=== PATIENT | male | born 1950 | race Caucasian/White ===

== ENCOUNTER 2016-05-14 20:15 | Inpatient (IN) | payer OTHER ==
[~2016-05-14] VITALS: Ht 177.8 cm; Wt 75.0 kg
[~2016-05-14 20:15] MED LIST: ACID1TAB14 GTB; AMIO200T46 PO; BISA10SU58 PR; CAPT12.52 GTB; DIGO125T GTB; FURO40TA4 GTB; LEVE500S9 PO; LORA1TAB GTB; MAGN400O4 PO; MULT9LIQ4 G-TUBE; OMEP40CA6 GTB; UDCOL GTB; ZINC220C5 GTB
[2016-05-14] MEDS ORDERED: CEFEPIME 2GM/50 ML (PMX) 50 ML IVPB STA (20:45)
[2016-05-14] MEDS ORDERED: LEVOFLOXACIN 750MG/D5W (PMX) 150 ML IVPB STA (20:45)
[2016-05-14] MEDS ORDERED: VANCOMYCIN 1 GM (PMX) 250 ML IVPB STA (20:45)
[2016-05-14] MEDS ORDERED: SODIUM CHLORIDE 0.9% 1L BAG IV* STA (20:45)
--- NOTE | 2016-05-14 20:57 | ERA ---
ER Documentation Chief Complaint Date/Time DATE: 05/14/16 TIME: 20:53 Chief Complaint HPI History is obtained entirely from transferring paramedics and review of previous medical records as well as skilled nurse facility records. 66-year-old female with anoxic brain injury, quadriplegia, seizure disorder, persistent vegetative state, vent dependent respiratory failure, hypertension, hyperlipidemia, atrial fibrillation, anemia, history of sepsis, congestive heart failure with ejection fraction 20% diagnosed with with right lower lobe pneumonia 05/06/16 has been on imipenem sent to the ED from [facility] for evaluation of fever of 101. Patient treated with Tylenol referred to the ED for further evaluation. No other history is available. ROS All systems reviewed and are negative except as per history of present illness. Medications Home Meds Reported Medications Amino Acids/Protein Hydrolys (PRO-STAT LIQUID) 30 Ml Liquid.pkt, 30 ML GTB BID 05/14/16 Multivit &Minerals/Ferrous Fum (MULTIVITAMIN LIQUID) 9 Mg/15 Ml Liquid, 9 MG GTB DAILY 05/14/16 Amiodarone Hcl* (Amiodarone Hcl*) 200 Mg Tablet, 200 MG GTB BID, #60 TAB HOLD IF HR<60 05/14/16 Lorazepam* (Ativan*) 0.5 Mg Tablet, 0.5 MG GTB Q4 Y for PRN, #60 TAB 05/14/16 Acetaminophen* (Acetaminophen* Susp) 325 Mg/10.15 Ml Solution, 325 MG GTB Q4H Y for PAIN OR TEMP ABOVE 38C, ML 05/14/16 Tramadol HCl (Tramadol HCl) 50 Mg Tablet, 50 MG GTB Q12, #60 TAB 05/14/16 Zinc Sulfate* (Zinc Sulfate*) 220 Mg Tablet, 220 MG GTB DAILY, TAB 05/14/16 Rivaroxaban* (Xarelto*) 20 Mg Tablet, 20 MG GTB WITH DINNER, TAB 05/14/16 Vit C-Ascorbate Ca-Ascorb Sod (Vitamin C) 500 Mg/15 Ml Liquid, 500 MG GTB DAILY , ML 05/14/16 Omeprazole* (Omeprazole*) 20 Mg Capsule.dr, 40 MG GTB BID, #30 CAP 05/14/16 Potassium Chloride* (Potassium Chloride*) 20 Meq/15 Ml Liquid, 20 MEQ GTB BID, ML 05/14/16 Atorvastatin* (Atorvastatin*) 40 Mg Tablet, 40 MG GTB QHS, #30 TAB 05/14/16 Digoxin* (Digitek*) 125 Mcg Tablet, 0.125 MG GTB DAILY, TAB HOLD IF HR<60 05/14/16 Levetiracetam* (Keppra*) 500 Mg/5 Ml Solution, 1500 MG GTB Q12, BOTTLE 05/14/16 Aspirin* (Aspirin* Chew) 81 Mg Tab.chew, 81 MG GTB DAILY, TAB.CHEW 05/14/16 Lacosamide (Vimpat) 200 Mg Tablet, 200 MG GTB Q12H, TAB 05/14/16 Clonazepam* (Klonopin*) 1 Mg Tablet, 1 MG GTB Q8H Y for ANXIETY, TAB 05/14/16 Discontinued Reported Medications Acetaminophen* (Acetaminophen* Susp) 325 Mg/10.15 Ml Solution, 650 MG PO Q4H Y for MILD, ML 05/14/16 Omeprazole* (Omeprazole*) 40 Mg Capsule.dr, 40 MG GTB DAILY, #30 CAP 11/08/15 Furosemide* (Furosemide*) 40 Mg Tablet, 40 MG GTB DAILY, TAB HOLD SBP<110 11/08/15 Zinc Sulfate* (Zinc Sulfate*) 220 Mg Cap, 220 MG GTB BID, CAP 11/08/15 Acidophilus-Bulgaricus* (Floranex*) 1 Tab.chew Tab.chew, 1 TAB GTB DAILY, TAB.CHEW 11/08/15 Levetiracetam* (Keppra*) 500 Mg/5 Ml Solution, 1000 MG PO BID, BOTTLE 11/08/15 Magnesium Hydroxide* (Milk Of Magnesia*) 400 Mg/5 Ml Oral.susp, 30 ML PO Q24H Y for CONSTIPATION, ML 11/08/15 Amiodarone Hcl* (Cordarone*) 200 Mg Tab, 200 MG PO DAILY, #30 TAB HOLD AP <60 11/08/15 Captopril* (Captopril*) 12.5 Mg Tablet, 6.25 MG GTB BID, #90 TAB 11/08/15 Lorazepam* (Lorazepam*) 1 Mg Tablet, 1 MG GTB Q6 Y for ANXIETY, #60 TAB 09/30/15 Digoxin* (Digoxin*) 0.125 Mg Tab, 0.125 MG GTB DAILY, #30 TAB HOLD AP<60 09/30/15 Multivit &Minerals/Ferrous Fum (MULTIVITAMIN LIQUID) 9 Mg/15 Ml Liquid, 5 ML G- TUBE DAILY 07/07/15 Bisacodyl* (Dulcolax*) 10 Mg/Supp.rect Supp.rect, 10 MG OH Q72 HOURS Y for CONSTIPATION, SUPP.RECT 07/07/15 Docusate Sodium* (Colace* Liq) 50 Mg/5 Ml Liquid, 100 MG GTB QHS, EA 07/07/15 Allergies Allergies: Coded Allergies: No Known Allergy (Unverified , 05/14/16) PMhx/Soc Reviewed in chart. As per HPI. History of Surgery: Yes (Gtube; tracheostomy) Hx Neurological Disorder: Yes (anoxic encephalopathy) Hx Respiratory Disorders: Yes (Ventilator dependent; chronic respiratory failure) Hx Cardiac Disorders: Yes (atrial fib with RVR; s/p cardiac arrest; CHF) Hx Psychiatric Problems: No Hx Miscellaneous Medical Probl: Yes (seizure disorder, anemia) Hx Alcohol Use: No Hx Substance Use: No Hx Tobacco Use: No FmHx Unknown. Not relevant to presenting complaint. Physical Exam Vitals Vital Signs Date Time Temp Pulse Resp B/P Pulse Ox O2 Delivery O2 Flow Rate FiO2 05/14/16 22:11 97.7 81 18 109/75 100 Mechanical Ventilator 05/14/16 20:35 79 18 100 40 05/14/16 20:15 98.5 80 20 116/71 100 Physical Exam Const: Chronically ill-appearing in no acute distress. Head: Atraumatic Eyes: Normal Conjunctiva ENT: Normal External Ears, Nose and Mouth. Neck: Mucous membranes dry. Tracheostomy site without erythema, induration or drainage. Resp: Decreased breath sounds bilaterally especially at the bases with scattered crackles but no wheezes. Cardio: Regular rate and rhythm, no murmurs Abd: Soft, non tender, non distended. Normal bowel sounds. PEG site without erythema, induration or drainage. Skin: No petechiae or rashes Back: No midline or flank tenderness Ext: No cyanosis, or edema. Contracted Neur: Awake, eyes open but nonverbal and unresponsive. Physical examination is truncated due to the constraints imposed by the patient' s clinical condition and cognitive impairment Result Diagram: 05/15/16 0550 05/15/16 0550 Results 24 hrs Laboratory Tests Test 05/14/16 21:00 05/14/16 21:48 Activated Partial Thromboplast Time 38.4Sec Alanine Aminotransferase (ALT/SGPT) 28IU/L Albumin 3.6g/dl Albumin/Globulin Ratio 0.78 Alkaline Phosphatase 156IU/L Anion Gap 18 Aspartate Amino Transf (AST/SGOT) 28IU/L Basophils # 0.010^3/ul Basophils % 0.3% Blood Morphology Comment Blood Urea Nitrogen 22mg/dl Calcium Level 8.9mg/dl Carbon Dioxide Level 27mmol/L Chloride Level 102mmol/L Creatinine 0.31mg/dl Digoxin Level 1.0ng/ml Direct Bilirubin 0.00mg/dl Eosinophils # 0.110^3/ul Eosinophils % 1.0% Globulin 4.60g/dl Glucose Level 113mg/dl Hematocrit 34.1% Hemoglobin 11.0g/dl INR International Normalized Ratio 1.83 Indirect Bilirubin 1.0mg/dl Lactic Acid Level 1.6mmol/L Lymphocytes # 0.810^3/ul Lymphocytes % 9.2% Mean Corpuscular Hemoglobin 26.8pg Mean Corpuscular Hemoglobin Concent 32.1g/dl Mean Corpuscular Volume 83.3fl Mean Platelet Volume 7.5fl Monocytes # 0.610^3/ul Monocytes % 6.5% Neutrophils # 7.310^3/ul Neutrophils % 83.0% Nucleated Red Blood Cells # 0.010^3/ul Nucleated Red Blood Cells % 0.0/100WBC Platelet Count 81387^3/UL Potassium Level 3.9mmol/L Prothrombin Time 21.3Sec Prothrombin Time Ratio 1.7 Red Blood Count 4.1010^6/ul Red Cell Distribution Width 20.2% Sodium Level 143mmol/L Total Bilirubin 1.0mg/dl Total Protein 8.2g/dl Troponin I 0.110ng/ml White Blood Count 8.910^3/ul Arterial Blood HCO3 27.5mmol/L Arterial Blood Base Excess 4.2mmol/L Arterial Blood Oxygen Saturation 99.1mmHG Shiva Test ACCEPTAB Arterial Blood Gas Puncture Site Right Radial Arterial Blood Carboxyhemoglobin 0.2% Arterial Blood Date Drawn 05/14/2016 10:45:44 PM Arterial Blood Methemoglobin 0.3% Arterial Blood pCO2 (Temp correct) 36.2mmhg Arterial Blood pH (Temp corrected) 7.498 Arterial Blood pO2 (Temp corrected) 166.3mmHG Blood Gas A-a O2 Differential 77.3mmHg Blood Gas Actual Respiration Rate 19 Blood Gas Inspiratory Pressure 22.0 Blood Gas Low PEEP Setting 5.0cmH2O Blood Gas Modality VENT - AC Blood Gas Notified Time 05/14/2016 10:57:20 PM Blood Gas Notified Whom AA Blood Gas Respiration Rate 18.0 Blood Gas Specimen Source Blood arterial Blood Gas Temperature 37.0C Blood Gas Tidal Volume 550.0mL FiO2 40.0% Oxyhemoglobin Percent 98.6% Total Hemoglobin 11.4g/dl Urine Bacteria FEW Urine Bilirubin NEGATIVE Urine Clarity CLEAR Urine Color DK. YELLOW Urine Glucose NEGATIVE% Urine Hemoglobin TRACE Urine Ketones NEGATIVE Urine Leukocyte Esterase TRACE Urine Microscopic RBC 0-2/HPF Urine Microscopic WBC 5-10/HPF Urine Nitrite NEGATIVE Urine Specific [place] 1.015 Urine Squamous Epithelial Cells RARE Urine Total Protein 2+ Urine Urobilinogen 4.0 E.U./dL Urine Yeast FEW Urine pH 8.5 Current Medications Medications (Trade) Dose Ordered Sig/Alvarado Route PRN Reason Start Time Stop Time Status Last Admin Dose Admin Sodium Chloride 2170 ml 2,170 ml BOLUS OVER 2 HOURS STAT IV* 05/14/16 20:45 05/14/16 20:50 DC Vancomycin HCl 250 ml @ 125 mls/hr ONCE STAT IVPB 05/14/16 20:45 05/14/16 22:44 DC 05/14/16 23:15 Cefepime HCl 50 ml @ 100 mls/hr ONCE STAT IVPB 05/14/16 20:45 05/14/16 21:14 DC 05/14/16 21:11 Levofloxacin/ Dextrose (Levaquin 750 Mg/ D5W 150 ml (Pmx)) 150 ml @ 100 mls/hr ONCE STAT IVPB 05/14/16 20:45 05/14/16 22:14 DC 05/14/16 21:39 RHYTHM STRIP INTERPRETATION: Time: 20: 50. Sinus rhythm. Ventricular rate 80 , no ectopy. Indication: Sepsis. EKG: TIME: 20: 36. Sinus rhythm. Ventricular rate 79. OH interval 214 ms, first-degree AV block. Left Cecil deviation and left bundle branch block. No acute ST-T wave changes. No ectopy. EP Interpretation: Abnormal EKG. IMAGING: PROCEDURE: XR Chest. CLINICAL INDICATION: Possible sepsis. TECHNIQUE: Single frontal view of the chest was obtained COMPARISON: 11/13/2015. FINDINGS: Cardiomegaly again seen. Tracheostomy tube at mid lung again seen. Improved aeration in bilateral lung bases, with mild patchy right lung base air space disease. There is likely a degree of pulmonary vascular congestion para Nevertheless there is persistent left pleural fluid with left retrocardiac atelectasis versus airspace disease. In setting of sepsis findings may represent left lower lobe pneumonia. There is no pleural effusion or pneumothorax. IMPRESSION: 1. Degree of pulmonary vascular ingestion and otherwise improved aeration bilateral lungs. 2. Persistent left pleural effusion, although decreased; and left retrocardiac airspace disease. 3. In setting of possible sepsis findings may represent left lower lobe pneumonia. 4. CT examination of the chest may be of further use. RPTAT: UU Physician Stephanie Date Time Electronically viewed and signed by Physician Stephanie on 05/14/2016 21:48 RS/ Procedures/MDM DOCUMENTS REVIEWED: ED nurse, prior ED, prior records, [facility]pc facility records MEDICAL DECISION MAKIN-year-old female with anoxic brain injury, quadriplegia, seizure disorder, persistent vegetative state, vent dependent respiratory failure, hypertension, hyperlipidemia, atrial fibrillation, anemia, history of sepsis, congestive heart failure with ejection fraction 20% diagnosed with with right lower lobe pneumonia 05/06/16 has been on imipenem sent to the ED from [facility] for evaluation of fever of 101. No criteria for systemic inflammatory response syndrome or sepsis. Chest x-ray reveals left pleural effusion and possible left lower lobe pneumonia. Antibiotics were healthcare acquired pneumonia double cover Pseudomonas given. Patient be admitted to telemetry for further evaluation and management. CALLS/CONSULTS: Time 22:30, Dr. Napier, Recommends admission to telemetry. PATIENT CARE TRANSITIONED: Time: 22:35, Dr. Napier. Departure Diagnosis: Primary Impression: Fever Qualified Code: R50.9 - Fever, unspecified fever cause Additional Impressions: Pneumonia Qualified Code: J18.9 - Pneumonia of left lower lobe due to infectious organism Chronic respiratory failure Qualified Code: J96.10 - Chronic respiratory failure, unspecified whether with hypoxia or hypercapnia Persist vegetative state Functional quadriplegia Seizure disorder Condition: Serious EDMAR KIMBLE MD May 14, 2016 20:57
[2016-05-14] MEDS ORDERED: CLON-412 GTB (21:10)
[2016-05-14] MEDS ORDERED: LACO200T2 GTB (21:11)
[2016-05-14] MEDS ORDERED: ASPI81TA3 GTB (21:12)
[2016-05-14] MEDS ORDERED: LEVE500S9 GTB (21:15)
[2016-05-14] MEDS ORDERED: DIGO125T GTB (21:16)
[2016-05-14] MEDS ORDERED: ATOR40TA68 GTB (21:17)
[2016-05-14] MEDS ORDERED: POTA20LI5 GTB (21:19)
[2016-05-14] MEDS ORDERED: OMEP20CA16 GTB (21:20)
[2016-05-14] MEDS ORDERED: RIVA20TA GTB (21:24)
[2016-05-14] MEDS ORDERED: VIT500LI GTB (21:24)
[2016-05-14] MEDS ORDERED: ZINC220T GTB (21:25)
[2016-05-14 21:26] LABS: BASOPHILS % 0.3 % (0.0-2.0); EOSINOPHILS # 0.1 10^3/ul (0.0-0.5); HEMATOCRIT 34.1 % (42.0-52.0); LYMPHOCYTES # 0.8 10^3/ul (0.8-2.9); LYMPHOCYTES % 9.2 % (15.0-51.0); MEAN CORPUSCULAR HEMOGLOBIN 26.8 pg (29.0-33.0); MEAN CORPUSCULAR HGB CONC 32.1 g/dl (32.0-37.0); MEAN CORPUSCULAR VOLUME 83.3 fl (82.0-101.0); MEAN PLATELET VOLUME 7.5 fl (7.4-10.4); MONOCYTE # 0.6 10^3/ul (0.3-0.9); MONOCYTES % 6.5 % (0.0-11.0); NEUTROPHIL # 7.3 10^3/ul (1.6-7.5); PLATELET COUNT 388 10^3/UL (140-440); RED CELL DISTRIBUTION WIDTH 20.2 % (11.5-14.5); UNCORRECTED WBC 8.9 10^3/ul (4.8-10.8); WHITE BLOOD COUNT 8.9 10^3/ul (4.8-10.8)
[2016-05-14] MEDS ORDERED: TRAM50TA2 GTB (21:26)
[2016-05-14 21:28] LABS: CONDITION 1; LH ANALYZER COMMENTS 1
[2016-05-14 21:31] LABS: ALBUMIN 3.6 g/dl (3.3-4.9)
[2016-05-14 21:32] LABS: POTASSIUM 3.9 mmol/L (3.5-5.1)
[2016-05-14] MEDS ORDERED: ACET325S PO (21:32)
[2016-05-14] MEDS ORDERED: ACET325S GTB (21:32)
[2016-05-14 21:33] LABS: INR 1.83; PARTIAL THROMBOPLASTIN TIME 38.4 Sec (25.0-35.0); PROTIME 21.3 Sec (12.2-14.2); PT RATIO 1.7
[2016-05-14 21:34] LABS: ALBUMIN/GLOBULIN RATIO 0.78; CREATININE 0.31 mg/dl (0.61-1.24); TOTAL PROTEIN 8.2 g/dl (6.1-8.1)
[2016-05-14] MEDS ORDERED: LORA-441 GTB (21:34)
[2016-05-14 21:35] LABS: CALCIUM 8.9 mg/dl (8.4-10.2)
[2016-05-14 21:46] LABS: TROPONIN-I 0.11 ng/ml (0.00-0.12)
[2016-05-14] MEDS ORDERED: AMIO200T2 GTB (21:47)
[2016-05-14] MEDS ORDERED: MULT9LIQ4 GTB (21:48)
--- NOTE | 2016-05-14 21:48 | RADRPT ---
PROCEDURE: XR Chest. CLINICAL INDICATION: Possible sepsis. TECHNIQUE: Single frontal view of the chest was obtained COMPARISON: 11/13/2015. FINDINGS: Cardiomegaly again seen. Tracheostomy tube at mid lung again seen. Improved aeration in bilateral lung bases, with mild patchy right lung base air space disease. Ther e is likely a degree of pulmonary vascular congestion para Nevertheless there is persistent left pl eural fluid with left retrocardiac atelectasis versus airspace disease. In setting of sepsis findin gs may represent left lower lobe pneumonia. There is no pleural effusion or pneumothorax. IMPRESSION: 1. Degree of pulmonary vascular ingestion and otherwise improved aeration bilateral lungs. 2. Persistent left pleural effusion, although decreased; and left retrocardiac airspace disease. 3. In setting of possible sepsis findings may represent left lower lobe pneumonia. 4. CT examination of the chest may be of further use. RPTAT: UU Physician Stephanie Date Time Electronically viewed and signed by Physician Stephanie on 05/14/2016 21:48 RS/
[2016-05-14] MEDS ORDERED: AMIN30LI GTB (21:49)
[2016-05-14 21:55] LABS: ADD UMIC YES; URINE BILIRUBIN (Dip) NEGATIVE (NEGATIVE); URINE BLOOD (Dip) TRACE (NEGATIVE); URINE COLOR DK. YELLOW (YELLOW); URINE GLUCOSE (Dip) NEGATIVE (NEGATIVE); URINE KETONES (Dip) NEGATIVE (NEGATIVE); URINE LEUKOCYTE ESTERASE (Dip) TRACE (NEGATIVE); URINE NITRITE (Dip) NEGATIVE (NEGATIVE); URINE TOTAL PROTEIN (Dip) 2+ (NEGATIVE); URINE UROBILINOGEN (Dip) 4.0 E.U./dL (0.1-1.0)
[2016-05-14 22:07] LABS: BACTERIA,URINE FEW; SQUAMOUS EPITHELIAL CELL,UR RARE; URINE RBCS 0-2 /HPF (0)
[2016-05-14 22:57] LABS: AADO2 Arterial 77.3 mmHg (7.0-24.0); Allen Test ACCEPTAB; Arterial Base Excess 4.2 mmol/L (-3.0-3); Arterial COHb 0.2 % (0.0-3.0); Arterial Fraction of Oxyhgb 98.6 % (93.0-99.0); Arterial HCO3 27.5 mmol/L (22.0-26.0); Arterial MetHb 0.3 % (0.0-1.5); Arterial Total Hemglobin 11.4 g/dl (12.0-18.0); MODE VENT - AC
[2016-05-14] MEDS ORDERED: ONDANSETRON 4 MG INJ IV PRN (23:00)
[2016-05-14] MEDS ORDERED: ACETAMINOPHEN 325 MG TAB PO PRN (23:00)
[2016-05-15] VITALS (24 sets, daily range): BP systolic 116–129; BP diastolic 76–90; PULSE 73–94; RESP 20–32; TEMP 97.3; Ht 177.8 cm; Wt 75.0 kg
[2016-05-15] MEDS ORDERED: SOD CHLORIDE 0.9% 1,000 ML IV SCH (02:26)
[2016-05-15] MEDS ORDERED: DOCUSATE SODIUM 100 MG CAP PO PRN (02:30)
[2016-05-15] MEDS ORDERED: VANCOMYCIN IV PER PHARMACY XX SCH (02:30)
[2016-05-15] MEDS ORDERED: LORAZEPAM 0.5 MG TAB GTB PRN (02:30)
[2016-05-15] MEDS ORDERED: BISACODYL 10 MG SUPP PR PRN (02:30)
[2016-05-15] MEDS ORDERED: NACL 0.9% 3 ML SYG IV SCH (02:30)
[2016-05-15] MEDS ORDERED: ONDANSETRON 4 MG INJ IV PRN (02:30)
[2016-05-15] MEDS ORDERED: MAGNESIUM HYDROXIDE 30ML CUP PO PRN (02:30)
[2016-05-15] MEDS ORDERED: DOCUSATE SODIUM 10 MG/ML (10ML CUP) GTB PRN (02:41)
[2016-05-15] MEDS ORDERED: LACOSAMIDE (100 MG/10 ML PO SYR) GTB SCH (02:45)
[2016-05-15] MEDS: LANSOPRAZOLE 30 MG CAP GTB SCH ×2 (06:01→18:34)
[2016-05-15 06:46] LABS: BASOPHILS % 0.7 % (0.0-2.0); EOSINOPHILS # 0.2 10^3/ul (0.0-0.5); EOSINOPHILS % 2.7 % (0.0-7.0); HEMATOCRIT 31.6 % (42.0-52.0); HEMOGLOBIN 10.3 g/dl (14.0-18.0); LYMPHOCYTES # 0.5 10^3/ul (0.8-2.9); LYMPHOCYTES % 7.7 % (15.0-51.0); MEAN CORPUSCULAR HEMOGLOBIN 27.1 pg (29.0-33.0); MEAN CORPUSCULAR HGB CONC 32.4 g/dl (32.0-37.0); MEAN CORPUSCULAR VOLUME 83.4 fl (82.0-101.0); MEAN PLATELET VOLUME 7.7 fl (7.4-10.4); MONOCYTE # 0.5 10^3/ul (0.3-0.9); MONOCYTES % 7.3 % (0.0-11.0); NEUTROPHIL # 5.6 10^3/ul (1.6-7.5); NEUTROPHILS % 81.6 % (39.0-77.0); PLATELET COUNT 359 10^3/UL (140-440); RED BLOOD COUNT 3.79 10^6/ul (4.70-6.10); RED CELL DISTRIBUTION WIDTH 20.8 % (11.5-14.5); UNCORRECTED WBC 6.9 10^3/ul (4.8-10.8); WHITE BLOOD COUNT 6.9 10^3/ul (4.8-10.8)
[2016-05-15 06:52] LABS: CONDITION 1; LH ANALYZER COMMENTS 1
[2016-05-15 06:55] LABS: INR 1.67; PARTIAL THROMBOPLASTIN TIME 37.7 Sec (25.0-35.0); PROTIME 19.8 Sec (12.2-14.2); PT RATIO 1.5
[2016-05-15 06:57] LABS: POTASSIUM 3.7 mmol/L (3.5-5.1)
[2016-05-15 07:00] LABS: CREATININE 0.34 mg/dl (0.61-1.24); PHOSPHORUS 4.4 mg/dl (2.5-4.9)
[2016-05-15 07:01] LABS: CALCIUM 8.8 mg/dl (8.4-10.2); MAGNESIUM 1.8 mg/dl (1.7-2.5)
[2016-05-15] MEDS: LACOSAMIDE (100 MG/10 ML PO SYR) GTB SCH ×2 (08:40→21:25)
[2016-05-15] MEDS: MULTIVITAMINS 5 ML CUP GTB SCH (08:41)
[2016-05-15] MEDS: CEFEPIME 2GM/50 ML (PMX) 50 ML IVPB SCH ×2 (08:41→21:26)
[2016-05-15] MEDS: ASPIRIN 81 MG TAB GTB SCH (08:42)
[2016-05-15] MEDS: ARTIFICIAL TEARS 15 ML OPH BOTH EYES SCH ×3 (08:42→21:22)
[2016-05-15] MEDS: LEVETIRACETAM (100 MG/ML) 5ML CUP GTB SCH ×2 (08:42→21:24)
[2016-05-15] MEDS: ASCORBIC ACID 500 MG TAB GTB SCH (08:43)
[2016-05-15] MEDS: AMIODARONE 200 MG TAB GTB SCH ×2 (08:43→21:23)
[2016-05-15] MEDS: ZINC SULFATE 220 MG CAP GTB SCH (08:43)
[2016-05-15] MEDS: traMADol 50 MG TAB GTB SCH ×2 (08:43→09:28)
[2016-05-15] MEDS ORDERED: NON-FORMULARY/PATIENT OWN MED (Amino Acids/Protein Hydrolys (Pro-Stat Liquid) 30 ML) GTB SCH (09:00)
[2016-05-15] MEDS: VANCOMYCIN 1 GM in NS 250 ML IVPB SCH ×2 (10:31→21:26)
--- NOTE | 2016-05-15 12:12 | RADRPT ---
PROCEDURE: CT Chest without contrast. CLINICAL INDICATION: Shortness of breath. Left lung consolidation. TECHNIQUE: Helical axial sections were obtained through the chest without intravenous contrast enh ancement. Coronal and sagittal reformatted images were obtained from the axial source images. Total exam DLP is 622.33 mGy-cm. CTDIvol is 14.48 mGy. One or more of the following dose reduction mitchell hniques were used: Automated exposure control, adjustment of the mA and/or kV according to patient s ize, use of iterative reconstruction technique. COMPARISON: Chest radiograph dated 05/14/2016. FINDINGS: The tracheostomy tube is in satisfactory position. There is mild pulmonary edema. There is atelect asis at both lung bases posteriorly. Superimposed pneumonia cannot be excluded. The lungs are othe rwise clear. There is no pulmonary nodule or mass lesion. There are multiple lymph nodes in the middle mediastinum and superior mediastinum measuring between 0.3 cm 0.9 cm. Multiple bilateral supraclavicular lymph nodes are present measuring between 0.3 cm a nd 0.7 cm. There is no axillary or internal mammary lymphadenopathy on either side. The thoracic aorta is not dilated. There is calcification in the aorta consistent with atherosclero sis. The heart is enlarged. There is coronary artery calcification. There is no pericardial effusion. There are moderate bilateral pleural effusions with left larger than right. Images through the upper abdomen demonstrate a gastrojejunostomy to in satisfactory position. Galls tones are present in the gallbladder. There is no evidence of cholecystitis. There is ascites with fluid around the liver and spleen. There are degenerative changes of the spine. There is no fracture or lytic lesion. IMPRESSION: 1. Tracheostomy tube in satisfactory position. 2. Mild pulmonary edema. 3. Atelectasis at the lung bases posteriorly. 4. Multiple lymph nodes in the middle mediastinum and superior mediastinum, nonspecific. 5. Bilateral supraclavicular lymph nodes, also nonspecific. 6. Atherosclerosis. 7. Cardiomegaly and coronary artery calcification. 8. Moderate bilateral pleural effusions with left larger than right. 9. Gastrojejunostomy in satisfactory position. 10. Gallstones in the gallbladder. No evidence of cholecystitis. 11. Ascites. 12. Degenerative changes of the spine. RPTAT: QQ .Brian Merchant MD, MD Date Time Electronically viewed and signed by .Brian Merchant MD, MD on 05/15/2016 12:11 .R/
[2016-05-15] MEDS ORDERED: GLUCOSE GEL 15 GRAM TUBE PO PRN ×2 (13:30)
[2016-05-15] MEDS ORDERED: DEXTROSE 50% 50 ML SYRINGE IV PRN ×2 (13:30)
[2016-05-15] MEDS ORDERED: GLUCAGON 1 MG INJ IM PRN (13:30)
[2016-05-15] MEDS ORDERED: GLUCOSE GEL 15 GRAM TUBE BUCCAL PRN (13:30)
[2016-05-15] MEDS ORDERED: MAGNESIUM SULFATE 2 GM/50 ML 50 ML IVPB ONE (14:00)
[2016-05-15] MEDS: POTASSIUM CHLORIDE 20 MEQ POWDER FOR ORAL SOLN GTB SCH ×2 (14:11→21:24)
[2016-05-15] MEDS: DIGOXIN 0.125 MG TAB GTB SCH (14:12)
[2016-05-15] MEDS: INSULIN ASPART [NOVOLOG] 3 ML PEN SC SCH ×2 (14:30→18:43)
[2016-05-15] MEDS ORDERED: LEVALBUTEROL (HFA) 15 GM INHALER INH PRN (15:00)
--- NOTE | 2016-05-15 15:39 | HP ---
DATE OF ADMISSION: 05/14/2016 PRIMARY CARE PHYSICIAN: [facility], Dr. Crump. ADMITTING PHYSICIAN: Dr. Napier. CHIEF COMPLAINT ON ADMISSION: Fever. HISTORY OF PRESENT ILLNESS: This is an unfortunate 66-year-old male with a known persistent vegetat rafi state, quadriplegia, status post PEG and trach, ventilator dependent, paroxysmal atrial fibrilla tion, recent episode of pneumonia and sepsis. He was actually admitted at [facility] and apparently discharged approximately 2 weeks ago back to his [facility] facility at [facility] post-acute and was sent here to [facility] overnight with reported fever up to 1 01. Patient, according to the records has been on vancomycin and imipenem lately. He was sent over to the emergency department again after noting to be febrile up to 101 [facility]. Also, there is reported possible right lobar infiltrate according to [facility]. In the emergency department here, the patient was found to have a possible left lower lobe consoli dation; however, with a pleural effusion. White count is within normal. He has been afebrile here and vital signs have been stable. Blood cultures have been taken and pending. A CAT scan of the est was done this morning as recommended by radiology yesterday and there is reported lymphadenopath y but not specific infiltrate. The patient is also noted to have some effusions. He is currently s table again and afebrile on telemetry being monitored. Hopefully, discharge plan back to his [facility] on IV antibiotics, if he remains stable for the next 48 hours. All his medicatio ns have been resumed. He remained in sinus rhythm. His tube feeding also has been resumed. ALLERGIES: NO KNOWN ALLERGY. PAST MEDICAL HISTORY: Significant for: 1. Chronic respiratory failure, status post PEG and trach. 2. Recent episode of sepsis with pneumonia. Patient was at [facility]. 3. Seizure disorder. 4. Paroxysmal atrial fibrillation. 5. Status post cardiac arrest with cardiomyopathy, ejection fraction of 20%. 6. Congestive heart failure, systolic dysfunction. 7. Sacral decubitus ulcers. 8. Anoxic encephalopathy with quadriplegia and severe cognitive deficits. The patient sometimes op ens his eyes. 9. Neurogenic bladder with chronic indwelling Mc catheter. PAST SURGICAL HISTORY: 1. Status post tracheostomy tube placement. 2. Status post gastrostomy tube placement and removal and replacement. SOCIAL HISTORY: No history of smoking or alcohol use recently. The patient is residing at a [facility] in more or less a persistent vegetative state. REVIEW OF SYSTEMS: Unable to obtain. OUTPATIENT MEDICATIONS: 1. Xarelto 20 mg p.o. daily. 2. Amiodarone 200 mg b.i.d. per G-tube. 3. Atorvastatin 40 mg per G-tube daily. 4. Digoxin 0.125 mg per G-tube daily. 5. Tylenol liquid 325 mg per G-tube every 4 hours as needed. 6. Aspirin 81 mg per G-tube daily. 7. Klonopin 1 mg per G-tube every 8 hours as needed for anxiety. 8. Vimpat 200 mg per G-tube q.12h. 9. Keppra 1500 mg per G-tube q.12h. 10. Ativan 0.5 mg per G-tube q. p.r.n. anxiety or seizures. 11. Tramadol 50 mg per G-tube q.12h. 12. Potassium chloride supplements 20 mg per G-tube twice daily. 13. Zinc sulfate 220 mg per G-tube daily. 14. Omeprazole 40 mg per G-tube b.i.d. 15. Multivitamin liquid per G-tube daily. 16. Vitamin C 500 mg per G-tube daily. 17. Pro-Stat liquid 30 mL per G-tube b.i.d. 18. Patient also wants tube feeding with Glucerna 95 mL an hour for 20 hours, along with 300 mL of free water q shit and 50 mL free water pre and post-medication administration. PHYSICAL EXAMINATION: VITAL SIGNS: Temperature is 98.9, heart rate of 88, sinus rhythm, respiratory rate 20. Patient is saturating 100% on 35% FIO2 on vent. Blood pressure 124/88. GENERAL: He is awake. He is opening his eyes and seems to be attempting to track to voice but he i s quadriplegic and no further response on that. HEENT: Pupils are equally round and reactive to light. Extraocular muscles are intact. Anicteric sclerae. NECK: No JVD, no thyromegaly. HEART: Tracheostomy in place. LUNGS: Decreased breath sounds at the bases, but good air movement on the upper lobes. ABDOMEN: Soft, nontender, nondistended. He does have a gastrostomy tube in place with a jejunostom y outlet for feeding and a gastrostomy outlet to suction. Neurologically again quadriplegic, vent d ependent. EXTREMITIES: No edema, clubbing or cyanosis. Mc catheter in place. LABORATORY DATA: White blood cell count 6.9, hemoglobin 10.3, hematocrit 31.6, platelet count of 35 9. Chemistry with a sodium of 144, potassium 3.7, chloride 104, bicarbonate 27, BUN 21, creatinine 0.34, glucose of 92. Lactic acid within normal. Calcium 8.8, phosphorus 4.4, magnesium of 1.8. MICROBIOLOGY: Urine culture is no growth to date. Blood cultures are pending. EKG shows sinus rhy thm with first degree AV block on admission. No acute ST or T-wave abnormalities. RADIOLOGICAL DATA: Chest x-ray on admission yesterday did show degree of pulmonary vascular congest ion, persistent left pleural effusion although decreased and left retrocardiac airspace disease. Th ere was a suggestion to have a CAT scan of chest. A CT of the chest shows tracheostomy tube in plac e, mild pulmonary edema, atelectasis at the lung base posteriorly, multiple lymph nodes in middle me diastinum, superior mediastinum and nonspecific bilateral supraclavicular lymph nodes nonspecific, a rteriosclerosis, cardiomegaly and coronary artery disease, moderate bilateral pleural effusion, left greater than right. Gastrojejunostomy tube in satisfactory position, gallstone in the gallbladder, no signs of acute infection, ascites and degenerative changes of the spine. ASSESSMENT AND PLAN: This is a 66-year-old male with: 1. Febrile episode with a temperature up to 101. Blood cultures are pending. Urine culture is neg ative. CAT scan actually of the chest actually mostly showed mild volume overload and no signs of d iscrete infiltrates. The patient may have a tracheobronchitis. Therefore, he will be maintained on vancomycin and cefepime that he is on currently. We will observe another 24 to 48 hours. If he re elena afebrile and blood cultures are negative, he will be discharged back to his facility on IV ant ibiotics for a total treatment of 10 to 14 days. Respiratory status remained stable. Urine culture no growth to date. 2. Chronic respiratory failure, status post tracheostomy and PEG tube placement. Continue ventilat or support. Patient seems to be comfortable. Will diurese if needed and resume tube feeding today. 3. Paroxysmal atrial fibrillation. Continue outpatient regimen. He is also on Xarelto 20 mg daily for anticoagulation. 4. Coronary artery disease, ischemic cardiomyopathy, systolic dysfunction, congestive heart failure , ejection fraction of 20%. Monitor volume status closely. We will discontinue his IV fluids since there are no signs of sepsis currently. Continue free water with tube feedings. 5. Severe chronic encephalopathy mostly in the persistent vegetative state. The patient is opening his eyes and seems to be attempting to track to voice but he is quadriplegic and this is unchanged. 6. Diabetes mellitus. Continue diabetic tube feeding and sliding scale insulin. 7. Seizure disorder. Continue Keppra and Vimpat. 8. Neurogenic bladder. Mc dependent. Renal function stable. 9. Sacral decubitus ulcers. Continue wound care. 10. Chronic anemia, stable hemoglobin. Patient is on proton pump inhibitors for GI prophylaxis. 11. Prophylaxis: Prevacid for GI prophylaxis and is already on anticoagulation with Xarelto in se tting of atrial fibrillation. DISPOSITION: Follow up culture results. Monitor vitals and continue current antibiotics. Again, h opefully we can discharge the patient back to his [facility] facility in the next 24 to 48 hour s if he remains stable. Dictated By: SHELDON MART/AC Conf#: [id number] DID#: [id number]
[2016-05-15] MEDS: LEVALBUTEROL (HFA) 15 GM INHALER INH SCH ×2 (16:41→23:39)
[2016-05-15] MEDS ORDERED: RIVAROXABAN 20 MG TABLET GTB SCH (17:55)
[2016-05-15] MEDS: ATORVASTATIN 40 MG TAB GTB SCH (21:24)
[2016-05-16] VITALS (25 sets, daily range): BP systolic 115–142; BP diastolic 65–91; PULSE 65–116; RESP 20–48
[2016-05-16] MEDS: INSULIN ASPART [NOVOLOG] 3 ML PEN SC SCH ×4 (05:26→18:24)
[2016-05-16] MEDS: LANSOPRAZOLE 30 MG CAP GTB SCH ×2 (05:26→18:16)
[2016-05-16 07:19] LABS: INR 2.1; PROTIME 23.8 Sec (12.2-14.2); PT RATIO 1.9
[2016-05-16 07:20] LABS: PARTIAL THROMBOPLASTIN TIME 36.4 Sec (25.0-35.0)
[2016-05-16 07:28] LABS: BASOPHILS % 0.4 % (0.0-2.0); EOSINOPHILS # 0.1 10^3/ul (0.0-0.5); EOSINOPHILS % 0.6 % (0.0-7.0); HEMATOCRIT 36.5 % (42.0-52.0); HEMOGLOBIN 11.8 g/dl (14.0-18.0); LYMPHOCYTES # 0.9 10^3/ul (0.8-2.9); LYMPHOCYTES % 8.6 % (15.0-51.0); MEAN CORPUSCULAR HEMOGLOBIN 27.3 pg (29.0-33.0); MEAN CORPUSCULAR HGB CONC 32.3 g/dl (32.0-37.0); MEAN CORPUSCULAR VOLUME 84.6 fl (82.0-101.0); MEAN PLATELET VOLUME 7.9 fl (7.4-10.4); MONOCYTE # 0.8 10^3/ul (0.3-0.9); MONOCYTES % 7.7 % (0.0-11.0); NEUTROPHIL # 8.3 10^3/ul (1.6-7.5); NEUTROPHILS % 82.7 % (39.0-77.0); PLATELET COUNT 516 10^3/UL (140-440); RED BLOOD COUNT 4.32 10^6/ul (4.70-6.10); RED CELL DISTRIBUTION WIDTH 20.5 % (11.5-14.5); UNCORRECTED WBC 10.1 10^3/ul (4.8-10.8); WHITE BLOOD COUNT 10.1 10^3/ul (4.8-10.8)
[2016-05-16 07:38] LABS: CONDITION 1; LH ANALYZER COMMENTS 1; SUSPECT 1
[2016-05-16 07:57] LABS: POTASSIUM 4.4 mmol/L (3.5-5.1)
[2016-05-16 07:59] LABS: CREATININE 0.36 mg/dl (0.61-1.24)
[2016-05-16 08:01] LABS: CALCIUM 8.9 mg/dl (8.4-10.2); MAGNESIUM 2.1 mg/dl (1.7-2.5)
[2016-05-16] MEDS: LEVETIRACETAM (100 MG/ML) 5ML CUP GTB SCH (08:41)
[2016-05-16] MEDS: ASPIRIN 81 MG TAB GTB SCH (08:41)
[2016-05-16] MEDS: traMADol 50 MG TAB GTB SCH ×2 (08:41→20:57)
[2016-05-16] MEDS: POTASSIUM CHLORIDE 20 MEQ POWDER FOR ORAL SOLN GTB SCH ×2 (08:41→20:55)
[2016-05-16] MEDS: MULTIVITAMINS 5 ML CUP GTB SCH (08:41)
[2016-05-16] MEDS: ASCORBIC ACID 500 MG TAB GTB SCH (08:41)
[2016-05-16] MEDS: ZINC SULFATE 220 MG CAP GTB SCH (08:41)
[2016-05-16] MEDS: AMIODARONE 200 MG TAB GTB SCH ×2 (08:42→20:54)
[2016-05-16] MEDS: ARTIFICIAL TEARS 15 ML OPH BOTH EYES SCH ×3 (08:42→20:54)
[2016-05-16] MEDS: CEFEPIME 2GM/50 ML (PMX) 50 ML IVPB SCH ×2 (08:42→21:18)
[2016-05-16] MEDS: LEVALBUTEROL (HFA) 15 GM INHALER INH SCH ×2 (08:58→15:33)
[2016-05-16] MEDS: LACOSAMIDE (100 MG/10 ML PO SYR) GTB SCH ×2 (10:11→21:31)
[2016-05-16] MEDS: VANCOMYCIN 1 GM in NS 250 ML IVPB SCH ×2 (10:52→22:08)
[2016-05-16] MEDS: ACETAMINOPHEN 650MG/20.3ML CUP GTB PRN ×3 (12:25→21:18)
[2016-05-16] MEDS: DIGOXIN 0.125 MG TAB GTB SCH (12:26)
--- NOTE | 2016-05-16 12:27 | PN ---
Date/Time of Note Date/Time of Note DATE: 05/16/16 TIME: 11:25 Assessment/Plan VTE Prophylaxis VTE Prophylaxis Intervention: other (on Xarelto ) Lines/Catheters IV Catheter Type (from [facility]): Peripheral IV Urinary Cath still in place: Yes Reason Cath still needed: urinary retention (neurogenic bladder) Assessment/Plan Assessment/Plan 66-year-old male with: 1. Febrile episode with a temperature up to 101. Low grade temp today, ? Tracheobronchitis. Sputum cx ordered Blood cultures and Urine cx NGTD CAT scan actually of the chest actually mostly showed mild volume overload and no signs of discrete infiltrates. Continue Vancomycin and Cefepime for now as WBC wnl 2. Chronic respiratory failure, status post tracheostomy and PEG tube placement. Continue ventilator support. Patient seems to be comfortable. D/c IVF 3. Paroxysmal atrial fibrillation. Continue current regimen. INR up to 2.1, on Xarelto will decrease to 10 mg daily for anticoagulation. Check LFTs 4. Coronary artery disease, ischemic cardiomyopathy, systolic dysfunction, congestive heart failure, ejection fraction of 20%. Monitor volume status closely. Continue free water with tube feedings. 5. Severe chronic encephalopathy mostly in the persistent vegetative state. The patient is opening his eyes and seems to be attempting to track, and talk but he is quadriplegic and this is unchanged. 6. Diabetes mellitus. Continue diabetic tube feeding and sliding scale insulin. 7. Seizure disorder. Continue Keppra and Vimpat. 8. Neurogenic bladder. Mc dependent. Renal function stable. Urine cx NGTD 9. Sacral decubitus ulcers, Stage 2. Continue wound care. 10. Chronic anemia, stable hemoglobin. Continue PPI for GI prophylaxis. Prophylaxis: Prevacid for GI prophylaxis and is already on anticoagulation with Xarelto in setting of atrial fibrillation. DISPOSITION: Follow up sputum culture results. Monitor vitals and continue current antibiotics. Hopefully, will be able to discharge the patient back to his long-term facility in the next 24 hrs if he remains stable and becomes afebrile. Subjective 24 Hr Interval Summary Free Text/Dictation Low grade temp 100.5 now All cx NGTD , will add sputum cx today Remains hemodynamically stable Exam/Review of Systems Vital Signs Vitals Vital Signs Date Time Temp Pulse Resp B/P Pulse Ox O2 Delivery O2 Flow Rate FiO2 05/16/16 11:17 92 33 97 35 05/16/16 09:23 Venti Mask 05/16/16 08:10 99.6 128/90 Intake and Output 05/15/16 05/15/16 05/16/16 15:00 23:00 07:00 Intake Total 300 ml 500 ml Output Total 700 ml 550 ml Balance -400 ml -50 ml Exam Constitutional: non-verbal, other (encephalopathic and unchanged ) Respiratory: clear to auscultation, normal air movement Gastrointestinal: non-tender, soft Musculoskeletal: nl extremities to inspection Extremities: normal pulses, other (no edema, clubbing or cyanosis ) Results Result Diagram: 05/16/16 0530 05/16/16 0530 Results 24 hrs Laboratory Tests Test 05/15/16 15:13 05/15/16 18:43 05/15/16 23:49 05/16/16 05:00 Bedside Glucose 107 108 121 Digoxin Level 1.0 Test 05/16/16 05:24 05/16/16 05:30 05/16/16 09:25 Bedside Glucose 127 Activated Partial Thromboplast Time 36.4 H Anion Gap 21 H Basophils # 0.0 Basophils % 0.4 Blood Morphology Comment Blood Urea Nitrogen 22 H Calcium Level 8.9 Carbon Dioxide Level 23 Chloride Level 107 Creatinine 0.36 L Eosinophils # 0.1 Eosinophils % 0.6 Glucose Level 123 Hematocrit 36.5 L Hemoglobin 11.8 L INR International Normalized Ratio 2.10 Lymphocytes # 0.9 Lymphocytes % 8.6 L Magnesium Level 2.1 Mean Corpuscular Hemoglobin 27.3 L Mean Corpuscular Hemoglobin Concent 32.3 Mean Corpuscular Volume 84.6 Mean Platelet Volume 7.9 Monocytes # 0.8 Monocytes % 7.7 Neutrophils # 8.3 H Neutrophils % 82.7 H Nucleated Red Blood Cells # 0.0 Nucleated Red Blood Cells % 0.0 Platelet Count 516 #H Potassium Level 4.4 Prothrombin Time 23.8 #H Prothrombin Time Ratio 1.9 Red Blood Count 4.32 L Red Cell Distribution Width 20.5 H Sodium Level 147 H White Blood Count 10.1 # Vancomycin Level Trough 14.4 Medications Medications Current Medications Amiodarone HCl (Cordarone) 200 mg BID GTB Last administered on 05/16/16t 08:42 ; Admin Dose 200 MG; Start 05/15/16 at 09:00 Aspirin (Aspirin) 81 mg DAILY GTB Last administered on 05/16/16 08:41; Admin Dose 81 MG; Start 05/15/16 at 09:00 Atorvastatin Calcium (Lipitor) 40 mg QHS GTB Last administered on 05/15/16 21: 24; Admin Dose 40 MG; Start 05/15/16 at 21:00 Clonazepam (Klonopin) 1 mg Q8H PRN GTB ANXIETY; Start 05/15/16 at 02:30 Digoxin (Digoxin) 0.125 mg DAILY@13 GTB Last administered on 05/15/16 14:12; Admin Dose 0.125 MG; Start 05/15/16 at 13:00 Levetiracetam (Keppra Liquid) 1,500 mg Q12 GTB Last administered on 05/16/16 08:41; Admin Dose 1,500 MG; Start 05/15/16 at 09:00 Lorazepam (Ativan) 0.5 mg Q4 PRN GTB PRN; Start 05/15/16 at 02:30 Tramadol HCl (Ultram) 50 mg Q12 GTB Last administered on 05/16/16 08:41; Admin Dose 50 MG; Start 05/15/16 at 09:00 Zinc Sulfate (Zinc Sulfate) 220 mg DAILY GTB Last administered on 05/16/16 08: 41; Admin Dose 220 MG; Start 05/15/16 at 09:00 Multivitamins (Thera-Plus) 5 ml DAILY GTB Last administered on 05/16/16 08:41 ; Admin Dose 5 ML; Start 05/15/16 at 09:00 Ascorbic Acid 500 mg 500 mg DAILY GTB Last administered on 05/16/16 08:41; Admin Dose 500 MG; Start 05/15/16 at 09:00 Cefepime HCl (Maxipime 2gm/50 ml (Pmx)) 50 ml @ 100 mls/hr Q12 IVPB Last administered on 05/16/16 08:42; Admin Dose 100 MLS/HR; Start 05/15/16 at 09:00 Lansoprazole (Prevacid) 30 mg BID@06,18 GTB Last administered on 05/16/16 05: 26; Admin Dose 30 MG; Start 05/15/16 at 06:00 Ondansetron HCl (Zofran Inj) 4 mg Q6H PRN IV NAUSEA AND/OR VOMITING; Start at 02:30 Bisacodyl (Dulcolax Supp) 10 mg DAILY PRN [place] CONSTIPATION; Start 05/15/16 at 02 :30 Eye Lubricant (Artificial Tears Oph) 1 drop TID BOTH EYES Last administered on 05/16/16 08:42; Admin Dose 1 DROP; Start 05/15/16 at 09:00 Acetaminophen 650 mg 650 mg Q4H PRN GTB PAIN AND OR ELEVATED TEMP; Start at 02:30 Vancomycin HCl (Vancocin) 250 ml @ 125 mls/hr Q12H IVPB Last administered on 10:52; Admin Dose 125 MLS/HR; Start 05/15/16 at 10:00 Docusate Sodium (Colace Liquid Cup) 100 mg Q12H PRN GTB CONSTIPATION; Start at 02:41 Magnesium Hydroxide (Milk Of Mag) 30 ml DAILY PRN GTB CONSTIPATION; Start 05/15 at 02:41 Lacosamide (Vimpat Liq) 200 mg Q12 GTB Last administered on 05/16/16 10:11; Admin Dose 200 MG; Start 05/15/16 at 02:59 Insulin Aspart (Novolog Insulin Pen) NOVOLOG *MILD* ALGORITHM Q6 SC ; Start at 14:30 Miscellaneous Information 1 ea NOTE XX ; Start 05/15/16 at 13:30 Glucose (Glutose) 15 gm Q15M PRN PO DECREASED GLUCOSE; Start 05/15/16 at 13:30 Glucose (Glutose) 22.5 gm Q15M PRN PO DECREASED GLUCOSE; Start 05/15/16 at 13: 30 Dextrose (D50w Syringe) 25 ml Q15M PRN IV DECREASED GLUCOSE; Start 05/15/16 at 13:30 Dextrose (D50w Syringe) 50 ml Q15M PRN IV DECREASED GLUCOSE; Start 05/15/16 at 13:30 Glucagon (Glucagen) 1 mg Q15M PRN IM DECREASED GLUCOSE; Start 05/15/16 at 13:30 Glucose (Glutose) 15 gm Q15M PRN BUCCAL DECREASED GLUCOSE; Start 05/15/16 at 13 :30 Potassium Chloride (Potassium Chloride Pwd/Soln) 20 meq BID GTB Last administered on 05/16/16 08:41; Admin Dose 20 MEQ; Start 05/15/16 at 14:30 SHELDON VAZQUEZ May 16, 2016 11:35
[2016-05-16 13:21] LABS: ALBUMIN 3.6 g/dl (3.3-4.9)
[2016-05-16 13:24] LABS: BILIRUBIN,INDIRECT 0.9 mg/dl (0-1.1); BILIRUBIN,TOTAL 0.9 mg/dl (0.2-1.3); TOTAL PROTEIN 8.3 g/dl (6.1-8.1)
[2016-05-16] MEDS ORDERED: FUROSEMIDE 40 MG INJ IV ONE (13:30)
[2016-05-16] MEDS ORDERED: LORAZEPAM 2 MG INJ IV ONE (13:30)
--- NOTE | 2016-05-16 13:50 | RADRPT ---
PROCEDURE: Chest Radiograph. CLINICAL INDICATION: Respiratory distress. TECHNIQUE: Single frontal chest radiograph. COMPARISON: Chest radiograph 05/14/2016. CT chest 05/15/2016 FINDINGS: A tracheostomy tube remains in place. Heart size remain enlarged. Bilateral pleural effusions with adjacent atelectasis are less well appreciated on plain film than on recent CT. No confluent or lob ar infiltrate is identified. The bones are intact. IMPRESSION: 1. Bilateral pleural effusions with adjacent atelectasis are less well seen on current study on rec ent CT. Recommend correlation with CT chest 05/15/2016. 2. Cardiomegaly. RPTAT: KK .Darvin Reid MD, Date Time Electronically viewed and signed by .Darvin Reid MD, MD on 05/16/2016 13:50 .B/
--- NOTE | 2016-05-16 14:16 | QN ---
Documentation Comment Patient with episode or distress this afternoon and Rapid response was called @ 1 20 pm Patient was diaphoretic and Hypertensive with possible seizures, BG 170 On exam, his eyes lateralizing to the right, lung exam with progressively some crackles/wheezing Given Xopenex x1 and also Lasix 40 mg IV x1 and also Ativan 1 mg IV x 1 as patient seems to be seizing Changed Keppra to IV and giving an additional 1 gram IV stat EKG with patient back in A fib with LBBB and wide QRS transiently and back to SR with LBBB CXR with pulmonary congestion Cardiac enzyme, BMP, Mag and Digoxin level pending I will also have patient seen by cardiology, Dr Baker if needed For now will monitor on Tele ans transfer to ICU in further Seizure precautions and adding IV Ativan 1 mg IV q2hrs prn seizures SHELDON VAZQUEZ May 16, 2016 14:16
[2016-05-16] MEDS ORDERED: LEVETIRACETAM IV 1,000 MG in SOD CHLORIDE 0.9% 100 ML IVPB ONE (14:30)
[2016-05-16 15:25] LABS: POTASSIUM 4.7 mmol/L (3.5-5.1)
[2016-05-16 15:27] LABS: CREATININE 0.49 mg/dl (0.61-1.24)
[2016-05-16 15:28] LABS: CALCIUM 8.5 mg/dl (8.4-10.2); MAGNESIUM 2.2 mg/dl (1.7-2.5)
[2016-05-16 17:49] LABS: CK-MB 0.85 ng/ml (0.0-2.4)
[2016-05-16 17:52] LABS: TROPONIN-I 0.131 ng/ml (0.00-0.12)
[2016-05-16] MEDS ORDERED: RIVAROXABAN 10 MG TABLET PO SCH (17:55)
[2016-05-16] MEDS: ATORVASTATIN 40 MG TAB GTB SCH (20:54)
[2016-05-16] MEDS: LEVETIRACETAM IV 1,500 MG in SOD CHLORIDE 0.9% 100 ML IVPB SCH (20:59)
[2016-05-16] MEDS ORDERED: metroNIDAZOLE 500 MG/NS (PMX) 100 ML IVPB SCH (22:00)
[2016-05-17] VITALS (23 sets, daily range): BP systolic 110–144; BP diastolic 59–89; PULSE 82–109; RESP 18–34
[2016-05-17] MEDS: LORAZEPAM 2 MG INJ IV PRN (01:00)
[2016-05-17] MEDS: ACETAMINOPHEN 650MG/20.3ML CUP GTB PRN (01:06)
[2016-05-17] MEDS: metroNIDAZOLE 500 MG/NS (PMX) 100 ML IVPB SCH ×2 (01:07→09:37)
[2016-05-17] MEDS: INSULIN ASPART [NOVOLOG] 3 ML PEN SC SCH ×4 (06:00→18:14)
[2016-05-17] MEDS: LANSOPRAZOLE 30 MG CAP GTB SCH ×2 (06:01→18:06)
--- NOTE | 2016-05-17 06:21 | RADRPT ---
PROCEDURE: CT BRAIN WITHOUT CONTRAST CLINICAL INDICATION: 66-year-old male with change in mental status. TECHNIQUE: The study was performed utilizing [employer] BI VCT 64-slice CT scanner. Direct axial sections were obtained from the foramen magnum to the vertex without the use of intravenous contrast material. Sagittal and coronal reformations were obtained. Automated exposure control and iterativ e reconstruction techniques were utilized for this examination. The study was repeated multiple time s secondary to marked motion artifact. The images were viewed on a PACS workstation. CTD/vol = 178.5 mGy; Total Exam DLP = 2430.8 mGy-cm. COMPARISON: CT brain November 09, 2015. FINDINGS: There is motion artifact limiting the evaluation despite repeating the scan several times. There is moderate degree of diffuse cortical and central atrophy with compensatory ventricular enlargement. There is no evidence for mass effect or midline shift. There are confluent periventricular and shilpa p white matter areas of decreased density consistent with microangiopathic ischemic changes. There is no evidence for acute intra or extra-axial blood. Calcifications are seen within the intracranial carotid arteries bilaterally. The bony calvarium is intact. The paranasal sinuses and right mastoid air cells are without significant soft tissue. There is opacification of the left mastoid air cell s. IMPRESSION: 1. Considerable motion artifact limiting the evaluation despite repeating the scan several times. 2. Moderate diffuse atrophy. 3. Extensive microangiopathic ischemic changes. 4. Vascular calcifications. 5. Left mastoid disease. .Vahe Agrawal MD, Date Time Electronically viewed and signed by .Vahe Agrawal MD, MD on 05/17/2016 06:21 .Lesly/
[2016-05-17 06:56] LABS: BASOPHILS % 0.3 % (0.0-2.0); EOSINOPHILS % 0.1 % (0.0-7.0); HEMATOCRIT 32.3 % (42.0-52.0); HEMOGLOBIN 10.6 g/dl (14.0-18.0); LYMPHOCYTES # 0.8 10^3/ul (0.8-2.9); LYMPHOCYTES % 6.7 % (15.0-51.0); MEAN CORPUSCULAR HEMOGLOBIN 27.5 pg (29.0-33.0); MEAN CORPUSCULAR HGB CONC 32.8 g/dl (32.0-37.0); MEAN CORPUSCULAR VOLUME 83.9 fl (82.0-101.0); MEAN PLATELET VOLUME 7.9 fl (7.4-10.4); MONOCYTE # 1.1 10^3/ul (0.3-0.9); NEUTROPHIL # 10.1 10^3/ul (1.6-7.5); NEUTROPHILS % 83.9 % (39.0-77.0); PLATELET COUNT 326 10^3/UL (140-440); RED BLOOD COUNT 3.85 10^6/ul (4.70-6.10); RED CELL DISTRIBUTION WIDTH 20.8 % (11.5-14.5)
[2016-05-17 07:10] LABS: POTASSIUM 3.2 mmol/L (3.5-5.1)
[2016-05-17 07:13] LABS: CALCIUM 8.1 mg/dl (8.4-10.2); CREATININE 0.46 mg/dl (0.61-1.24)
[2016-05-17 07:16] LABS: CONDITION 1; LH ANALYZER COMMENTS 1
[2016-05-17 07:21] LABS: MAGNESIUM 2.1 mg/dl (1.7-2.5); PHOSPHORUS 3.1 mg/dl (2.5-4.9)
[2016-05-17] MEDS: LEVALBUTEROL (HFA) 15 GM INHALER INH SCH ×3 (08:50→15:40)
[2016-05-17] MEDS: AMIODARONE 200 MG TAB GTB SCH ×2 (09:04→21:44)
[2016-05-17] MEDS: MULTIVITAMINS 5 ML CUP GTB SCH (09:04)
[2016-05-17] MEDS: ASPIRIN 81 MG TAB GTB SCH (09:04)
[2016-05-17] MEDS: LEVETIRACETAM IV 1,500 MG in SOD CHLORIDE 0.9% 100 ML IVPB SCH ×2 (09:04→21:38)
[2016-05-17] MEDS: POTASSIUM CHLORIDE 20 MEQ POWDER FOR ORAL SOLN GTB SCH ×2 (09:05→21:44)
[2016-05-17] MEDS: CEFEPIME 2GM/50 ML (PMX) 50 ML IVPB SCH ×2 (09:05→22:16)
[2016-05-17] MEDS: ZINC SULFATE 220 MG CAP GTB SCH (09:05)
[2016-05-17] MEDS: ASCORBIC ACID 500 MG TAB GTB SCH (09:05)
[2016-05-17] MEDS: ARTIFICIAL TEARS 15 ML OPH BOTH EYES SCH ×3 (09:05→21:42)
[2016-05-17] MEDS: traMADol 50 MG TAB GTB SCH ×2 (09:38→21:52)
[2016-05-17] MEDS: LACOSAMIDE (100 MG/10 ML PO SYR) GTB SCH ×2 (09:39→21:44)
[2016-05-17] MEDS: COLLAGENASE 30 GM TUBE TOP SCH (10:24)
[2016-05-17] MEDS: VANCOMYCIN 1 GM in NS 250 ML IVPB SCH ×2 (11:34→22:58)
[2016-05-17] MEDS ORDERED: FLUCONAZOLE 200 MG/NS (PMX) 100 ML IVPB ONE (12:00)
[2016-05-17] MEDS ORDERED: VORICONAZOLE 200 MG/NS 100 ML IVPB SCH (12:30)
[2016-05-17 12:43] LABS: CK-MB 1.05 ng/ml (0.0-2.4); TROPONIN-I 0.254 ng/ml (0.00-0.12)
[2016-05-17] MEDS: DIGOXIN 0.125 MG TAB GTB SCH (13:15)
[2016-05-17] MEDS: MUPIROCIN 2% 22 GM OINT TOP SCH ×2 (13:15→21:44)
--- NOTE | 2016-05-17 13:31 | PN ---
Date/Time of Note Date/Time of Note DATE: 05/17/16 TIME: 13:12 Assessment/Plan VTE Prophylaxis VTE Prophylaxis Intervention: SCD's, other (on Xarelto ) Lines/Catheters IV Catheter Type (from [facility]rs[facility]): Peripheral IV (x 2) Urinary Cath still in place: Yes Reason Cath still needed: urinary retention (neurogenic bladder ) Assessment/Plan Assessment/Plan 66-year-old male with: 1. Febrile episode with a temperature up to 101, recurrent yesterday after episode of distress, seemingly seizure actually. ? Tracheobronchitis on admit. Sputum cx done, results pending Repat blood cx ordered Admission Blood cultures NGTD. Urine cx with yeast non kendra albicans CAT scan actually of the chest actually mostly showed mild volume overload and no signs of discrete infiltrates. CT head with no acute findings Continue Vancomycin and Cefepime for now, adding Voriconazole based on Urine cx as WBC wnl 2. Chronic respiratory failure, status post tracheostomy and PEG tube placement. Continue ventilator support. Patient seems to be comfortable back on his maintenance settings today. D/c IVF 3. Paroxysmal atrial fibrillation. Continue current regimen. INR up to 2.1, on Xarelto will decrease to 10 mg daily for anticoagulation. Monitor LFTs ok 4. Coronary artery disease, ischemic cardiomyopathy, systolic dysfunction, congestive heart failure, ejection fraction of 20%. Given episode of distress yesterday with diaphoresis and run of wide complex tachy vx Afib with LBBB, CE checked and slightly elevated likely due to demand ischemia, will consult Dr Baker, continue medical management Monitor volume status closely. Continue free water with tube feedings. 5. Severe chronic encephalopathy mostly in the persistent vegetative state. The patient is opening his eyes and seems to be attempting to track, and talk but he is quadriplegic and this is unchanged. 6. Diabetes mellitus. Continue diabetic tube feeding and sliding scale insulin. 7. Seizure disorder, with episode of seizure yesterday, continue Vimpat per Wilfredo and Magdiel changed to IV for now. 8. Neurogenic bladder. Mc dependent. Renal function stable. Urine cx with yeast non kendra albicans 9. Sacral decubitus ulcers, Stage 3. Healing well per wound care RNs Continue wound care. 10. Chronic anemia, stable hemoglobin. Continue PPI for GI prophylaxis. 11. Hypernatremia and hypokalemia: continue Free H2O and will resume IVF with 1/ 2 NS with K @ 60 cc/hr Monitor volume status closely, patient with CHF and getting IV abx and IV Keppra too. Prophylaxis: Prevacid for GI prophylaxis and is already on anticoagulation with Xarelto in setting of atrial fibrillation. DISPOSITION: Follow up sputum culture results. Monitor vitals and continue current antibiotics. Full Code Subjective 24 Hr Interval Summary Free Text/Dictation Patient more comfortable today, afebrile today, WBC slightly up and no seizure witnessed. MS seems to be back to baseline minimally responsive No diaphoresis and FiO2 back to 35% Exam/Review of Systems Vital Signs Vitals Vital Signs Date Time Temp Pulse Resp B/P Pulse Ox O2 Delivery O2 Flow Rate FiO2 05/17/16 12:44 109 05/17/16 11:20 18 100 35 05/17/16 11:08 98.5 126/89 05/16/16 23:26 Mechanical Ventilator Intake and Output 05/16/16 05/16/16 05/17/16 15:00 23:00 07:00 Intake Total 1175 ml 1362 ml Output Total 1500 ml 650 ml Balance -325 ml 712 ml Exam Constitutional: non-verbal, other (minimally responsive ) Respiratory: diminished breath sounds (bases bilaterally ), other (vent dependent ) Cardiovascular: nl pulses, regular rate and rhythm Gastrointestinal: non-tender, other (tube feeding ), soft Musculoskeletal: other (quadriplegic ) Extremities: normal pulses, other (mild dependent edema UE mainly ) Neurological: lethargic, other (mostly unresponsive ) Results Result Diagram: 05/17/16 0510 05/17/16 0510 Results 24 hrs Laboratory Tests Test 05/16/16 13:18 05/16/16 14:07 05/16/16 18:07 05/16/16 21:07 Bedside Glucose 177 154 143 Anion Gap 23 H Blood Urea Nitrogen 28 H Calcium Level 8.5 Carbon Dioxide Level 21 Chloride Level 110 Creatine Kinase 32 Creatine Kinase Index 2.7 Creatinine 0.49 L Creatinine Kinase MB (Mass) 0.85 Digoxin Level 1.4 Glucose Level 160 Magnesium Level 2.2 Potassium Level 4.7 Sodium Level 149 H Troponin I 0.131 *H Test 05/17/16 00:08 05/17/16 05:10 05/17/16 05:51 05/17/16 11:10 Bedside Glucose 149 154 Anion Gap 18 H Basophils # 0.0 Basophils % 0.3 Blood Morphology Comment Blood Urea Nitrogen 31 H Calcium Level 8.1 L Carbon Dioxide Level 25 Chloride Level 111 H Creatinine 0.46 L Eosinophils # 0.0 Eosinophils % 0.1 Glucose Level 150 Hematocrit 32.3 L Hemoglobin 10.6 L Lymphocytes # 0.8 Lymphocytes % 6.7 L Magnesium Level 2.1 Mean Corpuscular Hemoglobin 27.5 L Mean Corpuscular Hemoglobin Concent 32.8 Mean Corpuscular Volume 83.9 Mean Platelet Volume 7.9 Monocytes # 1.1 H Monocytes % 9.0 Neutrophils # 10.1 H Neutrophils % 83.9 H Nucleated Red Blood Cells # 0.0 Nucleated Red Blood Cells % 0.0 Phosphorus Level 3.1 Platelet Count 326 # Potassium Level 3.2 L Red Blood Count 3.85 L Red Cell Distribution Width 20.8 H Sodium Level 151 H White Blood Count 12.0 H Creatine Kinase 39 Creatine Kinase Index 2.7 Creatinine Kinase MB (Mass) 1.05 Troponin I 0.254 *H Test 05/17/16 11:47 Bedside Glucose 153 Medications Medications Current Medications Amiodarone HCl (Cordarone) 200 mg BID GTB Last administered on 05/17/16 09:04 ; Admin Dose 200 MG; Start 05/15/16 at 09:00 Aspirin (Aspirin) 81 mg DAILY GTB Last administered on 05/17/16 09:04; Admin Dose 81 MG; Start 05/15/16 at 09:00 Atorvastatin Calcium (Lipitor) 40 mg QHS GTB Last administered on 05/16/16 20: 54; Admin Dose 40 MG; Start 05/15/16 at 21:00 Clonazepam (Klonopin) 1 mg Q8H PRN GTB ANXIETY; Start 05/15/16 at 02:30 Digoxin (Digoxin) 0.125 mg DAILY@13 GTB Last administered on 05/16/16 12:26; Admin Dose 0.125 MG; Start 05/15/16 at 13:00 Tramadol HCl (Ultram) 50 mg Q12 GTB Last administered on 05/17/16 09:38; Admin Dose 50 MG; Start 05/15/16 at 09:00 Zinc Sulfate (Zinc Sulfate) 220 mg DAILY GTB Last administered on 05/17/16 09: 05; Admin Dose 220 MG; Start 05/15/16 at 09:00 Multivitamins (Thera-Plus) 5 ml DAILY GTB Last administered on 05/17/16 09:04 ; Admin Dose 5 ML; Start 05/15/16 at 09:00 Ascorbic Acid 500 mg 500 mg DAILY GTB Last administered on 05/17/16 09:05; Admin Dose 500 MG; Start 05/15/16 at 09:00 Cefepime HCl (Maxipime 2gm/50 ml (Pmx)) 50 ml @ 100 mls/hr Q12 IVPB Last administered on 05/17/16 09:05; Admin Dose 100 MLS/HR; Start 05/15/16 at 09:00 Lansoprazole (Prevacid) 30 mg BID@06,18 GTB Last administered on 05/17/16 06: 01; Admin Dose 30 MG; Start 05/15/16 at 06:00 Ondansetron HCl (Zofran Inj) 4 mg Q6H PRN IV NAUSEA AND/OR VOMITING; Start at 02:30 Bisacodyl (Dulcolax Supp) 10 mg DAILY PRN [place] CONSTIPATION; Start 05/15/16 at 02 :30 Eye Lubricant (Artificial Tears Oph) 1 drop TID BOTH EYES Last administered on 05/17/16 09:05; Admin Dose 1 DROP; Start 05/15/16 at 09:00 Acetaminophen 650 mg 650 mg Q4H PRN GTB PAIN AND OR ELEVATED TEMP Last administered on 05/17/16 01:06; Admin Dose 650 MG; Start 05/15/16 at 02:30 Vancomycin HCl (Vancocin) 250 ml @ 125 mls/hr Q12H IVPB Last administered on 11:34; Admin Dose 125 MLS/HR; Start 05/15/16 at 10:00 Docusate Sodium (Colace Liquid Cup) 100 mg Q12H PRN GTB CONSTIPATION; Start at 02:41 Magnesium Hydroxide (Milk Of Mag) 30 ml DAILY PRN GTB CONSTIPATION; Start 05/15 at 02:41 Lacosamide (Vimpat Liq) 200 mg Q12 GTB Last administered on 05/17/16 09:39; Admin Dose 200 MG; Start 05/15/16 at 02:59 Insulin Aspart (Novolog Insulin Pen) NOVOLOG *MILD* ALGORITHM Q6 SC Last administered on 05/16/16 18:24; Admin Dose 1 UNIT; Start 05/15/16 at 14:30 Miscellaneous Information 1 ea NOTE XX ; Start 05/15/16 at 13:30 Glucose (Glutose) 15 gm Q15M PRN PO DECREASED GLUCOSE; Start 05/15/16 at 13:30 Glucose (Glutose) 22.5 gm Q15M PRN PO DECREASED GLUCOSE; Start 05/15/16 at 13: 30 Dextrose (D50w Syringe) 25 ml Q15M PRN IV DECREASED GLUCOSE; Start 05/15/16 at 13:30 Dextrose (D50w Syringe) 50 ml Q15M PRN IV DECREASED GLUCOSE; Start 05/15/16 at 13:30 Glucagon (Glucagen) 1 mg Q15M PRN IM DECREASED GLUCOSE; Start 05/15/16 at 13:30 Glucose (Glutose) 15 gm Q15M PRN BUCCAL DECREASED GLUCOSE; Start 05/15/16 at 13 :30 Potassium Chloride (Potassium Chloride Pwd/Soln) 20 meq BID GTB Last administered on 05/17/16 09:05; Admin Dose 20 MEQ; Start 05/15/16 at 14:30 Lorazepam 1 mg 1 mg Q4H PRN IV SEIZURES Last administered on 05/17/16 01:00; Admin Dose 1 MG; Start 05/16/16 at 14:00 Levetiracetam/ Sodium Chloride (Keppra Iv/NS) 115 ml @ 460 mls/hr Q12 IVPB Last administered on 05/17/16 09:04; Admin Dose 460 MLS/HR; Start 05/16/16 at 21:00 Collagenase (Santyl) 1 applic DAILY TOP Last administered on 05/17/16 10:24; Admin Dose 1 APPLIC; Start 05/17/16 at 09:00 Mupirocin 1 applic 1 applic BID TOP ; Start 05/17/16 at 12:30; Stop 05/30/16 at 21:01 Voriconazole (Vfend 200mg/NS) 100 ml @ 50 mls/hr Q12 IVPB ; Start 05/17/16 at 12:30 SHELDON VAZQUEZ May 17, 2016 13:22
[2016-05-17] MEDS ORDERED: ASPIRIN (EC) 81 MG TAB PO SCH (14:00)
[2016-05-17] MEDS: VORICONAZOLE 200 MG TAB GTB SCH ×2 (14:22→22:58)
[2016-05-17] MEDS: POTASSIUM CHLORIDE 40 MEQ in SOD CHLORIDE 0.45% 1,000 ML IV SCH (15:32)
--- NOTE | 2016-05-17 15:57 | CONS ---
DATE OF ADMISSION: 05/14/2016 DATE OF CONSULTATION: 05/17/2016 TYPE OF CONSULTATION: Cardiology. REASON FOR CONSULTATION: Abnormal troponin, atrial fibrillation. CHIEF COMPLAINT: Respiratory failure, fever. HISTORY OF PRESENT ILLNESS: Thank you for this referral. History obtained from extensive review of the old chart, discussion with Dr. Napier, review of the chart, discussion with the staff. The patie cullen himself is not able to provide any history to me. This is an unfortunate 66-year-old ge ntleman with multiple complicated medical history, severe ischemic cardiomyopathy, ejection fraction of 20%, left bundle branch. He has chronic respiratory failure, status post tracheostomy, on the v ent and the patient did state he has been in and out of multiple hospitals. The patient was admitte d to our facility at this time because of a fever of 101. Patient has an unremarkable history to me . His troponin was checked which was mildly elevated for which I was kindly asked to evaluate. He also had episodes of atrial fibrillation with rapid ventricular response. Since then, he has conver jania back to sinus rhythm, sinus tachycardia. The patient is not able to provide any history to me. No reported chest pain or pressure. However, the patient again has been nonverbal. PAST MEDICAL HISTORY: 1. History of severe ischemic cardiomyopathy, ejection fraction of 20% as of echo about 6 months ag o, history of abnormal EKG with left bundle branch block. 2. Paroxysmal atrial fibrillation. 3. History of multiple infections and pneumonia. 4. History of cardiopulmonary arrest. 5. Congestive heart failure. 6. Multiple decubitus ulcers, history of anoxic brain injury with quadriplegia with significant cog nitive deficit. The patient has neurogenic bladder. SURGICAL HISTORY: Tracheostomy and PEG placement, history of PCI in the past. SOCIAL HISTORY: The patient with no active tobacco or drug use in [facility] when he is not in [facility]. MEDICATIONS: As per medical reconciliation sheet, was personally reviewed. REVIEW OF SYSTEMS: Unable to obtain except for above-mentioned. PHYSICAL EXAMINATION: VITAL SIGNS: Temperature 98.4, heart rate of 103. T-max has been 103, respiratory rate of 30, satu rating 100% on the vent. Blood pressure 119/77. HEENT: Normocephalic, atraumatic. Status post tracheostomy on the vent. Eyes are closed. NECK: Trached. CARDIOVASCULAR: Regular rate and rhythm, systolic murmur. PULMONARY: With mild rhonchi, diffuse bilaterally. GASTROINTESTINAL: Soft, nontender. EXTREMITIES: Positive for lower extremity edema. NEUROLOGIC: Close his eyes, does not answer or follow any commands. LABORATORY: WBC of 12, hemoglobin 10.6, platelets 326. Sodium 151, potassium 3.2, BUN of 31, creat inine 0.846, glucose 150. Troponin has been 0.11, 0.13 0.254. CK has been 32 and 39 only. MB frac tion of 0.85 and 1. EKG showed atrial fibrillation with left bundle branch block. Another EKG show s normal sinus rhythm, sinus tachycardia with left bundle branch block. Blood cultures negative x2. ASSESSMENT AND PLAN: 1. Mildly abnormal troponin consistent with false positive troponin given the fact no intervention is CK noted, probably related to sepsis. 2. Paroxysmal atrial fibrillation with rapid ventricular response. 3. History of coronary artery disease. 4. History of myocardial infarction. 5. History of percutaneous coronary intervention. 6. History of severe ischemic cardiomyopathy. 7. History of congestive heart failure and hypoxemic respiratory failure chronic, status post trach eostomy on the vent, vent dependent. 8. Anoxic brain injury. 9. Electrolyte abnormalities, hypokalemia. 10. Anemia. 11. Sepsis and pneumonia. RECOMMENDATIONS: I will increase the Xarelto dose to therapeutic dose of 15 as long as okay with Dr Jewels Napier. I will continue with conservative medical therapy only at this point. Amiodarone will be c ontinued to keep the patient in sinus rhythm as much as possible. I will add the low dose of PRAKASH in hibitor to his regimen as long as he can tolerate it as well. Electrolytes: Potassium to be replac ed as well as needed. Conservative medical therapy will be continued as well. Dictated By: ABRAHAM WINKLER/AC Conf#: [id number] DID#: [id number]
[2016-05-17 17:42] LABS: CK-MB 0.79 ng/ml (0.0-2.4)
[2016-05-17 17:45] LABS: TROPONIN-I 0.279 ng/ml (0.00-0.12)
[2016-05-17] MEDS: RIVAROXABAN 15 MG TABLET PO SCH (18:06)
[2016-05-17] MEDS: ATORVASTATIN 40 MG TAB GTB SCH (21:44)
[2016-05-18] VITALS (26 sets, daily range): BP systolic 101–130; BP diastolic 70–89; PULSE 56–110; RESP 19–33
[2016-05-18] MEDS: LEVALBUTEROL (HFA) 15 GM INHALER INH SCH ×3 (00:33→17:14)
[2016-05-18] MEDS: LANSOPRAZOLE 30 MG CAP GTB SCH ×2 (05:18→18:37)
[2016-05-18] MEDS: INSULIN ASPART [NOVOLOG] 3 ML PEN SC SCH ×4 (05:19→18:38)
[2016-05-18] MEDS: POTASSIUM CHLORIDE 40 MEQ in SOD CHLORIDE 0.45% 1,000 ML IV SCH ×2 (06:30→10:20)
[2016-05-18 07:10] LABS: POTASSIUM 4.1 mmol/L (3.5-5.1)
[2016-05-18 07:13] LABS: CREATININE 0.49 mg/dl (0.61-1.24)
[2016-05-18 07:17] LABS: MAGNESIUM 2.3 mg/dl (1.7-2.5); PHOSPHORUS 2.4 mg/dl (2.5-4.9)
[2016-05-18 07:22] LABS: BASOPHILS % 0.2 % (0.0-2.0); HEMATOCRIT 35.2 % (42.0-52.0); HEMOGLOBIN 11.6 g/dl (14.0-18.0); LYMPHOCYTES # 0.9 10^3/ul (0.8-2.9); LYMPHOCYTES % 4.6 % (15.0-51.0); MEAN CORPUSCULAR HEMOGLOBIN 27.4 pg (29.0-33.0); MEAN CORPUSCULAR HGB CONC 32.9 g/dl (32.0-37.0); MEAN CORPUSCULAR VOLUME 83.3 fl (82.0-101.0); MEAN PLATELET VOLUME 8.4 fl (7.4-10.4); MONOCYTE # 1.4 10^3/ul (0.3-0.9); MONOCYTES % 7.4 % (0.0-11.0); NEUTROPHIL # 16.3 10^3/ul (1.6-7.5); NEUTROPHILS % 87.8 % (39.0-77.0); PLATELET COUNT 362 10^3/UL (140-440); RED BLOOD COUNT 4.23 10^6/ul (4.70-6.10); RED CELL DISTRIBUTION WIDTH 21.5 % (11.5-14.5); UNCORRECTED WBC 18.6 10^3/ul (4.8-10.8); WHITE BLOOD COUNT 18.6 10^3/ul (4.8-10.8)
[2016-05-18 07:24] LABS: CONDITION 1; LH ANALYZER COMMENTS 1
[2016-05-18] MEDS ORDERED: FLUCONAZOLE 100 MG TAB GTB SCH (09:00)
[2016-05-18] MEDS: CEFEPIME 2GM/50 ML (PMX) 50 ML IVPB SCH ×2 (10:06→21:34)
[2016-05-18] MEDS: LISINOPRIL 5 MG TAB GTB SCH (10:09)
[2016-05-18] MEDS: POTASSIUM CHLORIDE 20 MEQ POWDER FOR ORAL SOLN GTB SCH ×2 (10:09→21:31)
[2016-05-18] MEDS: ASCORBIC ACID 500 MG TAB GTB SCH (10:10)
[2016-05-18] MEDS: VORICONAZOLE 200 MG TAB GTB SCH ×2 (10:10→21:31)
[2016-05-18] MEDS: ZINC SULFATE 220 MG CAP GTB SCH (10:10)
[2016-05-18] MEDS: traMADol 50 MG TAB GTB SCH ×2 (10:10→21:32)
[2016-05-18] MEDS: AMIODARONE 200 MG TAB GTB SCH ×2 (10:11→21:32)
[2016-05-18] MEDS: ASPIRIN 81 MG TAB GTB SCH (10:11)
[2016-05-18] MEDS: ARTIFICIAL TEARS 15 ML OPH BOTH EYES SCH ×3 (10:11→21:33)
[2016-05-18] MEDS: MUPIROCIN 2% 22 GM OINT TOP SCH ×2 (10:12→21:33)
[2016-05-18] MEDS: COLLAGENASE 30 GM TUBE TOP SCH (10:12)
[2016-05-18] MEDS: MULTIVITAMINS 5 ML CUP GTB SCH (10:13)
[2016-05-18] MEDS: LEVETIRACETAM IV 1,500 MG in SOD CHLORIDE 0.9% 100 ML IVPB SCH ×2 (10:43→21:34)
[2016-05-18] MEDS: VANCOMYCIN 1 GM in NS 250 ML IVPB SCH (11:14)
[2016-05-18] MEDS: LACOSAMIDE (100 MG/10 ML PO SYR) GTB SCH ×2 (11:14→22:54)
--- NOTE | 2016-05-18 12:01 | PN ---
Date/Time of Note Date/Time of Note DATE: 05/18/16 TIME: 11:55 Assessment/Plan VTE Prophylaxis VTE Prophylaxis Intervention: other Lines/Catheters IV Catheter Type (from Nrsg): Saline Lock Central line still needed: Yes Urinary Cath still in place: Yes Reason Cath still needed: other (indicate) (bed bound/ALOC) Assessment/Plan Assessment/Plan 66-year-old male with: 1. Febrile episode with a temperature up to 101 on 05/16/2016. Afebrile overnight. Tracheobronchitis on admit. Sputum cx done, results pending Repeat blood cx ordered Admission Blood cultures NGTD. Urine cx with yeast/kendra albicans CAT scan actually of the chest actually mostly showed mild volume overload and no signs of discrete infiltrates. CT head with no acute findings Continue Vancomycin and Cefepime for now, adding Voriconazole based on Urine cx as WBC wnl 2. Chronic respiratory failure, status post tracheostomy and PEG tube placement. Continue ventilator support. Patient seems to be comfortable back on his maintenance settings today. D/c IVF 3. Paroxysmal atrial fibrillation. Continue current regimen. INR up to 2.1, on Xarelto will decrease to 10 mg daily for anticoagulation. Monitor LFTs ok 4. Coronary artery disease, ischemic cardiomyopathy, systolic dysfunction, congestive heart failure, ejection fraction of 20%. Given episode of distress yesterday with diaphoresis and run of wide complex tachy vx Afib with LBBB, CE checked and slightly elevated likely due to demand ischemia, will consult Dr Baker, continue medical management Monitor volume status closely. Continue free water with tube feedings. 5. Severe chronic encephalopathy mostly in the persistent vegetative state. The patient is opening his eyes and seems to be attempting to track, and talk but he is quadriplegic and this is unchanged. 6. Diabetes mellitus. Continue diabetic tube feeding and sliding scale insulin. 7. Seizure disorder, with episode of seizure yesterday, continue Vimpat per Wilfredo and Magdiel changed to IV for now. 8. Neurogenic bladder. Mc dependent. Renal function stable. Urine cx with yeast non kendra albicans 9. Sacral decubitus ulcers, Stage 3. Healing well per wound care RNs Continue wound care. 10. Chronic anemia, stable hemoglobin. Continue PPI for GI prophylaxis. 11. Hypernatremia and hypokalemia:increase Free H2O and monitor volume status closely, patient with CHF and getting IV abx and IV Keppra too. Prophylaxis: Prevacid for GI prophylaxis and is already on anticoagulation with Xarelto in setting of atrial fibrillation. DISPOSITION: Follow up sputum culture results. Monitor vitals and continue current antibiotics. Full Code Subjective 24 Hr Interval Summary Free Text/Dictation No events overnight. No fevers. Does not appear to be in distress. Subjective hx not possible: pt non-verbal Constitutional: no complaints Exam/Review of Systems Vital Signs Vitals Vital Signs Date Time Temp Pulse Resp B/P Pulse Ox O2 Delivery O2 Flow Rate FiO2 05/18/16 11:05 98 33 98 35 05/18/16 08:01 98.9 130/70 05/16/16 23:26 Mechanical Ventilator Intake and Output 05/17/16 05/17/16 05/18/16 15:00 23:00 07:00 Intake Total 2035 ml 2140 ml Output Total 600 ml 700 ml Balance 1435 ml 1440 ml Exam Constitutional: non-verbal Head: atraumatic, normocephalic Eyes: nl conjunctiva ENMT: other (oropharynx is dry.) Neck: supple Respiratory: clear to auscultation Cardiovascular: regular rate and rhythm Gastrointestinal: soft Results Result Diagram: 05/18/16 0600 05/18/16 0600 Results 24 hrs Laboratory Tests Test 05/17/16 17:10 05/17/16 18:04 05/17/16 23:22 05/18/16 05:15 Creatine Kinase 39 Creatine Kinase Index 2.0 Creatinine Kinase MB (Mass) 0.79 Troponin I 0.279 *H Bedside Glucose 173 166 143 Test 05/18/16 06:00 Anion Gap 18 H Basophils # 0.0 Basophils % 0.2 Blood Morphology Comment Blood Urea Nitrogen 35 H Calcium Level 8.0 L Carbon Dioxide Level 26 Chloride Level 114 H Creatinine 0.49 L Eosinophils # 0.0 Eosinophils % 0.0 Glucose Level 148 Hematocrit 35.2 L Hemoglobin 11.6 L Lymphocytes # 0.9 Lymphocytes % 4.6 L Magnesium Level 2.3 Mean Corpuscular Hemoglobin 27.4 L Mean Corpuscular Hemoglobin Concent 32.9 Mean Corpuscular Volume 83.3 Mean Platelet Volume 8.4 Monocytes # 1.4 H Monocytes % 7.4 Neutrophils # 16.3 H Neutrophils % 87.8 H Nucleated Red Blood Cells # 0.0 Nucleated Red Blood Cells % 0.0 Phosphorus Level 2.4 L Platelet Count 362 Potassium Level 4.1 Red Blood Count 4.23 L Red Cell Distribution Width 21.5 H Sodium Level 154 H White Blood Count 18.6 #H Medications Medications Current Medications Amiodarone HCl (Cordarone) 200 mg BID GTB Last administered on 05/18/16 10:11 ; Admin Dose 200 MG; Start 05/15/16 at 09:00 Aspirin (Aspirin) 81 mg DAILY GTB Last administered on 05/18/16 10:11; Admin Dose 81 MG; Start 05/15/16 at 09:00 Atorvastatin Calcium (Lipitor) 40 mg QHS GTB Last administered on 05/17/16 21: 44; Admin Dose 40 MG; Start 05/15/16 at 21:00 Clonazepam (Klonopin) 1 mg Q8H PRN GTB ANXIETY; Start 05/15/16 at 02:30 Digoxin (Digoxin) 0.125 mg DAILY@13 GTB Last administered on 05/17/16 13:15; Admin Dose 0.125 MG; Start 05/15/16 at 13:00 Tramadol HCl (Ultram) 50 mg Q12 GTB Last administered on 05/18/16 10:10; Admin Dose 50 MG; Start 05/15/16 at 09:00 Zinc Sulfate (Zinc Sulfate) 220 mg DAILY GTB Last administered on 05/18/16 10: 10; Admin Dose 220 MG; Start 05/15/16 at 09:00 Multivitamins (Thera-Plus) 5 ml DAILY GTB Last administered on 05/18/16 10:13 ; Admin Dose 5 ML; Start 05/15/16 at 09:00 Ascorbic Acid 500 mg 500 mg DAILY GTB Last administered on 05/18/16 10:10; Admin Dose 500 MG; Start 05/15/16 at 09:00 Cefepime HCl (Maxipime 2gm/50 ml (Pmx)) 50 ml @ 100 mls/hr Q12 IVPB Last administered on 05/18/16 10:06; Admin Dose 100 MLS/HR; Start 05/15/16 at 09:00 Lansoprazole (Prevacid) 30 mg BID@,18 GTB Last administered on 05/18/16 05: 18; Admin Dose 30 MG; Start 05/15/16 at 06:00 Ondansetron HCl (Zofran Inj) 4 mg Q6H PRN IV NAUSEA AND/OR VOMITING; Start at 02:30 Bisacodyl (Dulcolax Supp) 10 mg DAILY PRN [place] CONSTIPATION; Start 05/15/16 at 02 :30 Eye Lubricant (Artificial Tears Oph) 1 drop TID BOTH EYES Last administered on 05/18/16 10:11; Admin Dose 1 DROP; Start 05/15/16 at 09:00 Acetaminophen 650 mg 650 mg Q4H PRN GTB PAIN AND OR ELEVATED TEMP Last administered on 05/17/16 01:06; Admin Dose 650 MG; Start 05/15/16 at 02:30 Vancomycin HCl (Vancocin) 250 ml @ 125 mls/hr Q12H IVPB Last administered on 11:14; Admin Dose 125 MLS/HR; Start 05/15/16 at 10:00 Docusate Sodium (Colace Liquid Cup) 100 mg Q12H PRN GTB CONSTIPATION; Start at 02:41 Magnesium Hydroxide (Milk Of Mag) 30 ml DAILY PRN GTB CONSTIPATION; Start 05/15 at 02:41 Lacosamide (Vimpat Liq) 200 mg Q12 GTB Last administered on 05/18/16 11:14; Admin Dose 200 MG; Start 05/15/16 at 02:59 Insulin Aspart (Novolog Insulin Pen) NOVOLOG *MILD* ALGORITHM Q6 SC Last administered on 05/17/16 18:14; Admin Dose 1 UNIT; Start 05/15/16 at 14:30 Miscellaneous Information 1 ea NOTE XX ; Start 05/15/16 at 13:30 Glucose (Glutose) 15 gm Q15M PRN PO DECREASED GLUCOSE; Start 05/15/16 at 13:30 Glucose (Glutose) 22.5 gm Q15M PRN PO DECREASED GLUCOSE; Start 05/15/16 at 13: 30 Dextrose (D50w Syringe) 25 ml Q15M PRN IV DECREASED GLUCOSE; Start 05/15/16 at 13:30 Dextrose (D50w Syringe) 50 ml Q15M PRN IV DECREASED GLUCOSE; Start 05/15/16 at 13:30 Glucagon (Glucagen) 1 mg Q15M PRN IM DECREASED GLUCOSE; Start 05/15/16 at 13:30 Glucose (Glutose) 15 gm Q15M PRN BUCCAL DECREASED GLUCOSE; Start 05/15/16 at 13 :30 Potassium Chloride (Potassium Chloride Pwd/Soln) 20 meq BID GTB Last administered on 05/18/16 10:09; Admin Dose 20 MEQ; Start 05/15/16 at 14:30 Lorazepam 1 mg 1 mg Q4H PRN IV SEIZURES Last administered on 05/17/16 01:00; Admin Dose 1 MG; Start 05/16/16 at 14:00 Levetiracetam/ Sodium Chloride (Keppra Iv/NS) 115 ml @ 460 mls/hr Q12 IVPB Last administered on 05/18/16 10:43; Admin Dose 460 MLS/HR; Start 05/16/16 at 21:00 Collagenase (Santyl) 1 applic DAILY TOP Last administered on 05/18/16 10:12; Admin Dose 1 APPLIC; Start 05/17/16 at 09:00 Mupirocin 1 applic 1 applic BID TOP Last administered on 05/18/16 10:12; Admin Dose 1 APPLIC; Start 05/17/16 at 12:30; Stop 05/30/16 at 21:01 Potassium Chloride/Sodium Chloride (KCl/1/2 NS) 1,020 ml @ 60 mls/hr Q17H IV Last administered on 05/18/16 10:20; Admin Dose 60 MLS/HR; Start 05/17/16 at 13 :30 Voriconazole (Vfend) 200 mg BID GTB Last administered on 05/18/16 10:10; Admin Dose 200 MG; Start 05/17/16 at 13:30 Lisinopril (Zestril) 5 mg DAILY GTB Last administered on 05/18/16 10:09; Admin Dose 5 MG; Start 05/18/16 at 09:00 MAGGIE VICENTE MD May 18, 2016 12:01
[2016-05-18] MEDS: DIGOXIN 0.125 MG TAB GTB SCH (13:27)
[2016-05-18] MEDS: POTASSIUM CHLORIDE 40 MEQ in SOD CHLORIDE 0.9% 1,000 ML IV SCH (17:30)
[2016-05-18] MEDS: RIVAROXABAN 15 MG TABLET PO SCH (18:37)
[2016-05-18] MEDS: ATORVASTATIN 40 MG TAB GTB SCH (21:31)
[2016-05-18] MEDS ORDERED: VANCOMYCIN 1 GM in NS 250 ML IVPB SCH (23:00)
[2016-05-19] VITALS (24 sets, daily range): BP systolic 106–131; BP diastolic 59–72; PULSE 89–100; RESP 18–35
[2016-05-19] MEDS: LEVALBUTEROL (HFA) 15 GM INHALER INH SCH ×3 (00:30→17:05)
[2016-05-19] MEDS: ACETAMINOPHEN 650MG/20.3ML CUP GTB PRN ×3 (05:50→22:34)
[2016-05-19] MEDS: LANSOPRAZOLE 30 MG CAP GTB SCH ×2 (05:50→17:25)
[2016-05-19] MEDS: INSULIN ASPART [NOVOLOG] 3 ML PEN SC SCH ×5 (06:00→23:58)
[2016-05-19 07:58] LABS: POTASSIUM 4.3 mmol/L (3.5-5.1)
[2016-05-19 08:00] LABS: CREATININE 0.51 mg/dl (0.61-1.24)
[2016-05-19] MEDS ORDERED: VANCOMYCIN 750 MG in SOD CHLORIDE 0.9% 150 ML IVPB SCH (08:00)
[2016-05-19 08:01] LABS: CALCIUM 7.6 mg/dl (8.4-10.2)
[2016-05-19] MEDS: POTASSIUM CHLORIDE 40 MEQ in SOD CHLORIDE 0.9% 1,000 ML IV SCH (08:12)
[2016-05-19 08:27] LABS: BASOPHILS % 0.2 % (0.0-2.0); EOSINOPHILS % 0.1 % (0.0-7.0); HEMATOCRIT 33.4 % (42.0-52.0); LYMPHOCYTES % 6.4 % (15.0-51.0); MEAN CORPUSCULAR HEMOGLOBIN 27.5 pg (29.0-33.0); MEAN CORPUSCULAR VOLUME 83.4 fl (82.0-101.0); MEAN PLATELET VOLUME 9.3 fl (7.4-10.4); MONOCYTES % 6.5 % (0.0-11.0); NEUTROPHIL # 14.1 10^3/ul (1.6-7.5); NEUTROPHILS % 86.8 % (39.0-77.0); PLATELET COUNT 308 10^3/UL (140-440); RED CELL DISTRIBUTION WIDTH 21.5 % (11.5-14.5); UNCORRECTED WBC 16.2 10^3/ul (4.8-10.8); WHITE BLOOD COUNT 16.2 10^3/ul (4.8-10.8)
[2016-05-19 08:28] LABS: CONDITION 1; LH ANALYZER COMMENTS 1
[2016-05-19] MEDS: ASCORBIC ACID 500 MG TAB GTB SCH (09:34)
[2016-05-19] MEDS: ASPIRIN 81 MG TAB GTB SCH (09:35)
[2016-05-19] MEDS: ZINC SULFATE 220 MG CAP GTB SCH (09:35)
[2016-05-19] MEDS: MULTIVITAMINS 5 ML CUP GTB SCH (09:36)
[2016-05-19] MEDS: VORICONAZOLE 200 MG TAB GTB SCH ×2 (09:36→21:09)
[2016-05-19] MEDS: LISINOPRIL 5 MG TAB GTB SCH (09:37)
[2016-05-19] MEDS: AMIODARONE 200 MG TAB GTB SCH ×2 (09:37→21:10)
[2016-05-19] MEDS: POTASSIUM CHLORIDE 20 MEQ POWDER FOR ORAL SOLN GTB SCH ×2 (09:38→21:09)
[2016-05-19] MEDS: LACOSAMIDE (100 MG/10 ML PO SYR) GTB SCH ×2 (09:38→21:11)
[2016-05-19] MEDS: MUPIROCIN 2% 22 GM OINT TOP SCH ×2 (09:38→21:11)
[2016-05-19] MEDS: COLLAGENASE 30 GM TUBE TOP SCH (09:39)
[2016-05-19] MEDS: LEVETIRACETAM IV 1,500 MG in SOD CHLORIDE 0.9% 100 ML IVPB SCH ×2 (09:39→21:10)
[2016-05-19] MEDS: ARTIFICIAL TEARS 15 ML OPH BOTH EYES SCH ×3 (09:39→21:10)
[2016-05-19] MEDS: traMADol 50 MG TAB GTB SCH ×2 (09:40→21:10)
[2016-05-19] MEDS: CEFEPIME 2GM/50 ML (PMX) 50 ML IVPB SCH (09:40)
[2016-05-19] MEDS ORDERED: FUROSEMIDE 40 MG INJ IV ONE (12:00)
--- NOTE | 2016-05-19 12:05 | PN ---
Date/Time of Note Date/Time of Note DATE: 05/19/16 TIME: 11:54 Assessment/Plan VTE Prophylaxis VTE Prophylaxis Intervention: SCD's, other Lines/Catheters IV Catheter Type (from Nrsg): Saline Lock Central line still needed: No Urinary Cath still in place: Yes Reason Cath still needed: terminal illness/intractable pain, other (indicate) ( persistent vegetative state; bedbound) Assessment/Plan Assessment/Plan 66-year-old male with: 1. Ongoing febrile episodes this AM, likely related to tracheobronchitis; had a temperature today to up to 103; WBC is improving Sputum cx done, results pending Repeat blood cx ordered and NGTD Admission Blood cultures 1/2 ahd gram positive cocci, possible coagulase sensitive staph aureas; awaiting identification and sensitivities. Urine cx with yeast/non-kendra albicans; continue vifend CAT scan actually of the chest actually mostly showed mild volume overload and no signs of discrete infiltrates. CT head with no acute findings Continue Vancomycin and change to zosyn for now. Ascites on CT scan without TTP. Doubt SBP as this point. 2. Chronic respiratory failure, status post tracheostomy and PEG tube placement. Continue ventilator support. Patient seems to be comfortable back on his maintenance settings today. D/c IVF 3. Paroxysmal atrial fibrillation. Continue current regimen. INR up to 2.1, on Xarelto will decrease to 10 mg daily for anticoagulation. Monitor LFTs ok 4. Coronary artery disease, ischemic cardiomyopathy, systolic dysfunction, congestive heart failure, ejection fraction of 20%. Given episode of distress yesterday with diaphoresis and run of wide complex tachy vx Afib with LBBB, CE checked and slightly elevated likely due to demand ischemia, Dr Baker on the case, continue medical management Monitor volume status closely. Continue free water with tube feedings. 5. Severe chronic encephalopathy mostly in the persistent vegetative state. The patient is opening his eyes and seems to be attempting to track, and talk but he is quadriplegic and this is unchanged. 6. Diabetes mellitus. Continue diabetic tube feeding and sliding scale insulin. 7. Seizure disorder, with episode of seizure yesterday, continue Vimpat per Wilfredo and Keppra changed to IV for now. 8. Neurogenic bladder. Mc dependent. Renal function stable. Urine cx with yeast non kendra albicans 9. Sacral decubitus ulcers, Stage 3. Healing well per wound care RNs Continue wound care. 10. Chronic anemia, stable hemoglobin. Continue PPI for GI prophylaxis. 11. Hypernatremia and hypokalemia:increase Free H2O and monitor volume status closely, patient with mild CHF and getting IV abx and IV Keppra too. 12. Ascites: will give lasix 40 mg IVP x 1 now, and check KUB as the abdomen appears distended. Prophylaxis: Prevacid for GI prophylaxis and is already on anticoagulation with Xarelto in setting of atrial fibrillation. DISPOSITION: Follow up sputum culture results. Monitor vitals and continue current antibiotics. Full Code Subjective 24 Hr Interval Summary Free Text/Dictation Had fever to 103 early this AM. Sputum sensitivity (pseudomonas) is susceptible to zosyn. Abx already modified. Abdomen is more distended. Exam/Review of Systems Vital Signs Vitals Vital Signs Date Time Temp Pulse Resp B/P Pulse Ox O2 Delivery O2 Flow Rate FiO2 05/19/16 11:20 93 30 98 35 05/19/16 07:53 101.1 106/70 05/16/16 23:26 Mechanical Ventilator Intake and Output 05/18/16 05/18/16 05/19/16 15:00 23:00 07:00 Intake Total 1480 ml 1140 ml Output Total 600 ml 600 ml Balance 880 ml 540 ml Exam Constitutional: non-verbal Head: normocephalic Eyes: nl conjunctiva ENMT: other (tracheostomy is dry and intact) Neck: supple Respiratory: clear to auscultation Cardiovascular: regular rate and rhythm Gastrointestinal: bowel sounds, distended Extremities: other (cool extremities without edema.) Results Result Diagram: 05/19/16 0600 05/19/16 0600 Results 24 hrs Laboratory Tests Test 05/18/16 12:10 05/18/16 13:15 05/18/16 18:14 05/18/16 22:45 Bedside Glucose 149 154 Urine Osmolality 857 Urine Random Sodium < 13 L Vancomycin Level Trough 19.9 Test 05/19/16 00:01 05/19/16 05:54 05/19/16 06:00 Bedside Glucose 130 123 Anion Gap 16 Basophils # 0.0 Basophils % 0.2 Blood Morphology Comment Blood Urea Nitrogen 36 H Calcium Level 7.6 L Carbon Dioxide Level 26 Chloride Level 116 H Creatinine 0.51 L Eosinophils # 0.0 Eosinophils % 0.1 Glucose Level 136 Hematocrit 33.4 L Hemoglobin 11.0 L Lymphocytes # 1.0 Lymphocytes % 6.4 L Mean Corpuscular Hemoglobin 27.5 L Mean Corpuscular Hemoglobin Concent 33.0 Mean Corpuscular Volume 83.4 Mean Platelet Volume 9.3 Monocytes # 1.0 H Monocytes % 6.5 Neutrophils # 14.1 H Neutrophils % 86.8 H Nucleated Red Blood Cells # 0.0 Nucleated Red Blood Cells % 0.0 Platelet Count 308 Potassium Level 4.3 Red Blood Count 4.00 L Red Cell Distribution Width 21.5 H Sodium Level 154 H White Blood Count 16.2 H Medications Medications Current Medications Amiodarone HCl (Cordarone) 200 mg BID GTB Last administered on 05/19/16 09:37 ; Admin Dose 200 MG; Start 05/15/16 at 09:00 Aspirin (Aspirin) 81 mg DAILY GTB Last administered on 05/19/16 09:35; Admin Dose 81 MG; Start 05/15/16 at 09:00 Atorvastatin Calcium (Lipitor) 40 mg QHS GTB Last administered on 05/18/16 21: 31; Admin Dose 40 MG; Start 05/15/16 at 21:00 Clonazepam (Klonopin) 1 mg Q8H PRN GTB ANXIETY; Start 05/15/16 at 02:30 Digoxin (Digoxin) 0.125 mg DAILY@13 GTB Last administered on 05/18/16 13:27; Admin Dose 0.125 MG; Start 05/15/16 at 13:00 Tramadol HCl (Ultram) 50 mg Q12 GTB Last administered on 05/19/16 09:40; Admin Dose 50 MG; Start 05/15/16 at 09:00 Zinc Sulfate (Zinc Sulfate) 220 mg DAILY GTB Last administered on 05/19/16 09: 35; Admin Dose 220 MG; Start 05/15/16 at 09:00 Multivitamins (Thera-Plus) 5 ml DAILY GTB Last administered on 05/19/16 09:36 ; Admin Dose 5 ML; Start 05/15/16 at 09:00 Ascorbic Acid (Vitamin C) 500 mg DAILY GTB Last administered on 05/19/16 09:34 ; Admin Dose 500 MG; Start 05/15/16 at 09:00 Lansoprazole (Prevacid) 30 mg BID@06,18 GTB Last administered on 05/19/16 05: 50; Admin Dose 30 MG; Start 05/15/16 at 06:00 Ondansetron HCl (Zofran Inj) 4 mg Q6H PRN IV NAUSEA AND/OR VOMITING; Start at 02:30 Bisacodyl (Dulcolax Supp) 10 mg DAILY PRN [place] CONSTIPATION; Start 05/15/16 at 02 :30 Eye Lubricant (Artificial Tears Oph) 1 drop TID BOTH EYES Last administered on 05/19/16 09:39; Admin Dose 1 DROP; Start 05/15/16 at 09:00 Acetaminophen (Tylenol Liquid) 650 mg Q4H PRN GTB PAIN AND OR ELEVATED TEMP Last administered on 05/19/16 05:50; Admin Dose 650 MG; Start 05/15/16 at 02:30 Docusate Sodium (Colace Liquid Cup) 100 mg Q12H PRN GTB CONSTIPATION; Start at 02:41 Magnesium Hydroxide (Milk Of Mag) 30 ml DAILY PRN GTB CONSTIPATION; Start 05/15 at 02:41 Lacosamide (Vimpat Liq) 200 mg Q12 GTB Last administered on 05/19/16 09:38; Admin Dose 200 MG; Start 05/15/16 at 02:59 Insulin Aspart (Novolog Insulin Pen) NOVOLOG *MILD* ALGORITHM Q6 SC Last administered on 05/18/16 18:38; Admin Dose 1 UNIT; Start 05/15/16 at 14:30 Miscellaneous Information 1 ea NOTE XX ; Start 05/15/16 at 13:30 Glucose (Glutose) 15 gm Q15M PRN PO DECREASED GLUCOSE; Start 05/15/16 at 13:30 Glucose (Glutose) 22.5 gm Q15M PRN PO DECREASED GLUCOSE; Start 05/15/16 at 13: 30 Dextrose (D50w Syringe) 25 ml Q15M PRN IV DECREASED GLUCOSE; Start 05/15/16 at 13:30 Dextrose (D50w Syringe) 50 ml Q15M PRN IV DECREASED GLUCOSE; Start 05/15/16 at 13:30 Glucagon (Glucagen) 1 mg Q15M PRN IM DECREASED GLUCOSE; Start 05/15/16 at 13:30 Glucose (Glutose) 15 gm Q15M PRN BUCCAL DECREASED GLUCOSE; Start 05/15/16 at 13 :30 Potassium Chloride (Potassium Chloride Pwd/Soln) 20 meq BID GTB Last administered on 05/19/16 09:38; Admin Dose 20 MEQ; Start 05/15/16 at 14:30 Lorazepam 1 mg 1 mg Q4H PRN IV SEIZURES Last administered on 05/17/16 01:00; Admin Dose 1 MG; Start 05/16/16 at 14:00 Levetiracetam/ Sodium Chloride (Keppra Iv/NS) 115 ml @ 460 mls/hr Q12 IVPB Last administered on 05/19/16 09:39; Admin Dose 460 MLS/HR; Start 05/16/16 at 21:00 Collagenase (Santyl) 1 applic DAILY TOP Last administered on 05/19/16 09:39; Admin Dose 1 APPLIC; Start 05/17/16 at 09:00 Mupirocin (Bactroban) 1 applic BID TOP Last administered on 05/19/16 09:38; Admin Dose 1 APPLIC; Start 05/17/16 at 12:30; Stop 05/30/16 at 21:01 Voriconazole (Vfend) 200 mg BID GTB Last administered on 05/19/16 09:36; Admin Dose 200 MG; Start 05/17/16 at 13:30 Lisinopril 5 mg 5 mg DAILY GTB Last administered on 05/19/16 09:37; Admin Dose 5 MG; Start 05/18/16 at 09:00 Potassium Chloride 40 meq/ Sodium Chloride 1,020 ml @ 100 mls/hr [id number] IV Last administered on 05/19/16 08:12; Admin Dose 100 MLS/HR; Start 05/18/16 at 17:30 Vancomycin HCl 1.5 gm/Sodium Chloride 250 ml @ 83.333 mls/ hr Q24H IVPB ; Start 05/20/16 at 00:00 Piperacillin Sod/ Tazobactam Sod (Zosyn 3.375gm/ 100 ml (Pmx)) 100 ml @ 200 mls /hr Q6 IVPB ; Start 05/19/16 at 12:00 Furosemide (Lasix) 40 mg ONCE ONCE IV ; Start 05/19/16 at 12:00; Stop 05/19/16 at 12:01 MAGGIE VICENTE MD May 19, 2016 12:04
--- NOTE | 2016-05-19 12:47 | RADRPT ---
PROCEDURE: XR Chest. CLINICAL INDICATION: Shortness of breath. TECHNIQUE: Single frontal view. COMPARISON: 05/16/2016. FINDINGS: The tracheostomy tube remains in satisfactory position. There is bilateral air space and interstiti al disease consistent with pulmonary edema and left basilar atelectasis, unchanged. The heart is enlarged. There is no right pleural effusion. There is a small left pleural effusion. There is no pneumothorax. IMPRESSION: 1. No change from 05/16/2016. RPTAT: QQ .Brian Merchant MD, MD Date Time Electronically viewed and signed by .Brian Merchant MD, MD on 05/19/2016 12:46 .R/
[2016-05-19] MEDS: PIPER-TAZO 3.375 GM IV (PMX) 100 ML IVPB SCH ×3 (13:35→23:58)
[2016-05-19] MEDS: DIGOXIN 0.125 MG TAB GTB SCH (13:35)
[2016-05-19] MEDS ORDERED: PIPER-TAZO 3.375 GM IV (PMX) 100 ML IVPB SCH (14:00)
--- NOTE | 2016-05-19 14:01 | RADRPT ---
Vent Rate: 106 bpm RR Interval: 0 msec LA Interval: 0 msec QRS Duration: 182 msec QT Interval: 432 msec QTC Interval: 573 msec P-R-T [place]: 0 - -87 - 44 degrees Atrial fibrillation with rapid ventricular response with premature ventricular or aberrantly conducted complexes Left axis deviation Nonspecific intraventricular block Possible Lateral infarct , age undetermined Abnormal ECG Electronically Signed By: Marlon Peres [id number]
--- NOTE | 2016-05-19 14:38 | RADRPT ---
PROCEDURE: XR Abdomen. CLINICAL INDICATION: Abdominal pain and distension. TECHNIQUE: AP supine abdomen x-ray. COMPARISON: None. FINDINGS: There is a gastrojejunostomy tube with the tip in the region of the ligament of Treitz. The bowel g as pattern is normal with no evidence of obstruction. There is a Mc catheter in the bladder. There are no abnormal calcifications overlying the urinary tracts. There are mild degenerative changes of the spine. IMPRESSION: 1. Gastrojejunostomy tube. 2. Mc catheter in the bladder. 3. Mild degenerative changes of the spine. 4. No evidence of obstruction. RPTAT: QQ .Brian Merchant MD, MD Date Time Electronically viewed and signed by .Brian Merchant MD, on 05/19/2016 14:37 .R/
[2016-05-19 17:04] LABS: POTASSIUM 4.2 mmol/L (3.5-5.1)
[2016-05-19 17:07] LABS: CREATININE 0.57 mg/dl (0.61-1.24)
[2016-05-19 17:08] LABS: CALCIUM 7.7 mg/dl (8.4-10.2)
[2016-05-19] MEDS: RIVAROXABAN 15 MG TABLET PO SCH (17:25)
[2016-05-19] MEDS ORDERED: ZOLPIDEM 5 MG TAB PO ONE (21:00)
[2016-05-19] MEDS: ATORVASTATIN 40 MG TAB GTB SCH (21:10)
[2016-05-20] VITALS (26 sets, daily range): BP systolic 103–150; BP diastolic 51–68; PULSE 90–150; RESP 18–31
[2016-05-20] MEDS: VANCOMYCIN 1.5 GM in SOD CHLORIDE 0.9% 250 ML IVPB SCH ×2 (00:39→23:34)
[2016-05-20] MEDS: LEVALBUTEROL (HFA) 15 GM INHALER INH SCH ×4 (01:24→23:17)
[2016-05-20] MEDS: INSULIN ASPART [NOVOLOG] 3 ML PEN SC SCH ×4 (06:00→23:42)
[2016-05-20] MEDS: LANSOPRAZOLE 30 MG CAP GTB SCH ×2 (06:10→18:06)
[2016-05-20] MEDS: PIPER-TAZO 3.375 GM IV (PMX) 100 ML IVPB SCH ×4 (06:10→23:34)
[2016-05-20 08:21] LABS: BASOPHILS % 0.3 % (0.0-2.0); EOSINOPHILS # 0.1 10^3/ul (0.0-0.5); EOSINOPHILS % 0.4 % (0.0-7.0); HEMATOCRIT 33.1 % (42.0-52.0); HEMOGLOBIN 10.9 g/dl (14.0-18.0); LYMPHOCYTES # 0.8 10^3/ul (0.8-2.9); LYMPHOCYTES % 5.7 % (15.0-51.0); MEAN CORPUSCULAR HEMOGLOBIN 27.2 pg (29.0-33.0); MEAN CORPUSCULAR HGB CONC 32.9 g/dl (32.0-37.0); MEAN CORPUSCULAR VOLUME 82.7 fl (82.0-101.0); MEAN PLATELET VOLUME 9.5 fl (7.4-10.4); MONOCYTE # 0.6 10^3/ul (0.3-0.9); MONOCYTES % 4.4 % (0.0-11.0); NEUTROPHIL # 13.1 10^3/ul (1.6-7.5); NEUTROPHILS % 89.2 % (39.0-77.0); PLATELET COUNT 250 10^3/UL (140-440); RED CELL DISTRIBUTION WIDTH 21.1 % (11.5-14.5); UNCORRECTED WBC 14.6 10^3/ul (4.8-10.8); WHITE BLOOD COUNT 14.6 10^3/ul (4.8-10.8)
[2016-05-20 08:30] LABS: CONDITION 1; LH ANALYZER COMMENTS 1
[2016-05-20 08:41] LABS: POTASSIUM 3.8 mmol/L (3.5-5.1)
[2016-05-20 08:43] LABS: CREATININE 0.63 mg/dl (0.61-1.24)
[2016-05-20 08:44] LABS: CALCIUM 7.5 mg/dl (8.4-10.2)
[2016-05-20] MEDS: MULTIVITAMINS 5 ML CUP GTB SCH (08:47)
[2016-05-20] MEDS: ARTIFICIAL TEARS 15 ML OPH BOTH EYES SCH ×3 (08:47→19:52)
[2016-05-20] MEDS: POTASSIUM CHLORIDE 20 MEQ POWDER FOR ORAL SOLN GTB SCH ×2 (08:47→20:58)
[2016-05-20] MEDS: MUPIROCIN 2% 22 GM OINT TOP SCH ×2 (08:47→19:54)
[2016-05-20] MEDS: ASPIRIN 81 MG TAB GTB SCH (08:48)
[2016-05-20] MEDS: traMADol 50 MG TAB GTB SCH ×2 (08:48→19:52)
[2016-05-20] MEDS: VORICONAZOLE 200 MG TAB GTB SCH ×2 (08:48→20:58)
[2016-05-20] MEDS: LEVETIRACETAM IV 1,500 MG in SOD CHLORIDE 0.9% 100 ML IVPB SCH ×2 (08:48→19:53)
[2016-05-20] MEDS: ZINC SULFATE 220 MG CAP GTB SCH (08:49)
[2016-05-20] MEDS: COLLAGENASE 30 GM TUBE TOP SCH (08:49)
[2016-05-20] MEDS: ASCORBIC ACID 500 MG TAB GTB SCH (08:49)
[2016-05-20] MEDS: LISINOPRIL 5 MG TAB GTB SCH (08:49)
[2016-05-20] MEDS: AMIODARONE 200 MG TAB GTB SCH ×2 (08:49→19:53)
--- NOTE | 2016-05-20 12:03 | PN ---
Date/Time of Note Date/Time of Note DATE: 05/20/16 TIME: 11:40 Assessment/Plan VTE Prophylaxis VTE Prophylaxis Intervention: other (on Xarelto ) Lines/Catheters IV Catheter Type (from Nrsg): Peripheral IV Urinary Cath still in place: Yes Reason Cath still needed: urinary retention, other (indicate) (benton dependent , with neurogenic bladder ) Assessment/Plan Assessment/Plan 66-year-old male with: 1. Recurrent Febrile episodes still with temperature up to 101.4 this AM and WBC trending slowly down Bases on sputum cx and blood cx, on Zosyn and Vanco x 24 hrs Repeat blood cx pending Urine cx with yeast non kendra albicans Continue Vancomycin, Zoysn and Voriconazole I will get ID consult 2. Chronic respiratory failure, status post tracheostomy and PEG tube placement. Continue ventilator support. Patient seems to be comfortable back on his maintenance settings today. 3. Paroxysmal atrial fibrillation. Continue current regimen. INR up to 2.1, on Xarelto will decrease to 15 mg daily for anticoagulation. Monitor LFTs ok 4. Coronary artery disease, ischemic cardiomyopathy, systolic dysfunction, congestive heart failure, ejection fraction of 20%. Continue medical management Monitor volume status closely. Continue free water with tube feedings. 5. Severe chronic encephalopathy mostly in the persistent vegetative state. The patient is opening his eyes and seems to be attempting to track, and talk but he is quadriplegic and this is unchanged. 6. Diabetes mellitus. Continue diabetic tube feeding and sliding scale insulin. 7. Seizure disorder, with episodes of breakthrough seizures vs chills when febrile Tylenol prn fever and Ativan prn Continue Vimpat per Gtube and Keppra now IV for now. 8. Neurogenic bladder. Benton dependent. Renal function stable. Urine cx with yeast non kendra albicans, on Voriconazole. 9. Sacral decubitus ulcers, Stage 3. Healing well per wound care RNs Continue wound care. 10. Chronic anemia, stable hemoglobin. Continue PPI for GI prophylaxis. 11. Hypernatremia and hypokalemia: continue Free H2O Monitor volume status closely, patient with CHF and getting IV abx and IV Keppra too, will discuss with pharmacy if can mix with D5W Prophylaxis: Prevacid for GI prophylaxis and is already on anticoagulation with Xarelto in setting of atrial fibrillation. DISPOSITION: Follow up repeat blood cx and ID consult will be requested Monitor vitals and continue current antibiotics. Full Code Subjective 24 Hr Interval Summary Free Text/Dictation Patient having seizures on exam vs chills in setting of 101.4 fever Repeat Blood cx pending in SR and BP stable Abx adjusted yesterday as patient with MDR gram neg in sputum Will have ID consult Exam/Review of Systems Vital Signs Vitals Vital Signs Date Time Temp Pulse Resp B/P Pulse Ox O2 Delivery O2 Flow Rate FiO2 05/20/16 11:38 98.4 95 18 103/65 93 05/20/16 09:44 35 05/16/16 23:26 Mechanical Ventilator Intake and Output 05/19/16 05/19/16 05/20/16 15:00 23:00 07:00 Intake Total 815 ml 1480 ml 1480 ml Output Total 800 ml 1300 ml Balance 815 ml 680 ml 180 ml Exam Constitutional: non-verbal, other (unresponsive with possible seizures ) Respiratory: diminished breath sounds (Bases only bilaterally ), other (vent dependent ) Cardiovascular: nl pulses, other, regular rate and rhythm Gastrointestinal: non-tender, soft Musculoskeletal: nl extremities to inspection, other (no edema, clubbing or cyanosis ) Extremities: normal pulses Neurological: other (quadriplegic and seems to be having ongoing seizures ), unresponsive Results Result Diagram: 05/20/16 0737 05/20/16 0737 Results 24 hrs Laboratory Tests Test 05/19/16 12:43 05/19/16 16:35 05/19/16 17:38 05/19/16 23:55 Bedside Glucose 121 133 118 Anion Gap 15 Blood Urea Nitrogen 39 H Calcium Level 7.7 L Carbon Dioxide Level 26 Chloride Level 116 H Creatinine 0.57 L Glucose Level 127 Potassium Level 4.2 Sodium Level 153 H Test 05/20/16 06:07 05/20/16 07:37 Bedside Glucose 111 Anion Gap 19 H Basophils # 0.0 Basophils % 0.3 Blood Morphology Comment Blood Urea Nitrogen 42 H Calcium Level 7.5 L Carbon Dioxide Level 25 Chloride Level 115 H Creatinine 0.63 Eosinophils # 0.1 Eosinophils % 0.4 Glucose Level 116 Hematocrit 33.1 L Hemoglobin 10.9 L Lymphocytes # 0.8 Lymphocytes % 5.7 L Mean Corpuscular Hemoglobin 27.2 L Mean Corpuscular Hemoglobin Concent 32.9 Mean Corpuscular Volume 82.7 Mean Platelet Volume 9.5 Monocytes # 0.6 Monocytes % 4.4 Neutrophils # 13.1 H Neutrophils % 89.2 H Nucleated Red Blood Cells # 0.0 Nucleated Red Blood Cells % 0.0 Platelet Count 250 Potassium Level 3.8 Red Blood Count 4.00 L Red Cell Distribution Width 21.1 H Sodium Level 155 H White Blood Count 14.6 H Medications Medications Current Medications Amiodarone HCl (Cordarone) 200 mg BID GTB Last administered on 05/20/16 08:49 ; Admin Dose 200 MG; Start 05/15/16 at 09:00 Aspirin (Aspirin) 81 mg DAILY GTB Last administered on 05/20/16 08:48; Admin Dose 81 MG; Start 05/15/16 at 09:00 Atorvastatin Calcium (Lipitor) 40 mg QHS GTB Last administered on 05/19/16 21: 10; Admin Dose 40 MG; Start 05/15/16 at 21:00 Clonazepam (Klonopin) 1 mg Q8H PRN GTB ANXIETY; Start 05/15/16 at 02:30 Digoxin (Digoxin) 0.125 mg DAILY@13 GTB Last administered on 05/19/16 13:35; Admin Dose 0.125 MG; Start 05/15/16 at 13:00 Tramadol HCl (Ultram) 50 mg Q12 GTB Last administered on 05/20/16 08:48; Admin Dose 50 MG; Start 05/15/16 at 09:00 Zinc Sulfate (Zinc Sulfate) 220 mg DAILY GTB Last administered on 05/20/16 08: 49; Admin Dose 220 MG; Start 05/15/16 at 09:00 Multivitamins (Thera-Plus) 5 ml DAILY GTB Last administered on 05/20/16 08:47 ; Admin Dose 5 ML; Start 05/15/16 at 09:00 Ascorbic Acid (Vitamin C) 500 mg DAILY GTB Last administered on 05/20/16 08:49 ; Admin Dose 500 MG; Start 05/15/16 at 09:00 Lansoprazole (Prevacid) 30 mg BID@,18 GTB Last administered on 05/20/16 06: 10; Admin Dose 30 MG; Start 05/15/16 at 06:00 Ondansetron HCl (Zofran Inj) 4 mg Q6H PRN IV NAUSEA AND/OR VOMITING; Start at 02:30 Bisacodyl (Dulcolax Supp) 10 mg DAILY PRN [place] CONSTIPATION; Start 05/15/16 at 02 :30 Eye Lubricant (Artificial Tears Oph) 1 drop TID BOTH EYES Last administered on 05/20/16 08:47; Admin Dose 1 DROP; Start 05/15/16 at 09:00 Acetaminophen (Tylenol Liquid) 650 mg Q4H PRN GTB PAIN AND OR ELEVATED TEMP Last administered on 05/19/16 22:34; Admin Dose 650 MG; Start 05/15/16 at 02:30 Docusate Sodium (Colace Liquid Cup) 100 mg Q12H PRN GTB CONSTIPATION; Start at 02:41 Magnesium Hydroxide (Milk Of Mag) 30 ml DAILY PRN GTB CONSTIPATION; Start 05/15 at 02:41 Lacosamide (Vimpat Liq) 200 mg Q12 GTB Last administered on 05/19/16 21:11; Admin Dose 200 MG; Start 05/15/16 at 02:59 Insulin Aspart (Novolog Insulin Pen) NOVOLOG *MILD* ALGORITHM Q6 SC Last administered on 05/18/16 18:38; Admin Dose 1 UNIT; Start 05/15/16 at 14:30 Miscellaneous Information 1 ea NOTE XX ; Start 05/15/16 at 13:30 Glucose (Glutose) 15 gm Q15M PRN PO DECREASED GLUCOSE; Start 05/15/16 at 13:30 Glucose (Glutose) 22.5 gm Q15M PRN PO DECREASED GLUCOSE; Start 05/15/16 at 13: 30 Dextrose (D50w Syringe) 25 ml Q15M PRN IV DECREASED GLUCOSE; Start 05/15/16 at 13:30 Dextrose (D50w Syringe) 50 ml Q15M PRN IV DECREASED GLUCOSE; Start 05/15/16 at 13:30 Glucagon (Glucagen) 1 mg Q15M PRN IM DECREASED GLUCOSE; Start 05/15/16 at 13:30 Glucose (Glutose) 15 gm Q15M PRN BUCCAL DECREASED GLUCOSE; Start 05/15/16 at 13 :30 Potassium Chloride (Potassium Chloride Pwd/Soln) 20 meq BID GTB Last administered on 05/20/16 08:47; Admin Dose 20 MEQ; Start 05/15/16 at 14:30 Lorazepam 1 mg 1 mg Q4H PRN IV SEIZURES Last administered on 05/17/16 01:00; Admin Dose 1 MG; Start 05/16/16 at 14:00 Levetiracetam/ Sodium Chloride (Keppra Iv/NS) 115 ml @ 460 mls/hr Q12 IVPB Last administered on 05/20/16 08:48; Admin Dose 460 MLS/HR; Start 05/16/16 at 21:00 Collagenase (Santyl) 1 applic DAILY TOP Last administered on 05/20/16 08:49; Admin Dose 1 APPLIC; Start 05/17/16 at 09:00 Mupirocin (Bactroban) 1 applic BID TOP Last administered on 05/20/16 08:47; Admin Dose 1 APPLIC; Start 05/17/16 at 12:30; Stop 05/30/16 at 21:01 Voriconazole (Vfend) 200 mg BID GTB Last administered on 05/20/16 08:48; Admin Dose 200 MG; Start 05/17/16 at 13:30 Lisinopril 5 mg 5 mg DAILY GTB Last administered on 05/20/16 08:49; Admin Dose 5 MG; Start 05/18/16 at 09:00 Vancomycin HCl 1.5 gm/Sodium Chloride 250 ml @ 83.333 mls/ hr Q24H IVPB Last administered on 05/20/16 00:39; Admin Dose 83.333 MLS/HR; Start 05/20/16 at 00: 00 Piperacillin Sod/ Tazobactam Sod (Zosyn 3.375gm/ 100 ml (Pmx)) 100 ml @ 200 mls /hr Q6 IVPB Last administered on 05/20/16 06:10; Admin Dose 200 MLS/HR; Start 05/19/16 at 12:00 SHELDON VAZQUEZ May 20, 2016 12:01
[2016-05-20] MEDS: LORAZEPAM 2 MG INJ IV PRN ×2 (12:35→22:45)
[2016-05-20] MEDS: DIGOXIN 0.125 MG TAB GTB SCH (12:35)
[2016-05-20] MEDS: ACETAMINOPHEN 650MG/20.3ML CUP GTB PRN ×2 (12:35→19:52)
[2016-05-20] MEDS: LACOSAMIDE (100 MG/10 ML PO SYR) GTB SCH ×2 (13:25→23:27)
--- NOTE | 2016-05-20 17:49 | PN ---
DATE: 05/20/2016 SUBJECTIVE: The patient remains in atrial fibrillation now. Heart rate overall with good control. Remains nonverbal, status post trach. The patient with recurrent fever. MEDICATIONS: Reviewed. PHYSICAL EXAMINATION: VITAL SIGNS: Temperature 100.7, T-max is 101.4. Heart rate of 94, blood pressure 123/57, respirato ry rate of 21, saturating 100%. HEENT: Normocephalic, atraumatic. NECK: Status post tracheostomy, on the vent. CARDIOVASCULAR: Irregularly irregular, systolic murmur. PULMONARY: Rhonchi at the base. GASTROINTESTINAL: Soft, nontender. Status post PEG placement. EXTREMITIES: Trivial edema. NEUROLOGIC: Unresponsive to verbal stimuli. PSYCHIATRIC: Appeared to be calm. LABORATORY: WBC of 14.6, hemoglobin 10.9, platelets of 250. Sodium 155, potassium 3.8, BUN of 42, creatinine 0.63, glucose of 116. ASSESSMENT AND PLAN: 1. Mildly abnormal troponin ____ false positive troponin. 2. Paroxysmal atrial fibrillation, currently remains persistently in atrial fibrillation. 3. History of coronary artery disease, status post myocardial infarction. 4. History of percutaneous coronary intervention. 5. Severe ischemic cardiomyopathy. 6. Congestive heart failure. 7. Recurrent fever. 8. Electrolyte abnormality. 9. Sepsis and pneumonia. RECOMMENDATIONS: I will order an echocardiogram to evaluate for LV function again, look at the valv es ____ his recurrent fever. Antibiotic as per ID. Vent support, respiratory care will be continue d. Dictated By: ABRAHAM BASHIR MD AV/AC Conf#: [id number] DID#: [id number] CC: SHELDON VAZQUEZ MD;*End*
[2016-05-20] MEDS: RIVAROXABAN 15 MG TABLET PO SCH (18:06)
--- NOTE | 2016-05-20 19:36 | CONS ---
DATE OF ADMISSION: 05/14/2016 DATE OF CONSULTATION: 05/20/2016 TYPE OF CONSULTATION: Infectious disease. REASON FOR CONSULTATION: Antibiotic management. HISTORY OF PRESENT ILLNESS: Charles Richard is a 66-year-old male with numerous problems who was admitted from detention facility with fever. The patient is in a persistent vegetativ e state. His problems include: 1. Persistent vegetative state. 2. Quadriplegia. 3. Status post G-tube placement. 4. Status post tracheostomy, ventilator dependent. 5. Paroxysmal atrial fibrillation. 6. Recent episodes of pneumonia and sepsis. The patient was admitted to [facility] and discharged about 2 weeks ago back to his detention facility. He was sent to [facility] overnight with reported fevers up to 101. Ac cording to the records, he has been on vancomycin and imipenem lately. In the emergency room, it wa s reported that he had right lower lobe infiltrate and this was from the detention facility. He had left lower lobe consolidation with pleural effusion. Blood cultures were drawn. A CAT scan of the chest was done, which reported lymphadenopathy, but no specific infiltrates. He is currently stable. He was stable on admission. HOSPITAL COURSE: The patient has a urinary catheter for urinary retention and neurogenic bladder. He has had recurrent febrile episodes with a temperature up to 101.4. White count trending slowly d own. He is on vancomycin and Zosyn. Repeat blood cultures are pending. Urine culture: Yeast, not Ashley albicans, and he was started on voriconazole. Currently, his white count is 14.6, H and H of 10.9 and 33.1, platelet count 250,000. BUN and creatinine 42/0.63. Random glucose was 116. PAST MEDICAL OPERATIONS: As outlined. FAMILY HISTORY: Noncontributory. SOCIAL HISTORY: The patient is vegetative. He does not smoke, drink, or abuse drugs. ALLERGIES: NONE TO PENICILLIN, SULFA, OR FOODS. MEDICATIONS: Per chart. REVIEW OF SYSTEMS: As per HPI. PHYSICAL EXAMINATION: GENERAL: The patient is vegetative. He has a trach, PEG, Mc. SKIN: Without generalized rash. HEENT: Within normal limits. NECK: Tracheostomy in place. LYMPH NODES: None palpable. CHEST: Decreased breath sounds at the bases. HEART: Without murmur or gallop. ABDOMEN: Soft, nontender without organosplenomegaly or masses. He has a G-tube in place. RECTAL AND GENITAL: Deferred. NEUROLOGIC: Again, the patient in vegetative state. IMAGING STUDIES: A CT scan of the chest without contrast showed his tracheostomy, mild pulmonary ed tanya, multiple lymph nodes in the middle mediastinum and superior mediastinum, nonspecific; bilateral supraclavicular lymph nodes, nonspecific; cardiomegaly, bilateral pleural effusion with left greate r than right, gastrojejunostomy in satisfactory position, gallstones in the gallbladder, no evidence of cholecystitis, ascites, degenerative changes of the spine. IMPRESSION AND PLAN: The patient continues to spike fevers to 101.4. His blood culture grew out co agulase negative staph, probably contaminant since 06/22 blood cultures were negative. His tracheal a spirate grew out pseudomonas and Providencia stuartii. The pseudomonas was sensitive to amikacin an d Zosyn. The patient is on Zosyn. He is also on vancomycin and voriconazole. Blood cultures are a gain pending. His urine grew out yeast, non-Ashley albicans, he is on voriconazole for that. That was from the . Concern is that of his generalized lymphadenopathy, which could be related to a n underlying lymphoma, which could be causing his fever. A possible biopsy that should be done. Of course, one has to consider tuberculosis, cocci, and a variety of other entities. We can order a Q uantiFERON Gold. We could order a Cocci Comp Fix. The patient should probably be made a NO CODE an d hospice care. He has a Clostridium difficile that was canceled. I will dictate my findings to Dr Jewels Vazquez. Dictated By: LEV NAVA MD, JD/AC Conf#: [id number] DID#: [id number] CC: SHELDON VAZQUEZ MD;*[facility]*
[2016-05-20] MEDS: clonAZEPAM 0.5 MG TAB GTB PRN (19:53)
[2016-05-20] MEDS: ATORVASTATIN 40 MG TAB GTB SCH (20:58)
[2016-05-21] VITALS (23 sets, daily range): BP systolic 104–133; BP diastolic 69–87; PULSE 78–130; RESP 18–31
[2016-05-21] MEDS: LANSOPRAZOLE 30 MG CAP GTB SCH ×2 (05:51→17:40)
[2016-05-21] MEDS: PIPER-TAZO 3.375 GM IV (PMX) 100 ML IVPB SCH ×2 (05:51→12:33)
[2016-05-21] MEDS: INSULIN ASPART [NOVOLOG] 3 ML PEN SC SCH ×3 (05:51→17:40)
[2016-05-21 07:07] LABS: BASOPHIL # 0.1 10^3/ul (0.0-0.1); BASOPHILS % 0.7 % (0.0-2.0); EOSINOPHILS # 0.2 10^3/ul (0.0-0.5); EOSINOPHILS % 1.3 % (0.0-7.0); HEMATOCRIT 34.3 % (42.0-52.0); HEMOGLOBIN 10.9 g/dl (14.0-18.0); LYMPHOCYTES # 0.7 10^3/ul (0.8-2.9); LYMPHOCYTES % 5.7 % (15.0-51.0); MEAN CORPUSCULAR HEMOGLOBIN 27.2 pg (29.0-33.0); MEAN CORPUSCULAR HGB CONC 31.8 g/dl (32.0-37.0); MEAN CORPUSCULAR VOLUME 85.6 fl (82.0-101.0); MEAN PLATELET VOLUME 9.8 fl (7.4-10.4); MONOCYTE # 0.5 10^3/ul (0.3-0.9); MONOCYTES % 4.3 % (0.0-11.0); NEUTROPHIL # 11.2 10^3/ul (1.6-7.5); PLATELET COUNT 217 10^3/UL (140-440); RED BLOOD COUNT 4.01 10^6/ul (4.70-6.10); RED CELL DISTRIBUTION WIDTH 20.7 % (11.5-14.5); UNCORRECTED WBC 12.7 10^3/ul (4.8-10.8); WHITE BLOOD COUNT 12.7 10^3/ul (4.8-10.8)
[2016-05-21 07:27] LABS: ALBUMIN 2.6 g/dl (3.3-4.9)
[2016-05-21 07:28] LABS: POTASSIUM 3.9 mmol/L (3.5-5.1)
[2016-05-21 07:30] LABS: ALBUMIN/GLOBULIN RATIO 0.6; BILIRUBIN,INDIRECT 0.6 mg/dl (0-1.1); BILIRUBIN,TOTAL 0.6 mg/dl (0.2-1.3); CALCIUM 7.5 mg/dl (8.4-10.2); CREATININE 0.69 mg/dl (0.61-1.24); TOTAL PROTEIN 6.9 g/dl (6.1-8.1)
[2016-05-21 07:33] LABS: MAGNESIUM 2.8 mg/dl (1.7-2.5); PHOSPHORUS 2.8 mg/dl (2.5-4.9)
[2016-05-21 07:43] LABS: CONDITION 1; LH ANALYZER COMMENTS 1
[2016-05-21] MEDS: LEVALBUTEROL (HFA) 15 GM INHALER INH SCH ×3 (08:45→23:04)
[2016-05-21] MEDS: VORICONAZOLE 200 MG TAB GTB SCH ×2 (09:17→20:18)
[2016-05-21] MEDS: ARTIFICIAL TEARS 15 ML OPH BOTH EYES SCH ×3 (09:17→20:20)
[2016-05-21] MEDS: AMIODARONE 200 MG TAB GTB SCH ×2 (09:17→20:19)
[2016-05-21] MEDS: MULTIVITAMINS 5 ML CUP GTB SCH (09:17)
[2016-05-21] MEDS: ASPIRIN 81 MG TAB GTB SCH (09:18)
[2016-05-21] MEDS: traMADol 50 MG TAB GTB SCH ×2 (09:18→20:19)
[2016-05-21] MEDS: POTASSIUM CHLORIDE 20 MEQ POWDER FOR ORAL SOLN GTB SCH ×2 (09:18→20:18)
[2016-05-21] MEDS: ZINC SULFATE 220 MG CAP GTB SCH (09:18)
[2016-05-21] MEDS: ASCORBIC ACID 500 MG TAB GTB SCH (09:19)
[2016-05-21] MEDS: LISINOPRIL 5 MG TAB GTB SCH (09:19)
[2016-05-21] MEDS: LEVETIRACETAM IV 1,500 MG in SOD CHLORIDE 0.9% 100 ML IVPB SCH (09:19)
[2016-05-21] MEDS: MUPIROCIN 2% 22 GM OINT TOP SCH ×2 (09:25→20:20)
[2016-05-21] MEDS: COLLAGENASE 30 GM TUBE TOP SCH (09:25)
[2016-05-21] MEDS ORDERED: VANCOMYCIN 1.5 GM in DEXTROSE 5% 250 ML IVPB SCH (11:12)
[2016-05-21] MEDS: [UNRECOGNIZED DRUG - REMARK] XX SCH ×2 (11:30→19:57)
--- NOTE | 2016-05-21 11:35 | PN ---
Date/Time of Note Date/Time of Note DATE: 05/21/16 TIME: 10:56 Assessment/Plan VTE Prophylaxis VTE Prophylaxis Intervention: other (on Xarelto ) Lines/Catheters IV Catheter Type (from Nrsg): Peripheral IV Urinary Cath still in place: Yes Reason Cath still needed: urinary retention Assessment/Plan Assessment/Plan 66-year-old male with: 1. Recurrent Febrile episodes still with temperature up to 101.7 again this AM and WBC still trending down Bases on sputum cx and blood cx, on Zosyn and Vanco x 24 hrs Repeat blood cx pending Urine cx with yeast non kendra albicans Continue Vancomycin, Zosyn and Voriconazole, appreciate evaluation from ID, Dr Toth. 2. Chronic respiratory failure, status post tracheostomy and PEG tube placement. Continue ventilator support. Patient seems to be comfortable back on his maintenance settings now. 3. Paroxysmal atrial fibrillation. Continue current regimen. INR up to 2.1, on Xarelto 15 mg daily for anticoagulation. Monitor 4. Coronary artery disease, ischemic cardiomyopathy, systolic dysfunction, congestive heart failure, ejection fraction of 20%. Continue medical management Monitor volume status closely. Continue free water with tube feedings. 5. Severe chronic encephalopathy mostly in the persistent vegetative state. The patient is opening his eyes and seems to be attempting to track, and talk but he is quadriplegic and this is unchanged. 6. Diabetes mellitus. Continue diabetic tube feeding and sliding scale insulin. 7. Seizure disorder, with episodes of breakthrough seizures vs chills when febrile Tylenol prn fever and Ativan prn Continue Vimpat per Gtube and Keppra IV for now. 8. Neurogenic bladder. Mc dependent. Renal function stable. Urine cx with yeast non kendra albicans, on Voriconazole. 9. Sacral decubitus ulcers, Stage 3. Healing well per wound care RNs Continue wound care. 10. Chronic anemia, stable hemoglobin. Continue PPI for GI prophylaxis. 11. Hypernatremia and hypokalemia: continue Free H2O Monitor volume status closely, patient with CHF and getting IV abx and IV Keppra too, will discuss with pharmacy if can mix with D5W 12. Transaminitis: noted on LFTs today, monitor for now. Prophylaxis: Prevacid for GI prophylaxis and is already on anticoagulation with Xarelto in setting of atrial fibrillation. DISPOSITION: Follow up repeat blood cx and additional serologies ordered per ID. I have updated patient's son and apparently DPOA Jeremias Richard, he is aware of his ongoing clinical status and extremely poor prognosis, he still wants the patient to remain full code but will talk to the rest of the family Palliative care will be consulted. Continue current antibiotics for now. Full Code Subjective 24 Hr Interval Summary Free Text/Dictation Patient converted to A fib yesterday afternoon with episodes of RVR Still having fevers up to 101.7 Appreciate recs from ID, Dr Toth Had a discussion with son Jeremias over the phone with RN translating in Slovak and he still wants patient to remains Full code for now but he will talk to the rest of the family, I did tell him I will have Palliative care involved Exam/Review of Systems Vital Signs Vitals Vital Signs Date Time Temp Pulse Resp B/P Pulse Ox O2 Delivery O2 Flow Rate FiO2 05/21/16 08:47 104 31 100 35 05/21/16 07:44 101.7 132/72 Intake and Output 05/20/16 05/20/16 05/21/16 15:00 23:00 07:00 Intake Total 1480 ml 1350 ml Output Total 700 ml 650 ml Balance 780 ml 700 ml Exam Constitutional: other (unresponsive ) Respiratory: diminished breath sounds (bases ), other (on vent ) Cardiovascular: irregular rhythm (A fib ), nl pulses Gastrointestinal: non-tender, soft Musculoskeletal: nl extremities to inspection Extremities: normal pulses Neurological: other (quadriplegic, vent dependent ), unresponsive (in vegetative state with occasionnal seizures noted ) Results Result Diagram: 05/21/16 0635 05/21/16 0635 Results 24 hrs Laboratory Tests Test 05/20/16 12:02 05/20/16 12:20 05/20/16 16:51 05/20/16 23:41 Bedside Glucose 107 119 121 Ammonia 34 H Test 05/21/16 05:48 05/21/16 06:35 Bedside Glucose 113 Alanine Aminotransferase (ALT/SGPT) 532 H Albumin 2.6 L Albumin/Globulin Ratio 0.60 Alkaline Phosphatase 119 Anion Gap 17 H Aspartate Amino Transf (AST/SGOT) 169 H Basophils # 0.1 Basophils % 0.7 Blood Morphology Comment Blood Urea Nitrogen 42 H Calcium Level 7.5 L Carbon Dioxide Level 24 Chloride Level 118 H Creatinine 0.69 Direct Bilirubin 0.00 Eosinophils # 0.2 Eosinophils % 1.3 Globulin 4.30 H Glucose Level 94 Hematocrit 34.3 L Hemoglobin 10.9 L Indirect Bilirubin 0.6 Lymphocytes # 0.7 L Lymphocytes % 5.7 L Magnesium Level 2.8 H Mean Corpuscular Hemoglobin 27.2 L Mean Corpuscular Hemoglobin Concent 31.8 L Mean Corpuscular Volume 85.6 Mean Platelet Volume 9.8 Monocytes # 0.5 Monocytes % 4.3 Neutrophils # 11.2 H Neutrophils % 88.0 H Nucleated Red Blood Cells # 0.0 Nucleated Red Blood Cells % 0.0 Phosphorus Level 2.8 Platelet Count 217 Potassium Level 3.9 Red Blood Count 4.01 L Red Cell Distribution Width 20.7 H Sodium Level 155 H Total Bilirubin 0.6 Total Protein 6.9 White Blood Count 12.7 H Medications Medications Current Medications Amiodarone HCl (Cordarone) 200 mg BID GTB Last administered on 05/21/16 09:17 ; Admin Dose 200 MG; Start 05/15/16 at 09:00 Aspirin (Aspirin) 81 mg DAILY GTB Last administered on 05/21/16 09:18; Admin Dose 81 MG; Start 05/15/16 at 09:00 Atorvastatin Calcium (Lipitor) 40 mg QHS GTB Last administered on 05/20/16 20: 58; Admin Dose 40 MG; Start 05/15/16 at 21:00 Clonazepam (Klonopin) 1 mg Q8H PRN GTB ANXIETY Last administered on 05/20/16 19:53; Admin Dose 1 MG; Start 05/15/16 at 02:30 Digoxin (Digoxin) 0.125 mg DAILY@13 GTB Last administered on 05/20/16 12:35; Admin Dose 0.125 MG; Start 05/15/16 at 13:00 Tramadol HCl (Ultram) 50 mg Q12 GTB Last administered on 05/21/16 09:18; Admin Dose 50 MG; Start 05/15/16 at 09:00 Zinc Sulfate (Zinc Sulfate) 220 mg DAILY GTB Last administered on 05/21/16 09: 18; Admin Dose 220 MG; Start 05/15/16 at 09:00 Multivitamins (Thera-Plus) 5 ml DAILY GTB Last administered on 05/21/16 09:17 ; Admin Dose 5 ML; Start 05/15/16 at 09:00 Ascorbic Acid (Vitamin C) 500 mg DAILY GTB Last administered on 05/21/16 09:19 ; Admin Dose 500 MG; Start 05/15/16 at 09:00 Lansoprazole (Prevacid) 30 mg BID@,18 GTB Last administered on 05/21/16 05: 51; Admin Dose 30 MG; Start 05/15/16 at 06:00 Ondansetron HCl (Zofran Inj) 4 mg Q6H PRN IV NAUSEA AND/OR VOMITING; Start at 02:30 Bisacodyl (Dulcolax Supp) 10 mg DAILY PRN [place] CONSTIPATION; Start 05/15/16 at 02 :30 Eye Lubricant (Artificial Tears Oph) 1 drop TID BOTH EYES Last administered on 05/21/16 09:17; Admin Dose 1 DROP; Start 05/15/16 at 09:00 Acetaminophen (Tylenol Liquid) 650 mg Q4H PRN GTB PAIN AND OR ELEVATED TEMP Last administered on 05/20/16 19:52; Admin Dose 650 MG; Start 05/15/16 at 02:30 Docusate Sodium (Colace Liquid Cup) 100 mg Q12H PRN GTB CONSTIPATION; Start at 02:41 Magnesium Hydroxide (Milk Of Mag) 30 ml DAILY PRN GTB CONSTIPATION; Start 05/15 at 02:41 Lacosamide (Vimpat Liq) 200 mg Q12 GTB Last administered on 05/20/16 23:27; Admin Dose 200 MG; Start 05/15/16 at 02:59 Insulin Aspart (Novolog Insulin Pen) NOVOLOG *MILD* ALGORITHM Q6 SC Last administered on 05/18/16 18:38; Admin Dose 1 UNIT; Start 05/15/16 at 14:30 Miscellaneous Information 1 ea NOTE XX ; Start 05/15/16 at 13:30 Glucose (Glutose) 15 gm Q15M PRN PO DECREASED GLUCOSE; Start 05/15/16 at 13:30 Glucose (Glutose) 22.5 gm Q15M PRN PO DECREASED GLUCOSE; Start 05/15/16 at 13: 30 Dextrose (D50w Syringe) 25 ml Q15M PRN IV DECREASED GLUCOSE; Start 05/15/16 at 13:30 Dextrose (D50w Syringe) 50 ml Q15M PRN IV DECREASED GLUCOSE; Start 05/15/16 at 13:30 Glucagon (Glucagen) 1 mg Q15M PRN IM DECREASED GLUCOSE; Start 05/15/16 at 13:30 Glucose (Glutose) 15 gm Q15M PRN BUCCAL DECREASED GLUCOSE; Start 05/15/16 at 13 :30 Potassium Chloride (Potassium Chloride Pwd/Soln) 20 meq BID GTB Last administered on 05/21/16 09:18; Admin Dose 20 MEQ; Start 05/15/16 at 14:30 Lorazepam 1 mg 1 mg Q4H PRN IV SEIZURES Last administered on 05/20/16 22:45; Admin Dose 1 MG; Start 05/16/16 at 14:00 Levetiracetam/ Sodium Chloride (Keppra Iv/NS) 115 ml @ 460 mls/hr Q12 IVPB Last administered on 05/21/16 09:19; Admin Dose 460 MLS/HR; Start 05/16/16 at 21:00 Collagenase (Santyl) 1 applic DAILY TOP Last administered on 05/21/16 09:25; Admin Dose 1 APPLIC; Start 05/17/16 at 09:00 Mupirocin (Bactroban) 1 applic BID TOP Last administered on 05/21/16 09:25; Admin Dose 1 APPLIC; Start 05/17/16 at 12:30; Stop 05/30/16 at 21:01 Voriconazole (Vfend) 200 mg BID GTB Last administered on 05/21/16 09:17; Admin Dose 200 MG; Start 05/17/16 at 13:30 Lisinopril 5 mg 5 mg DAILY GTB Last administered on 05/21/16 09:19; Admin Dose 5 MG; Start 05/18/16 at 09:00 Vancomycin HCl 1.5 gm/Sodium Chloride 250 ml @ 83.333 mls/ hr Q24H IVPB Last administered on 05/20/16 23:34; Admin Dose 83.333 MLS/HR; Start 05/20/16 at 00: 00 Piperacillin Sod/ Tazobactam Sod (Zosyn 3.375gm/ 100 ml (Pmx)) 100 ml @ 200 mls /hr Q6 IVPB Last administered on 05/21/16 05:51; Admin Dose 200 MLS/HR; Start 05/19/16 at 12:00 SHELDON VAQZUEZ May 21, 2016 11:06
[2016-05-21] MEDS: DIGOXIN 0.125 MG TAB GTB SCH (12:33)
[2016-05-21] MEDS: ACETAMINOPHEN 650MG/20.3ML CUP GTB PRN ×2 (12:34→20:17)
[2016-05-21] MEDS: LACOSAMIDE (100 MG/10 ML PO SYR) GTB SCH ×2 (12:34→20:48)
--- NOTE | 2016-05-21 15:08 | RADRPT ---
Echocardiogram Report Patient Name: ALESSANDRO JUÁREZ Gender: Male Date: 1950 Study Date: 21-May-2016 Lighting Designer: Babita Singh [facility] Location: 529 Ref. Physician: ABRAHAM BAKER Quality: Good Procedures: Transthoracic echocardiogram with complete 2D, M-Mode, and doppler examination. Indications: Cardiomyopathy. Fever. 2D/M Mode Doppler Measurement Value Normal Ranges Measurement Value Normal Ranges LVIDd 2D 7.1 3.5 - 5.6 cm AV Peak Vitaly 1.3 m/sec LVIDs 2D 6.7 2.1 - 4.1 cm AV Peak PG 7.2 mmHg LVPWd 2D 0.9 0.6 - 1.1 cm AI Peak PG 17.8 mmHg IVSd 2D 0.9 0.6 - 1.1 cm AI Peak Vitaly 2.1 m/sec AoR Diam 2D 3.1 2.0 - 3.7 cm AI PHT 452.4 msec EDV 2D 265.0 cm3 LVOT Peak Vitaly 0.9 m/sec ESV 2D 306.7 cm3 LVOT Peak PG 3.5 mmHg LA Dimen 2D 4.7 2.3 - 4.0 cm TR Peak Vitaly 3.0 m/sec TR Peak PG 36.5 mmHg RVSP 52.0 mmHg Findings Left Ventricle: Normal left ventricular wall thickness. Severe enlargement of left ventricle cavity. Severe global left ventricular systolic dysfunction. Ejection fraction is visually estimated at 1520 %. Multiple segmental wall motion abnormalities. Right Ventricle: Normal right ventricular size. Left Atrium: There is moderate enlargement of left atrium. Right Atrium: There is mild enlargement of right atrium. Mitral Valve: Mitral valve leaflets appear mildly thickened. Moderate to severe mitral valve regurgitation. The regurgitation jet is eccentrically directed which may underestimate the severity of mitral regurgitation. Aortic Valve: Aortic cusps appear mildly calcified. Mild aortic valve regurgitation. Tricuspid Valve: Estimated peak PA systolic pressure 52 mmHg. There is mild to moderate tricuspid regurgitation. Pulmonic Valve: Normal pulmonic valve appearance. There is trace to mild pulmonic regurgitation. Pericardium: Normal pericardium with no significant pericardial effusion. Aorta: Normal aortic root. IVC: Inferior vena cava without respiratory collapse, however, patient on ventilator. Conclusions 1.Normal left ventricular wall thickness. Severe enlargement of left ventricle cavity. Severe global left ventricular systolic dysfunction. Ejection fraction is visually estimated at 15-20 %. Multiple segmental wall motion abnormalities. 2.There is moderate enlargement of left atrium. 3.There is mild enlargement of right atrium. 4.Mitral valve leaflets appear mildly thickened. Moderate to severe mitral valve regurgitation. The regurgitation jet is eccentrically directed which may underestimate the severity of mitral regurgitation. 5.Aortic cusps appear mildly calcified. Mild aortic valve regurgitation. 6.Estimated peak PA systolic pressure 52 mmHg. There is mild to moderate tricuspid regurgitation. 7.Inferior vena cava without respiratory collapse, however, patient on ventilator. Electronically Signed By: Abraham Baker 21-May-2016 15:07:53 -0800 Patient Name: ALESSANDRO JUÁREZ Study Date: 21-May-2016 [id number]
--- NOTE | 2016-05-21 17:23 | PN ---
DATE: 05/21/2016 CARDIOLOGY FOLLOWUP SUBJECTIVE: The patient remains in atrial fibrillation. Remains nonverbal, nonresponsive, status p ost trach on the vent. MEDICATIONS: Reviewed. PHYSICAL EXAMINATION: VITAL SIGNS: Temperature 101, T-max is 101.7, heart rate of 92, blood pressure 124/79, respiratory rate of 27, satting 100% on status post trach on the vent. CARDIOVASCULAR: Irregularly irregular, systolic murmur. PULMONARY: With rhonchi at the base. GASTROINTESTINAL: Soft, nontender. EXTREMITIES: Positive edema. NEUROLOGIC: No response to verbal stimuli. LABORATORY: WBC of 4.7, hemoglobin 10.9, platelets 217. Sodium ___, potassium 3.9, BUN of 42, crea tinine 0.69, glucose of 94. ALT of 532. Echocardiogram was also personally reviewed, which shows s evere LV dysfunction, dilated left ventricle, and ejection fraction of probably about 15% to 20%, mo derate to severe mitral insufficiency. Blood culture on showed coag negative staph. ASSESSMENT AND PLAN: 1. Congestive heart failure, acute on chronic, secondary to systolic dysfunction. 2. Atrial fibrillation, paroxysmal, currently in persistent atrial fibrillation with abnormal EKG o f bundle branch. 3. Sepsis, recurrent fever. 4. History of coronary artery disease, status post myocardial infarction. 5. History of percutaneous coronary intervention. 6. Hypoxemic respiratory failure, status post tracheostomy, ventilator dependent. 7. Electrolyte abnormalities. 8. Renal insufficiency. RECOMMENDATIONS: We will continue with the current cardiac care. Antibiotic managed as per interna l medicine. Vent support will be continued. PRAKASH inhibitor as tolerated will be continued. Anticoa gulation as tolerated. Dictated By: ABRAHAM BASHIR MD AV/AC Conf#: [id number] DID#: [id number] CC: SHELDON VAZQUEZ MD;*EndCC*
[2016-05-21] MEDS: PIPERACILLIN/TAZO 3.375 GM in DEXTROSE 5% 100 ML IVPB SCH (17:40)
[2016-05-21] MEDS: RIVAROXABAN 15 MG TABLET PO SCH (17:40)
--- NOTE | 2016-05-21 18:21 | PN ---
DATE: 05/21/2016 SUBJECTIVE: The patient is lying comfortably in bed, currently afebrile with a temperature maximum of 101.7 this morning, WBC 12.7, H and H 10.9 and 34.3, platelets 217, neutrophils 88. BUN 42, creatinine 0.69. MICROBIOLOGY: Blood cultures since admission have been negative. Urine culture grew yeast, not Can dida albicans. Tracheal aspirate on 05/16/2016 grew Pseudomonas and Providencia stuartii susceptibl e to amikacin, Zosyn. Influenza swab came back negative. Repeat blood culture on 05/17/2016, 1 set came back positive for coagulase-negative staph species. DIAGNOSTICS: Chest x-ray on 05/19/2016 revealed bilateral airspace and interstitial disease consist ent with pulmonary edema and left basilar atelectasis. INDWELLINGS: The patient has trach, PEG, Mc. ANTIMICROBIALS: 1. Vancomycin. 2. Zosyn. 3. Voriconazole. 4. Patient also getting topical Bactroban to nares. PHYSICAL EXAMINATION: GENERAL: This is a chronically ill-appearing, elderly man who is noncommunicative, sleeping comfort ably in bed. HEENT: Head atraumatic, normocephalic. Sclerae anicteric. Buccal mucosa dry. NECK: Supple. Tracheostomy present. CHEST: Rise symmetrical. Breath sounds diminished to bases. HEART: S1, S2. ABDOMEN: Soft. Bowel sounds present. EXTREMITIES: Without cyanosis. Trace dependent edema. ASSESSMENT: 1. Sepsis with persistent fevers and leukocytosis. 2. Healthcare-associated pneumonia. 3. Urinary tract infection. 4. Methicillin-resistant Staphylococcus aureus nares colonization. 5. Coagulase-negative staphylococcus bacteremia, likely contaminant. 6. Persistent vegetative state. 7. Seizure disorder with ongoing seizures. 8. Anemia. PLAN: The patient is clinically stable. Currently not seizing and afebrile. His white blood cell crowned, tracing down. He is covered with appropriate antimicrobials. Blood cultures repeated from yesterday negative. He is full code. According to discussion with Dr. Napier, his workup for TB and AFB smears have been negative at another facility. Dictated By: DENNIS PARR [employer] for LEV BELL/AC Conf#: [id number] [facility]#: [id number]
[2016-05-21] MEDS: ATORVASTATIN 40 MG TAB GTB SCH (20:18)
[2016-05-21] MEDS: LEVETIRACETAM IV 1,500 MG in DEXTROSE 5% 100 ML IVPB SCH (20:19)
[2016-05-21] MEDS: clonAZEPAM 0.5 MG TAB GTB PRN (20:19)
[2016-05-21] MEDS: LORAZEPAM 2 MG INJ IV PRN (20:48)
[2016-05-22] VITALS (24 sets, daily range): BP systolic 92–122; BP diastolic 51–89; PULSE 79–91; RESP 18–25
[2016-05-22] MEDS ORDERED: VANCOMYCIN 1.5 GM in DEXTROSE 5% 250 ML IVPB SCH ×2
[2016-05-22] MEDS: PIPERACILLIN/TAZO 3.375 GM in DEXTROSE 5% 100 ML IVPB SCH ×4 (00:54→17:54)
[2016-05-22] MEDS: [UNRECOGNIZED DRUG - REMARK] XX SCH ×3 (03:30→19:30)
[2016-05-22] MEDS: ACETAMINOPHEN 650MG/20.3ML CUP GTB PRN (03:49)
[2016-05-22] MEDS: LANSOPRAZOLE 30 MG CAP GTB SCH ×2 (05:08→17:52)
[2016-05-22] MEDS: VANCOMYCIN 1 GM in DEXTROSE 5% 250 ML IVPB SCH (05:08)
[2016-05-22] MEDS: INSULIN ASPART [NOVOLOG] 3 ML PEN SC SCH ×4 (05:14→17:42)
[2016-05-22 06:15] LABS: BASOPHILS % 0.2 % (0.0-2.0); EOSINOPHILS # 0.2 10^3/ul (0.0-0.5); EOSINOPHILS % 1.6 % (0.0-7.0); HEMATOCRIT 32.5 % (42.0-52.0); HEMOGLOBIN 10.3 g/dl (14.0-18.0); MEAN CORPUSCULAR HEMOGLOBIN 27.1 pg (29.0-33.0); MEAN CORPUSCULAR HGB CONC 31.6 g/dl (32.0-37.0); MEAN CORPUSCULAR VOLUME 85.5 fl (82.0-101.0); MEAN PLATELET VOLUME 10.5 fl (7.4-10.4); MONOCYTE # 0.6 10^3/ul (0.3-0.9); MONOCYTES % 4.7 % (0.0-11.0); NEUTROPHIL # 10.2 10^3/ul (1.6-7.5); NEUTROPHILS % 85.5 % (39.0-77.0); PLATELET COUNT 221 10^3/UL (140-440); RED BLOOD COUNT 3.81 10^6/ul (4.70-6.10); RED CELL DISTRIBUTION WIDTH 21.1 % (11.5-14.5); UNCORRECTED WBC 11.9 10^3/ul (4.8-10.8); WHITE BLOOD COUNT 11.9 10^3/ul (4.8-10.8)
[2016-05-22 06:37] LABS: CONDITION 1; LH ANALYZER COMMENTS 1; SUSPECT 1
[2016-05-22 06:46] LABS: MAGNESIUM 2.9 mg/dl (1.7-2.5); PHOSPHORUS 3.1 mg/dl (2.5-4.9)
[2016-05-22 06:50] LABS: ALBUMIN 2.5 g/dl (3.3-4.9); POTASSIUM 3.5 mmol/L (3.5-5.1)
[2016-05-22 06:52] LABS: BILIRUBIN,INDIRECT 0.5 mg/dl (0-1.1); BILIRUBIN,TOTAL 0.5 mg/dl (0.2-1.3); CREATININE 0.7 mg/dl (0.61-1.24)
[2016-05-22 06:53] LABS: ALBUMIN/GLOBULIN RATIO 0.59; CALCIUM 7.6 mg/dl (8.4-10.2); TOTAL PROTEIN 6.7 g/dl (6.1-8.1)
[2016-05-22] MEDS: ASCORBIC ACID 500 MG TAB GTB SCH (08:45)
[2016-05-22] MEDS: AMIODARONE 200 MG TAB GTB SCH ×2 (08:45→21:57)
[2016-05-22] MEDS: ZINC SULFATE 220 MG CAP GTB SCH (08:45)
[2016-05-22] MEDS: MULTIVITAMINS 5 ML CUP GTB SCH (08:45)
[2016-05-22] MEDS: VORICONAZOLE 200 MG TAB GTB SCH ×2 (08:45→21:53)
[2016-05-22] MEDS: LEVETIRACETAM IV 1,500 MG in DEXTROSE 5% 100 ML IVPB SCH ×2 (08:45→22:00)
[2016-05-22] MEDS: POTASSIUM CHLORIDE 20 MEQ POWDER FOR ORAL SOLN GTB SCH ×2 (08:46→21:53)
[2016-05-22] MEDS: COLLAGENASE 30 GM TUBE TOP SCH (08:46)
[2016-05-22] MEDS: MUPIROCIN 2% 22 GM OINT TOP SCH ×2 (08:46→22:16)
[2016-05-22] MEDS: LACOSAMIDE (100 MG/10 ML PO SYR) GTB SCH ×2 (08:46→22:16)
[2016-05-22] MEDS: traMADol 50 MG TAB GTB SCH ×2 (08:46→21:53)
[2016-05-22] MEDS: ASPIRIN 81 MG TAB GTB SCH (08:46)
[2016-05-22] MEDS: ARTIFICIAL TEARS 15 ML OPH BOTH EYES SCH ×3 (08:46→21:57)
[2016-05-22] MEDS: LISINOPRIL 5 MG TAB GTB SCH (08:49)
--- NOTE | 2016-05-22 11:04 | PN ---
DATE: 05/22/2016 SUBJECTIVE: The patient remains in atrial fibrillation. Heart rate under fair control. The patien t remains nonverbal status post tracheostomy, vent dependent. MEDICATIONS: Reviewed as per medication reconciliation, personally reviewed. PHYSICAL EXAMINATION: VITAL SIGNS: Temperature 99.5, T-max is 101.7, heart rate of 76, blood pressure 97/64, respiratory rate 20, saturating 99%. HEENT: Normocephalic, atraumatic. Pupils are equal. NECK: Supple. Tracheostomy on the vent. CARDIOVASCULAR: Irregularly irregular, systolic murmur. PULMONARY: With mild rhonchi at the base. GASTROINTESTINAL: Soft, nontender. EXTREMITIES: Positive edema lower extremities. NEUROLOGIC: No response to verbal stimuli. LABORATORY: WBC of 11.9, hemoglobin 10.3, platelets 21. Sodium 156, potassium 3.5, BUN of 40, crea tinine 0.7, glucose of 107. ASSESSMENT AND PLAN: 1. Hypoxic respiratory failure, status post tracheostomy, vent dependent. 2. Severe cardiomyopathy, probably ischemic. 3. History of coronary artery disease, status post myocardial infarction. 4. History of percutaneous coronary intervention. 5. Atrial fibrillation, currently persistent in atrial fibrillation, abnormal EKG with left bundle branch. 6. Encephalopathy anoxic brain injury. 7. Recurrent fever, infections. RECOMMENDATIONS: Antibiotics managed as per ID. Continue the vent support. Continue with the Xare lto. PRAKASH inhibitor as tolerated and will be continued. Statin as tolerated and will be continued. Electrolytes will be corrected as needed. We will give digoxin as needed. Long-term prognosis is poor. Dictated By: ABRAHAM BASHIR MD AV/AC Conf#: [id number] DID#: [id number] CC: SHELDON VAZQUEZ MD;*End*
[2016-05-22] MEDS: LEVALBUTEROL (HFA) 15 GM INHALER INH SCH ×3 (12:25→23:02)
[2016-05-22] MEDS: DIGOXIN 0.125 MG TAB GTB SCH (13:29)
--- NOTE | 2016-05-22 13:46 | PN ---
Date/Time of Note Date/Time of Note DATE: 05/22/16 TIME: 13:33 Assessment/Plan VTE Prophylaxis VTE Prophylaxis Intervention: SCD's Lines/Catheters IV Catheter Type (from Nrsg): Peripheral IV Urinary Cath still in place: Yes Reason Cath still needed: other (indicate) (benton in place ) Assessment/Plan Assessment/Plan 66-year-old male with: 1. Recurrent Febrile episodes still with temperature up to 100.7 again last night, WBC still trending down Bases on sputum cx and blood cx, on Zosyn and Vanco x 24 hrs Repeat blood cx pending Urine cx with yeast non kendra albicans Continue Vancomycin, Zosyn and Voriconazole, appreciate evaluation from ID, Dr Toth. 2. Chronic respiratory failure, status post tracheostomy and PEG tube placement. Continue ventilator support. Patient seems to be comfortable back on his maintenance settings now. 3. Paroxysmal atrial fibrillation. Continue current regimen. INR up to 2.1, on Xarelto 15 mg daily for anticoagulation. Monitor 4. Coronary artery disease, ischemic cardiomyopathy, systolic dysfunction, congestive heart failure, ejection fraction of 20%. Continue medical management Monitor volume status closely. Continue free water with tube feedings. 5. Severe chronic encephalopathy mostly in the persistent vegetative state. The patient is opening his eyes and seems to be attempting to track, and talk but he is quadriplegic and this is unchanged. 6. Diabetes mellitus. Continue diabetic tube feeding and sliding scale insulin. 7. Seizure disorder, with episodes of breakthrough seizures vs chills when febrile Tylenol prn fever and Ativan prn Continue Vimpat per Gtube and Keppra IV for now. 8. Neurogenic bladder. Benton dependent. Renal function stable. Urine cx with yeast non kendra albicans, on Voriconazole. 9. Sacral decubitus ulcers, Stage 3. Healing well per wound care RNs Continue wound care. 10. Chronic anemia, stable hemoglobin. Continue PPI for GI prophylaxis. 11. Hypernatremia and hypokalemia: hypokalemia resolved and on increase Free H2O for hypernatremia Monitor volume status closely, patient with CHF and getting IV abx and IV Keppra too 12. Transaminitis: noted on LFTs today, monitor for now. Prophylaxis: Prevacid for GI prophylaxis and is already on anticoagulation with Xarelto in setting of atrial fibrillation. DISPOSITION: Follow up repeat blood cx and additional serologies ordered per ID. I have updated patient's son and apparently TERESA Richard, he is aware of his ongoing clinical status and extremely poor prognosis, he still wants the patient to remain full code but will talk to the rest of the family Palliative care will be consulted. Continue current antibiotics for now. Full Code for now Subjective 24 Hr Interval Summary Free Text/Dictation Patient unchanged currently and still not very responsive Last episode of fever was last night otherwise WBC trending down slowly Exam/Review of Systems Vital Signs Vitals Vital Signs Date Time Temp Pulse Resp B/P Pulse Ox O2 Delivery O2 Flow Rate FiO2 05/22/16 12:29 91 05/22/16 12:06 97.5 20 93/58 97 05/22/16 11:20 35 Intake and Output 05/21/16 05/21/16 05/22/16 15:00 23:00 07:00 Intake Total 1198 ml 298 ml 1230 ml Output Total 1200 ml 1000 ml Balance 1198 ml -902 ml 230 ml Exam Constitutional: other (lethargic and mostly unresponsive ) Respiratory: clear to auscultation, normal air movement Cardiovascular: nl pulses, regular rate and rhythm Gastrointestinal: non-tender, soft Musculoskeletal: nl extremities to inspection Extremities: normal pulses, other (no edema, clubbing or cyanosis ) Neurological: other (mostly unresponsive ) Results Result Diagram: 05/22/16 0530 05/22/16 0530 Results 24 hrs Laboratory Tests Test 05/21/16 17:39 05/21/16 23:15 05/22/16 05:13 05/22/16 05:30 Bedside Glucose 119 114 Vancomycin Level Trough 22.3 *H Alanine Aminotransferase (ALT/SGPT) 363 H Albumin 2.5 L Albumin/Globulin Ratio 0.59 Alkaline Phosphatase 107 Anion Gap 18 H Aspartate Amino Transf (AST/SGOT) 95 H Basophils # 0.0 Basophils % 0.2 Blood Morphology Comment Blood Urea Nitrogen 40 H Calcium Level 7.6 L Carbon Dioxide Level 24 Chloride Level 118 H Creatinine 0.70 Direct Bilirubin 0.00 Eosinophils # 0.2 Eosinophils % 1.6 Globulin 4.20 H Glucose Level 107 Hematocrit 32.5 L Hemoglobin 10.3 L Indirect Bilirubin 0.5 Lymphocytes # 1.0 Lymphocytes % 8.0 L Magnesium Level 2.9 H Mean Corpuscular Hemoglobin 27.1 L Mean Corpuscular Hemoglobin Concent 31.6 L Mean Corpuscular Volume 85.5 Mean Platelet Volume 10.5 H Monocytes # 0.6 Monocytes % 4.7 Neutrophils # 10.2 H Neutrophils % 85.5 H Nucleated Red Blood Cells # 0.0 Nucleated Red Blood Cells % 0.0 Phosphorus Level 3.1 Platelet Count 221 Potassium Level 3.5 Red Blood Count 3.81 L Red Cell Distribution Width 21.1 H Sodium Level 156 H Total Bilirubin 0.5 Total Protein 6.7 White Blood Count 11.9 H Test 05/22/16 08:43 05/22/16 12:11 Bedside Glucose 111 114 Medications Medications Current Medications Amiodarone HCl (Cordarone) 200 mg BID GTB Last administered on 05/22/16 08:45; Admin Dose 200 MG; Start 05/15/16 at 09:00 Aspirin (Aspirin) 81 mg DAILY GTB Last administered on 05/22/16 08:46; Admin Dose 81 MG; Start 05/15/16 at 09:00 Atorvastatin Calcium (Lipitor) 40 mg QHS GTB Last administered on 05/21/16 20: 18; Admin Dose 40 MG; Start 05/15/16 at 21:00 Clonazepam (Klonopin) 1 mg Q8H PRN GTB ANXIETY Last administered on 05/21/16 20:19; Admin Dose 1 MG; Start 05/15/16 at 02:30 Digoxin (Digoxin) 0.125 mg DAILY@13 GTB Last administered on 05/22/16 13:29; Admin Dose 0.125 MG; Start 05/15/16 at 13:00 Tramadol HCl (Ultram) 50 mg Q12 GTB Last administered on 05/22/16 08:46; Admin Dose 50 MG; Start 05/15/16 at 09:00 Zinc Sulfate (Zinc Sulfate) 220 mg DAILY GTB Last administered on 05/22/16 08: 45; Admin Dose 220 MG; Start 05/15/16 at 09:00 Multivitamins (Thera-Plus) 5 ml DAILY GTB Last administered on 05/22/16 08:45; Admin Dose 5 ML; Start 05/15/16 at 09:00 Ascorbic Acid (Vitamin C) 500 mg DAILY GTB Last administered on 05/22/16 08:45 ; Admin Dose 500 MG; Start 05/15/16 at 09:00 Lansoprazole (Prevacid) 30 mg BID@06,18 GTB Last administered on 05/22/16 05:08 ; Admin Dose 30 MG; Start 05/15/16 at 06:00 Ondansetron HCl (Zofran Inj) 4 mg Q6H PRN IV NAUSEA AND/OR VOMITING; Start at 02:30 Bisacodyl (Dulcolax Supp) 10 mg DAILY PRN UT CONSTIPATION; Start 05/15/16 at 02 :30 Eye Lubricant (Artificial Tears Oph) 1 drop TID BOTH EYES Last administered on 05/22/16 13:28; Admin Dose 1 DROP; Start 05/15/16 at 09:00 Acetaminophen (Tylenol Liquid) 650 mg Q4H PRN GTB PAIN AND OR ELEVATED TEMP Last administered on 05/22/16 03:49; Admin Dose 650 MG; Start 05/15/16 at 02:30 Docusate Sodium (Colace Liquid Cup) 100 mg Q12H PRN GTB CONSTIPATION; Start at 02:41 Magnesium Hydroxide (Milk Of Mag) 30 ml DAILY PRN GTB CONSTIPATION; Start 05/15 at 02:41 Lacosamide (Vimpat Liq) 200 mg Q12 GTB Last administered on 05/22/16 08:46; Admin Dose 200 MG; Start 05/15/16 at 02:59 Insulin Aspart (Novolog Insulin Pen) NOVOLOG *MILD* ALGORITHM Q6 SC Last administered on 05/18/16 18:38; Admin Dose 1 UNIT; Start 05/15/16 at 14:30 Miscellaneous Information 1 ea NOTE XX ; Start 05/15/16 at 13:30 Glucose (Glutose) 15 gm Q15M PRN PO DECREASED GLUCOSE; Start 05/15/16 at 13:30 Glucose (Glutose) 22.5 gm Q15M PRN PO DECREASED GLUCOSE; Start 05/15/16 at 13: 30 Dextrose (D50w Syringe) 25 ml Q15M PRN IV DECREASED GLUCOSE; Start 05/15/16 at 13:30 Dextrose (D50w Syringe) 50 ml Q15M PRN IV DECREASED GLUCOSE; Start 05/15/16 at 13:30 Glucagon (Glucagen) 1 mg Q15M PRN IM DECREASED GLUCOSE; Start 05/15/16 at 13:30 Glucose (Glutose) 15 gm Q15M PRN BUCCAL DECREASED GLUCOSE; Start 05/15/16 at 13 :30 Potassium Chloride (Potassium Chloride Pwd/Soln) 20 meq BID GTB Last administered on 05/22/16 08:46; Admin Dose 20 MEQ; Start 05/15/16 at 14:30 Lorazepam (Ativan) 1 mg Q4H PRN IV SEIZURES Last administered on 05/21/16 20: 48; Admin Dose 1 MG; Start 05/16/16 at 14:00 Collagenase (Santyl) 1 applic DAILY TOP Last administered on 05/22/16 08:46; Admin Dose 1 APPLIC; Start 05/17/16 at 09:00 Mupirocin (Bactroban) 1 applic BID TOP Last administered on 05/22/16 08:46; Admin Dose 1 APPLIC; Start 05/17/16 at 12:30; Stop 05/30/16 at 21:01 Voriconazole (Vfend) 200 mg BID GTB Last administered on 05/22/16 08:45; Admin Dose 200 MG; Start 05/17/16 at 13:30 Lisinopril (Zestril) 5 mg DAILY GTB Last administered on 05/22/16 08:49; Admin Dose 5 MG; Start 05/18/16 at 09:00 Miscellaneous Information IVPB IN D5W WHERE POSSIBLE Q8H XX Last administered on 05/21/16 19:57; Admin Dose 1 EA; Start 05/21/16 at 11:30 Levetiracetam 1500 mg/Dextrose 115 ml @ 460 mls/hr Q12 IVPB Last administered on 05/22/16 08:45; Admin Dose 460 MLS/HR; Start 05/21/16 at 21:00 Piperacillin Sod/ Tazobactam Sod 3.375 gm/Dextrose 100 ml @ 200 mls/hr Q6 IVPB Last administered on 05/22/16 13:28; Admin Dose 200 MLS/HR; Start 05/21/16 at 18:00 Vancomycin HCl/ Dextrose (Vancocin/D5W) 250 ml @ 125 mls/hr Q24H IVPB Last administered on 05/22/16 05:08; Admin Dose 125 MLS/HR; Start 05/22/16 at 06:00 SHELDON VAZQUEZ May 22, 2016 13:45
--- NOTE | 2016-05-22 16:10 | PN ---
DATE: 05/22/2016 SUBJECTIVE: No acute events. The patient is lying comfortably in bed. [facility] VITAL SIGNS: T-max yesterday was 100.7, T current 97.5. LABORATORY: WBC 11.9, platelets 221, neutrophils 85.5. BUN 40, creatinine 0.70. MICROBIOLOGY: Blood cultures since 05/20/2016 remain negative. INDWELLINGS: Trach, PEG, Mc. ANTIMICROBIALS: 1. Vancomycin. 2. Zosyn. 3. Voriconazole. PHYSICAL EXAMINATION: GENERAL: Chronically ill-appearing, elderly man in no distress. HEENT: Head atraumatic, normocephalic. Sclerae anicteric. Buccal mucosa dry. NECK: Supple. Tracheostomy present. CHEST: Rise symmetrical. Breath sounds diminished at the bases. HEART: S1, S2. ABDOMEN: Soft, bowel sounds present. EXTREMITIES: With trace dependent edema. ASSESSMENT: 1. Sepsis with fevers and leukocytosis. 2. Urinary tract infection. 3. Healthcare-associated pneumonia. 4. Methicillin-resistant Staphylococcus aureus nares colonization. 5. Ongoing seizures. 6. Anemia. 7. Persistent vegetative state. PLAN: The patient remains stable, covered with appropriate antimicrobials. He is being followed by multiple consultants. He is afebrile since last night. We will continue him on current regimen. The patient is FULL CODE. Dictated By: DENNIS PARR [employer] for LEV BELL/NTS Conf#: [id number] DID#: [id number]
[2016-05-22] MEDS: RIVAROXABAN 15 MG TABLET PO SCH (17:52)
[2016-05-22 18:41] LABS: TB-NIL <0.00 IU/mL
[2016-05-22] MEDS: ATORVASTATIN 40 MG TAB GTB SCH (21:53)
[2016-05-23] VITALS (24 sets, daily range): BP systolic 105–165; BP diastolic 55–83; PULSE 70–103; RESP 19–36
[2016-05-23] MEDS: PIPERACILLIN/TAZO 3.375 GM in DEXTROSE 5% 100 ML IVPB SCH ×5 (00:24→23:10)
[2016-05-23] MEDS: [UNRECOGNIZED DRUG - REMARK] XX SCH ×3 (03:30→19:30)
[2016-05-23] MEDS: INSULIN ASPART [NOVOLOG] 3 ML PEN SC SCH ×3 (04:57→12:00)
[2016-05-23] MEDS: LANSOPRAZOLE 30 MG CAP GTB SCH ×2 (05:01→18:13)
[2016-05-23] MEDS: VANCOMYCIN 1 GM in DEXTROSE 5% 250 ML IVPB SCH (06:26)
[2016-05-23] MEDS: LEVALBUTEROL (HFA) 15 GM INHALER INH SCH ×2 (08:12→15:56)
[2016-05-23 08:23] LABS: BASOPHILS % 0.3 % (0.0-2.0); EOSINOPHILS # 0.2 10^3/ul (0.0-0.5); EOSINOPHILS % 2.4 % (0.0-7.0); HEMATOCRIT 34.7 % (42.0-52.0); LYMPHOCYTES # 1.2 10^3/ul (0.8-2.9); LYMPHOCYTES % 11.2 % (15.0-51.0); MEAN CORPUSCULAR HEMOGLOBIN 26.7 pg (29.0-33.0); MEAN CORPUSCULAR HGB CONC 31.6 g/dl (32.0-37.0); MEAN CORPUSCULAR VOLUME 84.6 fl (82.0-101.0); MEAN PLATELET VOLUME 10.1 fl (7.4-10.4); MONOCYTE # 0.6 10^3/ul (0.3-0.9); MONOCYTES % 5.3 % (0.0-11.0); NEUTROPHIL # 8.4 10^3/ul (1.6-7.5); NEUTROPHILS % 80.8 % (39.0-77.0); PLATELET COUNT 247 10^3/UL (140-440); UNCORRECTED WBC 10.4 10^3/ul (4.8-10.8); WHITE BLOOD COUNT 10.4 10^3/ul (4.8-10.8)
[2016-05-23 08:29] LABS: CONDITION 1; LH ANALYZER COMMENTS 1
[2016-05-23 08:34] LABS: CREATININE 0.64 mg/dl (0.61-1.24); MAGNESIUM 2.7 mg/dl (1.7-2.5)
[2016-05-23 08:35] LABS: CALCIUM 7.7 mg/dl (8.4-10.2)
[2016-05-23] MEDS: POTASSIUM CHLORIDE 20 MEQ POWDER FOR ORAL SOLN GTB SCH ×2 (08:51→20:44)
[2016-05-23] MEDS: ASCORBIC ACID 500 MG TAB GTB SCH (08:51)
[2016-05-23] MEDS: ASPIRIN 81 MG TAB GTB SCH (08:51)
[2016-05-23] MEDS: LISINOPRIL 5 MG TAB GTB SCH (08:51)
[2016-05-23] MEDS: MULTIVITAMINS 5 ML CUP GTB SCH (08:51)
[2016-05-23] MEDS: ZINC SULFATE 220 MG CAP GTB SCH (08:51)
[2016-05-23] MEDS: VORICONAZOLE 200 MG TAB GTB SCH ×2 (08:51→20:43)
[2016-05-23] MEDS: AMIODARONE 200 MG TAB GTB SCH ×2 (08:52→20:44)
[2016-05-23] MEDS: traMADol 50 MG TAB GTB SCH ×2 (08:52→20:43)
[2016-05-23] MEDS: MUPIROCIN 2% 22 GM OINT TOP SCH ×2 (08:52→20:52)
[2016-05-23] MEDS: COLLAGENASE 30 GM TUBE TOP SCH (08:52)
[2016-05-23] MEDS: ARTIFICIAL TEARS 15 ML OPH BOTH EYES SCH ×3 (08:52→20:52)
[2016-05-23] MEDS: LEVETIRACETAM IV 1,500 MG in DEXTROSE 5% 100 ML IVPB SCH ×2 (09:10→20:46)
--- NOTE | 2016-05-23 09:13 | PN ---
DATE: 05/23/2016 CARDIOLOGY FOLLOWUP PROGRESS NOTE SUBJECTIVE: Discussed with the staff. Rhythm strip was reviewed. The patient remains in atrial fi brillation. He is still on the vent, nonverbal, nonresponsive. MEDICATIONS: Reviewed as per medication reconciliation, personally reviewed. PHYSICAL EXAMINATION: VITAL SIGNS: Temperature 98.2, heart rate of 89, blood pressure was reported as 160/70, respiratory rate of 22, saturating 98%. HEENT: Normocephalic, atraumatic. Status post tracheostomy, on the vent. EYES: Pupils are equal. CARDIOVASCULAR: Irregularly irregular, systolic murmur. PULMONARY: Minimal rhonchi at the base. GASTROINTESTINAL: Soft, status post percutaneous endoscopic gastrostomy placement. EXTREMITIES: Positive lower extremity edema. NEUROLOGIC: Nonresponsive to verbal stimuli. LABORATORY: Glucose of 113. Most recent sodium was 156, potassium 3.5. Albumin is 2.5. ASSESSMENT AND PLAN: 1. Respiratory failure, status post tracheostomy, vent dependent. 2. Mildly abnormal troponin. 3. Congestive heart failure, chronic, secondary to systolic dysfunction. 4. Paroxysmal atrial fibrillation, currently in persistent atrial fibrillation. 5. Severe cardiomyopathy, appeared to be ischemia, history of myocardial infarction and percutaneou s coronary intervention. 6. Severe encephalopathy, chronic and nonresponsive. 7. Diabetes. 8. History of seizure disorder. 9. Recurrent fever, multiple infections. 10. Electrolyte abnormalities. RECOMMENDATIONS: Will correct electrolytes as needed. Will continue with PRAKASH inhibitor as tolerate d. Digoxin will be continued. Digoxin will be checked intermittently and to avoid digoxin toxicity . Respiratory care and ventilator support will be continued as per pulmonary team. Antibiotic as p er ID's recommendations. Dictated By: ABRAHAM BASHIR MD AV/AC Conf#: [id number] DID#: [id number] CC: SHELDON VAZQUEZ MD;*End*
--- NOTE | 2016-05-23 09:31 | CONS ---
DATE OF ADMISSION: 05/14/2016 DATE OF CONSULTATION: 05/22/2016 PALLIATIVE CARE CONSULTATION REFERRING PHYSICIAN: Dr. Marisol Napier HISTORY OF PRESENT ILLNESS: This is a 66-year-old gentleman who presents from a subacute facility w ith sepsis, with elevated white blood cell count and temperatures up to 102, presumably secondary to a urinary tract infection and healthcare-acquired pneumonia. He is seen by infectious disease at t his time, receiving aggressive intervention. The patient's past medical history, unfortunately he is a vegetative 66-year-old gentleman who is pegged and trached, ventilator dependent, status post car diac arrest, with anoxic encephalopathy and quadriplegia. He remains severely cognitively injured p ost-arrest and has had multiple readmissions to the hospital. I have asked to speak to family membe rs concerning the patient's code status, which is currently FULL CODE at this time. The patient is currently on the telemetry calvert, receiving very aggressive intervention, and being seen, once again, by multiple different consultants. MEDICATIONS: Please refer to reconciliation sheets. ALLERGIES: NO KNOWN DRUG ALLERGIES. MAJOR MEDICAL PROBLEMS IN THE PAST: As per history of present illness, pertinent to this consultati on and recurrent hospitalizations for sepsis syndrome, a history of paroxysmal atrial fibrillation, congestive heart failure, sacral decubiti. SOCIAL HISTORY: Once again, lives in a subacute unit. According to medical records, no history of smoking or drinking. FAMILY HISTORY: Cannot be obtained. REVIEW OF SYSTEMS: Cannot be obtained. PHYSICAL EXAMINATION: GENERAL: Ill-appearing gentleman, who is trached and noncommunicative. Eyes closed. VITAL SIGNS: Blood pressure 165/72, pulse of 89 and regular, respirations of 22, temperature 98.2 d egrees, 98% saturation on 30% FIO2. HEENT: He is normocephalic, atraumatic. Anicteric, acyanotic on examination. CHEST: Shows inspiratory and expiratory distant breath sounds throughout both lung boss. COR: S1, S2, without S3, S4, murmur, gallop or rub. Normal rate, normal rhythm on examination. ABDOMEN: On examination abdomen is grossly benign. NEUROLOGIC EXAMINATION: He does not respond to any requests for purposeful tasks. He does not resp ond to any verbal stimulation. He has bilateral roving eyes. He is not moving upper or lower extrem ities in a purposeful manner and cannot participate in cranial nerve examination. LABORATORIES: Tests have been reviewed. ASSESSMENT AND PLAN: I have asked case management to schedule a family conference for 05/23/2016. The patient was examined on 05/22/2016. I will dictate a followup note after meeting with the patie nt's family members at 0830 tomorrow morning, 05/23/2016. Dictated By: MEGHNA RHODES MD, LP/AC Conf#: [id number] DID#: [id number]
[2016-05-23] MEDS: LACOSAMIDE (100 MG/10 ML PO SYR) GTB SCH ×2 (10:00→22:30)
[2016-05-23] MEDS: DIGOXIN 0.125 MG TAB GTB SCH (13:10)
--- NOTE | 2016-05-23 13:22 | PN ---
Date/Time of Note Date/Time of Note DATE: 05/23/16 TIME: 13:10 Assessment/Plan VTE Prophylaxis VTE Prophylaxis Intervention: other (on Xarelto ) Lines/Catheters IV Catheter Type (from Nrs): Peripheral IV Urinary Cath still in place: Yes Reason Cath still needed: urinary retention (neurogenic bladder ) Assessment/Plan Assessment/Plan 66-year-old male with: 1. Recurrent Febrile episodes, afebrile for the past 24 hrs WBC trended down to normal today Bases on sputum cx and blood cx, on Zosyn and Vanco Repeat blood cx NGTD. Urine cx with yeast non kendra albicans Continue Vancomycin, Zosyn and Voriconazole, appreciate ID recs. 2. Chronic respiratory failure, status post tracheostomy and PEG tube placement. Continue ventilator support. Patient seems to be comfortable back on his maintenance settings now. 3. Paroxysmal atrial fibrillation. Continue current regimen. On Xarelto 15 mg daily for anticoagulation and stroke prevention. Monitor 4. Coronary artery disease, ischemic cardiomyopathy, systolic dysfunction, congestive heart failure, ejection fraction of 20%. Continue medical management Monitor volume status closely. Continue free water with tube feedings. 5. Severe chronic encephalopathy mostly in the persistent vegetative state. The patient is opening his eyes occasionally, he is quadriplegic which is unchanged. 6. Diabetes mellitus. Continue diabetic tube feeding and sliding scale insulin. 7. Seizure disorder, with episodes of breakthrough seizures vs chills when febrile Tylenol prn fever and Ativan prn Continue Vimpat per Gtube and Keppra IV for now. 8. Neurogenic bladder. Mc dependent. Renal function stable. Urine cx with yeast non kendra albicans, on Voriconazole. 9. Sacral decubitus ulcers, Stage 3. Healing well per wound care RNs Continue wound care. 10. Chronic anemia, stable hemoglobin. Continue PPI for GI prophylaxis. 11. Hypernatremia and hypokalemia: hypokalemia resolved and on increase Free H2O for hypernatremia Monitor volume status closely, patient with CHF and getting IV abx and IV Keppra too 12. Transaminitis: noted on LFTs, recheck with labs tomorrow. Prophylaxis: Prevacid for GI prophylaxis and is already on anticoagulation with Xarelto in setting of atrial fibrillation. DISPOSITION: Monitor on Tele for now. Continue current antibiotics for now. The son did not show for Palliative care meeting this AM, rescheduled for tomorrow to address again goals of care and code status, patient is full Code for now Subjective 24 Hr Interval Summary Free Text/Dictation Patient's clinical status unchanged and remains unresponsive ? breakthrough partial seizures occasionally Afebrile for 24 hrs and WBC back down to normal Exam/Review of Systems Vital Signs Vitals Vital Signs Date Time Temp Pulse Resp B/P Pulse Ox O2 Delivery O2 Flow Rate FiO2 05/23/16 11:14 97.7 88 36 129/83 99 05/23/16 11:12 30 Intake and Output 05/22/16 05/22/16 05/23/16 15:00 23:00 07:00 Intake Total 1451 ml 518 ml 1480 ml Output Total 1250 ml 700 ml Balance 1451 ml -732 ml 780 ml Exam Constitutional: other (unresponsive, has been in persistent vegetative state ) Respiratory: clear to auscultation, other (on Vent ) Cardiovascular: nl pulses, regular rate and rhythm Gastrointestinal: non-tender, other (Gastrojejenostomy tube in place and also with rectal tube. ), soft Musculoskeletal: other (quadriplegic ) Extremities: normal pulses Neurological: other (quadriplegic ), unresponsive Results Result Diagram: 05/23/16 0721 05/23/16 0721 Results 24 hrs Laboratory Tests Test 05/22/16 17:39 05/23/16 00:22 05/23/16 04:57 05/23/16 07:21 Bedside Glucose 109 103 113 Anion Gap 18 H Basophils # 0.0 Basophils % 0.3 Blood Morphology Comment Blood Urea Nitrogen 33 H Calcium Level 7.7 L Carbon Dioxide Level 22 Chloride Level 118 H Creatinine 0.64 Eosinophils # 0.2 Eosinophils % 2.4 Glucose Level 118 Hematocrit 34.7 L Hemoglobin 11.0 L Lymphocytes # 1.2 Lymphocytes % 11.2 L Magnesium Level 2.7 H Mean Corpuscular Hemoglobin 26.7 L Mean Corpuscular Hemoglobin Concent 31.6 L Mean Corpuscular Volume 84.6 Mean Platelet Volume 10.1 Monocytes # 0.6 Monocytes % 5.3 Neutrophils # 8.4 H Neutrophils % 80.8 H Nucleated Red Blood Cells # 0.0 Nucleated Red Blood Cells % 0.0 Phosphorus Level 3.0 Platelet Count 247 Potassium Level 4.0 Red Blood Count 4.10 L Red Cell Distribution Width 21.0 H Sodium Level 154 H White Blood Count 10.4 Test 05/23/16 08:50 Bedside Glucose 128 Medications Medications Current Medications Amiodarone HCl (Cordarone) 200 mg BID GTB Last administered on 05/23/16 08:52; Admin Dose 200 MG; Start 05/15/16 at 09:00 Aspirin (Aspirin) 81 mg DAILY GTB Last administered on 05/23/16 08:51; Admin Dose 81 MG; Start 05/15/16 at 09:00 Atorvastatin Calcium (Lipitor) 40 mg QHS GTB Last administered on 05/22/16 21: 53; Admin Dose 40 MG; Start 05/15/16 at 21:00 Clonazepam (Klonopin) 1 mg Q8H PRN GTB ANXIETY Last administered on 05/21/16 20:19; Admin Dose 1 MG; Start 05/15/16 at 02:30 Digoxin (Digoxin) 0.125 mg DAILY@13 GTB Last administered on 05/22/16 13:29; Admin Dose 0.125 MG; Start 05/15/16 at 13:00 Tramadol HCl (Ultram) 50 mg Q12 GTB Last administered on 05/22/16 21:53; Admin Dose 50 MG; Start 05/15/16 at 09:00 Zinc Sulfate (Zinc Sulfate) 220 mg DAILY GTB Last administered on 05/23/16 08: 51; Admin Dose 220 MG; Start 05/15/16 at 09:00 Multivitamins (Thera-Plus) 5 ml DAILY GTB Last administered on 05/23/16 08:51; Admin Dose 5 ML; Start 05/15/16 at 09:00 Ascorbic Acid (Vitamin C) 500 mg DAILY GTB Last administered on 05/23/16 08:51 ; Admin Dose 500 MG; Start 05/15/16 at 09:00 Lansoprazole (Prevacid) 30 mg BID@,18 GTB Last administered on 05/23/16 05:01 ; Admin Dose 30 MG; Start 05/15/16 at 06:00 Ondansetron HCl (Zofran Inj) 4 mg Q6H PRN IV NAUSEA AND/OR VOMITING; Start at 02:30 Bisacodyl (Dulcolax Supp) 10 mg DAILY PRN [place] CONSTIPATION; Start 05/15/16 at 02 :30 Eye Lubricant (Artificial Tears Oph) 1 drop TID BOTH EYES Last administered on 05/23/16 08:52; Admin Dose 1 DROP; Start 05/15/16 at 09:00 Acetaminophen (Tylenol Liquid) 650 mg Q4H PRN GTB PAIN AND OR ELEVATED TEMP Last administered on 05/22/16 03:49; Admin Dose 650 MG; Start 05/15/16 at 02:30 Docusate Sodium (Colace Liquid Cup) 100 mg Q12H PRN GTB CONSTIPATION; Start at 02:41 Magnesium Hydroxide (Milk Of Mag) 30 ml DAILY PRN GTB CONSTIPATION; Start 05/15 at 02:41 Lacosamide (Vimpat Liq) 200 mg Q12 GTB Last administered on 05/23/16 10:00; Admin Dose 200 MG; Start 05/15/16 at 02:59 Miscellaneous Information 1 ea NOTE XX ; Start 05/15/16 at 13:30 Potassium Chloride (Potassium Chloride Pwd/Soln) 20 meq BID GTB Last administered on 05/23/16 08:51; Admin Dose 20 MEQ; Start 05/15/16 at 14:30 Lorazepam (Ativan) 1 mg Q4H PRN IV SEIZURES Last administered on 05/21/16 20: 48; Admin Dose 1 MG; Start 05/16/16 at 14:00 Collagenase (Santyl) 1 applic DAILY TOP Last administered on 05/23/16 08:52; Admin Dose 1 APPLIC; Start 05/17/16 at 09:00 Mupirocin (Bactroban) 1 applic BID TOP Last administered on 05/23/16 08:52; Admin Dose 1 APPLIC; Start 05/17/16 at 12:30; Stop 05/30/16 at 21:01 Voriconazole (Vfend) 200 mg BID GTB Last administered on 05/23/16 08:51; Admin Dose 200 MG; Start 05/17/16 at 13:30 Lisinopril (Zestril) 5 mg DAILY GTB Last administered on 05/23/16 08:51; Admin Dose 5 MG; Start 05/18/16 at 09:00 Miscellaneous Information IVPB IN D5W WHERE POSSIBLE Q8H XX Last administered on 1/31/17at 19:57; Admin Dose 1 EA; Start 05/21/16 at 11:30 Levetiracetam 1500 mg/Dextrose 115 ml @ 460 mls/hr Q12 IVPB Last administered on 05/23/16 09:10; Admin Dose 460 MLS/HR; Start 05/21/16 at 21:00 Piperacillin Sod/ Tazobactam Sod 3.375 gm/Dextrose 100 ml @ 200 mls/hr Q6 IVPB Last administered on 05/23/16 04:49; Admin Dose 200 MLS/HR; Start 05/21/16 at 18:00 Vancomycin HCl/ Dextrose (Vancocin/D5W) 250 ml @ 125 mls/hr Q24H IVPB Last administered on 05/23/16 06:26; Admin Dose 125 MLS/HR; Start 05/22/16 at 06:00 SHELDON VAZQUEZ May 23, 2016 13:21
--- NOTE | 2016-05-23 15:41 | CONS ---
Date/Time of Note Date/Time of Note DATE: 05/23/16 TIME: 15:39 Assessment/Plan Assessment/Plan Chief Complaint/Hosp Course SUBJECTIVE: No acute events. No fevers, the patient is lying comfortably in bed , noncommunicative. MICROBIOLOGY: Blood cultures since 05/20/2016 remain negative. INDWELLINGS: Trach, PEG, Mc. ANTIMICROBIALS: 1. Vancomycin. 2. Zosyn. 3. Voriconazole. PHYSICAL EXAMINATION: GENERAL: Chronically ill-appearing, elderly man in no distress. HEENT: Head atraumatic, normocephalic. Sclerae anicteric. Buccal mucosa dry. NECK: Supple. Tracheostomy present. CHEST: Rise symmetrical. Breath sounds diminished at the bases. HEART: S1, S2. ABDOMEN: Soft, bowel sounds present. EXTREMITIES: With trace dependent edema. ASSESSMENT: 1. Sepsis with fevers and leukocytosis. 2. Urinary tract infection. 3. Healthcare-associated pneumonia. 4. Methicillin-resistant Staphylococcus aureus nares colonization. 5. Ongoing seizures. 6. Anemia. 7. Persistent vegetative state. PLAN: The patient remains stable, covered with appropriate antimicrobials, no fevers for 24 hrs, continue present care Dw staff Problems: Consultation Date/Type/Reason Admit Date/Time May 14, 2016 at 22:39 Initial Consult Date Type of Consultation: id Exam/Review of Systems Vital Signs Vitals Vital Signs Date Time Temp Pulse Resp B/P Pulse Ox O2 Delivery O2 Flow Rate FiO2 05/23/16 15:07 99.4 78 26 113/55 97 05/23/16 11:12 30 Intake and Output 05/22/16 05/22/16 05/23/16 15:00 23:00 07:00 Intake Total 1451 ml 518 ml 1610 ml Output Total 1250 ml 700 ml Balance 1451 ml -732 ml 910 ml Results Result Diagram: 05/23/16 0721 05/23/16 0721 Results 24 hrs Laboratory Tests Test 05/22/16 17:39 05/23/16 00:22 05/23/16 04:57 05/23/16 07:21 Bedside Glucose 109 103 113 Anion Gap 18 H Basophils # 0.0 Basophils % 0.3 Blood Morphology Comment Blood Urea Nitrogen 33 H Calcium Level 7.7 L Carbon Dioxide Level 22 Chloride Level 118 H Creatinine 0.64 Eosinophils # 0.2 Eosinophils % 2.4 Glucose Level 118 Hematocrit 34.7 L Hemoglobin 11.0 L Lymphocytes # 1.2 Lymphocytes % 11.2 L Magnesium Level 2.7 H Mean Corpuscular Hemoglobin 26.7 L Mean Corpuscular Hemoglobin Concent 31.6 L Mean Corpuscular Volume 84.6 Mean Platelet Volume 10.1 Monocytes # 0.6 Monocytes % 5.3 Neutrophils # 8.4 H Neutrophils % 80.8 H Nucleated Red Blood Cells # 0.0 Nucleated Red Blood Cells % 0.0 Phosphorus Level 3.0 Platelet Count 247 Potassium Level 4.0 Red Blood Count 4.10 L Red Cell Distribution Width 21.0 H Sodium Level 154 H White Blood Count 10.4 Test 05/23/16 08:50 Bedside Glucose 128 Medications Medications Current Medications Amiodarone HCl (Cordarone) 200 mg BID GTB Last administered on 05/23/16 08:52; Admin Dose 200 MG; Start 05/15/16 at 09:00 Aspirin (Aspirin) 81 mg DAILY GTB Last administered on 05/23/16 08:51; Admin Dose 81 MG; Start 05/15/16 at 09:00 Atorvastatin Calcium (Lipitor) 40 mg QHS GTB Last administered on 05/22/16 21: 53; Admin Dose 40 MG; Start 05/15/16 at 21:00 Clonazepam (Klonopin) 1 mg Q8H PRN GTB ANXIETY Last administered on 05/21/16 20:19; Admin Dose 1 MG; Start 05/15/16 at 02:30 Digoxin (Digoxin) 0.125 mg DAILY@13 GTB Last administered on 05/23/16 13:10; Admin Dose 0.125 MG; Start 05/15/16 at 13:00 Tramadol HCl (Ultram) 50 mg Q12 GTB Last administered on 05/22/16 21:53; Admin Dose 50 MG; Start 05/15/16 at 09:00 Zinc Sulfate (Zinc Sulfate) 220 mg DAILY GTB Last administered on 05/23/16 08: 51; Admin Dose 220 MG; Start 05/15/16 at 09:00 Multivitamins (Thera-Plus) 5 ml DAILY GTB Last administered on 05/23/16 08:51; Admin Dose 5 ML; Start 05/15/16 at 09:00 Ascorbic Acid (Vitamin C) 500 mg DAILY GTB Last administered on 05/23/16 08:51 ; Admin Dose 500 MG; Start 05/15/16 at 09:00 Lansoprazole (Prevacid) 30 mg BID@,18 GTB Last administered on 05/23/16 05:01 ; Admin Dose 30 MG; Start 05/15/16 at 06:00 Ondansetron HCl (Zofran Inj) 4 mg Q6H PRN IV NAUSEA AND/OR VOMITING; Start at 02:30 Bisacodyl (Dulcolax Supp) 10 mg DAILY PRN [place] CONSTIPATION; Start 05/15/16 at 02 :30 Eye Lubricant (Artificial Tears Oph) 1 drop TID BOTH EYES Last administered on 05/23/16 13:10; Admin Dose 1 DROP; Start 05/15/16 at 09:00 Acetaminophen (Tylenol Liquid) 650 mg Q4H PRN GTB PAIN AND OR ELEVATED TEMP Last administered on 05/22/16 03:49; Admin Dose 650 MG; Start 05/15/16 at 02:30 Docusate Sodium (Colace Liquid Cup) 100 mg Q12H PRN GTB CONSTIPATION; Start at 02:41 Magnesium Hydroxide (Milk Of Mag) 30 ml DAILY PRN GTB CONSTIPATION; Start 05/15 at 02:41 Lacosamide (Vimpat Liq) 200 mg Q12 GTB Last administered on 05/23/16 10:00; Admin Dose 200 MG; Start 05/15/16 at 02:59 Miscellaneous Information 1 ea NOTE XX ; Start 05/15/16 at 13:30 Potassium Chloride (Potassium Chloride Pwd/Soln) 20 meq BID GTB Last administered on 05/23/16 08:51; Admin Dose 20 MEQ; Start 05/15/16 at 14:30 Lorazepam (Ativan) 1 mg Q4H PRN IV SEIZURES Last administered on 05/21/16 20: 48; Admin Dose 1 MG; Start 05/16/16 at 14:00 Collagenase (Santyl) 1 applic DAILY TOP Last administered on 05/23/16 08:52; Admin Dose 1 APPLIC; Start 05/17/16 at 09:00 Mupirocin (Bactroban) 1 applic BID TOP Last administered on 05/23/16 08:52; Admin Dose 1 APPLIC; Start 05/17/16 at 12:30; Stop 05/30/16 at 21:01 Voriconazole (Vfend) 200 mg BID GTB Last administered on 05/23/16 08:51; Admin Dose 200 MG; Start 05/17/16 at 13:30 Lisinopril (Zestril) 5 mg DAILY GTB Last administered on 05/23/16 08:51; Admin Dose 5 MG; Start 05/18/16 at 09:00 Miscellaneous Information IVPB IN D5W WHERE POSSIBLE Q8H XX Last administered on 05/21/16 19:57; Admin Dose 1 EA; Start 05/21/16 at 11:30 Levetiracetam 1500 mg/Dextrose 115 ml @ 460 mls/hr Q12 IVPB Last administered on 05/23/16 09:10; Admin Dose 460 MLS/HR; Start 05/21/16 at 21:00 Piperacillin Sod/ Tazobactam Sod 3.375 gm/Dextrose 100 ml @ 200 mls/hr Q6 IVPB Last administered on 05/23/16 13:10; Admin Dose 200 MLS/HR; Start 05/21/16 at 18:00 Vancomycin HCl/ Dextrose (Vancocin/D5W) 250 ml @ 125 mls/hr Q24H IVPB Last administered on 05/23/16 06:26; Admin Dose 125 MLS/HR; Start 05/22/16 at 06:00 DENNIS PARR NP May 23, 2016 15:41
[2016-05-23] MEDS: RIVAROXABAN 15 MG TABLET PO SCH (18:13)
[2016-05-23] MEDS: ATORVASTATIN 40 MG TAB GTB SCH (20:44)
[2016-05-24] VITALS (24 sets, daily range): BP systolic 111–134; BP diastolic 66–89; PULSE 67–96; RESP 18–31
[2016-05-24] MEDS: LEVALBUTEROL (HFA) 15 GM INHALER INH SCH ×4 (00:48→23:50)
[2016-05-24] MEDS: [UNRECOGNIZED DRUG - REMARK] XX SCH ×3 (03:30→19:30)
[2016-05-24] MEDS: LANSOPRAZOLE 30 MG CAP GTB SCH ×2 (06:09→17:57)
[2016-05-24] MEDS: PIPERACILLIN/TAZO 3.375 GM in DEXTROSE 5% 100 ML IVPB SCH ×3 (06:10→17:57)
[2016-05-24] MEDS: VANCOMYCIN 1 GM in DEXTROSE 5% 250 ML IVPB SCH (06:10)
[2016-05-24 06:32] LABS: MAGNESIUM 2.6 mg/dl (1.7-2.5)
[2016-05-24 06:35] LABS: ALBUMIN 2.6 g/dl (3.3-4.9)
[2016-05-24 06:36] LABS: POTASSIUM 4.3 mmol/L (3.5-5.1)
[2016-05-24 06:38] LABS: ALBUMIN/GLOBULIN RATIO 0.66; BILIRUBIN,INDIRECT 0.5 mg/dl (0-1.1); BILIRUBIN,TOTAL 0.5 mg/dl (0.2-1.3); CREATININE 0.57 mg/dl (0.61-1.24); TOTAL PROTEIN 6.5 g/dl (6.1-8.1)
[2016-05-24 06:39] LABS: CALCIUM 7.6 mg/dl (8.4-10.2)
[2016-05-24 06:48] LABS: BASOPHILS % 0.3 % (0.0-2.0); EOSINOPHILS # 0.2 10^3/ul (0.0-0.5); HEMATOCRIT 33.5 % (42.0-52.0); HEMOGLOBIN 10.8 g/dl (14.0-18.0); LYMPHOCYTES # 0.8 10^3/ul (0.8-2.9); LYMPHOCYTES % 8.4 % (15.0-51.0); MEAN CORPUSCULAR HEMOGLOBIN 27.1 pg (29.0-33.0); MEAN CORPUSCULAR HGB CONC 32.3 g/dl (32.0-37.0); MEAN PLATELET VOLUME 10.3 fl (7.4-10.4); MONOCYTE # 0.5 10^3/ul (0.3-0.9); NEUTROPHIL # 8.5 10^3/ul (1.6-7.5); NEUTROPHILS % 84.3 % (39.0-77.0); PLATELET COUNT 256 10^3/UL (140-440); RED BLOOD COUNT 3.99 10^6/ul (4.70-6.10); RED CELL DISTRIBUTION WIDTH 20.6 % (11.5-14.5); UNCORRECTED WBC 10.1 10^3/ul (4.8-10.8); WHITE BLOOD COUNT 10.1 10^3/ul (4.8-10.8)
[2016-05-24 07:58] LABS: CONDITION 1; LH ANALYZER COMMENTS 1
[2016-05-24] MEDS: MUPIROCIN 2% 22 GM OINT TOP SCH ×2 (10:59→21:36)
[2016-05-24] MEDS: ARTIFICIAL TEARS 15 ML OPH BOTH EYES SCH ×3 (10:59→21:36)
[2016-05-24] MEDS: MULTIVITAMINS 5 ML CUP GTB SCH (10:59)
[2016-05-24] MEDS: POTASSIUM CHLORIDE 20 MEQ POWDER FOR ORAL SOLN GTB SCH ×2 (11:00→21:36)
[2016-05-24] MEDS: ASCORBIC ACID 500 MG TAB GTB SCH (11:01)
[2016-05-24] MEDS: AMIODARONE 200 MG TAB GTB SCH ×2 (11:01→21:38)
[2016-05-24] MEDS: LISINOPRIL 5 MG TAB GTB SCH (11:01)
[2016-05-24] MEDS: traMADol 50 MG TAB GTB SCH ×2 (11:02→21:37)
[2016-05-24] MEDS: COLLAGENASE 30 GM TUBE TOP SCH (11:04)
[2016-05-24] MEDS: ASPIRIN 81 MG TAB GTB SCH (11:04)
[2016-05-24] MEDS: ZINC SULFATE 220 MG CAP GTB SCH (11:09)
[2016-05-24] MEDS: LEVETIRACETAM IV 1,500 MG in DEXTROSE 5% 100 ML IVPB SCH ×2 (11:09→21:37)
[2016-05-24] MEDS: VORICONAZOLE 200 MG TAB GTB SCH ×2 (11:09→21:37)
[2016-05-24] MEDS: LACOSAMIDE (100 MG/10 ML PO SYR) GTB SCH ×2 (11:29→21:37)
[2016-05-24] MEDS: DIGOXIN 0.125 MG TAB GTB SCH (13:19)
--- NOTE | 2016-05-24 15:09 | CONS ---
Date/Time of Note Date/Time of Note DATE: 05/24/16 TIME: 15:08 Assessment/Plan Assessment/Plan Chief Complaint/Hosp Course SUBJECTIVE: No acute events. No fevers, the patient is lying comfortably in bed , noncommunicative. Rectal tube inserted for diarrhea MICROBIOLOGY: Blood cultures since 05/20/2016 remain negative. INDWELLINGS: Trach, PEG, Mc. ANTIMICROBIALS: 1. Vancomycin. 2. Zosyn. 3. Voriconazole. PHYSICAL EXAMINATION: GENERAL: Chronically ill-appearing, elderly man in no distress. HEENT: Head atraumatic, normocephalic. Sclerae anicteric. Buccal mucosa dry. NECK: Supple. Tracheostomy present. CHEST: Rise symmetrical. Breath sounds diminished at the bases. HEART: S1, S2. ABDOMEN: Soft, bowel sounds present. EXTREMITIES: With trace dependent edema. ASSESSMENT: 1. Sepsis with fevers and leukocytosis. 2. Urinary tract infection. 3. Healthcare-associated pneumonia. 4. Methicillin-resistant Staphylococcus aureus nares colonization. 5. Ongoing seizures. 6. Anemia. 7. Persistent vegetative state. 8. Diarrhea PLAN: The patient remains unchanged, covered with appropriate antimicrobials, no fevers, will add empiric Flagyl and send stool for C dif. Dw staff Problems: Consultation Date/Type/Reason Admit Date/Time May 14, 2016 at 22:39 Type of Consultation: id 24 HR Interval Summary Subjective hx not possible: pt non-verbal Exam/Review of Systems Vital Signs Vitals Vital Signs Date Time Temp Pulse Resp B/P Pulse Ox O2 Delivery O2 Flow Rate FiO2 05/24/16 13:22 96 05/24/16 13:10 31 98 40 05/24/16 11:51 98.4 111/89 Intake and Output 05/23/16 05/23/16 05/24/16 15:00 23:00 07:00 Intake Total 1451 ml 428 ml 1236 ml Output Total 1250 ml 400 ml Balance 1451 ml -822 ml 836 ml Results Result Diagram: 05/24/16 0550 05/24/16 0550 Results 24 hrs Laboratory Tests Test 05/24/16 05:50 Alanine Aminotransferase (ALT/SGPT) 186 H Albumin 2.6 L Albumin/Globulin Ratio 0.66 Alkaline Phosphatase 144 H Anion Gap 17 H Aspartate Amino Transf (AST/SGOT) 49 H Basophils # 0.0 Basophils % 0.3 Blood Morphology Comment Blood Urea Nitrogen 27 H Calcium Level 7.6 L Carbon Dioxide Level 22 Chloride Level 116 H Creatinine 0.57 L Direct Bilirubin 0.00 Eosinophils # 0.2 Eosinophils % 2.0 Globulin 3.90 H Glucose Level 116 Hematocrit 33.5 L Hemoglobin 10.8 L Indirect Bilirubin 0.5 Lymphocytes # 0.8 Lymphocytes % 8.4 L Magnesium Level 2.6 H Mean Corpuscular Hemoglobin 27.1 L Mean Corpuscular Hemoglobin Concent 32.3 Mean Corpuscular Volume 84.0 Mean Platelet Volume 10.3 Monocytes # 0.5 Monocytes % 5.0 Neutrophils # 8.5 H Neutrophils % 84.3 H Nucleated Red Blood Cells # 0.0 Nucleated Red Blood Cells % 0.0 Phosphorus Level 3.0 Platelet Count 256 Potassium Level 4.3 Red Blood Count 3.99 L Red Cell Distribution Width 20.6 H Sodium Level 151 H Total Bilirubin 0.5 Total Protein 6.5 White Blood Count 10.1 Medications Medications Current Medications Amiodarone HCl (Cordarone) 200 mg BID GTB Last administered on 05/24/16 11:01; Admin Dose 200 MG; Start 05/15/16 at 09:00 Aspirin (Aspirin) 81 mg DAILY GTB Last administered on 05/24/16 11:04; Admin Dose 81 MG; Start 05/15/16 at 09:00 Atorvastatin Calcium (Lipitor) 40 mg QHS GTB Last administered on 05/23/16 20: 44; Admin Dose 40 MG; Start 05/15/16 at 21:00 Clonazepam (Klonopin) 1 mg Q8H PRN GTB ANXIETY Last administered on 05/21/16 20:19; Admin Dose 1 MG; Start 05/15/16 at 02:30 Digoxin (Digoxin) 0.125 mg DAILY@13 GTB Last administered on 05/24/16 13:19; Admin Dose 0.125 MG; Start 05/15/16 at 13:00 Tramadol HCl (Ultram) 50 mg Q12 GTB Last administered on 05/24/16 11:02; Admin Dose 50 MG; Start 05/15/16 at 09:00 Zinc Sulfate (Zinc Sulfate) 220 mg DAILY GTB Last administered on 05/24/16 11: 09; Admin Dose 220 MG; Start 05/15/16 at 09:00 Multivitamins (Thera-Plus) 5 ml DAILY GTB Last administered on 05/24/16 10:59; Admin Dose 5 ML; Start 05/15/16 at 09:00 Ascorbic Acid (Vitamin C) 500 mg DAILY GTB Last administered on 05/24/16 11:01 ; Admin Dose 500 MG; Start 05/15/16 at 09:00 Lansoprazole (Prevacid) 30 mg BID@18 GTB Last administered on 05/24/16 06:09 ; Admin Dose 30 MG; Start 05/15/16 at 06:00 Ondansetron HCl (Zofran Inj) 4 mg Q6H PRN IV NAUSEA AND/OR VOMITING; Start at 02:30 Bisacodyl (Dulcolax Supp) 10 mg DAILY PRN [place] CONSTIPATION; Start 05/15/16 at 02 :30 Eye Lubricant (Artificial Tears Oph) 1 drop TID BOTH EYES Last administered on 05/24/16 13:17; Admin Dose 1 DROP; Start 05/15/16 at 09:00 Acetaminophen (Tylenol Liquid) 650 mg Q4H PRN GTB PAIN AND OR ELEVATED TEMP Last administered on 05/22/16 03:49; Admin Dose 650 MG; Start 05/15/16 at 02:30 Docusate Sodium (Colace Liquid Cup) 100 mg Q12H PRN GTB CONSTIPATION; Start at 02:41 Magnesium Hydroxide (Milk Of Mag) 30 ml DAILY PRN GTB CONSTIPATION; Start 05/15 at 02:41 Lacosamide (Vimpat Liq) 200 mg Q12 GTB Last administered on 05/24/16 11:29; Admin Dose 200 MG; Start 05/15/16 at 02:59 Miscellaneous Information 1 ea NOTE XX ; Start 05/15/16 at 13:30 Potassium Chloride (Potassium Chloride Pwd/Soln) 20 meq BID GTB Last administered on 05/24/16 11:00; Admin Dose 20 MEQ; Start 05/15/16 at 14:30 Lorazepam (Ativan) 1 mg Q4H PRN IV SEIZURES Last administered on 05/21/16 20: 48; Admin Dose 1 MG; Start 05/16/16 at 14:00 Collagenase (Santyl) 1 applic DAILY TOP Last administered on 05/24/16 11:04; Admin Dose 1 APPLIC; Start 05/17/16 at 09:00 Mupirocin (Bactroban) 1 applic BID TOP Last administered on 05/24/16 10:59; Admin Dose 1 APPLIC; Start 05/17/16 at 12:30; Stop 05/30/16 at 21:01 Voriconazole (Vfend) 200 mg BID GTB Last administered on 05/24/16 11:09; Admin Dose 200 MG; Start 05/17/16 at 13:30 Lisinopril (Zestril) 5 mg DAILY GTB Last administered on 05/24/16 11:01; Admin Dose 5 MG; Start 05/18/16 at 09:00 Miscellaneous Information IVPB IN D5W WHERE POSSIBLE Q8H XX Last administered on 05/21/16 19:57; Admin Dose 1 EA; Start 05/21/16 at 11:30 Levetiracetam 1500 mg/Dextrose 115 ml @ 460 mls/hr Q12 IVPB Last administered on 05/24/16 11:09; Admin Dose 460 MLS/HR; Start 05/21/16 at 21:00 Piperacillin Sod/ Tazobactam Sod 3.375 gm/Dextrose 100 ml @ 200 mls/hr Q6 IVPB Last administered on 05/24/16 13:16; Admin Dose 200 MLS/HR; Start 05/21/16 at 18:00 Vancomycin HCl/ Dextrose (Vancocin/D5W) 250 ml @ 125 mls/hr Q24H IVPB Last administered on 05/24/16 06:10; Admin Dose 125 MLS/HR; Start 05/22/16 at 06:00 Miscellaneous Information (*Rx Drug Level Order Reminder*) 1 ONCE ONCE XX ; Start 05/25/16 at 05:00; Stop 05/25/16 at 05:01 DENNIS PARR NP May 24, 2016 15:09
--- NOTE | 2016-05-24 15:26 | PN ---
DATE: 05/24/2016 CARDIOLOGY FOLLOWUP PROGRESS NOTE SUBJECTIVE: Discussed with the staff. Rhythm strip reviewed. The patient remains in atrial fibril lation, heart rate under good control. The patient is nonverbal, still with trach on the vent. Non verbal. MEDICATIONS: Reviewed. PHYSICAL EXAMINATION: VITAL SIGNS: Temperature 98.4, heart rate of 71, blood pressure 111/89, respiratory rate of 19, sat urating 99%. HEENT: Normocephalic, atraumatic. Pupils are equal. CARDIOVASCULAR: Irregularly irregular. NECK: Status post tracheostomy, on the vent. PULMONARY: Anteriorly with mild rhonchi at the base. GASTROINTESTINAL: Soft, nontender. EXTREMITIES: Positive lower extremity edema. NEUROLOGIC: Nonresponsive to verbal stimuli. LABORATORY DATA: WBC of 10.1, hemoglobin 10.8, platelet . Sodium 151, potassium 4.3, BUN of 2 5, creatinine 0.57, glucose 116. ALT of 186. Albumin is 2.6. ASSESSMENT AND PLAN: 1. Mildly abnormal troponin. 2. Atrial fibrillation, currently persistent. 3. Severe ischemic cardiomyopathy. 4. Hypoxemic respiratory failure, status post tracheostomy, vent dependence, history of cardiopulmo nary arrest. 5. Anoxic brain injury and severe encephalopathy. 6. Diabetes. 7. Anemia. RECOMMENDATIONS: We will continue with the current cardiac care. Antibiotic is managed as per ID r ecommendation due to the patient's recurrent fever. Anticoagulation with Xarelto will be continued. Lisinopril will be continued as tolerated. Continue with digoxin. Dictated By: ABRAHAM BASHIR MD AV/AC Conf#: [id number] DID#: [id number] CC: SHELDON VAZQUEZ MD;*End*
[2016-05-24] MEDS: metroNIDAZOLE 500 MG TAB NGT SCH ×2 (15:36→21:37)
--- NOTE | 2016-05-24 17:44 | PN ---
Date/Time of Note Date/Time of Note DATE: 05/24/16 TIME: 17:29 Assessment/Plan VTE Prophylaxis VTE Prophylaxis Intervention: other (Xarelto ) Lines/Catheters IV Catheter Type (from Nrs): Peripheral IV Urinary Cath still in place: Yes Reason Cath still needed: urinary retention Assessment/Plan Assessment/Plan 66-year-old male with: 1. Recurrent Febrile episodes, afebrile for the past 2 days now WBC trended down to normal x 2 days Bases on sputum cx and blood cx, on Zosyn and Vanco Repeat blood cx NGTD. Urine cx with yeast non kendra albicans Continue Vancomycin, Zosyn and Voriconazole, appreciate ID recs. 2. Diarrhea, Loose stool, rectal tube had to be placed, C diff pending and empiric Flagyl started per ID 3. Chronic respiratory failure, status post tracheostomy and PEG tube placement. Continue ventilator support. Patient seems to be comfortable back on his maintenance settings now. 4. Paroxysmal atrial fibrillation. Continue current regimen. On Xarelto 15 mg daily for anticoagulation and stroke prevention. Monitor 5. Coronary artery disease, ischemic cardiomyopathy, systolic dysfunction, congestive heart failure, ejection fraction of 20%. Continue medical management Monitor volume status closely. Continue free water with tube feedings. 6. Severe chronic encephalopathy mostly in the persistent vegetative state. The patient occasional at best is opening his eyes lately but not tracking and he is quadriplegic and vent dependent. 7. Diabetes mellitus. Continue diabetic tube feeding and sliding scale insulin. 8. Seizure disorder, with episodes of breakthrough seizures vs chills when febrile Tylenol prn fever and Ativan prn Continue Vimpat per Gtube and Keppra IV for now with plan to change to per GT when more stable 9. Neurogenic bladder. Mc dependent. Renal function stable. Urine cx with yeast non kendra albicans, on Voriconazole. 10. Sacral decubitus ulcers, Stage 3. Healing well per wound care RNs Continue wound care. 11. Chronic anemia, stable hemoglobin. Continue PPI for GI prophylaxis. 12. Hypernatremia: on increase Free H2O with improved hypernatremia today, Na down to 151 Monitor volume status closely, patient with CHF and getting IV abx and IV Keppra too 13. Transaminitis: LFTs improved today, continue to monitor periodically. Prophylaxis: Prevacid for GI prophylaxis and is already on anticoagulation with Xarelto in setting of atrial fibrillation. DISPOSITION: Monitor on Tele for now. Continue current antibiotics for now. Flagyl started and rectal tube in place for copious loose stools ... The son did not show for Palliative care meeting again today, 2 days in a row ...rescheduled for next week if patient still here. Patient is Full Code. Subjective 24 Hr Interval Summary Free Text/Dictation Patient remains hemodynamically stable and finally afebrile x 2 days but now with loose stools requiring rectal tube placement Very difficult family to deal with, Son and DPOA again no show for palliative care meeting to re address code status and goals of care If patient remains hemodynamically stable and afebrile and able to remove rectal tube, will plan for d/c back to subacute facility this weekend with appropriate abx Exam/Review of Systems Vital Signs Vitals Vital Signs Date Time Temp Pulse Resp B/P Pulse Ox O2 Delivery O2 Flow Rate FiO2 05/24/16 17:01 96 05/24/16 15:34 98.5 18 128/75 100 05/24/16 15:10 30 Intake and Output 05/23/16 05/23/16 05/24/16 15:00 23:00 07:00 Intake Total 1451 ml 428 ml 1236 ml Output Total 1250 ml 400 ml Balance 1451 ml -822 ml 836 ml Exam Constitutional: other (unresponsive, quadriplegic, on Vent ) Respiratory: diminished breath sounds (bases), other (good air movement on Vent ) Cardiovascular: nl pulses, regular rate and rhythm Gastrointestinal: non-tender, other (Gastrojejenostomy tube, rectal tube for ongoing diarrhea ), soft Musculoskeletal: nl extremities to inspection Extremities: normal pulses, other (no edema, clubbing or cyanosis ) Neurological: other (on vent ), unresponsive Results Result Diagram: 05/24/16 0550 05/24/16 0550 Results 24 hrs Laboratory Tests Test 05/24/16 05:50 Alanine Aminotransferase (ALT/SGPT) 186 H Albumin 2.6 L Albumin/Globulin Ratio 0.66 Alkaline Phosphatase 144 H Anion Gap 17 H Aspartate Amino Transf (AST/SGOT) 49 H Basophils # 0.0 Basophils % 0.3 Blood Morphology Comment Blood Urea Nitrogen 27 H Calcium Level 7.6 L Carbon Dioxide Level 22 Chloride Level 116 H Creatinine 0.57 L Direct Bilirubin 0.00 Eosinophils # 0.2 Eosinophils % 2.0 Globulin 3.90 H Glucose Level 116 Hematocrit 33.5 L Hemoglobin 10.8 L Indirect Bilirubin 0.5 Lymphocytes # 0.8 Lymphocytes % 8.4 L Magnesium Level 2.6 H Mean Corpuscular Hemoglobin 27.1 L Mean Corpuscular Hemoglobin Concent 32.3 Mean Corpuscular Volume 84.0 Mean Platelet Volume 10.3 Monocytes # 0.5 Monocytes % 5.0 Neutrophils # 8.5 H Neutrophils % 84.3 H Nucleated Red Blood Cells # 0.0 Nucleated Red Blood Cells % 0.0 Phosphorus Level 3.0 Platelet Count 256 Potassium Level 4.3 Red Blood Count 3.99 L Red Cell Distribution Width 20.6 H Sodium Level 151 H Total Bilirubin 0.5 Total Protein 6.5 White Blood Count 10.1 Medications Medications Current Medications Amiodarone HCl (Cordarone) 200 mg BID GTB Last administered on 05/24/16 11:01; Admin Dose 200 MG; Start 05/15/16 at 09:00 Aspirin (Aspirin) 81 mg DAILY GTB Last administered on 05/24/16 11:04; Admin Dose 81 MG; Start 05/15/16 at 09:00 Atorvastatin Calcium (Lipitor) 40 mg QHS GTB Last administered on 05/23/16 20: 44; Admin Dose 40 MG; Start 05/15/16 at 21:00 Clonazepam (Klonopin) 1 mg Q8H PRN GTB ANXIETY Last administered on 05/21/16 20:19; Admin Dose 1 MG; Start 05/15/16 at 02:30 Digoxin (Digoxin) 0.125 mg DAILY@13 GTB Last administered on 05/24/16 13:19; Admin Dose 0.125 MG; Start 05/15/16 at 13:00 Tramadol HCl (Ultram) 50 mg Q12 GTB Last administered on 05/24/16 11:02; Admin Dose 50 MG; Start 05/15/16 at 09:00 Zinc Sulfate (Zinc Sulfate) 220 mg DAILY GTB Last administered on 05/24/16 11: 09; Admin Dose 220 MG; Start 05/15/16 at 09:00 Multivitamins (Thera-Plus) 5 ml DAILY GTB Last administered on 05/24/16 10:59; Admin Dose 5 ML; Start 05/15/16 at 09:00 Ascorbic Acid (Vitamin C) 500 mg DAILY GTB Last administered on 05/24/16 11:01 ; Admin Dose 500 MG; Start 05/15/16 at 09:00 Lansoprazole (Prevacid) 30 mg BID@,18 GTB Last administered on 05/24/16 06:09 ; Admin Dose 30 MG; Start 05/15/16 at 06:00 Ondansetron HCl (Zofran Inj) 4 mg Q6H PRN IV NAUSEA AND/OR VOMITING; Start at 02:30 Bisacodyl (Dulcolax Supp) 10 mg DAILY PRN [place] CONSTIPATION; Start 05/15/16 at 02 :30 Eye Lubricant (Artificial Tears Oph) 1 drop TID BOTH EYES Last administered on 05/24/16 13:17; Admin Dose 1 DROP; Start 05/15/16 at 09:00 Acetaminophen (Tylenol Liquid) 650 mg Q4H PRN GTB PAIN AND OR ELEVATED TEMP Last administered on 05/22/16 03:49; Admin Dose 650 MG; Start 05/15/16 at 02:30 Docusate Sodium (Colace Liquid Cup) 100 mg Q12H PRN GTB CONSTIPATION; Start at 02:41 Magnesium Hydroxide (Milk Of Mag) 30 ml DAILY PRN GTB CONSTIPATION; Start 05/15 at 02:41 Lacosamide (Vimpat Liq) 200 mg Q12 GTB Last administered on 05/24/16 11:29; Admin Dose 200 MG; Start 05/15/16 at 02:59 Miscellaneous Information 1 ea NOTE XX ; Start 05/15/16 at 13:30 Potassium Chloride (Potassium Chloride Pwd/Soln) 20 meq BID GTB Last administered on 05/24/16 11:00; Admin Dose 20 MEQ; Start 05/15/16 at 14:30 Lorazepam (Ativan) 1 mg Q4H PRN IV SEIZURES Last administered on 05/21/16 20: 48; Admin Dose 1 MG; Start 05/16/16 at 14:00 Collagenase (Santyl) 1 applic DAILY TOP Last administered on 05/24/16 11:04; Admin Dose 1 APPLIC; Start 05/17/16 at 09:00 Mupirocin (Bactroban) 1 applic BID TOP Last administered on 05/24/16 10:59; Admin Dose 1 APPLIC; Start 05/17/16 at 12:30; Stop 05/30/16 at 21:01 Voriconazole (Vfend) 200 mg BID GTB Last administered on 05/24/16 11:09; Admin Dose 200 MG; Start 05/17/16 at 13:30 Lisinopril (Zestril) 5 mg DAILY GTB Last administered on 05/24/16 11:01; Admin Dose 5 MG; Start 05/18/16 at 09:00 Miscellaneous Information IVPB IN D5W WHERE POSSIBLE Q8H XX Last administered on 05/21/16 19:57; Admin Dose 1 EA; Start 05/21/16 at 11:30 Levetiracetam 1500 mg/Dextrose 115 ml @ 460 mls/hr Q12 IVPB Last administered on 05/24/16 11:09; Admin Dose 460 MLS/HR; Start 05/21/16 at 21:00 Piperacillin Sod/ Tazobactam Sod 3.375 gm/Dextrose 100 ml @ 200 mls/hr Q6 IVPB Last administered on 05/24/16 13:16; Admin Dose 200 MLS/HR; Start 05/21/16 at 18:00 Vancomycin HCl/ Dextrose (Vancocin/D5W) 250 ml @ 125 mls/hr Q24H IVPB Last administered on 05/24/16 06:10; Admin Dose 125 MLS/HR; Start 05/22/16 at 06:00 Miscellaneous Information (*Rx Drug Level Order Reminder*) 1 ONCE ONCE XX ; Start 05/25/16 at 05:00; Stop 05/25/16 at 05:01 Metronidazole (Flagyl) 500 mg Q8 NGT Last administered on 05/24/16 15:36; Admin Dose 500 MG; Start 05/24/16 at 15:30 SHELDON VAZQUEZ May 24, 2016 17:40
[2016-05-24] MEDS: RIVAROXABAN 15 MG TABLET PO SCH (17:57)
[2016-05-24] MEDS: ACETAMINOPHEN 650MG/20.3ML CUP GTB PRN (21:37)
[2016-05-24] MEDS: ATORVASTATIN 40 MG TAB GTB SCH (21:37)
[2016-05-25] VITALS (24 sets, daily range): BP systolic 106–134; BP diastolic 55–87; PULSE 87–114; RESP 17–29
[2016-05-25] MEDS ORDERED: LEVETIRACETAM 500 MG TAB PO SCH (00:30)
[2016-05-25] MEDS: PIPERACILLIN/TAZO 3.375 GM in DEXTROSE 5% 100 ML IVPB SCH ×5 (00:59→23:59)
[2016-05-25] MEDS: [UNRECOGNIZED DRUG - REMARK] XX SCH ×3 (03:30→19:30)
[2016-05-25] MEDS: metroNIDAZOLE 500 MG TAB NGT SCH ×3 (05:56→21:26)
[2016-05-25] MEDS: LANSOPRAZOLE 30 MG CAP GTB SCH ×2 (05:56→17:52)
[2016-05-25] MEDS: VANCOMYCIN 1 GM in DEXTROSE 5% 250 ML IVPB SCH (05:57)
[2016-05-25 07:27] LABS: POTASSIUM 4.5 mmol/L (3.5-5.1)
[2016-05-25 07:30] LABS: CALCIUM 7.8 mg/dl (8.4-10.2); CREATININE 0.58 mg/dl (0.61-1.24)
[2016-05-25 08:02] LABS: PHOSPHORUS 3.2 mg/dl (2.5-4.9)
[2016-05-25 08:03] LABS: MAGNESIUM 2.7 mg/dl (1.7-2.5)
[2016-05-25] MEDS: LEVALBUTEROL (HFA) 15 GM INHALER INH SCH ×3 (08:17→23:10)
[2016-05-25 08:20] LABS: RED BLOOD COUNT 4.13 10^6/ul (4.70-6.10); WHITE BLOOD COUNT 10.4 10^3/ul (4.8-10.8)
[2016-05-25 08:21] LABS: HEMATOCRIT 37.1 % (42.0-52.0); HEMOGLOBIN 10.9 g/dl (14.0-18.0); MEAN CORPUSCULAR HEMOGLOBIN 26.4 pg (29.0-33.0); MEAN CORPUSCULAR HGB CONC 29.4 g/dl (32.0-37.0); MEAN CORPUSCULAR VOLUME 89.8 fl (82.0-101.0); MEAN PLATELET VOLUME 12.1 fl (7.4-10.4); PLATELET COUNT 305 10^3/UL (140-440); RED CELL DISTRIBUTION WIDTH 19.2 % (11.5-14.5)
[2016-05-25] MEDS: LEVETIRACETAM (100 MG/ML) 5ML CUP GTB SCH ×2 (10:37→21:31)
[2016-05-25] MEDS: MULTIVITAMINS 5 ML CUP GTB SCH (10:37)
[2016-05-25] MEDS: ASPIRIN 81 MG TAB GTB SCH (10:38)
[2016-05-25] MEDS: POTASSIUM CHLORIDE 20 MEQ POWDER FOR ORAL SOLN GTB SCH ×2 (10:38→21:24)
[2016-05-25] MEDS: ZINC SULFATE 220 MG CAP GTB SCH (10:39)
[2016-05-25] MEDS: ASCORBIC ACID 500 MG TAB GTB SCH (10:39)
[2016-05-25] MEDS: VORICONAZOLE 200 MG TAB GTB SCH ×2 (10:39→21:26)
[2016-05-25] MEDS: AMIODARONE 200 MG TAB GTB SCH ×2 (10:40→21:26)
[2016-05-25] MEDS: COLLAGENASE 30 GM TUBE TOP SCH (10:40)
[2016-05-25] MEDS: LISINOPRIL 5 MG TAB GTB SCH (10:40)
[2016-05-25] MEDS: ARTIFICIAL TEARS 15 ML OPH BOTH EYES SCH ×3 (10:41→21:27)
[2016-05-25] MEDS: traMADol 50 MG TAB GTB SCH ×2 (13:29→21:25)
[2016-05-25] MEDS: DIGOXIN 0.125 MG TAB GTB SCH (13:30)
[2016-05-25] MEDS: MUPIROCIN 2% 22 GM OINT TOP SCH ×2 (13:32→21:27)
[2016-05-25] MEDS: LACOSAMIDE (100 MG/10 ML PO SYR) GTB SCH ×2 (14:43→21:54)
--- NOTE | 2016-05-25 14:44 | PN ---
Date/Time of Note Date/Time of Note DATE: 05/25/16 TIME: 14:09 Assessment/Plan VTE Prophylaxis VTE Prophylaxis Intervention: other (Xarelto) Lines/Catheters IV Catheter Type (from Nrs): Peripheral IV Urinary Cath still in place: Yes Reason Cath still needed: terminal illness/intractable pain Assessment/Plan Assessment/Plan [facility] 1. 66-year-old man with temp this morning to 101.5F, pattern of recurrent febrile episodes. WBC normal the past three days. Sputum culture positive for Pseudomonas and Providencia stuartii. One blood culture (05/17/16) positive for hickey-sensitive Coagulase-negative Staph. Repeat blood cultures all negative so far. But chest sounds more congested today on the right. Urine culture shows yeast non-Ashley albicans, treated with voriconazole. Consider drug reaction, though no clear fever pattern. * Continue vancomycin (day 4), Zosyn (day 5) and voriconazole (day 8). * Portable CXR (last 05/21/16) 2. Diarrhea, with rectal tube in place. C diff PCR this morning is negative. * Stop Flagyl (day 2), which was started empirically yesterday per ID 3. Chronic respiratory failure, status post tracheostomy and PEG tube placement. * Continue ventilator support. 4. Paroxysmal atrial fibrillation, in sinus rhythm now. * Continue Xarelto 15 mg daily for anticoagulation and stroke prevention 5. Coronary artery disease, ischemic cardiomyopathy, systolic dysfunction, congestive heart failure, ejection fraction of 20%. * Continue medical management, with monitoring of volume status and continued free water with tube feedings. 6. Severe chronic encephalopathy mostly in the persistent unresponsive state. The patient occasionally opening his eyes but not tracking, and he is quadriplegic and vent dependent. 7. Diabetes mellitus. * Continue diabetic G-tube feeding and sliding scale insulin. 8. Seizure disorder, with episodes of breakthrough seizures vs chills when febrile. None reported last 24-hours. * Tylenol prn fever and Ativan prn * Continue Vimpat per Gtube * Changed Keppra to per G-tube 9. Neurogenic bladder. Mc-dependent. Renal function stable. Urine culture showing non-Ashley albicans yeast, as noted above 10. Sacral decubitus ulcers, Stage 3. Healing well per wound care RNs. Also with new ulcer on the tragus of the left ear. * Continue wound care. * Dress new wound 11. Chronic anemia, stable hematocrit at 37.1% * Continue Protonix for GI prophylaxis. 12. Hypernatremia, increased today to 154 from 151, despite increased free H2O. Up-and-down. * Monitor volume status closely, in light of previous CHF history and very low LV output. * Discontinuing IV fluids associated with Flagyl and Keppra 13. Elevated AST and ALT, mixed picture compared to earlier this week. * Recheck with labs tomorrow. 14. Prophylaxis: * Prevacid for GI prophylaxis * Xarelto for atrial fibrillation. 15. DISPOSITION: * Requires telemetry monitoring while on ventilator. * Antibiotic changes as noted above. * Pending pCXR result. * Planned Palliative Care meeting next week; the patient's son has missed two meetings late this week. * Patient is Full Code. * Anticipate discharge back to subacute facility this weekend with appropriate antibiotics Inga Fritz MD PhD [phone] Subjective 24 Hr Interval Summary Free Text/Dictation Unresponsive, no visitors during my evaluation. Exam/Review of Systems Vital Signs Vitals Vital Signs Date Time Temp Pulse Resp B/P Pulse Ox O2 Delivery O2 Flow Rate FiO2 05/25/16 12:12 100 05/25/16 11:13 24 99 30 05/25/16 11:11 101.5 121/55 Intake and Output 05/24/16 05/24/16 05/25/16 15:00 23:00 07:00 Intake Total 660 ml 1246 ml 1780 ml Output Total 1600 ml 1000 ml Balance 660 ml -354 ml 780 ml Exam Constitutional: Unresponsive, quadriplegic, on ventilator Respiratory: Mild diffuse rhonchi on the right, both posteriorly and anteriorly. Clear on the left. Trace mucoid secretions from trach. Cardiovascular: Symmetric pulses, regular rhythm and normal rate. Gastrointestinal: non-tender, gastrojejenostomy tube in place. Rectal tube empty this afternoon. Soft, normal bowel sounds. Musculoskeletal: nl extremities to inspection Extremities: 1+ pitting edema both feet, left greater than right. No clubbing or cyanosis. No upper extremity edema. Neurological: Non-conjugate gaze. Responsive pupils. Unresponsive to verbal or physical stimulus. Ventilated. Results Result Diagram: 05/25/16 0535 05/25/16 0535 Results 24 hrs Laboratory Tests Test 05/25/16 05:35 Anion Gap 20 H Blood Urea Nitrogen 25 H Calcium Level 7.8 L Carbon Dioxide Level 23 Chloride Level 116 H Creatinine 0.58 L Glucose Level 113 Hematocrit 37.1 L Hemoglobin 10.9 L Magnesium Level 2.7 H Mean Corpuscular Hemoglobin 26.4 L Mean Corpuscular Hemoglobin Concent 29.4 L Mean Corpuscular Volume 89.8 Mean Platelet Volume 12.1 H Phosphorus Level 3.2 Platelet Count 305 Potassium Level 4.5 Red Blood Count 4.13 L Red Cell Distribution Width 19.2 H Sodium Level 154 H Vancomycin Level Trough 14.8 White Blood Count 10.4 Medications Medications Current Medications Amiodarone HCl (Cordarone) 200 mg BID GTB Last administered on 05/25/16 10:40; Admin Dose 200 MG; Start 05/15/16 at 09:00 Aspirin (Aspirin) 81 mg DAILY GTB Last administered on 05/25/16 10:38; Admin Dose 81 MG; Start 05/15/16 at 09:00 Atorvastatin Calcium (Lipitor) 40 mg QHS GTB Last administered on 05/24/16 21: 37; Admin Dose 40 MG; Start 05/15/16 at 21:00 Clonazepam (Klonopin) 1 mg Q8H PRN GTB ANXIETY Last administered on 05/21/16 20:19; Admin Dose 1 MG; Start 05/15/16 at 02:30 Digoxin (Digoxin) 0.125 mg DAILY@13 GTB Last administered on 05/25/16 13:30; Admin Dose 0.125 MG; Start 05/15/16 at 13:00 Tramadol HCl (Ultram) 50 mg Q12 GTB Last administered on 05/25/16 13:29; Admin Dose 50 MG; Start 05/15/16 at 09:00 Zinc Sulfate (Zinc Sulfate) 220 mg DAILY GTB Last administered on 05/25/16 10: 39; Admin Dose 220 MG; Start 05/15/16 at 09:00 Multivitamins (Thera-Plus) 5 ml DAILY GTB Last administered on 05/25/16 10:37; Admin Dose 5 ML; Start 05/15/16 at 09:00 Ascorbic Acid (Vitamin C) 500 mg DAILY GTB Last administered on 05/25/16 10:39 ; Admin Dose 500 MG; Start 05/15/16 at 09:00 Lansoprazole (Prevacid) 30 mg BID@,18 GTB Last administered on 05/25/16 05:56 ; Admin Dose 30 MG; Start 05/15/16 at 06:00 Ondansetron HCl (Zofran Inj) 4 mg Q6H PRN IV NAUSEA AND/OR VOMITING; Start at 02:30 Bisacodyl (Dulcolax Supp) 10 mg DAILY PRN [place] CONSTIPATION; Start 05/15/16 at 02 :30 Eye Lubricant (Artificial Tears Oph) 1 drop TID BOTH EYES Last administered on 05/25/16 13:31; Admin Dose 1 DROP; Start 05/15/16 at 09:00 Acetaminophen (Tylenol Liquid) 650 mg Q4H PRN GTB PAIN AND OR ELEVATED TEMP Last administered on 05/24/16 21:37; Admin Dose 650 MG; Start 05/15/16 at 02:30 Docusate Sodium (Colace Liquid Cup) 100 mg Q12H PRN GTB CONSTIPATION; Start at 02:41 Magnesium Hydroxide (Milk Of Mag) 30 ml DAILY PRN GTB CONSTIPATION; Start 05/15 at 02:41 Lacosamide (Vimpat Liq) 200 mg Q12 GTB Last administered on 05/24/16 21:37; Admin Dose 200 MG; Start 05/15/16 at 02:59 Miscellaneous Information 1 ea NOTE XX ; Start 05/15/16 at 13:30 Potassium Chloride (Potassium Chloride Pwd/Soln) 20 meq BID GTB Last administered on 05/25/16 10:38; Admin Dose 20 MEQ; Start 05/15/16 at 14:30 Lorazepam (Ativan) 1 mg Q4H PRN IV SEIZURES Last administered on 05/21/16 20: 48; Admin Dose 1 MG; Start 05/16/16 at 14:00 Collagenase (Santyl) 1 applic DAILY TOP Last administered on 05/25/16 10:40; Admin Dose 1 APPLIC; Start 05/17/16 at 09:00 Mupirocin (Bactroban) 1 applic BID TOP Last administered on 05/25/16 13:32; Admin Dose 1 APPLIC; Start 05/17/16 at 12:30; Stop 05/30/16 at 21:01 Voriconazole (Vfend) 200 mg BID GTB Last administered on 05/25/16 10:39; Admin Dose 200 MG; Start 05/17/16 at 13:30 Lisinopril (Zestril) 5 mg DAILY GTB Last administered on 05/25/16 10:40; Admin Dose 5 MG; Start 05/18/16 at 09:00 Miscellaneous Information IVPB IN D5W WHERE POSSIBLE Q8H XX Last administered on 05/21/16 19:57; Admin Dose 1 EA; Start 05/21/16 at 11:30 Piperacillin Sod/ Tazobactam Sod 3.375 gm/Dextrose 100 ml @ 200 mls/hr Q6 IVPB Last administered on 05/25/16 13:30; Admin Dose 200 MLS/HR; Start 05/21/16 at 18:00 Vancomycin HCl/ Dextrose (Vancocin/D5W) 250 ml @ 125 mls/hr Q24H IVPB Last administered on 05/25/16 05:57; Admin Dose 125 MLS/HR; Start 05/22/16 at 06:00 Metronidazole (Flagyl) 500 mg Q8 NGT Last administered on 05/25/16 13:29; Admin Dose 500 MG; Start 05/24/16 at 15:30 Levetiracetam (Keppra Liquid) 1,500 mg BID GTB Last administered on 05/25/16 10 :37; Admin Dose 1,500 MG; Start 05/25/16 at 09:00 JONO FRITZ M.D. May 25, 2016 14:20
[2016-05-25] MEDS: LACTOBACILLUS CHEW TAB PEG SCH ×2 (16:00→21:36)
--- NOTE | 2016-05-25 17:22 | RADRPT ---
PROCEDURE: XR Chest. CLINICAL INDICATION: Fever. TECHNIQUE: Portable AP upright view of the chest was obtained. COMPARISON: 05/19/2016 FINDINGS: The cardiomediastinal silhouette is enlarged. Diffuse pulmonary vascular congestion is again noted with left lower lobe consolidation likely atelectasis related to an unchanged left pleural effusion. No right pleural effusion is evident. Tracheostomy remains in satisfactory position. The osseous structures are intact with no evidence for acute abnormality. RPTAT:HJJR IMPRESSION: 1. Stable cardiomegaly, pulmonary vascular congestion and left pleural effusion with compressive ate lectasis of the left lower lobe. 2. Tracheostomy remains in satisfactory position. 3. No evidence of lobar infiltrate to suggest pneumonia. Consolidation of the left lower lobe is m ost likely atelectasis related to the left pleural effusion. When allowing for technical difference s, the appearance of the chest has not changed compared to 05/19/2016 Physician Hossein Date Time Electronically viewed and signed by Physician Hossein on 05/25/2016 17:21 /
[2016-05-25] MEDS: RIVAROXABAN 15 MG TABLET PO SCH (17:52)
--- NOTE | 2016-05-25 18:44 | CONS ---
Date/Time of Note Date/Time of Note DATE: 05/25/16 TIME: 18:40 Assessment/Plan Assessment/Plan Chief Complaint/Hosp Course SUBJECTIVE: No acute events. The patient is lying comfortably in bed, noncommunicative. Spiking fevers MICROBIOLOGY: Blood cultures since 05/20/2016 remain negative. INDWELLINGS: Trach, PEG, Mc, RT. ANTIMICROBIALS: 1. Vancomycin. 2. Zosyn. 3. Voriconazole. 4. Flagyl PHYSICAL EXAMINATION: GENERAL: Chronically ill-appearing, elderly man in no distress. HEENT: Head atraumatic, normocephalic. Sclerae anicteric. Buccal mucosa dry. NECK: Supple. Tracheostomy present. CHEST: Rise symmetrical. Breath sounds diminished at the bases. HEART: S1, S2. ABDOMEN: Soft, bowel sounds present. EXTREMITIES: With trace dependent edema. ASSESSMENT: 1. Sepsis with fevers and leukocytosis. 2. Urinary tract infection. 3. Healthcare-associated pneumonia. 4. Methicillin-resistant Staphylococcus aureus nares colonization. 5. Ongoing seizures. 6. Anemia. 7. Persistent vegetative state. 8. Diarrhea==> emp Flagyl PLAN: The patient remains unchanged, covered with appropriate antimicrobials, with on/off fevers ?central, continue present care, repeat urine cx, consider pulmonary eval ==> ? need thoracentesis, may need WBC labeled nuclear scan if fevers persist Dw staff Problems: Consultation Date/Type/Reason Admit Date/Time May 14, 2016 at 22:39 Type of Consultation: id 24 HR Interval Summary Subjective hx not possible: pt non-verbal Exam/Review of Systems Vital Signs Vitals Vital Signs Date Time Temp Pulse Resp B/P Pulse Ox O2 Delivery O2 Flow Rate FiO2 05/25/16 17:10 87 25 100 30 05/25/16 15:03 100.6 119/85 Intake and Output 05/24/16 05/24/16 05/25/16 15:00 23:00 07:00 Intake Total 660 ml 1246 ml 1780 ml Output Total 1600 ml 1000 ml Balance 660 ml -354 ml 780 ml Results Result Diagram: 05/25/16 0535 05/25/16 0535 Results 24 hrs Laboratory Tests Test 05/25/16 05:35 Anion Gap 20 H Blood Urea Nitrogen 25 H Calcium Level 7.8 L Carbon Dioxide Level 23 Chloride Level 116 H Creatinine 0.58 L Glucose Level 113 Hematocrit 37.1 L Hemoglobin 10.9 L Magnesium Level 2.7 H Mean Corpuscular Hemoglobin 26.4 L Mean Corpuscular Hemoglobin Concent 29.4 L Mean Corpuscular Volume 89.8 Mean Platelet Volume 12.1 H Phosphorus Level 3.2 Platelet Count 305 Potassium Level 4.5 Red Blood Count 4.13 L Red Cell Distribution Width 19.2 H Sodium Level 154 H Vancomycin Level Trough 14.8 White Blood Count 10.4 Medications Medications Current Medications Amiodarone HCl (Cordarone) 200 mg BID GTB Last administered on 05/25/16 10:40; Admin Dose 200 MG; Start 05/15/16 at 09:00 Aspirin (Aspirin) 81 mg DAILY GTB Last administered on 05/25/16 10:38; Admin Dose 81 MG; Start 05/15/16 at 09:00 Atorvastatin Calcium (Lipitor) 40 mg QHS GTB Last administered on 05/24/16 21: 37; Admin Dose 40 MG; Start 05/15/16 at 21:00 Clonazepam (Klonopin) 1 mg Q8H PRN GTB ANXIETY Last administered on 05/21/16 20:19; Admin Dose 1 MG; Start 05/15/16 at 02:30 Digoxin (Digoxin) 0.125 mg DAILY@13 GTB Last administered on 05/25/16 13:30; Admin Dose 0.125 MG; Start 05/15/16 at 13:00 Tramadol HCl (Ultram) 50 mg Q12 GTB Last administered on 05/25/16 13:29; Admin Dose 50 MG; Start 05/15/16 at 09:00 Zinc Sulfate (Zinc Sulfate) 220 mg DAILY GTB Last administered on 05/25/16 10: 39; Admin Dose 220 MG; Start 05/15/16 at 09:00 Multivitamins (Thera-Plus) 5 ml DAILY GTB Last administered on 05/25/16 10:37; Admin Dose 5 ML; Start 05/15/16 at 09:00 Ascorbic Acid (Vitamin C) 500 mg DAILY GTB Last administered on 05/25/16 10:39 ; Admin Dose 500 MG; Start 05/15/16 at 09:00 Lansoprazole (Prevacid) 30 mg BID@06,18 GTB Last administered on 05/25/16 17:52 ; Admin Dose 30 MG; Start 05/15/16 at 06:00 Ondansetron HCl (Zofran Inj) 4 mg Q6H PRN IV NAUSEA AND/OR VOMITING; Start at 02:30 Bisacodyl (Dulcolax Supp) 10 mg DAILY PRN [place] CONSTIPATION; Start 05/15/16 at 02 :30 Eye Lubricant (Artificial Tears Oph) 1 drop TID BOTH EYES Last administered on 05/25/16 13:31; Admin Dose 1 DROP; Start 05/15/16 at 09:00 Acetaminophen (Tylenol Liquid) 650 mg Q4H PRN GTB PAIN AND OR ELEVATED TEMP Last administered on 05/24/16 21:37; Admin Dose 650 MG; Start 05/15/16 at 02:30 Docusate Sodium (Colace Liquid Cup) 100 mg Q12H PRN GTB CONSTIPATION; Start at 02:41 Magnesium Hydroxide (Milk Of Mag) 30 ml DAILY PRN GTB CONSTIPATION; Start 05/15 at 02:41 Lacosamide (Vimpat Liq) 200 mg Q12 GTB Last administered on 05/25/16 14:43; Admin Dose 200 MG; Start 05/15/16 at 02:59 Miscellaneous Information 1 ea NOTE XX ; Start 05/15/16 at 13:30 Potassium Chloride (Potassium Chloride Pwd/Soln) 20 meq BID GTB Last administered on 05/25/16 10:38; Admin Dose 20 MEQ; Start 05/15/16 at 14:30 Lorazepam (Ativan) 1 mg Q4H PRN IV SEIZURES Last administered on 05/21/16 20: 48; Admin Dose 1 MG; Start 05/16/16 at 14:00 Collagenase (Santyl) 1 applic DAILY TOP Last administered on 05/25/16 10:40; Admin Dose 1 APPLIC; Start 05/17/16 at 09:00 Mupirocin (Bactroban) 1 applic BID TOP Last administered on 05/25/16 13:32; Admin Dose 1 APPLIC; Start 05/17/16 at 12:30; Stop 05/30/16 at 21:01 Voriconazole (Vfend) 200 mg BID GTB Last administered on 05/25/16 10:39; Admin Dose 200 MG; Start 05/17/16 at 13:30 Lisinopril (Zestril) 5 mg DAILY GTB Last administered on 05/25/16 10:40; Admin Dose 5 MG; Start 05/18/16 at 09:00 Miscellaneous Information IVPB IN D5W WHERE POSSIBLE Q8H XX Last administered on 05/24/16 11:30; Admin Dose 10 EA; Start 05/21/16 at 11:30 Piperacillin Sod/ Tazobactam Sod 3.375 gm/Dextrose 100 ml @ 200 mls/hr Q6 IVPB Last administered on 05/25/16 17:52; Admin Dose 200 MLS/HR; Start 05/21/16 at 18:00 Vancomycin HCl/ Dextrose (Vancocin/D5W) 250 ml @ 125 mls/hr Q24H IVPB Last administered on 05/25/16 05:57; Admin Dose 125 MLS/HR; Start 05/22/16 at 06:00 Metronidazole (Flagyl) 500 mg Q8 NGT Last administered on 05/25/16 13:29; Admin Dose 500 MG; Start 05/24/16 at 15:30 Levetiracetam (Keppra Liquid) 1,500 mg BID GTB Last administered on 05/25/16 10 :37; Admin Dose 1,500 MG; Start 05/25/16 at 09:00 Lactobacillus Acidoph/Bulgaricus (Floranex) 1 tab TID PEG Last administered on 05/25/16 16:00; Admin Dose 1 TAB; Start 05/25/16 at 14:30 DENNIS PARR NP May 25, 2016 18:44
[2016-05-25] MEDS: ATORVASTATIN 40 MG TAB GTB SCH (21:24)
[2016-05-26] VITALS (22 sets, daily range): BP systolic 111–123; BP diastolic 55–79; PULSE 80–130; RESP 18–30
[2016-05-26] MEDS: [UNRECOGNIZED DRUG - REMARK] XX SCH ×3 (03:30→17:48)
[2016-05-26] MEDS: PIPERACILLIN/TAZO 3.375 GM in DEXTROSE 5% 100 ML IVPB SCH ×3 (05:56→17:48)
[2016-05-26] MEDS: metroNIDAZOLE 500 MG TAB NGT SCH ×3 (05:57→22:06)
[2016-05-26] MEDS: LANSOPRAZOLE 30 MG CAP GTB SCH ×2 (05:57→17:47)
[2016-05-26] MEDS: VANCOMYCIN 1 GM in DEXTROSE 5% 250 ML IVPB SCH (05:58)
[2016-05-26] MEDS: LEVALBUTEROL (HFA) 15 GM INHALER INH SCH ×3 (08:02→23:48)
[2016-05-26] MEDS: ASCORBIC ACID 500 MG TAB GTB SCH (09:51)
[2016-05-26] MEDS: POTASSIUM CHLORIDE 20 MEQ POWDER FOR ORAL SOLN GTB SCH ×2 (09:51→21:12)
[2016-05-26] MEDS: ZINC SULFATE 220 MG CAP GTB SCH (09:51)
[2016-05-26] MEDS: MULTIVITAMINS 5 ML CUP GTB SCH (09:51)
[2016-05-26] MEDS: ARTIFICIAL TEARS 15 ML OPH BOTH EYES SCH ×3 (09:51→21:12)
[2016-05-26] MEDS: ASPIRIN 81 MG TAB GTB SCH (09:51)
[2016-05-26] MEDS: LACTOBACILLUS CHEW TAB PEG SCH ×3 (09:51→21:12)
[2016-05-26] MEDS: LEVETIRACETAM (100 MG/ML) 5ML CUP GTB SCH ×2 (09:52→21:11)
[2016-05-26] MEDS: VORICONAZOLE 200 MG TAB GTB SCH ×2 (09:52→21:13)
[2016-05-26] MEDS: MAGNESIUM HYDROXIDE 30ML CUP GTB PRN ×2 (09:52→10:00)
[2016-05-26] MEDS: AMIODARONE 200 MG TAB GTB SCH ×2 (09:53→21:14)
[2016-05-26] MEDS: traMADol 50 MG TAB GTB SCH ×2 (09:54→21:15)
[2016-05-26] MEDS: MUPIROCIN 2% 22 GM OINT TOP SCH ×2 (09:55→21:13)
[2016-05-26] MEDS: COLLAGENASE 30 GM TUBE TOP SCH (09:55)
[2016-05-26] MEDS: LISINOPRIL 5 MG TAB GTB SCH (09:55)
[2016-05-26] MEDS: DIGOXIN 0.125 MG TAB GTB SCH (14:45)
[2016-05-26] MEDS: LACOSAMIDE (100 MG/10 ML PO SYR) GTB SCH ×2 (15:55→21:11)
[2016-05-26] MEDS: RIVAROXABAN 15 MG TABLET PO SCH (17:47)
--- NOTE | 2016-05-26 18:38 | CONS ---
Date/Time of Note Date/Time of Note DATE: 05/26/16 TIME: 18:36 Assessment/Plan Assessment/Plan Chief Complaint/Hosp Course SUBJECTIVE: No acute events. The patient is lying comfortably in bed, noncommunicative. + low grade temps, + loose stools MICROBIOLOGY: Blood cultures since 05/20/2016 remain negative, stool for C dif neg. INDWELLINGS: Trach, PEG, Mc, RT. ANTIMICROBIALS: 1. Vancomycin. 2. Zosyn. 3. Voriconazole. 4. Flagyl PHYSICAL EXAMINATION: GENERAL: Chronically ill-appearing, elderly man in no distress. HEENT: Head atraumatic, normocephalic. Sclerae anicteric. Buccal mucosa dry. NECK: Supple. Tracheostomy present. CHEST: Rise symmetrical. Breath sounds diminished at the bases. HEART: S1, S2. ABDOMEN: Soft, bowel sounds present. EXTREMITIES: With trace dependent edema. ASSESSMENT: 1. Sepsis with fevers and leukocytosis. 2. Urinary tract infection. 3. Healthcare-associated pneumonia. 4. Methicillin-resistant Staphylococcus aureus nares colonization. 5. Ongoing seizures. 6. Anemia. 7. Persistent vegetative state. 8. Diarrhea==> emp Flagyl PLAN: The patient remains unchanged, covered with antimicrobials, continue present care, f/u repeat urine cx, consider pulmonary eval ==> ? need thoracentesis, may need WBC labeled nuclear scan if fevers persist Dw staff Problems: Consultation Date/Type/Reason Admit Date/Time May 14, 2016 at 22:39 Type of Consultation: id 24 HR Interval Summary Subjective hx not possible: pt non-verbal Exam/Review of Systems Vital Signs Vitals Vital Signs Date Time Temp Pulse Resp B/P Pulse Ox O2 Delivery O2 Flow Rate FiO2 05/26/16 17:03 86 05/26/16 16:44 22 98 30 05/26/16 15:56 98.9 123/79 Intake and Output 05/25/16 05/25/16 05/26/16 15:00 23:00 07:00 Intake Total 1960 ml 1515 ml Output Total 1750 ml 1200 ml Balance 210 ml 315 ml Results Result Diagram: 05/25/16 0535 05/25/16 0535 Medications Medications Current Medications Amiodarone HCl (Cordarone) 200 mg BID GTB Last administered on 05/26/16t 09:53; Admin Dose 200 MG; Start 05/15/16 at 09:00 Aspirin (Aspirin) 81 mg DAILY GTB Last administered on 05/26/16 09:51; Admin Dose 81 MG; Start 05/15/16 at 09:00 Atorvastatin Calcium (Lipitor) 40 mg QHS GTB Last administered on 05/25/16 21: 24; Admin Dose 40 MG; Start 05/15/16 at 21:00 Clonazepam (Klonopin) 1 mg Q8H PRN GTB ANXIETY Last administered on 05/21/16 20:19; Admin Dose 1 MG; Start 05/15/16 at 02:30 Digoxin (Digoxin) 0.125 mg DAILY@13 GTB Last administered on 05/26/16 14:45; Admin Dose 0.125 MG; Start 05/15/16 at 13:00 Tramadol HCl (Ultram) 50 mg Q12 GTB Last administered on 05/26/16 09:54; Admin Dose 50 MG; Start 05/15/16 at 09:00 Zinc Sulfate (Zinc Sulfate) 220 mg DAILY GTB Last administered on 05/26/16 09: 51; Admin Dose 220 MG; Start 05/15/16 at 09:00 Multivitamins (Thera-Plus) 5 ml DAILY GTB Last administered on 05/26/16 09:51; Admin Dose 5 ML; Start 05/15/16 at 09:00 Ascorbic Acid (Vitamin C) 500 mg DAILY GTB Last administered on 05/26/16 09:51 ; Admin Dose 500 MG; Start 05/15/16 at 09:00 Lansoprazole (Prevacid) 30 mg BID@,18 GTB Last administered on 05/26/16 17:47 ; Admin Dose 30 MG; Start 05/15/16 at 06:00 Ondansetron HCl (Zofran Inj) 4 mg Q6H PRN IV NAUSEA AND/OR VOMITING; Start at 02:30 Bisacodyl (Dulcolax Supp) 10 mg DAILY PRN [place] CONSTIPATION; Start 05/15/16 at 02 :30 Eye Lubricant (Artificial Tears Oph) 1 drop TID BOTH EYES Last administered on 05/26/16 14:45; Admin Dose 1 DROP; Start 05/15/16 at 09:00 Acetaminophen (Tylenol Liquid) 650 mg Q4H PRN GTB PAIN AND OR ELEVATED TEMP Last administered on 05/24/16 21:37; Admin Dose 650 MG; Start 05/15/16 at 02:30 Docusate Sodium (Colace Liquid Cup) 100 mg Q12H PRN GTB CONSTIPATION; Start at 02:41 Magnesium Hydroxide (Milk Of Mag) 30 ml DAILY PRN GTB CONSTIPATION Last administered on 05/26/16 09:52; Admin Dose 30 ML; Start 05/15/16 at 02:41 Lacosamide (Vimpat Liq) 200 mg Q12 GTB Last administered on 05/26/16 15:55; Admin Dose 200 MG; Start 05/15/16 at 02:59 Miscellaneous Information 1 ea NOTE XX ; Start 05/15/16 at 13:30 Potassium Chloride (Potassium Chloride Pwd/Soln) 20 meq BID GTB Last administered on 05/26/16 09:51; Admin Dose 20 MEQ; Start 05/15/16 at 14:30 Lorazepam (Ativan) 1 mg Q4H PRN IV SEIZURES Last administered on 05/21/16 20: 48; Admin Dose 1 MG; Start 05/16/16 at 14:00 Collagenase (Santyl) 1 applic DAILY TOP Last administered on 05/26/16 09:55; Admin Dose 1 APPLIC; Start 05/17/16 at 09:00 Mupirocin (Bactroban) 1 applic BID TOP Last administered on 05/26/16 09:55; Admin Dose 1 APPLIC; Start 05/17/16 at 12:30; Stop 05/30/16 at 21:01 Voriconazole (Vfend) 200 mg BID GTB Last administered on 05/26/16 09:52; Admin Dose 200 MG; Start 05/17/16 at 13:30 Lisinopril (Zestril) 5 mg DAILY GTB Last administered on 05/26/16 09:55; Admin Dose 5 MG; Start 05/18/16 at 09:00 Miscellaneous Information IVPB IN D5W WHERE POSSIBLE Q8H XX Last administered on 05/26/16 17:48; Admin Dose 1 EA; Start 05/21/16 at 11:30 Piperacillin Sod/ Tazobactam Sod 3.375 gm/Dextrose 100 ml @ 200 mls/hr Q6 IVPB Last administered on 05/26/16 17:48; Admin Dose 200 MLS/HR; Start 05/21/16 at 18:00 Vancomycin HCl/ Dextrose (Vancocin/D5W) 250 ml @ 125 mls/hr Q24H IVPB Last administered on 05/26/16 05:58; Admin Dose 125 MLS/HR; Start 05/22/16 at 06:00 Metronidazole (Flagyl) 500 mg Q8 NGT Last administered on 05/26/16 14:45; Admin Dose 500 MG; Start 05/24/16 at 15:30 Levetiracetam (Keppra Liquid) 1,500 mg BID GTB Last administered on 05/26/16 09 :52; Admin Dose 1,500 MG; Start 05/25/16 at 09:00 Lactobacillus Acidoph/Bulgaricus (Floranex) 1 tab TID PEG Last administered on 05/26/16 14:44; Admin Dose 1 TAB; Start 05/25/16 at 14:30 DENNIS PARR NP May 26, 2016 18:38
[2016-05-26] MEDS: ATORVASTATIN 40 MG TAB GTB SCH (21:13)
[2016-05-26] MEDS: ACETAMINOPHEN 650MG/20.3ML CUP GTB PRN (22:32)
--- NOTE | 2016-05-26 23:16 | PN ---
Date/Time of Note Date/Time of Note DATE: 05/26/16 TIME: 22:53 Assessment/Plan VTE Prophylaxis VTE Prophylaxis Intervention: other (Xarelto) Lines/Catheters IV Catheter Type (from [facility]): [facility] Urinary Cath still in place: Yes Reason Cath still needed: other (indicate) (comatose) Assessment/Plan Assessment/Plan [facility] 1. 66-year-old man with temp this evening to 103F. Admitted 05/14/16 (hospital day 13) with a pattern of recurrent febrile episodes with prolonged afebrile stretches. WBC normal most recently. Sputum culture positive for Pseudomonas and Providencia stuartii. One blood culture (05/17/16) positive for hickey- sensitive Coagulase-negative Staph. Repeat blood cultures all negative so far. Portable CXR yesterday showed increased pulmonary vascular congestion, but no infiltrate. Possible that basal atelectasis was associated with fever. Urine culture shows yeast non-Ashley albicans, treated with voriconazole. Consider drug reaction, though no rash or joint swelling. * Continue vancomycin (day 5), Zosyn (day 6) and voriconazole (day 9). * Culture blood x 2 for recurrent fever tonight 2. Diarrhea, with rectal tube in place. C diff PCR negative. 3. Chronic respiratory failure, status post tracheostomy and PEG tube placement. * Continue ventilator support. 4. Paroxysmal atrial fibrillation, in sinus rhythm now. * Continue Xarelto 15 mg daily for anticoagulation and stroke prevention 5. Coronary artery disease, ischemic cardiomyopathy, systolic dysfunction, congestive heart failure, ejection fraction of 20%. * Continue medical management, with monitoring of volume status and continued free water with tube feedings. 6. Severe chronic encephalopathy mostly in the persistent unresponsive state. The patient occasionally opening his eyes but not tracking, and he is quadriplegic and vent dependent. 7. Diabetes mellitus. * Continue diabetic G-tube feeding and sliding scale insulin. 8. Seizure disorder, with episodes of breakthrough seizures vs chills when febrile. None reported last 24-hours. * Tylenol prn fever and Ativan prn * Continue Vimpat per Gtube * Changed Keppra to per G-tube 9. Neurogenic bladder. Mc-dependent. Renal function stable. Urine culture showing non-Ashley albicans yeast, as noted above 10. Sacral decubitus ulcers, Stage 3. Healing well per wound care RNs. Also with new ulcer on the tragus of the left ear. * Continue wound care. * Dress new wound 11. Chronic anemia, stable hematocrit at 37.1% * Continue Protonix for GI prophylaxis. 12. Hypernatremia, increased yesterday to 154, despite receiving 250cc free H2O q6h. Up-and-down. Infection-related? * Monitor volume status closely, in light of previous CHF history and very low LV output. * Repeat labs, along with transaminases, tomorrow morning. 13. Elevated AST and ALT, mixed picture compared to earlier this week. * Recheck with labs tomorrow. 14. Prophylaxis: * Prevacid for GI prophylaxis * Xarelto for atrial fibrillation. 15. DISPOSITION: * Requires telemetry monitoring while on ventilator. * Planned Palliative Care meeting next week; the patient's son has missed two meetings late this week. * Patient is Full Code. * Anticipated discharge back to subacute facility this weekend was postponed due to continued fevers Inga Fritz MD PhD [phone] Subjective 24 Hr Interval Summary Free Text/Dictation Non-responsive, on vent. No visitors through the afternoon. Exam/Review of Systems Vital Signs Vitals Vital Signs Date Time Temp Pulse Resp B/P Pulse Ox O2 Delivery O2 Flow Rate FiO2 05/26/16 21:46 81 20 100 30 05/26/16 20:11 103.0 119/77 Intake and Output 05/25/16 05/25/16 05/26/16 15:00 23:00 07:00 Intake Total 1960 ml 1515 ml Output Total 1750 ml 1200 ml Balance 210 ml 315 ml Exam Constitutional: Unresponsive, quadriplegic, on ventilator Respiratory: Mild diffuse rhonchi on the right, clear on the left. Trace mucoid secretions from trach. Cardiovascular: Symmetric pulses, regular rhythm and normal rate. Gastrointestinal: non-tender, gastrojejenostomy tube in place. Rectal tube in place. Soft, normal bowel sounds. Musculoskeletal: Marked atrophy, with 1+ pitting edema both feet, left greater than right. No clubbing or cyanosis. No upper extremity edema. Moderate extension contractures both ankles. Neurological: Non-conjugate gaze. Responsive pupils. Unresponsive to verbal or physical stimulus. Ventilated. Results Result Diagram: 05/25/16 0535 05/25/16 0535 Medications Medications Current Medications Amiodarone HCl (Cordarone) 200 mg BID GTB Last administered on 05/26/16 21:14; Admin Dose 200 MG; Start 05/15/16 at 09:00 Aspirin (Aspirin) 81 mg DAILY GTB Last administered on 05/26/16 09:51; Admin Dose 81 MG; Start 05/15/16 at 09:00 Atorvastatin Calcium (Lipitor) 40 mg QHS GTB Last administered on 05/26/16 21: 13; Admin Dose 40 MG; Start 05/15/16 at 21:00 Clonazepam (Klonopin) 1 mg Q8H PRN GTB ANXIETY Last administered on 05/21/16 20:19; Admin Dose 1 MG; Start 05/15/16 at 02:30 Digoxin (Digoxin) 0.125 mg DAILY@13 GTB Last administered on 05/26/16 14:45; Admin Dose 0.125 MG; Start 05/15/16 at 13:00 Tramadol HCl (Ultram) 50 mg Q12 GTB Last administered on 05/26/16 21:15; Admin Dose 50 MG; Start 05/15/16 at 09:00 Zinc Sulfate (Zinc Sulfate) 220 mg DAILY GTB Last administered on 05/26/16 09: 51; Admin Dose 220 MG; Start 05/15/16 at 09:00 Multivitamins (Thera-Plus) 5 ml DAILY GTB Last administered on 05/26/16 09:51; Admin Dose 5 ML; Start 05/15/16 at 09:00 Ascorbic Acid (Vitamin C) 500 mg DAILY GTB Last administered on 05/26/16 09:51 ; Admin Dose 500 MG; Start 05/15/16 at 09:00 Lansoprazole (Prevacid) 30 mg BID@,18 GTB Last administered on 05/26/16 17:47 ; Admin Dose 30 MG; Start 05/15/16 at 06:00 Ondansetron HCl (Zofran Inj) 4 mg Q6H PRN IV NAUSEA AND/OR VOMITING; Start at 02:30 Bisacodyl (Dulcolax Supp) 10 mg DAILY PRN [place] CONSTIPATION; Start 05/15/16 at 02 :30 Eye Lubricant (Artificial Tears Oph) 1 drop TID BOTH EYES Last administered on 05/26/16 21:12; Admin Dose 1 DROP; Start 05/15/16 at 09:00 Acetaminophen (Tylenol Liquid) 650 mg Q4H PRN GTB PAIN AND OR ELEVATED TEMP Last administered on 05/26/16 22:32; Admin Dose 650 MG; Start 05/15/16 at 02:30 Docusate Sodium (Colace Liquid Cup) 100 mg Q12H PRN GTB CONSTIPATION; Start at 02:41 Magnesium Hydroxide (Milk Of Mag) 30 ml DAILY PRN GTB CONSTIPATION Last administered on 05/26/16 09:52; Admin Dose 30 ML; Start 05/15/16 at 02:41 Lacosamide (Vimpat Liq) 200 mg Q12 GTB Last administered on 05/26/16 21:11; Admin Dose 200 MG; Start 05/15/16 at 02:59 Miscellaneous Information 1 ea NOTE XX ; Start 05/15/16 at 13:30 Potassium Chloride (Potassium Chloride Pwd/Soln) 20 meq BID GTB Last administered on 05/26/16 21:12; Admin Dose 20 MEQ; Start 05/15/16 at 14:30 Lorazepam (Ativan) 1 mg Q4H PRN IV SEIZURES Last administered on 05/21/16 20: 48; Admin Dose 1 MG; Start 05/16/16 at 14:00 Collagenase (Santyl) 1 applic DAILY TOP Last administered on 05/26/16 09:55; Admin Dose 1 APPLIC; Start 05/17/16 at 09:00 Mupirocin (Bactroban) 1 applic BID TOP Last administered on 05/26/16 21:13; Admin Dose 1 APPLIC; Start 05/17/16 at 12:30; Stop 05/30/16 at 21:01 Voriconazole (Vfend) 200 mg BID GTB Last administered on 05/26/16 21:13; Admin Dose 200 MG; Start 05/17/16 at 13:30 Lisinopril (Zestril) 5 mg DAILY GTB Last administered on 05/26/16 09:55; Admin Dose 5 MG; Start 05/18/16 at 09:00 Miscellaneous Information IVPB IN D5W WHERE POSSIBLE Q8H XX Last administered on 2/5/17at 17:48; Admin Dose 1 EA; Start 05/21/16 at 11:30 Piperacillin Sod/ Tazobactam Sod 3.375 gm/Dextrose 100 ml @ 200 mls/hr Q6 IVPB Last administered on 05/26/16 17:48; Admin Dose 200 MLS/HR; Start 05/21/16 at 18:00 Vancomycin HCl/ Dextrose (Vancocin/D5W) 250 ml @ 125 mls/hr Q24H IVPB Last administered on 05/26/16 05:58; Admin Dose 125 MLS/HR; Start 05/22/16 at 06:00 Metronidazole (Flagyl) 500 mg Q8 NGT Last administered on 05/26/16 22:06; Admin Dose 500 MG; Start 05/24/16 at 15:30 Levetiracetam (Keppra Liquid) 1,500 mg BID GTB Last administered on 05/26/16 21 :11; Admin Dose 1,500 MG; Start 05/25/16 at 09:00 Lactobacillus Acidoph/Bulgaricus (Floranex) 1 tab TID PEG Last administered on 05/26/16 21:12; Admin Dose 1 TAB; Start 05/25/16 at 14:30 JONO FRITZ M.D. May 26, 2016 23:15
[2016-05-27] VITALS (24 sets, daily range): BP systolic 100–180; BP diastolic 61–90; PULSE 69–81; RESP 18–26
[2016-05-27] MEDS: PIPERACILLIN/TAZO 3.375 GM in DEXTROSE 5% 100 ML IVPB SCH ×5 (00:04→23:52)
[2016-05-27] MEDS: LORAZEPAM 2 MG INJ IV PRN (01:14)
[2016-05-27] MEDS: [UNRECOGNIZED DRUG - REMARK] XX SCH ×3 (03:30→20:07)
[2016-05-27 03:50] LABS: BASOPHILS % 0.5 % (0.0-2.0); EOSINOPHILS # 0.1 10^3/ul (0.0-0.5); EOSINOPHILS % 0.8 % (0.0-7.0); HEMATOCRIT 30.7 % (42.0-52.0); HEMOGLOBIN 9.9 g/dl (14.0-18.0); LYMPHOCYTES % 11.4 % (15.0-51.0); MEAN CORPUSCULAR HEMOGLOBIN 26.8 pg (29.0-33.0); MEAN CORPUSCULAR HGB CONC 32.1 g/dl (32.0-37.0); MEAN CORPUSCULAR VOLUME 83.4 fl (82.0-101.0); MEAN PLATELET VOLUME 9.2 fl (7.4-10.4); MONOCYTE # 0.7 10^3/ul (0.3-0.9); MONOCYTES % 7.8 % (0.0-11.0); NEUTROPHIL # 7.1 10^3/ul (1.6-7.5); NEUTROPHILS % 79.5 % (39.0-77.0); PLATELET COUNT 345 10^3/UL (140-440); RED BLOOD COUNT 3.68 10^6/ul (4.70-6.10); RED CELL DISTRIBUTION WIDTH 19.6 % (11.5-14.5)
[2016-05-27 03:53] LABS: CONDITION 1; LH ANALYZER COMMENTS 1
[2016-05-27 05:08] LABS: ALBUMIN 2.6 g/dl (3.3-4.9)
[2016-05-27 05:09] LABS: POTASSIUM 4.6 mmol/L (3.5-5.1)
[2016-05-27 05:11] LABS: BILIRUBIN,INDIRECT 0.2 mg/dl (0-1.1); BILIRUBIN,TOTAL 0.2 mg/dl (0.2-1.3); CREATININE 0.62 mg/dl (0.61-1.24)
[2016-05-27 05:12] LABS: ALBUMIN/GLOBULIN RATIO 0.7; CALCIUM 7.7 mg/dl (8.4-10.2); TOTAL PROTEIN 6.3 g/dl (6.1-8.1)
[2016-05-27] MEDS: VANCOMYCIN 1 GM in DEXTROSE 5% 250 ML IVPB SCH (05:44)
[2016-05-27] MEDS: LANSOPRAZOLE 30 MG CAP GTB SCH ×2 (05:44→18:52)
[2016-05-27] MEDS: LEVALBUTEROL (HFA) 15 GM INHALER INH SCH ×2 (07:41→17:00)
[2016-05-27] MEDS: LACTOBACILLUS CHEW TAB PEG SCH ×3 (10:17→21:58)
[2016-05-27] MEDS: POTASSIUM CHLORIDE 20 MEQ POWDER FOR ORAL SOLN GTB SCH ×2 (10:17→21:58)
[2016-05-27] MEDS: MULTIVITAMINS 5 ML CUP GTB SCH (10:17)
[2016-05-27] MEDS: LEVETIRACETAM (100 MG/ML) 5ML CUP GTB SCH ×2 (10:17→21:58)
[2016-05-27] MEDS: ZINC SULFATE 220 MG CAP GTB SCH (10:18)
[2016-05-27] MEDS: ASCORBIC ACID 500 MG TAB GTB SCH (10:18)
[2016-05-27] MEDS: ASPIRIN 81 MG TAB GTB SCH (10:18)
[2016-05-27] MEDS: AMIODARONE 200 MG TAB GTB SCH ×2 (10:19→21:58)
[2016-05-27] MEDS: VORICONAZOLE 200 MG TAB GTB SCH ×2 (10:19→22:00)
[2016-05-27] MEDS: traMADol 50 MG TAB GTB SCH ×2 (10:19→22:00)
[2016-05-27] MEDS: LISINOPRIL 5 MG TAB GTB SCH (10:20)
[2016-05-27] MEDS: COLLAGENASE 30 GM TUBE TOP SCH (10:21)
[2016-05-27] MEDS: ARTIFICIAL TEARS 15 ML OPH BOTH EYES SCH ×3 (10:21→22:01)
[2016-05-27] MEDS: MUPIROCIN 2% 22 GM OINT TOP SCH ×2 (10:21→22:01)
[2016-05-27] MEDS: LACOSAMIDE (100 MG/10 ML PO SYR) GTB SCH ×2 (11:22→22:18)
[2016-05-27] MEDS: DIGOXIN 0.125 MG TAB GTB SCH (15:12)
--- NOTE | 2016-05-27 15:29 | PN ---
Date/Time of Note Date/Time of Note DATE: 05/27/16 TIME: 15:03 Assessment/Plan VTE Prophylaxis VTE Prophylaxis Intervention: other (on Xarelto ) Lines/Catheters IV Catheter Type (from Nrsg): Saline Lock Urinary Cath still in place: Yes Reason Cath still needed: urinary retention Assessment/Plan Assessment/Plan 66-year-old male with: 1. Recurrent Febrile episodes, again febrile overnight to 103, ? central fevers Bases on sputum cx and blood cx, on Zosyn and Vanco, Urine cx with yeast non kendra albicans on Voriconazole Repeat blood cx NGTD. WBC trended down to normal x almost a week now Still fevers, WBC tagged study per ID and Continue current abx for now, Vancomycin, Zosyn and Voriconazole. 2. Diarrhea, Loose stool, rectal tube had to be placed, C diff negative so Flagyl d/c'd per ID 3. Chronic respiratory failure, status post tracheostomy and PEG tube placement. Continue ventilator support. Patient seems to be comfortable back on his maintenance settings now. 4. Paroxysmal atrial fibrillation. Continue current regimen. On Xarelto 15 mg daily for anticoagulation and stroke prevention. Monitor 5. Coronary artery disease, ischemic cardiomyopathy, systolic dysfunction, congestive heart failure, ejection fraction of 20%. Continue medical management Monitor volume status closely. Continue free water with tube feedings. 6. Severe chronic encephalopathy mostly in the persistent vegetative state. The patient occasional at best is opening his eyes lately but not tracking and he is quadriplegic and vent dependent. 7. Diabetes mellitus. Continue diabetic tube feeding and sliding scale insulin. 8. Seizure disorder, with episodes of breakthrough seizures vs chills when febrile Tylenol prn fever and Ativan prn Continue Keppra and Vimpat per Gtube. 9. Neurogenic bladder. Mc dependent. Renal function stable. Urine cx with yeast non kendra albicans, on Voriconazole. 10. Sacral decubitus ulcers, Stage 3. Healing well per wound care RNs Continue wound care. 11. Chronic anemia, stable hemoglobin. Continue PPI for GI prophylaxis. 12. Hypernatremia: on increase Free H2O with improved hypernatremia today, Na back down to 151 Monitor volume status closely, patient with CHF and getting IV abx. 13. Transaminitis: LFTs improved today, continue to monitor periodically. Prophylaxis: Prevacid for GI prophylaxis and is already on anticoagulation with Xarelto in setting of atrial fibrillation. DISPOSITION: Monitor on Tele for now. Continue current antibiotics for now. Tagged WBC study next per ID Family/Palliative care meeting to be arranged this week per Dr Shafer Full Code. Subjective 24 Hr Interval Summary Free Text/Dictation Patient was febrile overnight with temp up to 103 Appreciate ID recs, tagged WBC is next step, patient on multiple abx already Palliative care still arranging for family meeting this week, it has been difficult so far due to family's availability. Exam/Review of Systems Vital Signs Vitals Vital Signs Date Time Temp Pulse Resp B/P Pulse Ox O2 Delivery O2 Flow Rate FiO2 05/27/16 14:52 81 05/27/16 12:13 99.7 18 180/90 99 05/27/16 11:20 30 Intake and Output 05/26/16 05/26/16 05/27/16 15:00 23:00 07:00 Intake Total 1380 ml 1515 ml Output Total 1900 ml 1700 ml Balance -520 ml -185 ml Exam Constitutional: other (unresponsive) Respiratory: diminished breath sounds (bases but CTA rest of lung boss ) Cardiovascular: nl pulses, regular rate and rhythm Gastrointestinal: non-tender, soft Extremities: normal pulses, other (no edema, clubbing or cyanosis) Neurological: unresponsive (mostly, vented and trached ) Results Result Diagram: 05/27/16 0335 05/27/16 0335 Results 24 hrs Laboratory Tests Test 05/27/16 03:35 Alanine Aminotransferase (ALT/SGPT) 95 H Albumin 2.6 L Albumin/Globulin Ratio 0.70 Alkaline Phosphatase 134 H Anion Gap 16 Aspartate Amino Transf (AST/SGOT) 37 Basophils # 0.0 Basophils % 0.5 Blood Morphology Comment Blood Urea Nitrogen 28 H Calcium Level 7.7 L Carbon Dioxide Level 24 Chloride Level 116 H Creatinine 0.62 Direct Bilirubin 0.00 Eosinophils # 0.1 Eosinophils % 0.8 Erythrocyte Sedimentation Rate 63 H Globulin 3.70 H Glucose Level 120 Hematocrit 30.7 L Hemoglobin 9.9 L Indirect Bilirubin 0.2 Lymphocytes # 1.0 Lymphocytes % 11.4 L Mean Corpuscular Hemoglobin 26.8 L Mean Corpuscular Hemoglobin Concent 32.1 Mean Corpuscular Volume 83.4 Mean Platelet Volume 9.2 # Monocytes # 0.7 Monocytes % 7.8 Neutrophils # 7.1 Neutrophils % 79.5 H Nucleated Red Blood Cells # 0.0 Nucleated Red Blood Cells % 0.0 Platelet Count 345 Potassium Level 4.6 Red Blood Count 3.68 L Red Cell Distribution Width 19.6 H Sodium Level 151 H Total Bilirubin 0.2 Total Protein 6.3 White Blood Count 9.0 Medications Medications Current Medications Amiodarone HCl (Cordarone) 200 mg BID GTB Last administered on 05/27/16 10:19; Admin Dose 200 MG; Start 05/15/16 at 09:00 Aspirin (Aspirin) 81 mg DAILY GTB Last administered on 05/27/16 10:18; Admin Dose 81 MG; Start 05/15/16 at 09:00 Atorvastatin Calcium (Lipitor) 40 mg QHS GTB Last administered on 05/26/16 21: 13; Admin Dose 40 MG; Start 05/15/16 at 21:00 Clonazepam (Klonopin) 1 mg Q8H PRN GTB ANXIETY Last administered on 05/21/16 20:19; Admin Dose 1 MG; Start 05/15/16 at 02:30 Digoxin (Digoxin) 0.125 mg DAILY@13 GTB Last administered on 05/26/16 14:45; Admin Dose 0.125 MG; Start 05/15/16 at 13:00 Tramadol HCl (Ultram) 50 mg Q12 GTB Last administered on 05/27/16 10:19; Admin Dose 50 MG; Start 05/15/16 at 09:00 Zinc Sulfate (Zinc Sulfate) 220 mg DAILY GTB Last administered on 05/27/16 10: 18; Admin Dose 220 MG; Start 05/15/16 at 09:00 Multivitamins (Thera-Plus) 5 ml DAILY GTB Last administered on 05/27/16 10:17; Admin Dose 5 ML; Start 05/15/16 at 09:00 Ascorbic Acid (Vitamin C) 500 mg DAILY GTB Last administered on 05/27/16 10:18 ; Admin Dose 500 MG; Start 05/15/16 at 09:00 Lansoprazole (Prevacid) 30 mg BID@ GTB Last administered on 05/27/16 05:44 ; Admin Dose 30 MG; Start 05/15/16 at 06:00 Ondansetron HCl (Zofran Inj) 4 mg Q6H PRN IV NAUSEA AND/OR VOMITING; Start at 02:30 Bisacodyl (Dulcolax Supp) 10 mg DAILY PRN [place] CONSTIPATION; Start 05/15/16 at 02 :30 Eye Lubricant (Artificial Tears Oph) 1 drop TID BOTH EYES Last administered on 05/27/16 10:21; Admin Dose 1 DROP; Start 05/15/16 at 09:00 Acetaminophen (Tylenol Liquid) 650 mg Q4H PRN GTB PAIN AND OR ELEVATED TEMP Last administered on 05/26/16 22:32; Admin Dose 650 MG; Start 05/15/16 at 02:30 Docusate Sodium (Colace Liquid Cup) 100 mg Q12H PRN GTB CONSTIPATION; Start at 02:41 Magnesium Hydroxide (Milk Of Mag) 30 ml DAILY PRN GTB CONSTIPATION Last administered on 05/26/16 09:52; Admin Dose 30 ML; Start 05/15/16 at 02:41 Lacosamide (Vimpat Liq) 200 mg Q12 GTB Last administered on 05/27/16 11:22; Admin Dose 200 MG; Start 05/15/16 at 02:59 Miscellaneous Information 1 ea NOTE XX ; Start 05/15/16 at 13:30 Potassium Chloride (Potassium Chloride Pwd/Soln) 20 meq BID GTB Last administered on 05/27/16 10:17; Admin Dose 20 MEQ; Start 05/15/16 at 14:30 Lorazepam (Ativan) 1 mg Q4H PRN IV SEIZURES Last administered on 05/27/16 01:14 ; Admin Dose 1 MG; Start 05/16/16 at 14:00 Collagenase (Santyl) 1 applic DAILY TOP Last administered on 05/27/16 10:21; Admin Dose 1 APPLIC; Start 05/17/16 at 09:00 Mupirocin (Bactroban) 1 applic BID TOP Last administered on 05/27/16 10:21; Admin Dose 1 APPLIC; Start 05/17/16 at 12:30; Stop 05/30/16 at 21:01 Voriconazole (Vfend) 200 mg BID GTB Last administered on 05/27/16 10:19; Admin Dose 200 MG; Start 05/17/16 at 13:30 Lisinopril (Zestril) 5 mg DAILY GTB Last administered on 05/27/16 10:20; Admin Dose 5 MG; Start 05/18/16 at 09:00 Miscellaneous Information IVPB IN D5W WHERE POSSIBLE Q8H XX Last administered on 05/26/16 17:48; Admin Dose 1 EA; Start 05/21/16 at 11:30 Piperacillin Sod/ Tazobactam Sod 3.375 gm/Dextrose 100 ml @ 200 mls/hr Q6 IVPB Last administered on 05/27/16 05:42; Admin Dose 200 MLS/HR; Start 05/21/16 at 18:00 Vancomycin HCl/ Dextrose (Vancocin/D5W) 250 ml @ 125 mls/hr Q24H IVPB Last administered on 05/27/16 05:44; Admin Dose 125 MLS/HR; Start 05/22/16 at 06:00 Levetiracetam (Keppra Liquid) 1,500 mg BID GTB Last administered on 05/27/16 10 :17; Admin Dose 1,500 MG; Start 05/25/16 at 09:00 Lactobacillus Acidoph/Bulgaricus (Floranex) 1 tab TID PEG Last administered on 05/27/16 10:17; Admin Dose 1 TAB; Start 05/25/16 at 14:30 SHELDON VAZQUEZ May 27, 2016 15:29
--- NOTE | 2016-05-27 15:52 | PN ---
DATE: 05/27/2016 CARDIOLOGY FOLLOWUP SUBJECTIVE: The patient has converted back to sinus rhythm, remains in sinus rhythm. No reported c hest pain or pressure. Patient nonverbal since being on the vent. MEDICATIONS: Reviewed as per medical reconciliation, was personally reviewed. PHYSICAL EXAMINATION: VITAL SIGNS: Temperature 99.7, T-max is 103, heart rate of 81, blood pressure 116/70, respiratory r ate of 22. HEENT: Normocephalic, atraumatic, no acute distress. Pupils are equal. NECK: Status post tracheostomy, on the vent. CARDIOVASCULAR: Regular rate and rhythm, systolic murmur. PULMONARY: With mild rhonchi. GASTROINTESTINAL: Soft. No rebound or guarding. EXTREMITIES: With positive edema. NEUROLOGIC: Unresponsive. LABORATORY: WBC of 9, hemoglobin 9.9, platelet 345. Sodium 151, potassium 4.6, BUN of 20, creatini ne 0.62, glucose 120. ASSESSMENT AND PLAN: 1. Hypoxemia respiratory failure. 2. Severe ischemic cardiomyopathy. 3. Coronary artery disease, status post myocardial infarction. 4. History of percutaneous coronary intervention. 5. Paroxysmal atrial fibrillation with abnormal EKG . 6. Recurrent fever. RECOMMENDATIONS: We will continue with the current cardiac care including amiodarone and PRAKASH inhibi tor will be continued as tolerated. Antibiotic as managed as per ID's recommendations. Coagulation with Xarelto will be continued. Monitor on telemetry and vent support will be continued. Dictated By: ABRAHAM BASHIR MD AV/AC Conf#: [id number] DID#: [id number] CC: SHELDON VAZQUEZ MD;*End*
--- NOTE | 2016-05-27 16:49 | CONS ---
Date/Time of Note Date/Time of Note DATE: 05/27/16 TIME: 16:48 Assessment/Plan Assessment/Plan Chief Complaint/Hosp Course SUBJECTIVE: No acute events. The patient is lying comfortably in bed, noncommunicative. + low grade temps, + loose stools MICROBIOLOGY: Blood cultures since 05/20/2016 remain negative, stool for C dif neg. INDWELLINGS: Trach, PEG, Mc, RT. ANTIMICROBIALS: 1. Vancomycin. 2. Zosyn. 3. Voriconazole. PHYSICAL EXAMINATION: GENERAL: Chronically ill-appearing, elderly man in no distress. HEENT: Head atraumatic, normocephalic. Sclerae anicteric. Buccal mucosa dry. NECK: Supple. Tracheostomy present. CHEST: Rise symmetrical. Breath sounds diminished at the bases. HEART: S1, S2. ABDOMEN: Soft, bowel sounds present. EXTREMITIES: With trace dependent edema. ASSESSMENT: 1. Sepsis with fevers and leukocytosis. 2. Urinary tract infection. 3. Healthcare-associated pneumonia. 4. Methicillin-resistant Staphylococcus aureus nares colonization. 5. Ongoing seizures. 6. Anemia. 7. Persistent vegetative state. 8. Diarrhea==> emp Flagyl 9. Pressure sores PLAN: The patient remains unchanged, covered with antimicrobials, will order WBC labeled nuclear scan, continue abx Dw staff MARILYN Napier Problems: Consultation Date/Type/Reason Admit Date/Time May 14, 2016 at 22:39 Type of Consultation: id Exam/Review of Systems Vital Signs Vitals Vital Signs Date Time Temp Pulse Resp B/P Pulse Ox O2 Delivery O2 Flow Rate FiO2 05/27/16 16:43 99.0 90 18 153/78 98 05/27/16 15:30 30 Intake and Output 05/26/16 05/26/16 05/27/16 15:00 23:00 07:00 Intake Total 1380 ml 1515 ml Output Total 1900 ml 1700 ml Balance -520 ml -185 ml Results Result Diagram: 05/27/16 0335 05/27/16 0335 Results 24 hrs Laboratory Tests Test 05/27/16 03:35 Alanine Aminotransferase (ALT/SGPT) 95 H Albumin 2.6 L Albumin/Globulin Ratio 0.70 Alkaline Phosphatase 134 H Anion Gap 16 Aspartate Amino Transf (AST/SGOT) 37 Basophils # 0.0 Basophils % 0.5 Blood Morphology Comment Blood Urea Nitrogen 28 H Calcium Level 7.7 L Carbon Dioxide Level 24 Chloride Level 116 H Creatinine 0.62 Direct Bilirubin 0.00 Eosinophils # 0.1 Eosinophils % 0.8 Erythrocyte Sedimentation Rate 63 H Globulin 3.70 H Glucose Level 120 Hematocrit 30.7 L Hemoglobin 9.9 L Indirect Bilirubin 0.2 Lymphocytes # 1.0 Lymphocytes % 11.4 L Mean Corpuscular Hemoglobin 26.8 L Mean Corpuscular Hemoglobin Concent 32.1 Mean Corpuscular Volume 83.4 Mean Platelet Volume 9.2 # Monocytes # 0.7 Monocytes % 7.8 Neutrophils # 7.1 Neutrophils % 79.5 H Nucleated Red Blood Cells # 0.0 Nucleated Red Blood Cells % 0.0 Platelet Count 345 Potassium Level 4.6 Red Blood Count 3.68 L Red Cell Distribution Width 19.6 H Sodium Level 151 H Total Bilirubin 0.2 Total Protein 6.3 White Blood Count 9.0 Medications Medications Current Medications Amiodarone HCl (Cordarone) 200 mg BID GTB Last administered on 05/27/16 10:19; Admin Dose 200 MG; Start 05/15/16 at 09:00 Aspirin (Aspirin) 81 mg DAILY GTB Last administered on 05/27/16 10:18; Admin Dose 81 MG; Start 05/15/16 at 09:00 Atorvastatin Calcium (Lipitor) 40 mg QHS GTB Last administered on 05/26/16 21: 13; Admin Dose 40 MG; Start 05/15/16 at 21:00 Clonazepam (Klonopin) 1 mg Q8H PRN GTB ANXIETY Last administered on 05/21/16 20:19; Admin Dose 1 MG; Start 05/15/16 at 02:30 Digoxin (Digoxin) 0.125 mg DAILY@13 GTB Last administered on 05/27/16 15:12; Admin Dose 0.125 MG; Start 05/15/16 at 13:00 Tramadol HCl (Ultram) 50 mg Q12 GTB Last administered on 05/27/16 10:19; Admin Dose 50 MG; Start 05/15/16 at 09:00 Zinc Sulfate (Zinc Sulfate) 220 mg DAILY GTB Last administered on 05/27/16 10: 18; Admin Dose 220 MG; Start 05/15/16 at 09:00 Multivitamins (Thera-Plus) 5 ml DAILY GTB Last administered on 05/27/16 10:17; Admin Dose 5 ML; Start 05/15/16 at 09:00 Ascorbic Acid (Vitamin C) 500 mg DAILY GTB Last administered on 05/27/16 10:18 ; Admin Dose 500 MG; Start 05/15/16 at 09:00 Lansoprazole (Prevacid) 30 mg BID@18 GTB Last administered on 05/27/16 05:44 ; Admin Dose 30 MG; Start 05/15/16 at 06:00 Ondansetron HCl (Zofran Inj) 4 mg Q6H PRN IV NAUSEA AND/OR VOMITING; Start at 02:30 Bisacodyl (Dulcolax Supp) 10 mg DAILY PRN [place] CONSTIPATION; Start 05/15/16 at 02 :30 Eye Lubricant (Artificial Tears Oph) 1 drop TID BOTH EYES Last administered on 05/27/16 15:14; Admin Dose 1 DROP; Start 05/15/16 at 09:00 Acetaminophen (Tylenol Liquid) 650 mg Q4H PRN GTB PAIN AND OR ELEVATED TEMP Last administered on 05/26/16 22:32; Admin Dose 650 MG; Start 05/15/16 at 02:30 Docusate Sodium (Colace Liquid Cup) 100 mg Q12H PRN GTB CONSTIPATION; Start at 02:41 Magnesium Hydroxide (Milk Of Mag) 30 ml DAILY PRN GTB CONSTIPATION Last administered on 05/26/16 09:52; Admin Dose 30 ML; Start 05/15/16 at 02:41 Lacosamide (Vimpat Liq) 200 mg Q12 GTB Last administered on 05/27/16 11:22; Admin Dose 200 MG; Start 05/15/16 at 02:59 Miscellaneous Information 1 ea NOTE XX ; Start 05/15/16 at 13:30 Potassium Chloride (Potassium Chloride Pwd/Soln) 20 meq BID GTB Last administered on 05/27/16 10:17; Admin Dose 20 MEQ; Start 05/15/16 at 14:30 Lorazepam (Ativan) 1 mg Q4H PRN IV SEIZURES Last administered on 05/27/16 01:14 ; Admin Dose 1 MG; Start 05/16/16 at 14:00 Collagenase (Santyl) 1 applic DAILY TOP Last administered on 05/27/16 10:21; Admin Dose 1 APPLIC; Start 05/17/16 at 09:00 Mupirocin (Bactroban) 1 applic BID TOP Last administered on 05/27/16 10:21; Admin Dose 1 APPLIC; Start 05/17/16 at 12:30; Stop 05/30/16 at 21:01 Voriconazole (Vfend) 200 mg BID GTB Last administered on 05/27/16 10:19; Admin Dose 200 MG; Start 05/17/16 at 13:30 Lisinopril (Zestril) 5 mg DAILY GTB Last administered on 05/27/16 10:20; Admin Dose 5 MG; Start 05/18/16 at 09:00 Miscellaneous Information IVPB IN D5W WHERE POSSIBLE Q8H XX Last administered on 05/26/16 17:48; Admin Dose 1 EA; Start 05/21/16 at 11:30 Piperacillin Sod/ Tazobactam Sod 3.375 gm/Dextrose 100 ml @ 200 mls/hr Q6 IVPB Last administered on 05/27/16 15:13; Admin Dose 200 MLS/HR; Start 05/21/16 at 18:00 Vancomycin HCl/ Dextrose (Vancocin/D5W) 250 ml @ 125 mls/hr Q24H IVPB Last administered on 05/27/16 05:44; Admin Dose 125 MLS/HR; Start 05/22/16 at 06:00 Levetiracetam (Keppra Liquid) 1,500 mg BID GTB Last administered on 05/27/16 10 :17; Admin Dose 1,500 MG; Start 05/25/16 at 09:00 Lactobacillus Acidoph/Bulgaricus (Floranex) 1 tab TID PEG Last administered on 05/27/16 15:12; Admin Dose 1 TAB; Start 05/25/16 at 14:30 Miscellaneous Information (*Rx Drug Level Order Reminder*) 1 ONCE ONCE XX ; Start 05/28/16 at 05:00; Stop 05/28/16 at 05:01 DENNIS PARR NP May 27, 2016 16:49
[2016-05-27] MEDS: RIVAROXABAN 15 MG TABLET PO SCH (18:52)
[2016-05-27] MEDS: ATORVASTATIN 40 MG TAB GTB SCH (22:00)
[2016-05-27] MEDS: ACETAMINOPHEN 650MG/20.3ML CUP GTB PRN (22:14)
[2016-05-28] VITALS (24 sets, daily range): BP systolic 110–116; BP diastolic 67–75; PULSE 73–80; RESP 17–25
[2016-05-28] MEDS: LEVALBUTEROL (HFA) 15 GM INHALER INH SCH ×3 (01:35→16:13)
[2016-05-28] MEDS: [UNRECOGNIZED DRUG - REMARK] XX SCH ×3 (03:02→19:30)
[2016-05-28] MEDS: PIPERACILLIN/TAZO 3.375 GM in DEXTROSE 5% 100 ML IVPB SCH ×4 (06:10→23:25)
[2016-05-28] MEDS: LANSOPRAZOLE 30 MG CAP GTB SCH ×2 (06:10→17:41)
[2016-05-28 07:15] LABS: POTASSIUM 4.8 mmol/L (3.5-5.1)
[2016-05-28 07:17] LABS: CREATININE 0.63 mg/dl (0.61-1.24)
[2016-05-28 07:57] LABS: BASOPHILS % 0.2 % (0.0-2.0); EOSINOPHILS # 0.1 10^3/ul (0.0-0.5); EOSINOPHILS % 1.5 % (0.0-7.0); HEMATOCRIT 35.4 % (42.0-52.0); HEMOGLOBIN 11.5 g/dl (14.0-18.0); LYMPHOCYTES # 1.3 10^3/ul (0.8-2.9); LYMPHOCYTES % 13.1 % (15.0-51.0); MEAN CORPUSCULAR HGB CONC 32.5 g/dl (32.0-37.0); MEAN CORPUSCULAR VOLUME 83.1 fl (82.0-101.0); MEAN PLATELET VOLUME 9.7 fl (7.4-10.4); MONOCYTE # 0.5 10^3/ul (0.3-0.9); MONOCYTES % 5.4 % (0.0-11.0); NEUTROPHIL # 7.6 10^3/ul (1.6-7.5); NEUTROPHILS % 79.8 % (39.0-77.0); PLATELET COUNT 409 10^3/UL (140-440); RED BLOOD COUNT 4.25 10^6/ul (4.70-6.10); UNCORRECTED WBC 9.5 10^3/ul (4.8-10.8); WHITE BLOOD COUNT 9.5 10^3/ul (4.8-10.8)
[2016-05-28 08:04] LABS: CONDITION 1; LH ANALYZER COMMENTS 1
[2016-05-28] MEDS: ARTIFICIAL TEARS 15 ML OPH BOTH EYES SCH ×3 (08:33→21:17)
[2016-05-28] MEDS: VANCOMYCIN 1 GM in DEXTROSE 5% 250 ML IVPB SCH (08:33)
[2016-05-28] MEDS: MUPIROCIN 2% 22 GM OINT TOP SCH ×2 (08:34→21:17)
[2016-05-28] MEDS: POTASSIUM CHLORIDE 20 MEQ POWDER FOR ORAL SOLN GTB SCH ×2 (09:53→21:18)
[2016-05-28] MEDS: ZINC SULFATE 220 MG CAP GTB SCH (09:53)
[2016-05-28] MEDS: ASPIRIN 81 MG TAB GTB SCH (09:53)
[2016-05-28] MEDS: LEVETIRACETAM (100 MG/ML) 5ML CUP GTB SCH ×2 (09:53→21:14)
[2016-05-28] MEDS: MULTIVITAMINS 5 ML CUP GTB SCH (09:53)
[2016-05-28] MEDS: LACTOBACILLUS CHEW TAB PEG SCH ×3 (09:53→21:17)
[2016-05-28] MEDS: traMADol 50 MG TAB GTB SCH ×2 (09:54→21:16)
[2016-05-28] MEDS: VORICONAZOLE 200 MG TAB GTB SCH ×2 (09:55→21:15)
[2016-05-28] MEDS: ASCORBIC ACID 500 MG TAB GTB SCH (09:55)
[2016-05-28] MEDS: LISINOPRIL 5 MG TAB GTB SCH (09:55)
[2016-05-28] MEDS: AMIODARONE 200 MG TAB GTB SCH ×2 (09:56→21:16)
[2016-05-28] MEDS: COLLAGENASE 30 GM TUBE TOP SCH (09:56)
[2016-05-28] MEDS: LACOSAMIDE (100 MG/10 ML PO SYR) GTB SCH ×2 (11:40→21:14)
--- NOTE | 2016-05-28 12:04 | PN ---
Date/Time of Note Date/Time of Note DATE: 05/28/16 TIME: 12:00 Assessment/Plan VTE Prophylaxis VTE Prophylaxis Intervention: other (kjb;) Lines/Catheters IV Catheter Type (from Nrs): Saline Lock Urinary Cath still in place: Yes Reason Cath still needed: urinary retention Assessment/Plan Assessment/Plan 1. pulm: chronic resp failure with tracheostomy, cont vent support 2. neuro: chronic encephalopathy with quadriplegia, cont mobilization and decubituys treatment/prevention (b) neurogenic bladder cont benton 3. gi: persistenmt diarrhea, c diff, neg, cont rectal tube for now, etiology almost certainly abx 4. fever improved, last significant fever 48 hours ago, cont to monitor. duration of abx per ID 5. cards: severe ischemic cardiomyopathy cont current (b) a fib, cont xarelto Subjective 24 Hr Interval Summary Subjective hx not possible: pt non-verbal Exam/Review of Systems Vital Signs Vitals Vital Signs Date Time Temp Pulse Resp B/P Pulse Ox O2 Delivery O2 Flow Rate FiO2 05/28/16 11:41 99.5 74 20 110/75 100 05/28/16 11:05 30 Intake and Output 05/27/16 05/27/16 05/28/16 15:00 23:00 07:00 Intake Total 1500 ml 1780 ml Output Total 1900 ml 1050 ml Balance -400 ml 730 ml Exam Head: normocephalic Respiratory: clear to auscultation Cardiovascular: regular rate and rhythm Gastrointestinal: non-tender, soft Results Result Diagram: 05/28/16 0500 05/28/16 0500 Results 24 hrs Laboratory Tests Test 05/28/16 05:00 Anion Gap 17 H Basophils # 0.0 Basophils % 0.2 Blood Morphology Comment Blood Urea Nitrogen 27 H Calcium Level 8.0 L Carbon Dioxide Level 26 Chloride Level 112 H Creatinine 0.63 Eosinophils # 0.1 Eosinophils % 1.5 Glucose Level 103 Hematocrit 35.4 L Hemoglobin 11.5 L Lymphocytes # 1.3 Lymphocytes % 13.1 L Magnesium Level 2.6 H Mean Corpuscular Hemoglobin 27.0 L Mean Corpuscular Hemoglobin Concent 32.5 Mean Corpuscular Volume 83.1 Mean Platelet Volume 9.7 Monocytes # 0.5 Monocytes % 5.4 Neutrophils # 7.6 H Neutrophils % 79.8 H Nucleated Red Blood Cells # 0.0 Nucleated Red Blood Cells % 0.0 Platelet Count 409 Potassium Level 4.8 Red Blood Count 4.25 L Red Cell Distribution Width 20.0 H Sodium Level 150 H Vancomycin Level Trough 17.6 White Blood Count 9.5 Medications Medications Current Medications Amiodarone HCl (Cordarone) 200 mg BID GTB Last administered on 05/28/16 09:56; Admin Dose 200 MG; Start 05/15/16 at 09:00 Aspirin (Aspirin) 81 mg DAILY GTB Last administered on 05/28/16 09:53; Admin Dose 81 MG; Start 05/15/16 at 09:00 Atorvastatin Calcium (Lipitor) 40 mg QHS GTB Last administered on 05/27/16 22: 00; Admin Dose 40 MG; Start 05/15/16 at 21:00 Clonazepam (Klonopin) 1 mg Q8H PRN GTB ANXIETY Last administered on 05/21/16 20:19; Admin Dose 1 MG; Start 05/15/16 at 02:30 Digoxin (Digoxin) 0.125 mg DAILY@13 GTB Last administered on 05/27/16 15:12; Admin Dose 0.125 MG; Start 05/15/16 at 13:00 Tramadol HCl (Ultram) 50 mg Q12 GTB Last administered on 05/28/16 09:54; Admin Dose 50 MG; Start 05/15/16 at 09:00 Zinc Sulfate (Zinc Sulfate) 220 mg DAILY GTB Last administered on 05/28/16 09: 53; Admin Dose 220 MG; Start 05/15/16 at 09:00 Multivitamins (Thera-Plus) 5 ml DAILY GTB Last administered on 05/28/16 09:53; Admin Dose 5 ML; Start 05/15/16 at 09:00 Ascorbic Acid (Vitamin C) 500 mg DAILY GTB Last administered on 05/28/16 09:55 ; Admin Dose 500 MG; Start 05/15/16 at 09:00 Lansoprazole (Prevacid) 30 mg BID@,18 GTB Last administered on 05/28/16 06:10 ; Admin Dose 30 MG; Start 05/15/16 at 06:00 Ondansetron HCl (Zofran Inj) 4 mg Q6H PRN IV NAUSEA AND/OR VOMITING; Start at 02:30 Bisacodyl (Dulcolax Supp) 10 mg DAILY PRN [place] CONSTIPATION; Start 05/15/16 at 02 :30 Eye Lubricant (Artificial Tears Oph) 1 drop TID BOTH EYES Last administered on 05/28/16 08:33; Admin Dose 1 DROP; Start 05/15/16 at 09:00 Acetaminophen (Tylenol Liquid) 650 mg Q4H PRN GTB PAIN AND OR ELEVATED TEMP Last administered on 05/27/16 22:14; Admin Dose 650 MG; Start 05/15/16 at 02:30 Docusate Sodium (Colace Liquid Cup) 100 mg Q12H PRN GTB CONSTIPATION; Start at 02:41 Magnesium Hydroxide (Milk Of Mag) 30 ml DAILY PRN GTB CONSTIPATION Last administered on 05/26/16 09:52; Admin Dose 30 ML; Start 05/15/16 at 02:41 Lacosamide (Vimpat Liq) 200 mg Q12 GTB Last administered on 05/28/16 11:40; Admin Dose 200 MG; Start 05/15/16 at 02:59 Miscellaneous Information 1 ea NOTE XX ; Start 05/15/16 at 13:30 Potassium Chloride (Potassium Chloride Pwd/Soln) 20 meq BID GTB Last administered on 05/28/16 09:53; Admin Dose 20 MEQ; Start 05/15/16 at 14:30 Lorazepam (Ativan) 1 mg Q4H PRN IV SEIZURES Last administered on 05/27/16 01:14 ; Admin Dose 1 MG; Start 05/16/16 at 14:00 Collagenase (Santyl) 1 applic DAILY TOP Last administered on 05/28/16 09:56; Admin Dose 1 APPLIC; Start 05/17/16 at 09:00 Mupirocin (Bactroban) 1 applic BID TOP Last administered on 05/28/16 08:34; Admin Dose 1 APPLIC; Start 05/17/16 at 12:30; Stop 05/30/16 at 21:01 Voriconazole (Vfend) 200 mg BID GTB Last administered on 05/28/16 09:55; Admin Dose 200 MG; Start 05/17/16 at 13:30 Lisinopril (Zestril) 5 mg DAILY GTB Last administered on 05/28/16 09:55; Admin Dose 5 MG; Start 05/18/16 at 09:00 Miscellaneous Information IVPB IN D5W WHERE POSSIBLE Q8H XX Last administered on 05/26/16 17:48; Admin Dose 1 EA; Start 05/21/16 at 11:30 Piperacillin Sod/ Tazobactam Sod/ Dextrose (Zosyn/D5W) 100 ml @ 200 mls/hr Q6 IVPB Last administered on 05/28/16 11:41; Admin Dose 200 MLS/HR; Start at 18:00 Levetiracetam (Keppra Liquid) 1,500 mg BID GTB Last administered on 05/28/16 09 :53; Admin Dose 1,500 MG; Start 05/25/16 at 09:00 Lactobacillus Acidoph/ Bulgaricus 1 tab 1 tab TID PEG Last administered on 09:53; Admin Dose 1 TAB; Start 05/25/16 at 14:30 Vancomycin HCl/ Sodium Chloride (Vancocin/NS) 150 ml @ 75 mls/hr Q24H IVPB ; Start 05/29/16 at 09:00 JIM BENEDICT MD May 28, 2016 12:03
[2016-05-28] MEDS: DIGOXIN 0.125 MG TAB GTB SCH (13:53)
[2016-05-28] MEDS: RIVAROXABAN 15 MG TABLET PO SCH (17:41)
--- NOTE | 2016-05-28 17:53 | PN ---
DATE: 05/28/2016 CARDIOLOGY FOLLOWUP SUBJECTIVE: Discussed with the staff. Rhythm strip was reviewed. The patient remains in sinus rhy thm. Remains nonverbal status post trach on the vent. MEDICATIONS: Reviewed. PHYSICAL EXAMINATION: VITAL SIGNS: Temperature 97.4, heart rate 77, blood pressure 115/74, respiration rate of 20, satura ting 94%. HEENT: Normocephalic, atraumatic. NECK: Status post tracheostomy, on the vent. CARDIOVASCULAR: Regular rate and rhythm. PULMONARY: Anteriorly mild rhonchi. GASTROINTESTINAL: Soft, nontender. EXTREMITIES: Positive edema. NEUROLOGIC: No response to verbal stimuli. SKIN: Multiple ecchymoses. LABORATORY: WBC of 9.5, hemoglobin 11.5, platelets of 409. Sodium 150, potassium 4.8, BUN of 27, c reatinine 0.63, glucose of 103. ASSESSMENT AND PLAN: 1. Lower extremity respiratory failure, status post tracheostomy, on the vent. 2. Paroxysmal atrial fibrillation, currently back in sinus rhythm. 3. Severe ischemic cardiomyopathy. 4. History of coronary artery disease, status post myocardial infarction. 5. Status post percutaneous coronary intervention. 6. Anemia. 7. Recurrent fever. 8. Severe encephalopathy. RECOMMENDATIONS: Will check a digoxin level tomorrow. We will continue with the respiratory care. Antibiotic is being managed as per ID's recommendation. We will continue with the amiodarone. Wolfgang itor on telemetry. Electrolytes will be corrected as needed. Dictated By: ABRAHAM BASHIR MD AV/AC Conf#: [id number] DID#: [id number] CC: SHELDON VAZQUEZ MD;*End*
[2016-05-28] MEDS: ATORVASTATIN 40 MG TAB GTB SCH (21:14)
--- NOTE | 2016-05-28 22:43 | CONS ---
Date/Time of Note Date/Time of Note DATE: 05/28/16 TIME: 22:42 Assessment/Plan Assessment/Plan Chief Complaint/Hosp Course SUBJECTIVE: No acute events. The patient is lying comfortably in bed, noncommunicative. + low grade temps, + loose stools MICROBIOLOGY: Blood cultures since 05/20/2016 remain negative, stool for C dif neg. INDWELLINGS: Trach, PEG, Mc, RT. ANTIMICROBIALS: 1. Vancomycin. 2. Zosyn. 3. Voriconazole. PHYSICAL EXAMINATION: GENERAL: Chronically ill-appearing, elderly man in no distress. HEENT: Head atraumatic, normocephalic. Sclerae anicteric. Buccal mucosa dry. NECK: Supple. Tracheostomy present. CHEST: Rise symmetrical. Breath sounds diminished at the bases. HEART: S1, S2. ABDOMEN: Soft, bowel sounds present. EXTREMITIES: With trace dependent edema. ASSESSMENT: 1. Sepsis with fevers and leukocytosis. 2. Urinary tract infection. 3. Healthcare-associated pneumonia. 4. Methicillin-resistant Staphylococcus aureus nares colonization. 5. Ongoing seizures. 6. Anemia. 7. Persistent vegetative state. 8. Diarrhea==> emp Flagyl 9. Pressure sores PLAN: The patient remains unchanged, continues to spike fevers, also with watery stools, will restart Flagyl, continue abx, await for WBC scan [facility] staff Problems: Consultation Date/Type/Reason Admit Date/Time May 14, 2016 at 22:39 Type of Consultation: id 24 HR Interval Summary Subjective hx not possible: pt non-verbal Exam/Review of Systems Vital Signs Vitals Vital Signs Date Time Temp Pulse Resp B/P Pulse Ox O2 Delivery O2 Flow Rate FiO2 05/28/16 20:41 73 05/28/16 20:06 99.2 17 113/70 99 05/28/16 19:25 30 Intake and Output 05/27/16 05/27/16 05/28/16 15:00 23:00 07:00 Intake Total 1500 ml 1780 ml Output Total 1900 ml 1050 ml Balance -400 ml 730 ml Results Result Diagram: 05/28/16 0500 05/28/16 0500 Results 24 hrs Laboratory Tests Test 05/28/16 05:00 Anion Gap 17 H Basophils # 0.0 Basophils % 0.2 Blood Morphology Comment Blood Urea Nitrogen 27 H Calcium Level 8.0 L Carbon Dioxide Level 26 Chloride Level 112 H Creatinine 0.63 Eosinophils # 0.1 Eosinophils % 1.5 Glucose Level 103 Hematocrit 35.4 L Hemoglobin 11.5 L Lymphocytes # 1.3 Lymphocytes % 13.1 L Magnesium Level 2.6 H Mean Corpuscular Hemoglobin 27.0 L Mean Corpuscular Hemoglobin Concent 32.5 Mean Corpuscular Volume 83.1 Mean Platelet Volume 9.7 Monocytes # 0.5 Monocytes % 5.4 Neutrophils # 7.6 H Neutrophils % 79.8 H Nucleated Red Blood Cells # 0.0 Nucleated Red Blood Cells % 0.0 Platelet Count 409 Potassium Level 4.8 Red Blood Count 4.25 L Red Cell Distribution Width 20.0 H Sodium Level 150 H Vancomycin Level Trough 17.6 White Blood Count 9.5 Medications Medications Current Medications Amiodarone HCl (Cordarone) 200 mg BID GTB Last administered on 05/28/16 21:16; Admin Dose 200 MG; Start 05/15/16 at 09:00 Aspirin (Aspirin) 81 mg DAILY GTB Last administered on 05/28/16 09:53; Admin Dose 81 MG; Start 05/15/16 at 09:00 Atorvastatin Calcium (Lipitor) 40 mg QHS GTB Last administered on 05/28/16 21: 14; Admin Dose 40 MG; Start 05/15/16 at 21:00 Clonazepam (Klonopin) 1 mg Q8H PRN GTB ANXIETY Last administered on 05/21/16 20:19; Admin Dose 1 MG; Start 05/15/16 at 02:30 Digoxin (Digoxin) 0.125 mg DAILY@13 GTB Last administered on 05/28/16 13:53; Admin Dose 0.125 MG; Start 05/15/16 at 13:00 Tramadol HCl (Ultram) 50 mg Q12 GTB Last administered on 05/28/16 21:16; Admin Dose 50 MG; Start 05/15/16 at 09:00 Zinc Sulfate (Zinc Sulfate) 220 mg DAILY GTB Last administered on 05/28/16 09: 53; Admin Dose 220 MG; Start 05/15/16 at 09:00 Multivitamins (Thera-Plus) 5 ml DAILY GTB Last administered on 05/28/16 09:53; Admin Dose 5 ML; Start 05/15/16 at 09:00 Ascorbic Acid (Vitamin C) 500 mg DAILY GTB Last administered on 05/28/16 09:55 ; Admin Dose 500 MG; Start 05/15/16 at 09:00 Lansoprazole (Prevacid) 30 mg BID@,18 GTB Last administered on 05/28/16 17:41 ; Admin Dose 30 MG; Start 05/15/16 at 06:00 Ondansetron HCl (Zofran Inj) 4 mg Q6H PRN IV NAUSEA AND/OR VOMITING; Start at 02:30 Bisacodyl (Dulcolax Supp) 10 mg DAILY PRN [place] CONSTIPATION; Start 05/15/16 at 02 :30 Eye Lubricant (Artificial Tears Oph) 1 drop TID BOTH EYES Last administered on 05/28/16 21:17; Admin Dose 1 DROP; Start 05/15/16 at 09:00 Acetaminophen (Tylenol Liquid) 650 mg Q4H PRN GTB PAIN AND OR ELEVATED TEMP Last administered on 05/27/16 22:14; Admin Dose 650 MG; Start 05/15/16 at 02:30 Docusate Sodium (Colace Liquid Cup) 100 mg Q12H PRN GTB CONSTIPATION; Start at 02:41 Magnesium Hydroxide (Milk Of Mag) 30 ml DAILY PRN GTB CONSTIPATION Last administered on 05/26/16 09:52; Admin Dose 30 ML; Start 05/15/16 at 02:41 Lacosamide (Vimpat Liq) 200 mg Q12 GTB Last administered on 05/28/16 21:14; Admin Dose 200 MG; Start 05/15/16 at 02:59 Miscellaneous Information 1 ea NOTE XX ; Start 05/15/16 at 13:30 Potassium Chloride (Potassium Chloride Pwd/Soln) 20 meq BID GTB Last administered on 05/28/16 21:18; Admin Dose 20 MEQ; Start 05/15/16 at 14:30 Lorazepam (Ativan) 1 mg Q4H PRN IV SEIZURES Last administered on 05/27/16 01:14 ; Admin Dose 1 MG; Start 05/16/16 at 14:00 Collagenase (Santyl) 1 applic DAILY TOP Last administered on 05/28/16 09:56; Admin Dose 1 APPLIC; Start 05/17/16 at 09:00 Mupirocin (Bactroban) 1 applic BID TOP Last administered on 05/28/16 21:17; Admin Dose 1 APPLIC; Start 05/17/16 at 12:30; Stop 05/30/16 at 21:01 Voriconazole (Vfend) 200 mg BID GTB Last administered on 05/28/16 21:15; Admin Dose 200 MG; Start 05/17/16 at 13:30 Lisinopril (Zestril) 5 mg DAILY GTB Last administered on 05/28/16 09:55; Admin Dose 5 MG; Start 05/18/16 at 09:00 Miscellaneous Information IVPB IN D5W WHERE POSSIBLE Q8H XX Last administered on 05/26/16 17:48; Admin Dose 1 EA; Start 05/21/16 at 11:30 Piperacillin Sod/ Tazobactam Sod/ Dextrose (Zosyn/D5W) 100 ml @ 200 mls/hr Q6 IVPB Last administered on 05/28/16 17:41; Admin Dose 200 MLS/HR; Start at 18:00 Levetiracetam (Keppra Liquid) 1,500 mg BID GTB Last administered on 05/28/16 21 :14; Admin Dose 1,500 MG; Start 05/25/16 at 09:00 Lactobacillus Acidoph/ Bulgaricus 1 tab 1 tab TID PEG Last administered on 21:17; Admin Dose 1 TAB; Start 05/25/16 at 14:30 Vancomycin HCl/ Dextrose/Water (Vancocin/D5W) 150 ml @ 75 mls/hr Q24H IVPB ; Start 05/29/16 at 09:00 DENNIS PARR NP May 28, 2016 22:43
[2016-05-28] MEDS: metroNIDAZOLE 500 MG TAB PO SCH (23:25)
[2016-05-29] VITALS (24 sets, daily range): BP systolic 107–125; BP diastolic 66–76; PULSE 66–80; RESP 18–75
[2016-05-29] MEDS: ACETAMINOPHEN 650MG/20.3ML CUP GTB PRN (00:13)
[2016-05-29] MEDS: LEVALBUTEROL (HFA) 15 GM INHALER INH SCH ×3 (01:22→15:09)
[2016-05-29] MEDS: [UNRECOGNIZED DRUG - REMARK] XX SCH ×3 (03:30→19:30)
[2016-05-29] MEDS: LANSOPRAZOLE 30 MG CAP GTB SCH ×2 (05:50→17:57)
[2016-05-29] MEDS: PIPERACILLIN/TAZO 3.375 GM in DEXTROSE 5% 100 ML IVPB SCH ×4 (05:50→23:52)
[2016-05-29] MEDS: metroNIDAZOLE 500 MG TAB PO SCH ×3 (05:51→21:11)
[2016-05-29 07:25] LABS: BASOPHILS % 0.2 % (0.0-2.0); EOSINOPHILS # 0.1 10^3/ul (0.0-0.5); EOSINOPHILS % 1.4 % (0.0-7.0); HEMATOCRIT 32.5 % (42.0-52.0); HEMOGLOBIN 10.3 g/dl (14.0-18.0); LYMPHOCYTES # 0.9 10^3/ul (0.8-2.9); LYMPHOCYTES % 9.5 % (15.0-51.0); MEAN CORPUSCULAR HEMOGLOBIN 26.4 pg (29.0-33.0); MEAN CORPUSCULAR HGB CONC 31.6 g/dl (32.0-37.0); MEAN CORPUSCULAR VOLUME 83.5 fl (82.0-101.0); MEAN PLATELET VOLUME 9.6 fl (7.4-10.4); MONOCYTE # 0.6 10^3/ul (0.3-0.9); MONOCYTES % 6.1 % (0.0-11.0); NEUTROPHIL # 7.6 10^3/ul (1.6-7.5); NEUTROPHILS % 82.8 % (39.0-77.0); PLATELET COUNT 436 10^3/UL (140-440); RED BLOOD COUNT 3.89 10^6/ul (4.70-6.10); RED CELL DISTRIBUTION WIDTH 20.5 % (11.5-14.5); UNCORRECTED WBC 9.2 10^3/ul (4.8-10.8); WHITE BLOOD COUNT 9.2 10^3/ul (4.8-10.8)
[2016-05-29 07:29] LABS: CONDITION 1; LH ANALYZER COMMENTS 1
[2016-05-29 07:36] LABS: ALBUMIN 2.9 g/dl (3.3-4.9)
[2016-05-29 07:37] LABS: POTASSIUM 4.3 mmol/L (3.5-5.1)
[2016-05-29 07:39] LABS: ALBUMIN/GLOBULIN RATIO 0.67; BILIRUBIN,INDIRECT 0.3 mg/dl (0-1.1); BILIRUBIN,TOTAL 0.3 mg/dl (0.2-1.3); CREATININE 0.58 mg/dl (0.61-1.24); TOTAL PROTEIN 7.2 g/dl (6.1-8.1)
[2016-05-29 07:40] LABS: CALCIUM 7.8 mg/dl (8.4-10.2)
[2016-05-29] MEDS: LEVETIRACETAM (100 MG/ML) 5ML CUP GTB SCH ×2 (09:21→21:11)
[2016-05-29] MEDS: ASPIRIN 81 MG TAB GTB SCH (09:21)
[2016-05-29] MEDS: POTASSIUM CHLORIDE 20 MEQ POWDER FOR ORAL SOLN GTB SCH ×2 (09:21→21:11)
[2016-05-29] MEDS: MULTIVITAMINS 5 ML CUP GTB SCH (09:21)
[2016-05-29] MEDS: ASCORBIC ACID 500 MG TAB GTB SCH (09:22)
[2016-05-29] MEDS: LACTOBACILLUS CHEW TAB PEG SCH ×3 (09:22→21:12)
[2016-05-29] MEDS: LISINOPRIL 5 MG TAB GTB SCH (09:22)
[2016-05-29] MEDS: AMIODARONE 200 MG TAB GTB SCH ×2 (09:22→21:13)
[2016-05-29] MEDS: VORICONAZOLE 200 MG TAB GTB SCH ×2 (09:22→21:11)
[2016-05-29] MEDS: ZINC SULFATE 220 MG CAP GTB SCH (09:22)
[2016-05-29] MEDS: VANCOMYCIN 750 MG in DEXTROSE 5% 150 ML IVPB SCH (09:23)
[2016-05-29] MEDS: MUPIROCIN 2% 22 GM OINT TOP SCH ×2 (09:24→21:14)
[2016-05-29] MEDS: COLLAGENASE 30 GM TUBE TOP SCH (09:24)
[2016-05-29] MEDS: LACOSAMIDE (100 MG/10 ML PO SYR) GTB SCH ×2 (11:21→23:33)
[2016-05-29] MEDS: traMADol 50 MG TAB GTB SCH ×2 (11:21→21:12)
[2016-05-29] MEDS: ARTIFICIAL TEARS 15 ML OPH BOTH EYES SCH ×3 (11:21→21:14)
--- NOTE | 2016-05-29 12:35 | PN ---
Date/Time of Note Date/Time of Note DATE: 05/29/16 TIME: 12:29 Assessment/Plan VTE Prophylaxis VTE Prophylaxis Intervention: other (on Xarelto ) Lines/Catheters IV Catheter Type (from Nrsg): Saline Lock Urinary Cath still in place: Yes Reason Cath still needed: urinary retention (neurogenic bladder ) Assessment/Plan Assessment/Plan 66-year-old male with: 1. Recurrent Febrile episodes, again febrile overnight to 101, ? central fevers Bases on sputum cx and blood cx, on Zosyn and Vanco, Urine cx with yeast non kendra albicans on Voriconazole Repeat blood cx NGTD. WBC trended down to normal x almost a week now Still fevers, WBC tagged study per ID today and Continue current abx for now, Vancomycin, Zosyn and Voriconazole. 2. Diarrhea, Loose stool, rectal tube had to be placed, C diff negative so Flagyl d/c'd per ID 3. Chronic respiratory failure, status post tracheostomy and PEG tube placement. Continue ventilator support. Patient seems to be comfortable back on his maintenance settings now. 4. Paroxysmal atrial fibrillation. Continue current regimen. On Xarelto 15 mg daily for anticoagulation and stroke prevention. Monitor 5. Coronary artery disease, ischemic cardiomyopathy, systolic dysfunction, congestive heart failure, ejection fraction of 20%. Continue medical management Monitor volume status closely. Continue free water with tube feedings. 6. Severe chronic encephalopathy mostly in the persistent vegetative state. The patient occasional at best is opening his eyes lately but not tracking and he is quadriplegic and vent dependent. 7. Diabetes mellitus. Continue diabetic tube feeding and sliding scale insulin. 8. Seizure disorder, with episodes of breakthrough seizures vs chills when febrile Tylenol prn fever and Ativan prn Continue Keppra and Vimpat per Gtube. 9. Neurogenic bladder. Mc dependent. Renal function stable. Urine cx with yeast non kendra albicans, on Voriconazole. Change Mc 10. Sacral decubitus ulcers, Stage 3. Healing well per wound care RNs Continue wound care. 11. Chronic anemia, stable hemoglobin. Continue PPI for GI prophylaxis. 12. Hypernatremia: on increase Free H2O with improved hypernatremia today, Na down to 147 Monitor volume status closely, patient with CHF and getting IV abx. 13. Transaminitis: LFTs improved today, continue to monitor periodically. Prophylaxis: Prevacid for GI prophylaxis and is already on anticoagulation with Xarelto in setting of atrial fibrillation. DISPOSITION: Monitor on Tele for now. Continue current antibiotics for now. Tagged WBC study scheduled for today Family/Palliative care meeting to be arranged this week per Dr Shafer Full Code. Subjective 24 Hr Interval Summary Free Text/Dictation Patient remains the same Fever to 101 early this AM Exam/Review of Systems Vital Signs Vitals Vital Signs Date Time Temp Pulse Resp B/P Pulse Ox O2 Delivery O2 Flow Rate FiO2 05/29/16 12:04 78 29 98 30 05/29/16 11:36 98.7 110/73 Intake and Output 05/28/16 05/28/16 05/29/16 15:00 23:00 07:00 Intake Total 1380 ml 1580 ml Output Total 1500 ml 550 ml Balance -120 ml 1030 ml Exam Constitutional: frail Respiratory: clear to auscultation, other (vent dependent ) Cardiovascular: nl pulses, regular rate and rhythm Gastrointestinal: non-tender, soft Musculoskeletal: nl extremities to inspection, other (no edema, clubbing or cyanosis ) Extremities: normal pulses Neurological: unresponsive Results Result Diagram: 05/29/16 0550 05/29/16 0550 Results 24 hrs Laboratory Tests Test 05/29/16 05:50 Alanine Aminotransferase (ALT/SGPT) 71 H Albumin 2.9 L Albumin/Globulin Ratio 0.67 Alkaline Phosphatase 174 H Anion Gap 19 H Aspartate Amino Transf (AST/SGOT) 40 Basophils # 0.0 Basophils % 0.2 Blood Morphology Comment Blood Urea Nitrogen 27 H Calcium Level 7.8 L Carbon Dioxide Level 25 Chloride Level 107 Creatinine 0.58 L Digoxin Level 1.0 Direct Bilirubin 0.00 Eosinophils # 0.1 Eosinophils % 1.4 Globulin 4.30 H Glucose Level 108 Hematocrit 32.5 L Hemoglobin 10.3 L Indirect Bilirubin 0.3 Lymphocytes # 0.9 Lymphocytes % 9.5 L Mean Corpuscular Hemoglobin 26.4 L Mean Corpuscular Hemoglobin Concent 31.6 L Mean Corpuscular Volume 83.5 Mean Platelet Volume 9.6 Monocytes # 0.6 Monocytes % 6.1 Neutrophils # 7.6 H Neutrophils % 82.8 H Nucleated Red Blood Cells # 0.0 Nucleated Red Blood Cells % 0.0 Platelet Count 436 Potassium Level 4.3 Red Blood Count 3.89 L Red Cell Distribution Width 20.5 H Sodium Level 147 H Total Bilirubin 0.3 Total Protein 7.2 White Blood Count 9.2 Medications Medications Current Medications Amiodarone HCl (Cordarone) 200 mg BID GTB Last administered on 05/29/16 09:22; Admin Dose 200 MG; Start 05/15/16 at 09:00 Aspirin (Aspirin) 81 mg DAILY GTB Last administered on 05/29/16 09:21; Admin Dose 81 MG; Start 05/15/16 at 09:00 Atorvastatin Calcium (Lipitor) 40 mg QHS GTB Last administered on 05/28/16 21: 14; Admin Dose 40 MG; Start 05/15/16 at 21:00 Clonazepam (Klonopin) 1 mg Q8H PRN GTB ANXIETY Last administered on 05/21/16 20:19; Admin Dose 1 MG; Start 05/15/16 at 02:30 Tramadol HCl (Ultram) 50 mg Q12 GTB Last administered on 05/29/16 11:21; Admin Dose 50 MG; Start 05/15/16 at 09:00 Zinc Sulfate (Zinc Sulfate) 220 mg DAILY GTB Last administered on 05/29/16 09: 22; Admin Dose 220 MG; Start 05/15/16 at 09:00 Multivitamins (Thera-Plus) 5 ml DAILY GTB Last administered on 05/29/16 09:21; Admin Dose 5 ML; Start 05/15/16 at 09:00 Ascorbic Acid (Vitamin C) 500 mg DAILY GTB Last administered on 05/29/16 09:22 ; Admin Dose 500 MG; Start 05/15/16 at 09:00 Lansoprazole (Prevacid) 30 mg BID@,18 GTB Last administered on 05/29/16 05:50 ; Admin Dose 30 MG; Start 05/15/16 at 06:00 Ondansetron HCl (Zofran Inj) 4 mg Q6H PRN IV NAUSEA AND/OR VOMITING; Start at 02:30 Bisacodyl (Dulcolax Supp) 10 mg DAILY PRN [place] CONSTIPATION; Start 05/15/16 at 02 :30 Eye Lubricant (Artificial Tears Oph) 1 drop TID BOTH EYES Last administered on 05/29/16 11:21; Admin Dose 1 DROP; Start 05/15/16 at 09:00 Acetaminophen (Tylenol Liquid) 650 mg Q4H PRN GTB PAIN AND OR ELEVATED TEMP Last administered on 05/29/16 00:13; Admin Dose 650 MG; Start 05/15/16 at 02:30 Docusate Sodium (Colace Liquid Cup) 100 mg Q12H PRN GTB CONSTIPATION; Start at 02:41 Magnesium Hydroxide (Milk Of Mag) 30 ml DAILY PRN GTB CONSTIPATION Last administered on 05/26/16 09:52; Admin Dose 30 ML; Start 05/15/16 at 02:41 Lacosamide (Vimpat Liq) 200 mg Q12 GTB Last administered on 05/29/16 11:21; Admin Dose 200 MG; Start 05/15/16 at 02:59 Miscellaneous Information 1 ea NOTE XX ; Start 05/15/16 at 13:30 Lorazepam (Ativan) 1 mg Q4H PRN IV SEIZURES Last administered on 05/27/16 01:14 ; Admin Dose 1 MG; Start 05/16/16 at 14:00 Collagenase (Santyl) 1 applic DAILY TOP Last administered on 05/29/16 09:24; Admin Dose 1 APPLIC; Start 05/17/16 at 09:00 Mupirocin (Bactroban) 1 applic BID TOP Last administered on 05/29/16 09:24; Admin Dose 1 APPLIC; Start 05/17/16 at 12:30; Stop 05/30/16 at 21:01 Voriconazole (Vfend) 200 mg BID GTB Last administered on 05/29/16 09:22; Admin Dose 200 MG; Start 05/17/16 at 13:30 Lisinopril (Zestril) 5 mg DAILY GTB Last administered on 05/29/16 09:22; Admin Dose 5 MG; Start 05/18/16 at 09:00 Miscellaneous Information IVPB IN D5W WHERE POSSIBLE Q8H XX Last administered on 05/26/16 17:48; Admin Dose 1 EA; Start 05/21/16 at 11:30 Piperacillin Sod/ Tazobactam Sod/ Dextrose (Zosyn/D5W) 100 ml @ 200 mls/hr Q6 IVPB Last administered on 05/29/16 12:17; Admin Dose 200 MLS/HR; Start at 18:00 Levetiracetam (Keppra Liquid) 1,500 mg BID GTB Last administered on 05/29/16 09 :21; Admin Dose 1,500 MG; Start 05/25/16 at 09:00 Lactobacillus Acidoph/ Bulgaricus 1 tab 1 tab TID PEG Last administered on 12:17; Admin Dose 1 TAB; Start 05/25/16 at 14:30 Vancomycin HCl/ Dextrose/Water (Vancocin/D5W) 150 ml @ 75 mls/hr Q24H IVPB Last administered on 05/29/16 09:23; Admin Dose 75 MLS/HR; Start 05/29/16 at 09: 00 Metronidazole (Flagyl) 500 mg Q8 PO Last administered on 05/29/16 05:51; Admin Dose 500 MG; Start 05/28/16 at 23:00 Digoxin (Digoxin) 0.125 mg Q48H GTB ; Start 05/30/16 at 13:00 Potassium Chloride (Potassium Chloride Pwd/Soln) 20 meq BID GTB ; Start 05/29/16 at 21:00 SHELDON VAZQUEZ May 29, 2016 12:35
--- NOTE | 2016-05-29 13:24 | PN ---
DATE: 05/29/2016 CARDIOLOGY FOLLOWUP SUBJECTIVE: Discussed with the staff. Rhythm strip was reviewed. The patient remains in sinus rhy thm. the patient overnight, has remained nonverbal status post trach on the vent. MEDICATIONS: Reviewed as per medical reconciliation, personally reviewed. PHYSICAL EXAMINATION: VITAL SIGNS: Temperature 99.3, heart rate of 78, blood pressure 124/66, respiration rate of 23, sat urating 98%. HEENT: Normocephalic, atraumatic. Pupils are equal. NECK: Status post tracheostomy, on the vent. CARDIOVASCULAR: Regular rate and rhythm, systolic murmur. PULMONARY: With mild rhonchi, diffuse. GASTROINTESTINAL: Status post PEG placement. Otherwise, no rebound or guarding. EXTREMITIES: With positive edema. NEUROLOGIC: Lethargic, does not answer questions. LABORATORY: Shows WBC of 9.2, hemoglobin 10.3, platelets 436. Sodium 147, potassium 4.3, BUN of 27 , creatinine of 2.58, glucose of 108. Digoxin level is 1.0. ASSESSMENT AND PLAN: 1. Hypoxemia respiratory failure, status post tracheostomy, vent dependent. 2. Congestive heart failure, chronic secondary to systolic dysfunction. 3. Paroxysmal atrial fibrillation, currently back in sinus rhythm. 4. Severe ischemic cardiomyopathy with history of coronary artery disease, status post myocardial i nfarction. 5. History of percutaneous coronary intervention. 6. Status post cardiopulmonary arrest. 7. Severe anoxic brain injury, encephalopathy. 8. Anemia. 9. Recurrent fever. 10. Multiple infections. RECOMMENDATIONS: We will decrease the digoxin to every other day. We will continue with the amioda caty as tolerated. Vent support will be continued and managed as per internal medicine and pulmonar y. PRAKASH inhibitor as tolerated will be continued on anticoagulation with Xarelto will be continued a s long as there is no bleeding signs. Dictated By: ABRAHAM BASHIR MD AV/AC Conf#: [id number] DID#: [id number] CC: SHELDON VAZQUEZ MD;*End*
--- NOTE | 2016-05-29 16:33 | CONS ---
Date/Time of Note Date/Time of Note DATE: 05/29/16 TIME: 16:32 Assessment/Plan Assessment/Plan Chief Complaint/Hosp Course SUBJECTIVE: No acute events. The patient is lying comfortably in bed, noncommunicative. + low grade temps, + loose stools MICROBIOLOGY: Blood cultures since 05/20/2016 remain negative, stool for C dif neg. INDWELLINGS: Trach, PEG, Mc, RT. ANTIMICROBIALS: 1. Vancomycin. 2. Zosyn. 3. Voriconazole. 4. Flagyl PHYSICAL EXAMINATION: GENERAL: Chronically ill-appearing, elderly man in no distress. HEENT: Head atraumatic, normocephalic. Sclerae anicteric. Buccal mucosa dry. NECK: Supple. Tracheostomy present. CHEST: Rise symmetrical. Breath sounds diminished at the bases. HEART: S1, S2. ABDOMEN: Soft, bowel sounds present. EXTREMITIES: With trace dependent edema. ASSESSMENT: 1. Sepsis with fevers and leukocytosis. 2. Urinary tract infection. 3. Healthcare-associated pneumonia. 4. Methicillin-resistant Staphylococcus aureus nares colonization. 5. Ongoing seizures. 6. Anemia. 7. Persistent vegetative state. 8. Diarrhea==> emp Flagyl 9. Pressure sores PLAN: The patient remains unchanged, continue abx, await for WBC scan DW staff Problems: Consultation Date/Type/Reason Admit Date/Time May 14, 2016 at 22:39 Type of Consultation: id Exam/Review of Systems Vital Signs Vitals Vital Signs Date Time Temp Pulse Resp B/P Pulse Ox O2 Delivery O2 Flow Rate FiO2 05/29/16 16:12 80 22 97 30 05/29/16 15:02 97.5 125/76 Intake and Output 05/28/16 05/28/16 05/29/16 15:00 23:00 07:00 Intake Total 1380 ml 1580 ml Output Total 1500 ml 550 ml Balance -120 ml 1030 ml Results Result Diagram: 05/29/16 0550 05/29/16 0550 Results 24 hrs Laboratory Tests Test 05/29/16 05:50 Alanine Aminotransferase (ALT/SGPT) 71 H Albumin 2.9 L Albumin/Globulin Ratio 0.67 Alkaline Phosphatase 174 H Anion Gap 19 H Aspartate Amino Transf (AST/SGOT) 40 Basophils # 0.0 Basophils % 0.2 Blood Morphology Comment Blood Urea Nitrogen 27 H Calcium Level 7.8 L Carbon Dioxide Level 25 Chloride Level 107 Creatinine 0.58 L Digoxin Level 1.0 Direct Bilirubin 0.00 Eosinophils # 0.1 Eosinophils % 1.4 Globulin 4.30 H Glucose Level 108 Hematocrit 32.5 L Hemoglobin 10.3 L Indirect Bilirubin 0.3 Lymphocytes # 0.9 Lymphocytes % 9.5 L Mean Corpuscular Hemoglobin 26.4 L Mean Corpuscular Hemoglobin Concent 31.6 L Mean Corpuscular Volume 83.5 Mean Platelet Volume 9.6 Monocytes # 0.6 Monocytes % 6.1 Neutrophils # 7.6 H Neutrophils % 82.8 H Nucleated Red Blood Cells # 0.0 Nucleated Red Blood Cells % 0.0 Platelet Count 436 Potassium Level 4.3 Red Blood Count 3.89 L Red Cell Distribution Width 20.5 H Sodium Level 147 H Total Bilirubin 0.3 Total Protein 7.2 White Blood Count 9.2 Medications Medications Current Medications Amiodarone HCl (Cordarone) 200 mg BID GTB Last administered on 05/29/16 09:22; Admin Dose 200 MG; Start 05/15/16 at 09:00 Aspirin (Aspirin) 81 mg DAILY GTB Last administered on 05/29/16 09:21; Admin Dose 81 MG; Start 05/15/16 at 09:00 Atorvastatin Calcium (Lipitor) 40 mg QHS GTB Last administered on 05/28/16 21: 14; Admin Dose 40 MG; Start 05/15/16 at 21:00 Clonazepam (Klonopin) 1 mg Q8H PRN GTB ANXIETY Last administered on 05/21/16 20:19; Admin Dose 1 MG; Start 05/15/16 at 02:30 Tramadol HCl (Ultram) 50 mg Q12 GTB Last administered on 05/29/16 11:21; Admin Dose 50 MG; Start 05/15/16 at 09:00 Zinc Sulfate (Zinc Sulfate) 220 mg DAILY GTB Last administered on 05/29/16 09: 22; Admin Dose 220 MG; Start 05/15/16 at 09:00 Multivitamins (Thera-Plus) 5 ml DAILY GTB Last administered on 05/29/16 09:21; Admin Dose 5 ML; Start 05/15/16 at 09:00 Ascorbic Acid (Vitamin C) 500 mg DAILY GTB Last administered on 05/29/16 09:22 ; Admin Dose 500 MG; Start 05/15/16 at 09:00 Lansoprazole (Prevacid) 30 mg BID@06,18 GTB Last administered on 05/29/16 05:50 ; Admin Dose 30 MG; Start 05/15/16 at 06:00 Ondansetron HCl (Zofran Inj) 4 mg Q6H PRN IV NAUSEA AND/OR VOMITING; Start at 02:30 Bisacodyl (Dulcolax Supp) 10 mg DAILY PRN [place] CONSTIPATION; Start 05/15/16 at 02 :30 Eye Lubricant (Artificial Tears Oph) 1 drop TID BOTH EYES Last administered on 05/29/16 14:44; Admin Dose 1 DROP; Start 05/15/16 at 09:00 Acetaminophen (Tylenol Liquid) 650 mg Q4H PRN GTB PAIN AND OR ELEVATED TEMP Last administered on 05/29/16 00:13; Admin Dose 650 MG; Start 05/15/16 at 02:30 Docusate Sodium (Colace Liquid Cup) 100 mg Q12H PRN GTB CONSTIPATION; Start at 02:41 Magnesium Hydroxide (Milk Of Mag) 30 ml DAILY PRN GTB CONSTIPATION Last administered on 05/26/16 09:52; Admin Dose 30 ML; Start 05/15/16 at 02:41 Lacosamide (Vimpat Liq) 200 mg Q12 GTB Last administered on 05/29/16 11:21; Admin Dose 200 MG; Start 05/15/16 at 02:59 Miscellaneous Information 1 ea NOTE XX ; Start 05/15/16 at 13:30 Lorazepam (Ativan) 1 mg Q4H PRN IV SEIZURES Last administered on 05/27/16 01:14 ; Admin Dose 1 MG; Start 05/16/16 at 14:00 Collagenase (Santyl) 1 applic DAILY TOP Last administered on 05/29/16 09:24; Admin Dose 1 APPLIC; Start 05/17/16 at 09:00 Mupirocin (Bactroban) 1 applic BID TOP Last administered on 05/29/16 09:24; Admin Dose 1 APPLIC; Start 05/17/16 at 12:30; Stop 05/30/16 at 21:01 Voriconazole (Vfend) 200 mg BID GTB Last administered on 05/29/16 09:22; Admin Dose 200 MG; Start 05/17/16 at 13:30 Lisinopril (Zestril) 5 mg DAILY GTB Last administered on 05/29/16 09:22; Admin Dose 5 MG; Start 05/18/16 at 09:00 Miscellaneous Information IVPB IN D5W WHERE POSSIBLE Q8H XX Last administered on 05/26/16 17:48; Admin Dose 1 EA; Start 05/21/16 at 11:30 Piperacillin Sod/ Tazobactam Sod/ Dextrose (Zosyn/D5W) 100 ml @ 200 mls/hr Q6 IVPB Last administered on 05/29/16 12:17; Admin Dose 200 MLS/HR; Start at 18:00 Levetiracetam (Keppra Liquid) 1,500 mg BID GTB Last administered on 05/29/16 09 :21; Admin Dose 1,500 MG; Start 05/25/16 at 09:00 Lactobacillus Acidoph/ Bulgaricus 1 tab 1 tab TID PEG Last administered on 12:17; Admin Dose 1 TAB; Start 05/25/16 at 14:30 Vancomycin HCl/ Dextrose/Water (Vancocin/D5W) 150 ml @ 75 mls/hr Q24H IVPB Last administered on 05/29/16 09:23; Admin Dose 75 MLS/HR; Start 05/29/16 at 09: 00 Metronidazole (Flagyl) 500 mg Q8 PO Last administered on 05/29/16 14:44; Admin Dose 500 MG; Start 05/28/16 at 23:00 Digoxin (Digoxin) 0.125 mg Q48H GTB ; Start 05/30/16 at 13:00 Potassium Chloride (Potassium Chloride Pwd/Soln) 20 meq BID GTB ; Start 05/29/16 at 21:00 DENNIS PARR NP May 29, 2016 16:32
--- NOTE | 2016-05-29 17:15 | RADRPT ---
PROCEDURE: Indium-111 labeled white blood cell scan CLINICAL INDICATION: 66 -year-old patient with fever and leukocytosis. TECHNIQUE: Following the intravenous injection of 0.49 mCi of Indium-111 labeled white blood cells , whole body anterior and posterior planar images were obtained 24 hours post injection. COMPARISON: No prior indium scans. FINDINGS: No definite abnormal areas of increased activity are seen in the study, including visualized portion s of the head and neck, chest, abdomen, pelvis and upper and lower. Physiologic uptake is noted in the liver and spleen. IMPRESSION: No definite abnormal focal areas of increased activity. RPTAT: HH .Echo Boone MD, MD Date Time Electronically viewed and signed by .Echo Boone MD, on 05/29/2016 17:15 .L/
[2016-05-29] MEDS: RIVAROXABAN 15 MG TABLET PO SCH (17:57)
[2016-05-29] MEDS: ATORVASTATIN 40 MG TAB GTB SCH (21:12)
[2016-05-30] VITALS (24 sets, daily range): BP systolic 107–117; BP diastolic 68–73; PULSE 64–74; RESP 18–24
[2016-05-30] MEDS: LEVALBUTEROL (HFA) 15 GM INHALER INH SCH ×4 (00:25→23:13)
[2016-05-30] MEDS: [UNRECOGNIZED DRUG - REMARK] XX SCH ×3 (03:30→19:30)
[2016-05-30] MEDS: PIPERACILLIN/TAZO 3.375 GM in DEXTROSE 5% 100 ML IVPB SCH ×3 (05:51→18:11)
[2016-05-30] MEDS: LANSOPRAZOLE 30 MG CAP GTB SCH ×2 (05:51→18:11)
[2016-05-30] MEDS: metroNIDAZOLE 500 MG TAB PO SCH ×3 (05:51→22:31)
[2016-05-30 06:53] LABS: POTASSIUM 4.6 mmol/L (3.5-5.1)
[2016-05-30 06:56] LABS: CREATININE 0.57 mg/dl (0.61-1.24)
[2016-05-30 06:57] LABS: CALCIUM 7.8 mg/dl (8.4-10.2)
[2016-05-30 06:59] LABS: PHOSPHORUS 3.2 mg/dl (2.5-4.9)
[2016-05-30 07:00] LABS: MAGNESIUM 2.4 mg/dl (1.7-2.5)
[2016-05-30 07:20] LABS: BASOPHILS % 0.2 % (0.0-2.0); EOSINOPHILS # 0.1 10^3/ul (0.0-0.5); EOSINOPHILS % 1.3 % (0.0-7.0); HEMATOCRIT 31.7 % (42.0-52.0); HEMOGLOBIN 10.3 g/dl (14.0-18.0); LYMPHOCYTES # 0.9 10^3/ul (0.8-2.9); MEAN CORPUSCULAR HEMOGLOBIN 27.1 pg (29.0-33.0); MEAN CORPUSCULAR HGB CONC 32.5 g/dl (32.0-37.0); MEAN CORPUSCULAR VOLUME 83.2 fl (82.0-101.0); MEAN PLATELET VOLUME 9.9 fl (7.4-10.4); MONOCYTE # 0.6 10^3/ul (0.3-0.9); MONOCYTES % 6.4 % (0.0-11.0); NEUTROPHIL # 7.3 10^3/ul (1.6-7.5); NEUTROPHILS % 82.1 % (39.0-77.0); PLATELET COUNT 450 10^3/UL (140-440); RED BLOOD COUNT 3.81 10^6/ul (4.70-6.10); RED CELL DISTRIBUTION WIDTH 20.2 % (11.5-14.5); UNCORRECTED WBC 8.9 10^3/ul (4.8-10.8); WHITE BLOOD COUNT 8.9 10^3/ul (4.8-10.8)
[2016-05-30 08:00] LABS: CONDITION 1; LH ANALYZER COMMENTS 1
[2016-05-30] MEDS: LEVETIRACETAM (100 MG/ML) 5ML CUP GTB SCH ×2 (08:16→22:30)
[2016-05-30] MEDS: ASPIRIN 81 MG TAB GTB SCH (08:16)
[2016-05-30] MEDS: LACTOBACILLUS CHEW TAB PEG SCH ×3 (08:16→22:31)
[2016-05-30] MEDS: POTASSIUM CHLORIDE 20 MEQ POWDER FOR ORAL SOLN GTB SCH ×2 (08:16→22:31)
[2016-05-30] MEDS: MULTIVITAMINS 5 ML CUP GTB SCH (08:16)
[2016-05-30] MEDS: ASCORBIC ACID 500 MG TAB GTB SCH (08:16)
[2016-05-30] MEDS: ZINC SULFATE 220 MG CAP GTB SCH (08:16)
[2016-05-30] MEDS: VORICONAZOLE 200 MG TAB GTB SCH ×2 (08:16→22:30)
[2016-05-30] MEDS: LISINOPRIL 5 MG TAB GTB SCH (08:17)
[2016-05-30] MEDS: AMIODARONE 200 MG TAB GTB SCH ×2 (08:17→22:40)
[2016-05-30] MEDS: ARTIFICIAL TEARS 15 ML OPH BOTH EYES SCH ×3 (08:18→22:32)
[2016-05-30] MEDS: COLLAGENASE 30 GM TUBE TOP SCH (08:18)
[2016-05-30] MEDS: MUPIROCIN 2% 22 GM OINT TOP SCH ×2 (08:18→22:32)
[2016-05-30] MEDS: VANCOMYCIN 750 MG in DEXTROSE 5% 150 ML IVPB SCH (08:29)
[2016-05-30] MEDS: traMADol 50 MG TAB GTB SCH ×2 (08:30→22:30)
[2016-05-30] MEDS: LACOSAMIDE (100 MG/10 ML PO SYR) GTB SCH ×2 (10:27→22:31)
--- NOTE | 2016-05-30 11:17 | PN ---
Date/Time of Note Date/Time of Note DATE: 05/30/16 TIME: 11:09 Assessment/Plan VTE Prophylaxis VTE Prophylaxis Intervention: other (on Xarelto ) Lines/Catheters IV Catheter Type (from Nrsg): Saline Lock Urinary Cath still in place: Yes Reason Cath still needed: urinary retention (neurogenic bladder ) Assessment/Plan Assessment/Plan 66-year-old male with: 1. Recurrent Fevers. Afebrile x 24 hrs and WBC scan negative, WBC trended down to normal x almost a week now ? central fevers Bases on sputum cx and blood cx, on Zosyn and Vanco, Urine cx with yeast non kendra albicans on Voriconazole Repeat blood cx NGTD. Continue current abx for now, Vancomycin, Zosyn and Voriconazole, will get final recs from ID 2. Diarrhea, Loose stool, rectal tube had to be placed, C diff negative so Flagyl d/c'd per ID 3. Chronic respiratory failure, status post tracheostomy and PEG tube placement. Continue ventilator support. Patient seems to be comfortable back on his maintenance settings now. 4. Paroxysmal atrial fibrillation. Continue current regimen. On Xarelto 15 mg daily for anticoagulation and stroke prevention. Monitor 5. Coronary artery disease, ischemic cardiomyopathy, systolic dysfunction, congestive heart failure, ejection fraction of 20%. Continue medical management Monitor volume status closely. Continue free water with tube feedings. 6. Severe chronic encephalopathy mostly in the persistent vegetative state. The patient occasional at best is opening his eyes lately but not tracking and he is quadriplegic and vent dependent. 7. Diabetes mellitus. Continue diabetic tube feeding and sliding scale insulin. 8. Seizure disorder, with episodes of breakthrough seizures vs chills when febrile Tylenol prn fever and Ativan prn Continue Keppra and Vimpat per Gtube. 9. Neurogenic bladder. Mc dependent. Renal function stable. Urine cx with yeast non kendra albicans, on Voriconazole. Change Mc 10. Sacral decubitus ulcers, Stage 3. Healing well per wound care RNs Continue wound care. 11. Chronic anemia, stable hemoglobin. Continue PPI for GI prophylaxis. 12. Hypernatremia: on increase Free H2O with improving hypernatremia, Na down to 145 Monitor volume status closely, patient with CHF and getting IV abx. 13. Transaminitis: LFTs improved lately, continue to monitor periodically. Prophylaxis: Prevacid for GI prophylaxis and is already on anticoagulation with Xarelto in setting of atrial fibrillation. DISPOSITION: Monitor on Tele for now. Continue current antibiotics for now. Tagged WBC study negative. Family/Palliative care meeting to be arranged this week per Dr Shafer Full Code. Subjective 24 Hr Interval Summary Free Text/Dictation Patient clinical status unchanged, Afebrile x 24 hrs so far and WBC scan negative Palliative care meeting still pending Exam/Review of Systems Vital Signs Vitals Vital Signs Date Time Temp Pulse Resp B/P Pulse Ox O2 Delivery O2 Flow Rate FiO2 05/30/16 08:33 70 05/30/16 07:42 98.2 20 108/71 05/30/16 05:18 98 30 Intake and Output 05/29/16 05/29/16 05/30/16 15:00 23:00 07:00 Intake Total 215 ml 1315 ml 980 ml Output Total 650 ml 1050 ml Balance 215 ml 665 ml -70 ml Exam Constitutional: frail, other (unresponsive and on Vent ) Respiratory: diminished breath sounds (bases ), other (vent dependent ) Cardiovascular: nl pulses, regular rate and rhythm Gastrointestinal: non-tender, soft Musculoskeletal: nl extremities to inspection Extremities: normal pulses, other (no edema, clubbing or cyanosis ) Neurological: other (vent dependent ), unresponsive Results Result Diagram: 05/30/1652705/30/16527 Results 24 hrs Laboratory Tests Test 05/30/16 05:28 Anion Gap 17 H Basophils # 0.0 Basophils % 0.2 Blood Morphology Comment Blood Urea Nitrogen 28 H Calcium Level 7.8 L Carbon Dioxide Level 26 Chloride Level 107 Creatinine 0.57 L Eosinophils # 0.1 Eosinophils % 1.3 Glucose Level 120 Hematocrit 31.7 L Hemoglobin 10.3 L Lymphocytes # 0.9 Lymphocytes % 10.0 L Magnesium Level 2.4 Mean Corpuscular Hemoglobin 27.1 L Mean Corpuscular Hemoglobin Concent 32.5 Mean Corpuscular Volume 83.2 Mean Platelet Volume 9.9 Monocytes # 0.6 Monocytes % 6.4 Neutrophils # 7.3 Neutrophils % 82.1 H Nucleated Red Blood Cells # 0.0 Nucleated Red Blood Cells % 0.0 Phosphorus Level 3.2 Platelet Count 450 H Potassium Level 4.6 Red Blood Count 3.81 L Red Cell Distribution Width 20.2 H Sodium Level 145 H White Blood Count 8.9 Medications Medications Current Medications Amiodarone HCl (Cordarone) 200 mg BID GTB Last administered on 05/30/16 08:17; Admin Dose 200 MG; Start 05/15/16 at 09:00 Aspirin (Aspirin) 81 mg DAILY GTB Last administered on 05/30/16 08:16; Admin Dose 81 MG; Start 05/15/16 at 09:00 Atorvastatin Calcium (Lipitor) 40 mg QHS GTB Last administered on 05/29/16 21: 12; Admin Dose 40 MG; Start 05/15/16 at 21:00 Clonazepam (Klonopin) 1 mg Q8H PRN GTB ANXIETY Last administered on 05/21/16 20:19; Admin Dose 1 MG; Start 05/15/16 at 02:30 Tramadol HCl (Ultram) 50 mg Q12 GTB Last administered on 05/30/16 08:30; Admin Dose 50 MG; Start 05/15/16 at 09:00 Zinc Sulfate (Zinc Sulfate) 220 mg DAILY GTB Last administered on 05/30/16 08: 16; Admin Dose 220 MG; Start 05/15/16 at 09:00 Multivitamins (Thera-Plus) 5 ml DAILY GTB Last administered on 05/30/16 08:16; Admin Dose 5 ML; Start 05/15/16 at 09:00 Ascorbic Acid (Vitamin C) 500 mg DAILY GTB Last administered on 05/30/16 08:16 ; Admin Dose 500 MG; Start 05/15/16 at 09:00 Lansoprazole (Prevacid) 30 mg BID@,18 GTB Last administered on 05/30/16 05:51 ; Admin Dose 30 MG; Start 05/15/16 at 06:00 Ondansetron HCl (Zofran Inj) 4 mg Q6H PRN IV NAUSEA AND/OR VOMITING; Start at 02:30 Bisacodyl (Dulcolax Supp) 10 mg DAILY PRN [place] CONSTIPATION; Start 05/15/16 at 02 :30 Eye Lubricant (Artificial Tears Oph) 1 drop TID BOTH EYES Last administered on 05/30/16 08:18; Admin Dose 1 DROP; Start 05/15/16 at 09:00 Acetaminophen (Tylenol Liquid) 650 mg Q4H PRN GTB PAIN AND OR ELEVATED TEMP Last administered on 05/29/16 00:13; Admin Dose 650 MG; Start 05/15/16 at 02:30 Docusate Sodium (Colace Liquid Cup) 100 mg Q12H PRN GTB CONSTIPATION; Start at 02:41 Magnesium Hydroxide (Milk Of Mag) 30 ml DAILY PRN GTB CONSTIPATION Last administered on 05/26/16 09:52; Admin Dose 30 ML; Start 05/15/16 at 02:41 Lacosamide (Vimpat Liq) 200 mg Q12 GTB Last administered on 05/30/16 10:27; Admin Dose 200 MG; Start 05/15/16 at 02:59 Miscellaneous Information 1 ea NOTE XX ; Start 05/15/16 at 13:30 Lorazepam (Ativan) 1 mg Q4H PRN IV SEIZURES Last administered on 05/27/16 01:14 ; Admin Dose 1 MG; Start 05/16/16 at 14:00 Collagenase (Santyl) 1 applic DAILY TOP Last administered on 05/30/16 08:18; Admin Dose 1 APPLIC; Start 05/17/16 at 09:00 Mupirocin (Bactroban) 1 applic BID TOP Last administered on 05/30/16 08:18; Admin Dose 1 APPLIC; Start 05/17/16 at 12:30; Stop 05/30/16 at 21:01 Voriconazole (Vfend) 200 mg BID GTB Last administered on 05/30/16 08:16; Admin Dose 200 MG; Start 05/17/16 at 13:30 Lisinopril (Zestril) 5 mg DAILY GTB Last administered on 05/30/16 08:17; Admin Dose 5 MG; Start 05/18/16 at 09:00 Miscellaneous Information IVPB IN D5W WHERE POSSIBLE Q8H XX Last administered on 05/26/16 17:48; Admin Dose 1 EA; Start 05/21/16 at 11:30 Piperacillin Sod/ Tazobactam Sod/ Dextrose (Zosyn/D5W) 100 ml @ 200 mls/hr Q6 IVPB Last administered on 05/30/16 05:51; Admin Dose 200 MLS/HR; Start at 18:00 Levetiracetam (Keppra Liquid) 1,500 mg BID GTB Last administered on 05/30/16 08 :16; Admin Dose 1,500 MG; Start 05/25/16 at 09:00 Lactobacillus Acidoph/ Bulgaricus 1 tab 1 tab TID PEG Last administered on 08:16; Admin Dose 1 TAB; Start 05/25/16 at 14:30 Vancomycin HCl/ Dextrose/Water (Vancocin/D5W) 150 ml @ 75 mls/hr Q24H IVPB Last administered on 05/30/16 08:29; Admin Dose 75 MLS/HR; Start 05/29/16 at 09: 00 Metronidazole (Flagyl) 500 mg Q8 PO Last administered on 05/30/16 05:51; Admin Dose 500 MG; Start 05/28/16 at 23:00 Digoxin (Digoxin) 0.125 mg Q48H GTB ; Start 05/30/16 at 13:00 Potassium Chloride (Potassium Chloride Pwd/Soln) 20 meq BID GTB Last administered on 05/30/16 08:16; Admin Dose 20 MEQ; Start 05/29/16 at 21:00 Carvedilol (Coreg) 3.125 mg BID GTB ; Start 05/30/16 at 11:00 Procedures Procedures PROCEDURE: Indium-111 labeled white blood cell scan CLINICAL INDICATION: 66 -year-old patient with fever and leukocytosis. TECHNIQUE: Following the intravenous injection of 0.49 mCi of Indium-111 labeled white blood cells, whole body anterior and posterior planar images were obtained 24 hours post injection. COMPARISON: No prior indium scans. FINDINGS: No definite abnormal areas of increased activity are seen in the study, including visualized portions of the head and neck, chest, abdomen, pelvis and upper and lower. Physiologic uptake is noted in the liver and spleen. IMPRESSION: No definite abnormal focal areas of increased activity. RPTAT: SHELDON PALOMARES May 30, 2016 11:17
--- NOTE | 2016-05-30 11:38 | PN ---
DATE: 05/30/2016 CARDIOLOGY FOLLOWUP PROGRESS NOTE SUBJECTIVE: Discussed with the staff. Rhythm strip was reviewed. The patient remains in sinus rhy thm. No more episodes of atrial fibrillation, remains with a tracheostomy on the vent, nonverbal. MEDICATIONS: Reviewed. PHYSICAL EXAMINATION: VITAL SIGNS: Temperature 98.2, heart rate of 70, blood pressure 108/71, respiration rate of 20, sat urating 98%. HEENT: Normocephalic, atraumatic. NECK: Status post tracheostomy, on the vent. CARDIOVASCULAR: Regular rate and rhythm, systolic murmur. PULMONARY: With minimal wheezes, mild rhonchi, diffuse. GASTROINTESTINAL: Soft, nontender. EXTREMITIES: Positive edema. NEUROLOGIC: Unresponsive. LABORATORY: Sodium 145, potassium 4.6, BUN of 28, creatinine 0.57, glucose 120. WBC of 8.9, hemogl obin 10.3, platelets of 450. WBC scan showed no definite ____ focal area of increased activity. ASSESSMENT AND PLAN: 1. Hypoxemic respiratory failure, status post tracheostomy, vent dependent. 2. Congestive heart failure. 3. Severe cardiomyopathy. 4. Coronary artery disease, status post myocardial infarction. 5. History of percutaneous coronary intervention. 6. History of cardiopulmonary arrest. 7. Paroxysmal atrial fibrillation, currently remains in sinus rhythm, ____EKG, left bundle branch block. 8. Anoxic brain injury, severe encephalopathy. 8. Anemia and recurrent fevers, multiple infections. RECOMMENDATIONS: Antibiotic is managed as per ID. We will continue with digoxin at a low dose. El ectrolytes including potassium to be replaced as needed. PRAKASH inhibitor will be continued as tolerat ed. Anticoagulation will be continued as tolerated. I will start the patient on low dose of carved ilol as tolerated. Dictated By: ABRAHAM BASHIR MD AV/AC Conf#: [id number] DID#: [id number]
[2016-05-30] MEDS: DIGOXIN 0.125 MG TAB GTB SCH (12:19)
--- NOTE | 2016-05-30 17:16 | CONS ---
Date/Time of Note Date/Time of Note DATE: 05/30/16 TIME: 17:14 Assessment/Plan Assessment/Plan Chief Complaint/Hosp Course SUBJECTIVE: No acute events. The patient is lying comfortably in bed, noncommunicative MICROBIOLOGY: Blood cultures since 05/20/2016 remain negative, stool for C dif neg. INDWELLINGS: Trach, PEG, Mc, RT. ANTIMICROBIALS: 1. Vancomycin. 2. Zosyn. 3. Voriconazole. 4. Flagyl PHYSICAL EXAMINATION: GENERAL: Chronically ill-appearing, elderly man in no distress. HEENT: Head atraumatic, normocephalic. Sclerae anicteric. Buccal mucosa dry. NECK: Supple. Tracheostomy present. CHEST: Rise symmetrical. Breath sounds diminished at the bases. HEART: S1, S2. ABDOMEN: Soft, bowel sounds present. EXTREMITIES: With trace dependent edema. ASSESSMENT: 1. Sepsis with fevers and leukocytosis. 2. Urinary tract infection. 3. Healthcare-associated pneumonia. 4. Methicillin-resistant Staphylococcus aureus nares colonization. 5. Ongoing seizures. 6. Anemia. 7. Persistent vegetative state. 8. Diarrhea==> emp Flagyl 9. Pressure sores PLAN: The patient remains unchanged, WBC scan negative, will complete abx for 2 weeks total, continue local wound care, cooling measures, antisz Rx DW staff DW Dr Napier Problems: Consultation Date/Type/Reason Admit Date/Time May 14, 2016 at 22:39 Type of Consultation: id Exam/Review of Systems Vital Signs Vitals Vital Signs Date Time Temp Pulse Resp B/P Pulse Ox O2 Delivery O2 Flow Rate FiO2 05/30/16 17:10 64 20 100 30 05/30/16 15:05 98.3 107/69 Intake and Output 05/29/16 05/29/16 05/30/16 15:00 23:00 07:00 Intake Total 215 ml 1315 ml 980 ml Output Total 650 ml 1050 ml Balance 215 ml 665 ml -70 ml Results Result Diagram: 05/30/1652705/30/16527 Results 24 hrs Laboratory Tests Test 05/30/16 05:28 05/30/16 11:21 Anion Gap 17 H Basophils # 0.0 Basophils % 0.2 Blood Morphology Comment Blood Urea Nitrogen 28 H Calcium Level 7.8 L Carbon Dioxide Level 26 Chloride Level 107 Creatinine 0.57 L Eosinophils # 0.1 Eosinophils % 1.3 Glucose Level 120 Hematocrit 31.7 L Hemoglobin 10.3 L Lymphocytes # 0.9 Lymphocytes % 10.0 L Magnesium Level 2.4 Mean Corpuscular Hemoglobin 27.1 L Mean Corpuscular Hemoglobin Concent 32.5 Mean Corpuscular Volume 83.2 Mean Platelet Volume 9.9 Monocytes # 0.6 Monocytes % 6.4 Neutrophils # 7.3 Neutrophils % 82.1 H Nucleated Red Blood Cells # 0.0 Nucleated Red Blood Cells % 0.0 Phosphorus Level 3.2 Platelet Count 450 H Potassium Level 4.6 Red Blood Count 3.81 L Red Cell Distribution Width 20.2 H Sodium Level 145 H White Blood Count 8.9 Lab Scanned Report REFERENCE LAB Medications Medications Current Medications Amiodarone HCl (Cordarone) 200 mg BID GTB Last administered on 05/30/16 08:17; Admin Dose 200 MG; Start 05/15/16 at 09:00 Aspirin (Aspirin) 81 mg DAILY GTB Last administered on 05/30/16 08:16; Admin Dose 81 MG; Start 05/15/16 at 09:00 Atorvastatin Calcium (Lipitor) 40 mg QHS GTB Last administered on 05/29/16 21: 12; Admin Dose 40 MG; Start 05/15/16 at 21:00 Clonazepam (Klonopin) 1 mg Q8H PRN GTB ANXIETY Last administered on 05/21/16 20:19; Admin Dose 1 MG; Start 05/15/16 at 02:30 Tramadol HCl (Ultram) 50 mg Q12 GTB Last administered on 05/30/16 08:30; Admin Dose 50 MG; Start 05/15/16 at 09:00 Zinc Sulfate (Zinc Sulfate) 220 mg DAILY GTB Last administered on 05/30/16 08: 16; Admin Dose 220 MG; Start 05/15/16 at 09:00 Multivitamins (Thera-Plus) 5 ml DAILY GTB Last administered on 05/30/16 08:16; Admin Dose 5 ML; Start 05/15/16 at 09:00 Ascorbic Acid (Vitamin C) 500 mg DAILY GTB Last administered on 05/30/16 08:16 ; Admin Dose 500 MG; Start 05/15/16 at 09:00 Lansoprazole (Prevacid) 30 mg BID@18 GTB Last administered on 05/30/16 05:51 ; Admin Dose 30 MG; Start 05/15/16 at 06:00 Ondansetron HCl (Zofran Inj) 4 mg Q6H PRN IV NAUSEA AND/OR VOMITING; Start at 02:30 Bisacodyl (Dulcolax Supp) 10 mg DAILY PRN [place] CONSTIPATION; Start 05/15/16 at 02 :30 Eye Lubricant (Artificial Tears Oph) 1 drop TID BOTH EYES Last administered on 05/30/16 12:20; Admin Dose 1 DROP; Start 05/15/16 at 09:00 Acetaminophen (Tylenol Liquid) 650 mg Q4H PRN GTB PAIN AND OR ELEVATED TEMP Last administered on 05/29/16 00:13; Admin Dose 650 MG; Start 05/15/16 at 02:30 Docusate Sodium (Colace Liquid Cup) 100 mg Q12H PRN GTB CONSTIPATION; Start at 02:41 Magnesium Hydroxide (Milk Of Mag) 30 ml DAILY PRN GTB CONSTIPATION Last administered on 05/26/16 09:52; Admin Dose 30 ML; Start 05/15/16 at 02:41 Miscellaneous Information 1 ea NOTE XX ; Start 05/15/16 at 13:30 Lorazepam (Ativan) 1 mg Q4H PRN IV SEIZURES Last administered on 05/27/16 01:14 ; Admin Dose 1 MG; Start 05/16/16 at 14:00 Collagenase (Santyl) 1 applic DAILY TOP Last administered on 05/30/16 08:18; Admin Dose 1 APPLIC; Start 05/17/16 at 09:00 Mupirocin (Bactroban) 1 applic BID TOP Last administered on 05/30/16 08:18; Admin Dose 1 APPLIC; Start 05/17/16 at 12:30; Stop 05/30/16 at 21:01 Voriconazole (Vfend) 200 mg BID GTB Last administered on 05/30/16 08:16; Admin Dose 200 MG; Start 05/17/16 at 13:30 Lisinopril (Zestril) 5 mg DAILY GTB Last administered on 05/30/16 08:17; Admin Dose 5 MG; Start 05/18/16 at 09:00 Miscellaneous Information IVPB IN D5W WHERE POSSIBLE Q8H XX Last administered on 05/26/16 17:48; Admin Dose 1 EA; Start 05/21/16 at 11:30 Piperacillin Sod/ Tazobactam Sod/ Dextrose (Zosyn/D5W) 100 ml @ 200 mls/hr Q6 IVPB Last administered on 05/30/16 12:19; Admin Dose 200 MLS/HR; Start at 18:00 Levetiracetam (Keppra Liquid) 1,500 mg BID GTB Last administered on 05/30/16 08 :16; Admin Dose 1,500 MG; Start 05/25/16 at 09:00 Lactobacillus Acidoph/ Bulgaricus 1 tab 1 tab TID PEG Last administered on 12:19; Admin Dose 1 TAB; Start 05/25/16 at 14:30 Vancomycin HCl/ Dextrose/Water (Vancocin/D5W) 150 ml @ 75 mls/hr Q24H IVPB Last administered on 05/30/16 08:29; Admin Dose 75 MLS/HR; Start 05/29/16 at 09: 00 Metronidazole (Flagyl) 500 mg Q8 PO Last administered on 05/30/16 13:57; Admin Dose 500 MG; Start 05/28/16 at 23:00 Digoxin (Digoxin) 0.125 mg Q48H GTB Last administered on 05/30/16 12:19; Admin Dose 0.125 MG; Start 05/30/16 at 13:00 Potassium Chloride (Potassium Chloride Pwd/Soln) 20 meq BID GTB Last administered on 05/30/16 08:16; Admin Dose 20 MEQ; Start 05/29/16 at 21:00 Carvedilol (Coreg) 3.125 mg BID GTB Last administered on 05/30/16 12:20; Admin Dose 3.125 MG; Start 05/30/16 at 11:00 Lacosamide (Vimpat Liq) 200 mg Q12 GTB ; Start 05/30/16 at 21:00 DENNIS PARR NP May 30, 2016 17:16
[2016-05-30] MEDS: RIVAROXABAN 15 MG TABLET PO SCH (18:11)
[2016-05-30] MEDS: ATORVASTATIN 40 MG TAB GTB SCH (22:30)
[2016-05-31] VITALS (24 sets, daily range): BP systolic 95–136; BP diastolic 58–72; PULSE 49–67; RESP 15–22
[2016-05-31] MEDS: ACETAMINOPHEN 650MG/20.3ML CUP GTB PRN ×2 (01:36→14:33)
[2016-05-31] MEDS: PIPERACILLIN/TAZO 3.375 GM in DEXTROSE 5% 100 ML IVPB SCH ×4 (01:36→18:14)
[2016-05-31] MEDS: [UNRECOGNIZED DRUG - REMARK] XX SCH ×3 (03:30→19:30)
[2016-05-31 06:15] LABS: ADD SCAN DIFF NO; BASOPHIL # 0.1 10^3/ul (0.0-0.1); BASOPHILS % 0.7 % (0.0-2.0); EOSINOPHILS # 0.2 10^3/ul (0.0-0.5); EOSINOPHILS % 2.1 % (0.0-7.0); HEMATOCRIT 31.3 % (42.0-52.0); HEMOGLOBIN 9.5 g/dl (14.0-18.0); LYMPHOCYTES # 0.8 10^3/ul (0.8-2.9); LYMPHOCYTES % 10.1 % (15.0-51.0); MEAN CORPUSCULAR HEMOGLOBIN 26.2 pg (29.0-33.0); MEAN CORPUSCULAR HGB CONC 30.4 g/dl (32.0-37.0); MEAN CORPUSCULAR VOLUME 86.5 fl (82.0-101.0); MEAN PLATELET VOLUME 11.2 fl (7.4-10.4); MONOCYTE # 0.5 10^3/ul (0.3-0.9); MONOCYTES % 6.7 % (0.0-11.0); NEUTROPHIL # 6.1 10^3/ul (1.6-7.5); NEUTROPHILS % 79.7 % (39.0-77.0); PLATELET COUNT 478 10^3/UL (140-415); RED BLOOD COUNT 3.62 10^6/ul (4.70-6.10); RED CELL DISTRIBUTION WIDTH 18.5 % (11.5-14.5); WHITE BLOOD COUNT 7.6 10^3/ul (4.8-10.8)
[2016-05-31] MEDS: metroNIDAZOLE 500 MG TAB PO SCH ×3 (06:23→22:38)
[2016-05-31] MEDS: LANSOPRAZOLE 30 MG CAP GTB SCH ×2 (06:23→18:14)
[2016-05-31 06:40] LABS: ALBUMIN 2.7 g/dl (3.3-4.9)
[2016-05-31 06:41] LABS: POTASSIUM 4.6 mmol/L (3.5-5.1)
[2016-05-31 06:43] LABS: ALBUMIN/GLOBULIN RATIO 0.69; BILIRUBIN,INDIRECT 0.1 mg/dl (0-1.1); BILIRUBIN,TOTAL 0.1 mg/dl (0.2-1.3); CREATININE 0.56 mg/dl (0.61-1.24); TOTAL PROTEIN 6.6 g/dl (6.1-8.1)
[2016-05-31 06:44] LABS: CALCIUM 7.8 mg/dl (8.4-10.2)
[2016-05-31] MEDS: LEVALBUTEROL (HFA) 15 GM INHALER INH SCH ×2 (07:58→15:33)
[2016-05-31] MEDS: LEVETIRACETAM (100 MG/ML) 5ML CUP GTB SCH ×2 (09:54→22:40)
[2016-05-31] MEDS: LACTOBACILLUS CHEW TAB PEG SCH ×3 (09:54→22:37)
[2016-05-31] MEDS: MULTIVITAMINS 5 ML CUP GTB SCH (09:54)
[2016-05-31] MEDS: ASPIRIN 81 MG TAB GTB SCH (09:54)
[2016-05-31] MEDS: POTASSIUM CHLORIDE 20 MEQ POWDER FOR ORAL SOLN GTB SCH ×2 (09:54→22:38)
[2016-05-31] MEDS: ZINC SULFATE 220 MG CAP GTB SCH (09:55)
[2016-05-31] MEDS: ASCORBIC ACID 500 MG TAB GTB SCH (09:55)
[2016-05-31] MEDS: COLLAGENASE 30 GM TUBE TOP SCH (09:55)
[2016-05-31] MEDS: ARTIFICIAL TEARS 15 ML OPH BOTH EYES SCH ×3 (09:55→22:39)
[2016-05-31] MEDS: VORICONAZOLE 200 MG TAB GTB SCH ×2 (09:55→22:38)
[2016-05-31] MEDS: AMIODARONE 200 MG TAB GTB SCH ×2 (09:56→22:39)
[2016-05-31] MEDS: LISINOPRIL 5 MG TAB GTB SCH (09:56)
[2016-05-31] MEDS: LACOSAMIDE (100 MG/10 ML PO SYR) GTB SCH ×2 (10:01→22:37)
[2016-05-31] MEDS: VANCOMYCIN 750 MG in DEXTROSE 5% 150 ML IVPB SCH (10:01)
[2016-05-31] MEDS: traMADol 50 MG TAB GTB SCH ×2 (10:02→22:38)
--- NOTE | 2016-05-31 12:14 | CONS ---
Date/Time of Note Date/Time of Note DATE: 05/31/16 TIME: 12:12 Assessment/Plan Assessment/Plan Chief Complaint/Hosp Course SUBJECTIVE: No acute events. The patient is lying comfortably in bed, noncommunicative, no fevers MICROBIOLOGY: Blood cultures since 05/20/2016 remain negative, stool for C dif neg. INDWELLINGS: Trach, PEG, Mc, RT. ANTIMICROBIALS: 1. Vancomycin. 2. Zosyn. 3. Voriconazole. 4. Flagyl PHYSICAL EXAMINATION: GENERAL: Chronically ill-appearing, elderly man in no distress. HEENT: Head atraumatic, normocephalic. Sclerae anicteric. Buccal mucosa dry. NECK: Supple. Tracheostomy present. CHEST: Rise symmetrical. Breath sounds diminished at the bases. HEART: S1, S2. ABDOMEN: Soft, bowel sounds present. EXTREMITIES: With trace dependent edema. ASSESSMENT: 1. Sepsis with fevers and leukocytosis. 2. Urinary tract infection. 3. Healthcare-associated pneumonia. 4. Methicillin-resistant Staphylococcus aureus nares colonization. 5. Ongoing seizures. 6. Anemia. 7. Persistent vegetative state. 8. Diarrhea==> emp Flagyl 9. Pressure sores PLAN: The patient remains unchanged, WBC scan negative, will complete abx for 3more days, continue local wound care, cooling measures, antisz Rx, recommend to keep on Flagyl for 2 weeks for diarrhea DW staff Problems: Consultation Date/Type/Reason Admit Date/Time May 14, 2016 at 22:39 Type of Consultation: id 24 HR Interval Summary Subjective hx not possible: pt non-verbal Exam/Review of Systems Vital Signs Vitals Vital Signs Date Time Temp Pulse Resp B/P Pulse Ox O2 Delivery O2 Flow Rate FiO2 05/31/16 11:47 99.3 53 20 95/63 100 05/31/16 09:07 30 Intake and Output 05/30/16 05/30/16 05/31/16 15:00 23:00 07:00 Intake Total 1479 ml 1090 ml Output Total 1100 ml 1050 ml Balance 379 ml 40 ml Results Result Diagram: 05/31/16 0600 05/31/16 0600 Results 24 hrs Laboratory Tests Test 05/31/16 06:00 Alanine Aminotransferase (ALT/SGPT) 52 Albumin 2.7 L Albumin/Globulin Ratio 0.69 Alkaline Phosphatase 161 H Anion Gap 16 Aspartate Amino Transf (AST/SGOT) 32 Basophils # 0.1 Basophils % 0.7 Blood Urea Nitrogen 28 H Calcium Level 7.8 L Carbon Dioxide Level 26 Chloride Level 107 Creatinine 0.56 L Direct Bilirubin 0.00 Eosinophils # 0.2 Eosinophils % 2.1 Globulin 3.90 H Glucose Level 118 Hematocrit 31.3 L Hemoglobin 9.5 L Indirect Bilirubin 0.1 Lymphocytes # 0.8 Lymphocytes % 10.1 L Magnesium Level 2.4 Mean Corpuscular Hemoglobin 26.2 L Mean Corpuscular Hemoglobin Concent 30.4 L Mean Corpuscular Volume 86.5 Mean Platelet Volume 11.2 H Monocytes # 0.5 Monocytes % 6.7 Neutrophils # 6.1 Neutrophils % 79.7 H Nucleated Red Blood Cells # 0.0 Nucleated Red Blood Cells % 0.0 Platelet Count 478 H Potassium Level 4.6 Red Blood Count 3.62 L Red Cell Distribution Width 18.5 H Sodium Level 144 Total Bilirubin 0.1 L Total Protein 6.6 White Blood Count 7.6 Medications Medications Current Medications Amiodarone HCl (Cordarone) 200 mg BID GTB Last administered on 05/31/16 09:56 ; Admin Dose 200 MG; Start 05/15/16 at 09:00 Aspirin (Aspirin) 81 mg DAILY GTB Last administered on 05/31/16 09:54; Admin Dose 81 MG; Start 05/15/16 at 09:00 Atorvastatin Calcium (Lipitor) 40 mg QHS GTB Last administered on 05/30/16 22: 30; Admin Dose 40 MG; Start 05/15/16 at 21:00 Clonazepam (Klonopin) 1 mg Q8H PRN GTB ANXIETY Last administered on 05/21/16 20:19; Admin Dose 1 MG; Start 05/15/16 at 02:30 Tramadol HCl (Ultram) 50 mg Q12 GTB Last administered on 05/31/16 10:02; Admin Dose 50 MG; Start 05/15/16 at 09:00 Zinc Sulfate (Zinc Sulfate) 220 mg DAILY GTB Last administered on 05/31/16 09: 55; Admin Dose 220 MG; Start 05/15/16 at 09:00 Multivitamins (Thera-Plus) 5 ml DAILY GTB Last administered on 05/31/16 09:54 ; Admin Dose 5 ML; Start 05/15/16 at 09:00 Ascorbic Acid (Vitamin C) 500 mg DAILY GTB Last administered on 05/31/16 09:55 ; Admin Dose 500 MG; Start 05/15/16 at 09:00 Lansoprazole (Prevacid) 30 mg BID@,18 GTB Last administered on 05/31/16 06: 23; Admin Dose 30 MG; Start 05/15/16 at 06:00 Ondansetron HCl (Zofran Inj) 4 mg Q6H PRN IV NAUSEA AND/OR VOMITING; Start at 02:30 Bisacodyl (Dulcolax Supp) 10 mg DAILY PRN [place] CONSTIPATION; Start 05/15/16 at 02 :30 Eye Lubricant (Artificial Tears Oph) 1 drop TID BOTH EYES Last administered on 05/31/16 09:55; Admin Dose 1 DROP; Start 05/15/16 at 09:00 Acetaminophen (Tylenol Liquid) 650 mg Q4H PRN GTB PAIN AND OR ELEVATED TEMP Last administered on 05/31/16 01:36; Admin Dose 650 MG; Start 05/15/16 at 02:30 Docusate Sodium (Colace Liquid Cup) 100 mg Q12H PRN GTB CONSTIPATION; Start at 02:41 Magnesium Hydroxide (Milk Of Mag) 30 ml DAILY PRN GTB CONSTIPATION Last administered on 05/26/16 09:52; Admin Dose 30 ML; Start 05/15/16 at 02:41 Miscellaneous Information 1 ea NOTE XX ; Start 05/15/16 at 13:30 Lorazepam (Ativan) 1 mg Q4H PRN IV SEIZURES Last administered on 05/27/16 01:14 ; Admin Dose 1 MG; Start 05/16/16 at 14:00 Collagenase (Santyl) 1 applic DAILY TOP Last administered on 05/31/16 09:55; Admin Dose 1 APPLIC; Start 05/17/16 at 09:00 Voriconazole (Vfend) 200 mg BID GTB Last administered on 05/31/16 09:55; Admin Dose 200 MG; Start 05/17/16 at 13:30 Lisinopril (Zestril) 5 mg DAILY GTB Last administered on 05/31/16 09:56; Admin Dose 5 MG; Start 05/18/16 at 09:00 Miscellaneous Information IVPB IN D5W WHERE POSSIBLE Q8H XX Last administered on 05/26/16 17:48; Admin Dose 1 EA; Start 05/21/16 at 11:30 Piperacillin Sod/ Tazobactam Sod/ Dextrose (Zosyn/D5W) 100 ml @ 200 mls/hr Q6 IVPB Last administered on 05/31/16 06:22; Admin Dose 200 MLS/HR; Start at 18:00 Levetiracetam (Keppra Liquid) 1,500 mg BID GTB Last administered on 05/31/16 09:54; Admin Dose 1,500 MG; Start 05/25/16 at 09:00 Lactobacillus Acidoph/ Bulgaricus 1 tab 1 tab TID PEG Last administered on 05/31 09:54; Admin Dose 1 TAB; Start 05/25/16 at 14:30 Vancomycin HCl/ Dextrose/Water (Vancocin/D5W) 150 ml @ 75 mls/hr Q24H IVPB Last administered on 05/31/16 10:01; Admin Dose 75 MLS/HR; Start 05/29/16 at 09: 00 Metronidazole (Flagyl) 500 mg Q8 PO Last administered on 05/31/16 06:23; Admin Dose 500 MG; Start 05/28/16 at 23:00 Digoxin (Digoxin) 0.125 mg Q48H GTB Last administered on 05/30/16 12:19; Admin Dose 0.125 MG; Start 05/30/16 at 13:00 Potassium Chloride (Potassium Chloride Pwd/Soln) 20 meq BID GTB Last administered on 05/31/16 09:54; Admin Dose 20 MEQ; Start 05/29/16 at 21:00 Carvedilol (Coreg) 3.125 mg BID GTB Last administered on 05/31/16 09:56; Admin Dose 3.125 MG; Start 05/30/16 at 11:00 Lacosamide (Vimpat Liq) 200 mg Q12 GTB Last administered on 05/31/16 10:01; Admin Dose 200 MG; Start 05/30/16 at 21:00 Miscellaneous Information (*Rx Drug Level Order Reminder*) 1 ONCE ONCE XX ; Start 06/01/16 at 08:00; Stop 06/01/16 at 08:01 DENNIS PARR NP May 31, 2016 12:14
--- NOTE | 2016-05-31 12:38 | PN ---
Date/Time of Note Date/Time of Note DATE: 05/31/16 TIME: 12:15 Assessment/Plan VTE Prophylaxis VTE Prophylaxis Intervention: other (xarelto ) Lines/Catheters IV Catheter Type (from Nrs): Saline Lock Urinary Cath still in place: Yes Reason Cath still needed: urinary retention Assessment/Plan Assessment/Plan 66-year-old male with: 1. Recurrent Fevers. Afebrile x 24 hrs and WBC scan negative, WBC trended down to normal x almost a week now ? central fevers Bases on sputum cx and blood cx, on Zosyn and Vanco, Urine cx with yeast non kendra albicans on Voriconazole Repeat blood cx NGTD. Continue current abx for now, Vancomycin, Zosyn and Voriconazole, will get final recs from ID for d/c plan tomorrow 06/01 2. Diarrhea, Loose stool, rectal tube had to be placed, C diff negative so Flagyl d/c'd per ID. Improving 3. Chronic respiratory failure, status post tracheostomy and PEG tube placement. Continue ventilator support. Patient seems to be comfortable back on his maintenance settings now. 4. Paroxysmal atrial fibrillation. Continue current regimen. On Xarelto 15 mg daily for anticoagulation and stroke prevention. Monitor 5. Coronary artery disease, ischemic cardiomyopathy, systolic dysfunction, congestive heart failure, ejection fraction of 20%. Continue medical management Monitor volume status closely. Continue free water with tube feedings. 6. Severe chronic encephalopathy mostly in the persistent vegetative state. The patient occasional at best is opening his eyes lately but not tracking and he is quadriplegic and vent dependent. 7. Diabetes mellitus. Continue diabetic tube feeding and sliding scale insulin. 8. Seizure disorder, with episodes of breakthrough seizures vs chills when febrile Tylenol prn fever and Ativan prn Continue Keppra and Vimpat per Gtube. 9. Neurogenic bladder. Mc dependent. Renal function stable. Urine cx with yeast non kendra albicans, on Voriconazole. Changed Mc 10. Sacral decubitus ulcers, Stage 3. Healing well per wound care RNs Continue wound care. 11. Chronic anemia, stable hemoglobin. Continue PPI for GI prophylaxis. 12. Hypernatremia: on increase Free H2O with improving hypernatremia, Na down to 145 Monitor volume status closely, patient with CHF and getting IV abx. 13. Transaminitis: LFTs improved lately, continue to monitor periodically. Prophylaxis: Prevacid for GI prophylaxis and is already on anticoagulation with Xarelto in setting of atrial fibrillation. DISPOSITION: Monitor on Tele for now. Continue current antibiotics for now. Tagged WBC study negative. Family/Palliative care 2nd meeting tomorrow with plan of discharge to SNF tomorrow Full Code. Subjective 24 Hr Interval Summary Free Text/Dictation Patient remains stable and afebrile, unchanged x 48 hrs Less loose stools Appreciate Dr Shafer's assistance who did meet with part of the family today, still needs to meet with other tomorrow Still if no fevers, d/c to SNF in the next 24 hrs Exam/Review of Systems Vital Signs Vitals Vital Signs Date Time Temp Pulse Resp B/P Pulse Ox O2 Delivery O2 Flow Rate FiO2 05/31/16 11:47 99.3 53 20 95/63 100 05/31/16 09:07 30 Intake and Output 05/30/16 05/30/16 05/31/16 15:00 23:00 07:00 Intake Total 1479 ml 1090 ml Output Total 1100 ml 1050 ml Balance 379 ml 40 ml Exam Constitutional: frail, other (non responsive ) Respiratory: clear to auscultation, normal air movement Cardiovascular: nl pulses, regular rate and rhythm Gastrointestinal: non-tender, soft Extremities: normal pulses, other (no edema, clubbing or cyanosis ) Neurological: other (bed ridden ), unresponsive Results Result Diagram: 05/31/16 0600 05/31/16 0600 Results 24 hrs Laboratory Tests Test 05/31/16 06:00 Alanine Aminotransferase (ALT/SGPT) 52 Albumin 2.7 L Albumin/Globulin Ratio 0.69 Alkaline Phosphatase 161 H Anion Gap 16 Aspartate Amino Transf (AST/SGOT) 32 Basophils # 0.1 Basophils % 0.7 Blood Urea Nitrogen 28 H Calcium Level 7.8 L Carbon Dioxide Level 26 Chloride Level 107 Creatinine 0.56 L Direct Bilirubin 0.00 Eosinophils # 0.2 Eosinophils % 2.1 Globulin 3.90 H Glucose Level 118 Hematocrit 31.3 L Hemoglobin 9.5 L Indirect Bilirubin 0.1 Lymphocytes # 0.8 Lymphocytes % 10.1 L Magnesium Level 2.4 Mean Corpuscular Hemoglobin 26.2 L Mean Corpuscular Hemoglobin Concent 30.4 L Mean Corpuscular Volume 86.5 Mean Platelet Volume 11.2 H Monocytes # 0.5 Monocytes % 6.7 Neutrophils # 6.1 Neutrophils % 79.7 H Nucleated Red Blood Cells # 0.0 Nucleated Red Blood Cells % 0.0 Platelet Count 478 H Potassium Level 4.6 Red Blood Count 3.62 L Red Cell Distribution Width 18.5 H Sodium Level 144 Total Bilirubin 0.1 L Total Protein 6.6 White Blood Count 7.6 Medications Medications Current Medications Amiodarone HCl (Cordarone) 200 mg BID GTB Last administered on 05/31/16 09:56 ; Admin Dose 200 MG; Start 05/15/16 at 09:00 Aspirin (Aspirin) 81 mg DAILY GTB Last administered on 05/31/16 09:54; Admin Dose 81 MG; Start 05/15/16 at 09:00 Atorvastatin Calcium (Lipitor) 40 mg QHS GTB Last administered on 05/30/16 22: 30; Admin Dose 40 MG; Start 05/15/16 at 21:00 Clonazepam (Klonopin) 1 mg Q8H PRN GTB ANXIETY Last administered on 05/21/16 20:19; Admin Dose 1 MG; Start 05/15/16 at 02:30 Tramadol HCl (Ultram) 50 mg Q12 GTB Last administered on 05/31/16 10:02; Admin Dose 50 MG; Start 05/15/16 at 09:00 Zinc Sulfate (Zinc Sulfate) 220 mg DAILY GTB Last administered on 05/31/16 09: 55; Admin Dose 220 MG; Start 05/15/16 at 09:00 Multivitamins (Thera-Plus) 5 ml DAILY GTB Last administered on 05/31/16 09:54 ; Admin Dose 5 ML; Start 05/15/16 at 09:00 Ascorbic Acid (Vitamin C) 500 mg DAILY GTB Last administered on 05/31/16 09:55 ; Admin Dose 500 MG; Start 05/15/16 at 09:00 Lansoprazole (Prevacid) 30 mg BID@18 GTB Last administered on 05/31/16 06: 23; Admin Dose 30 MG; Start 05/15/16 at 06:00 Ondansetron HCl (Zofran Inj) 4 mg Q6H PRN IV NAUSEA AND/OR VOMITING; Start at 02:30 Bisacodyl (Dulcolax Supp) 10 mg DAILY PRN IN CONSTIPATION; Start 05/15/16 at 02 :30 Eye Lubricant (Artificial Tears Oph) 1 drop TID BOTH EYES Last administered on 05/31/16 09:55; Admin Dose 1 DROP; Start 05/15/16 at 09:00 Acetaminophen (Tylenol Liquid) 650 mg Q4H PRN GTB PAIN AND OR ELEVATED TEMP Last administered on 05/31/16 01:36; Admin Dose 650 MG; Start 05/15/16 at 02:30 Docusate Sodium (Colace Liquid Cup) 100 mg Q12H PRN GTB CONSTIPATION; Start at 02:41 Magnesium Hydroxide (Milk Of Mag) 30 ml DAILY PRN GTB CONSTIPATION Last administered on 05/26/16 09:52; Admin Dose 30 ML; Start 05/15/16 at 02:41 Miscellaneous Information 1 ea NOTE XX ; Start 05/15/16 at 13:30 Lorazepam (Ativan) 1 mg Q4H PRN IV SEIZURES Last administered on 05/27/16 01:14 ; Admin Dose 1 MG; Start 05/16/16 at 14:00 Collagenase (Santyl) 1 applic DAILY TOP Last administered on 05/31/16 09:55; Admin Dose 1 APPLIC; Start 05/17/16 at 09:00 Voriconazole (Vfend) 200 mg BID GTB Last administered on 05/31/16 09:55; Admin Dose 200 MG; Start 05/17/16 at 13:30 Lisinopril (Zestril) 5 mg DAILY GTB Last administered on 05/31/16 09:56; Admin Dose 5 MG; Start 05/18/16 at 09:00 Miscellaneous Information IVPB IN D5W WHERE POSSIBLE Q8H XX Last administered on 05/26/16 17:48; Admin Dose 1 EA; Start 05/21/16 at 11:30 Piperacillin Sod/ Tazobactam Sod/ Dextrose (Zosyn/D5W) 100 ml @ 200 mls/hr Q6 IVPB Last administered on 05/31/16 06:22; Admin Dose 200 MLS/HR; Start at 18:00 Levetiracetam (Keppra Liquid) 1,500 mg BID GTB Last administered on 05/31/16 09:54; Admin Dose 1,500 MG; Start 05/25/16 at 09:00 Lactobacillus Acidoph/ Bulgaricus 1 tab 1 tab TID PEG Last administered on 05/31 09:54; Admin Dose 1 TAB; Start 05/25/16 at 14:30 Vancomycin HCl/ Dextrose/Water (Vancocin/D5W) 150 ml @ 75 mls/hr Q24H IVPB Last administered on 05/31/16 10:01; Admin Dose 75 MLS/HR; Start 05/29/16 at 09: 00 Metronidazole (Flagyl) 500 mg Q8 PO Last administered on 05/31/16 06:23; Admin Dose 500 MG; Start 05/28/16 at 23:00 Digoxin (Digoxin) 0.125 mg Q48H GTB Last administered on 05/30/16 12:19; Admin Dose 0.125 MG; Start 05/30/16 at 13:00 Potassium Chloride (Potassium Chloride Pwd/Soln) 20 meq BID GTB Last administered on 05/31/16 09:54; Admin Dose 20 MEQ; Start 05/29/16 at 21:00 Carvedilol (Coreg) 3.125 mg BID GTB Last administered on 05/31/16 09:56; Admin Dose 3.125 MG; Start 05/30/16 at 11:00 Lacosamide (Vimpat Liq) 200 mg Q12 GTB Last administered on 05/31/16 10:01; Admin Dose 200 MG; Start 05/30/16 at 21:00 Miscellaneous Information (*Rx Drug Level Order Reminder*) 1 ONCE ONCE XX ; Start 06/01/16 at 08:00; Stop 06/01/16 at 08:01 SHELDON VAZQUEZ May 31, 2016 12:26
--- NOTE | 2016-05-31 16:34 | PN ---
DATE: 05/31/2016 CARDIOLOGY FOLLOWUP SUBJECTIVE: Discussed with the staff. The patient's rhythm strip was reviewed. The patient remain s in sinus rhythm, atrial fibrillation. Still remains on the vent, nonverbal, status post trach. MEDICATIONS: Reviewed. PHYSICAL EXAMINATION: VITAL SIGNS: Temperature 99.3, heart rate of 63, blood pressure 95/63, respiratory rate of 19. HEENT: Normocephalic, atraumatic. NECK: Status post tracheostomy, on the vent. CARDIOVASCULAR: Regular rate and rhythm. PULMONARY: With mild rhonchi, diffuse. GASTROINTESTINAL: Soft. PEG. EXTREMITIES: Positive edema. NEUROLOGIC: Does not . LABORATORY: WBC of 7.6, hemoglobin 9.5, platelets 478. Sodium 144, potassium 4.6, BUN of 28, creat inine 0.53, glucose of 118. ASSESSMENT AND PLAN: 1. Hypoxemia respiratory failure, status tracheostomy, vent dependent. 2. Congestive heart failure. 3. Severe ischemic cardiomyopathy. 4. History of coronary artery disease, status post myocardial infarction. 5. History of percutaneous coronary intervention. 6. History of cardiopulmonary arrest with severe encephalopathy, paroxysmal atrial fibrillation, le ft bundle branch. 7. Multiple infections and recurrent fever. RECOMMENDATIONS: Antibiotic is managed as per ID recommendation, continue the vent support. We gavin l continue with the current cardiac care including anticoagulation as tolerated will be continued. Dictated By: ABRAHAM BASHIR MD AV/AC Conf#: [id number] DID#: [id number] CC: SHELDON VAZQUEZ MD;*End*
[2016-05-31] MEDS: RIVAROXABAN 15 MG TABLET PO SCH (18:14)
[2016-05-31] MEDS: ATORVASTATIN 40 MG TAB GTB SCH (22:38)
[2016-06-01] VITALS (18 sets, daily range): BP systolic 99–102; BP diastolic 60–65; PULSE 53–67; RESP 15–23
[2016-06-01] MEDS: LEVALBUTEROL (HFA) 15 GM INHALER INH SCH ×3 (01:01→15:57)
[2016-06-01] MEDS: ACETAMINOPHEN 650MG/20.3ML CUP GTB PRN (01:37)
[2016-06-01] MEDS: PIPERACILLIN/TAZO 3.375 GM in DEXTROSE 5% 100 ML IVPB SCH ×4 (01:38→17:40)
[2016-06-01] MEDS: [UNRECOGNIZED DRUG - REMARK] XX SCH ×2 (02:43→11:30)
[2016-06-01] MEDS: LANSOPRAZOLE 30 MG CAP GTB SCH ×2 (06:43→17:40)
[2016-06-01] MEDS: metroNIDAZOLE 500 MG TAB PO SCH ×2 (06:43→13:22)
[2016-06-01 07:25] LABS: ADD SCAN DIFF NO
[2016-06-01 07:37] LABS: BASOPHILS % 0.4 % (0.0-2.0); EOSINOPHILS # 0.1 10^3/ul (0.0-0.5); EOSINOPHILS % 0.9 % (0.0-7.0); HEMOGLOBIN 10.1 g/dl (14.0-18.0); LYMPHOCYTES % 10.6 % (15.0-51.0); MEAN CORPUSCULAR HEMOGLOBIN 27.1 pg (29.0-33.0); MEAN CORPUSCULAR HGB CONC 32.7 g/dl (32.0-37.0); MEAN PLATELET VOLUME 9.4 fl (7.4-10.4); MONOCYTE # 0.6 10^3/ul (0.3-0.9); MONOCYTES % 6.4 % (0.0-11.0); NEUTROPHIL # 7.6 10^3/ul (1.6-7.5); NEUTROPHILS % 81.7 % (39.0-77.0); PLATELET COUNT 480 10^3/UL (140-440); RED BLOOD COUNT 3.73 10^6/ul (4.70-6.10); RED CELL DISTRIBUTION WIDTH 19.6 % (11.5-14.5); WHITE BLOOD COUNT 9.3 10^3/ul (4.8-10.8)
[2016-06-01 07:39] LABS: POTASSIUM 4.4 mmol/L (3.5-5.1)
[2016-06-01 07:41] LABS: MAGNESIUM 2.5 mg/dl (1.7-2.5); PHOSPHORUS 3.2 mg/dl (2.5-4.9)
[2016-06-01 07:42] LABS: CREATININE 0.58 mg/dl (0.61-1.24)
[2016-06-01 07:43] LABS: CALCIUM 7.8 mg/dl (8.4-10.2)
[2016-06-01] MEDS: LISINOPRIL 5 MG TAB GTB SCH (09:00)
[2016-06-01] MEDS: COLLAGENASE 30 GM TUBE TOP SCH (09:00)
[2016-06-01] MEDS: MULTIVITAMINS 5 ML CUP GTB SCH (09:52)
[2016-06-01] MEDS: LEVETIRACETAM (100 MG/ML) 5ML CUP GTB SCH (09:52)
[2016-06-01] MEDS: LACOSAMIDE (100 MG/10 ML PO SYR) GTB SCH (09:53)
[2016-06-01] MEDS: POTASSIUM CHLORIDE 20 MEQ POWDER FOR ORAL SOLN GTB SCH (09:57)
[2016-06-01] MEDS: VORICONAZOLE 200 MG TAB GTB SCH (09:58)
[2016-06-01] MEDS: traMADol 50 MG TAB GTB SCH (09:58)
[2016-06-01] MEDS: ASPIRIN 81 MG TAB GTB SCH (09:58)
[2016-06-01] MEDS: AMIODARONE 200 MG TAB GTB SCH (09:59)
[2016-06-01] MEDS: LACTOBACILLUS CHEW TAB PEG SCH ×2 (10:00→13:22)
[2016-06-01] MEDS: ZINC SULFATE 220 MG CAP GTB SCH (10:00)
[2016-06-01] MEDS: ASCORBIC ACID 500 MG TAB GTB SCH (10:00)
[2016-06-01] MEDS: VANCOMYCIN 750 MG in DEXTROSE 5% 150 ML IVPB SCH (10:01)
[2016-06-01] MEDS: ARTIFICIAL TEARS 15 ML OPH BOTH EYES SCH ×2 (10:02→13:23)
--- NOTE | 2016-06-01 10:32 | CONS ---
Date/Time of Note Date/Time of Note DATE: 06/01/16 TIME: 10:32 Assessment/Plan Assessment/Plan Chief Complaint/Hosp Course ID PROGRESS NOTE TOTAL ABX DAY # Vanco IV, Zosyn, Vfend, Flagyl 24H INTERVAL SUMMARY * Eyes open, encephalopathic, muscle spasms vs tics vs seizures * TMax 99.2 PHYSICAL EXAMINATION: GENERAL: VSS, NAD HEENT: Unremarkable NECK: Trach midline CHEST: Rise symmetrical - without dyspnea on observation HEART: RRR ABDOMEN: Soft, EXTREMITIES: Warm, ID ASSESSMENT: 66 yo M w/PMHx Persistent vegetative state admit with: 1. Sepsis with fevers and leukocytosis. 2. Urinary tract infection. 3. Healthcare-associated pneumonia. 4. Chronic VDRF 5. Ongoing seizures. 6. Anemia. 7. Diarrhea==> emp Flagyl 8. Pressure sores (+)MRSA Nares INVASIVES: *PIV, Trach, Peg, FC ABX ALLERGIES: KNDA CURRENT ABX: Vanco IV, Zosyn, Vfend, Flagyl ID RECOMMENDATIONS: Continue ABX until Friday, then taper off ABX except for Flagyl to continue 2 weeks per ID note . Problems: Consultation Date/Type/Reason Admit Date/Time May 14, 2016 at 22:39 Initial Consult Date Type of Consultation: id Exam/Review of Systems Vital Signs Vitals Vital Signs Date Time Temp Pulse Resp B/P Pulse Ox O2 Delivery O2 Flow Rate FiO2 06/01/16 09:10 70 23 100 30 06/01/16 07:36 99.2 99/60 Intake and Output 05/31/16 05/31/16 06/01/16 15:00 23:00 07:00 Intake Total 1479 ml Output Total 950 ml Balance 529 ml Results Result Diagram: 06/01/16 0545 06/01/16 0545 Results 24 hrs Laboratory Tests Test 06/01/16 01:48 06/01/16 05:45 06/01/16 08:20 Bedside Glucose 155 Anion Gap 15 Basophils # 0.0 Basophils % 0.4 Blood Morphology Comment Blood Urea Nitrogen 29 H Calcium Level 7.8 L Carbon Dioxide Level 27 Chloride Level 104 Creatinine 0.58 L Eosinophils # 0.1 Eosinophils % 0.9 Glucose Level 117 Hematocrit 31.0 L Hemoglobin 10.1 L Lymphocytes # 1.0 Lymphocytes % 10.6 L Magnesium Level 2.5 Mean Corpuscular Hemoglobin 27.1 L Mean Corpuscular Hemoglobin Concent 32.7 Mean Corpuscular Volume 83.0 Mean Platelet Volume 9.4 Monocytes # 0.6 Monocytes % 6.4 Neutrophils # 7.6 H Neutrophils % 81.7 H Nucleated Red Blood Cells # 0.0 Nucleated Red Blood Cells % 0.0 Phosphorus Level 3.2 Platelet Count 480 H Potassium Level 4.4 Red Blood Count 3.73 L Red Cell Distribution Width 19.6 H Sodium Level 142 White Blood Count 9.3 # Vancomycin Level Trough 12.3 Medications Medications Current Medications Amiodarone HCl (Cordarone) 200 mg BID GTB Last administered on 06/01/16 09:59 ; Admin Dose 200 MG; Start 05/15/16 at 09:00 Aspirin (Aspirin) 81 mg DAILY GTB Last administered on 06/01/16 09:58; Admin Dose 81 MG; Start 05/15/16 at 09:00 Atorvastatin Calcium (Lipitor) 40 mg QHS GTB Last administered on 05/31/16 22: 38; Admin Dose 40 MG; Start 05/15/16 at 21:00 Clonazepam (Klonopin) 1 mg Q8H PRN GTB ANXIETY Last administered on 05/21/16 20:19; Admin Dose 1 MG; Start 05/15/16 at 02:30 Tramadol HCl (Ultram) 50 mg Q12 GTB Last administered on 06/01/16 09:58; Admin Dose 50 MG; Start 05/15/16 at 09:00 Zinc Sulfate (Zinc Sulfate) 220 mg DAILY GTB Last administered on 06/01/16 10: 00; Admin Dose 220 MG; Start 05/15/16 at 09:00 Multivitamins (Thera-Plus) 5 ml DAILY GTB Last administered on 06/01/16 09:52 ; Admin Dose 5 ML; Start 05/15/16 at 09:00 Ascorbic Acid (Vitamin C) 500 mg DAILY GTB Last administered on 06/01/16 10:00 ; Admin Dose 500 MG; Start 05/15/16 at 09:00 Lansoprazole (Prevacid) 30 mg BID@,18 GTB Last administered on 06/01/16 06: 43; Admin Dose 30 MG; Start 05/15/16 at 06:00 Ondansetron HCl (Zofran Inj) 4 mg Q6H PRN IV NAUSEA AND/OR VOMITING; Start at 02:30 Bisacodyl (Dulcolax Supp) 10 mg DAILY PRN [place] CONSTIPATION; Start 05/15/16 at 02 :30 Eye Lubricant (Artificial Tears Oph) 1 drop TID BOTH EYES Last administered on 06/01/16 10:02; Admin Dose 1 DROP; Start 05/15/16 at 09:00 Acetaminophen (Tylenol Liquid) 650 mg Q4H PRN GTB PAIN AND OR ELEVATED TEMP Last administered on 06/01/16 01:37; Admin Dose 650 MG; Start 05/15/16 at 02:30 Docusate Sodium (Colace Liquid Cup) 100 mg Q12H PRN GTB CONSTIPATION; Start at 02:41 Magnesium Hydroxide (Milk Of Mag) 30 ml DAILY PRN GTB CONSTIPATION Last administered on 05/26/16 09:52; Admin Dose 30 ML; Start 05/15/16 at 02:41 Miscellaneous Information 1 ea NOTE XX ; Start 05/15/16 at 13:30 Lorazepam (Ativan) 1 mg Q4H PRN IV SEIZURES Last administered on 05/27/16 01:14 ; Admin Dose 1 MG; Start 05/16/16 at 14:00 Collagenase (Santyl) 1 applic DAILY TOP Last administered on 05/31/16 09:55; Admin Dose 1 APPLIC; Start 05/17/16 at 09:00 Voriconazole (Vfend) 200 mg BID GTB Last administered on 06/01/16 09:58; Admin Dose 200 MG; Start 05/17/16 at 13:30 Lisinopril (Zestril) 5 mg DAILY GTB Last administered on 05/31/16 09:56; Admin Dose 5 MG; Start 05/18/16 at 09:00 Miscellaneous Information IVPB IN D5W WHERE POSSIBLE Q8H XX Last administered on 05/26/16 17:48; Admin Dose 1 EA; Start 05/21/16 at 11:30 Piperacillin Sod/ Tazobactam Sod/ Dextrose (Zosyn/D5W) 100 ml @ 200 mls/hr Q6 IVPB Last administered on 06/01/16 06:43; Admin Dose 200 MLS/HR; Start at 18:00 Levetiracetam (Keppra Liquid) 1,500 mg BID GTB Last administered on 06/01/16 09:52; Admin Dose 1,500 MG; Start 05/25/16 at 09:00 Lactobacillus Acidoph/ Bulgaricus 1 tab 1 tab TID PEG Last administered on 06/01 10:00; Admin Dose 1 TAB; Start 05/25/16 at 14:30 Vancomycin HCl/ Dextrose/Water (Vancocin/D5W) 150 ml @ 75 mls/hr Q24H IVPB Last administered on 06/01/16 10:01; Admin Dose 75 MLS/HR; Start 05/29/16 at 09: 00 Metronidazole (Flagyl) 500 mg Q8 PO Last administered on 06/01/16 06:43; Admin Dose 500 MG; Start 05/28/16 at 23:00 Digoxin (Digoxin) 0.125 mg Q48H GTB Last administered on 05/30/16 12:19; Admin Dose 0.125 MG; Start 05/30/16 at 13:00 Potassium Chloride (Potassium Chloride Pwd/Soln) 20 meq BID GTB Last administered on 06/01/16 09:57; Admin Dose 20 MEQ; Start 05/29/16 at 21:00 Carvedilol (Coreg) 3.125 mg BID GTB Last administered on 05/31/16 09:56; Admin Dose 3.125 MG; Start 05/30/16 at 11:00 Lacosamide (Vimpat Liq) 200 mg Q12 GTB Last administered on 06/01/16 09:53; Admin Dose 200 MG; Start 05/30/16 at 21:00 Miscellaneous Information (*Rx Drug Level Order Reminder*) 1 ONCE ONCE XX ; Start 06/01/16 at 08:00; Stop 06/01/16 at 08:01 MIKIE FISH NP Jun 01, 2016 10:32
[2016-06-01] MEDS: DIGOXIN 0.125 MG TAB GTB SCH (13:00)
--- NOTE | 2016-06-01 14:30 | PN ---
Date/Time of Note Date/Time of Note DATE: 06/01/16 TIME: 14:15 Assessment/Plan VTE Prophylaxis VTE Prophylaxis Intervention: other (xarelto) Lines/Catheters IV Catheter Type (from Nrs): Saline Lock Urinary Cath still in place: Yes Reason Cath still needed: urinary retention Assessment/Plan Assessment/Plan 66-year-old male with: 1. Recurrent Fevers. Afebrile x 48 hrs and WBC scan negative, WBC trended down to normal x almost a week now ? central fevers Bases on sputum cx and blood cx, on Zosyn and Vanco, Urine cx with yeast non kendra albicans on Voriconazole Repeat blood cx NGTD. Continue current abx for now, Vancomycin, Zosyn and Voriconazole x 3 more days per ID Continue Flagyl x 14 days. D/c plan today back to SNF. 2. Diarrhea, Loose stool, rectal tube had to be placed, C diff negative. Flagyl to be continued x 14 days per ID. Improving 3. Chronic respiratory failure, status post tracheostomy and PEG tube placement. Continue ventilator support. Patient seems to be comfortable back on his maintenance settings now. 4. Paroxysmal atrial fibrillation. Continue current regimen. HR sometimes downs to 40's, change Amio to 200 mg po daily amd d/c digoxin On Xarelto 15 mg daily for anticoagulation and stroke prevention. 5. Coronary artery disease, ischemic cardiomyopathy, systolic dysfunction, congestive heart failure, ejection fraction of 20%. Continue medical management Monitor volume status closely. Continue free water with tube feedings. 6. Severe chronic encephalopathy mostly in the persistent vegetative state. The patient occasional at best is opening his eyes lately but not tracking and he is quadriplegic and vent dependent. 7. Diabetes mellitus. Continue diabetic tube feeding and sliding scale insulin. 8. Seizure disorder, with episodes of breakthrough seizures vs chills when febrile Tylenol prn fever and Ativan prn Continue Keppra and Vimpat per Gtube. 9. Neurogenic bladder. Mc dependent. Renal function stable. Urine cx with yeast non kendra albicans, on Voriconazole. Changed Mc 10. Sacral decubitus ulcers, Stage 3. Healing well per wound care RNs Continue wound care. 11. Chronic anemia, stable hemoglobin. Continue PPI for GI prophylaxis. 12. Hypernatremia: on increase Free H2O with improving hypernatremia, Na down to 145 Monitor volume status closely, patient with CHF and getting IV abx. 13. Transaminitis: LFTs improved lately, continue to monitor periodically. Prophylaxis: Prevacid for GI prophylaxis and is already on anticoagulation with Xarelto in setting of atrial fibrillation. DISPOSITION: D/c back to SNF today. Family/Palliative care 2nd meeting currently with Dr Steward. Full Code. Subjective 24 Hr Interval Summary Free Text/Dictation Patient with episodes of bradycardia in the 40's but remaining stable Afebrile so far and apparently. Seems back to his unfortunate baseline x 24 hrs at least, no new source of infection, d/c to snf today with abx per ID recommendations Appreciate assistance from Dr Shafer who is currently meeting with Family Exam/Review of Systems Vital Signs Vitals Vital Signs Date Time Temp Pulse Resp B/P Pulse Ox O2 Delivery O2 Flow Rate FiO2 06/01/16 13:15 48 18 100 30 06/01/16 11:00 98.1 100/65 Intake and Output 05/31/16 05/31/16 06/01/16 15:00 23:00 07:00 Intake Total 1479 ml Output Total 950 ml Balance 529 ml Exam Constitutional: other (mostly unresponsive ) Respiratory: clear to auscultation, normal air movement Cardiovascular: regular rate and rhythm Gastrointestinal: non-tender, soft Musculoskeletal: nl extremities to inspection Extremities: normal pulses, other (no edema, clubbing or cyanosis ) Neurological: unresponsive (mostly) Results Result Diagram: 06/01/16 0545 06/01/16 0545 Results 24 hrs Laboratory Tests Test 06/01/16 01:48 06/01/16 05:45 06/01/16 08:20 Bedside Glucose 155 Anion Gap 15 Basophils # 0.0 Basophils % 0.4 Blood Morphology Comment Blood Urea Nitrogen 29 H Calcium Level 7.8 L Carbon Dioxide Level 27 Chloride Level 104 Creatinine 0.58 L Eosinophils # 0.1 Eosinophils % 0.9 Glucose Level 117 Hematocrit 31.0 L Hemoglobin 10.1 L Lymphocytes # 1.0 Lymphocytes % 10.6 L Magnesium Level 2.5 Mean Corpuscular Hemoglobin 27.1 L Mean Corpuscular Hemoglobin Concent 32.7 Mean Corpuscular Volume 83.0 Mean Platelet Volume 9.4 Monocytes # 0.6 Monocytes % 6.4 Neutrophils # 7.6 H Neutrophils % 81.7 H Nucleated Red Blood Cells # 0.0 Nucleated Red Blood Cells % 0.0 Phosphorus Level 3.2 Platelet Count 480 H Potassium Level 4.4 Red Blood Count 3.73 L Red Cell Distribution Width 19.6 H Sodium Level 142 White Blood Count 9.3 # Vancomycin Level Trough 12.3 Medications Medications Current Medications Amiodarone HCl (Cordarone) 200 mg BID GTB Last administered on 06/01/16 09:59 ; Admin Dose 200 MG; Start 05/15/16 at 09:00 Aspirin (Aspirin) 81 mg DAILY GTB Last administered on 06/01/16 09:58; Admin Dose 81 MG; Start 05/15/16 at 09:00 Atorvastatin Calcium (Lipitor) 40 mg QHS GTB Last administered on 05/31/16 22: 38; Admin Dose 40 MG; Start 05/15/16 at 21:00 Clonazepam (Klonopin) 1 mg Q8H PRN GTB ANXIETY Last administered on 05/21/16 20:19; Admin Dose 1 MG; Start 05/15/16 at 02:30 Tramadol HCl (Ultram) 50 mg Q12 GTB Last administered on 06/01/16 09:58; Admin Dose 50 MG; Start 05/15/16 at 09:00 Zinc Sulfate (Zinc Sulfate) 220 mg DAILY GTB Last administered on 06/01/16 10: 00; Admin Dose 220 MG; Start 05/15/16 at 09:00 Multivitamins (Thera-Plus) 5 ml DAILY GTB Last administered on 06/01/16 09:52 ; Admin Dose 5 ML; Start 05/15/16 at 09:00 Ascorbic Acid (Vitamin C) 500 mg DAILY GTB Last administered on 06/01/16 10:00 ; Admin Dose 500 MG; Start 05/15/16 at 09:00 Lansoprazole (Prevacid) 30 mg BID@ GTB Last administered on 06/01/16 06: 43; Admin Dose 30 MG; Start 05/15/16 at 06:00 Ondansetron HCl (Zofran Inj) 4 mg Q6H PRN IV NAUSEA AND/OR VOMITING; Start at 02:30 Bisacodyl (Dulcolax Supp) 10 mg DAILY PRN MI CONSTIPATION; Start 05/15/16 at 02 :30 Eye Lubricant (Artificial Tears Oph) 1 drop TID BOTH EYES Last administered on 06/01/16 13:23; Admin Dose 1 DROP; Start 05/15/16 at 09:00 Acetaminophen (Tylenol Liquid) 650 mg Q4H PRN GTB PAIN AND OR ELEVATED TEMP Last administered on 06/01/16 01:37; Admin Dose 650 MG; Start 05/15/16 at 02:30 Docusate Sodium (Colace Liquid Cup) 100 mg Q12H PRN GTB CONSTIPATION; Start at 02:41 Magnesium Hydroxide (Milk Of Mag) 30 ml DAILY PRN GTB CONSTIPATION Last administered on 05/26/16 09:52; Admin Dose 30 ML; Start 05/15/16 at 02:41 Miscellaneous Information 1 ea NOTE XX ; Start 05/15/16 at 13:30 Lorazepam (Ativan) 1 mg Q4H PRN IV SEIZURES Last administered on 05/27/16 01:14 ; Admin Dose 1 MG; Start 05/16/16 at 14:00 Collagenase (Santyl) 1 applic DAILY TOP Last administered on 05/31/16 09:55; Admin Dose 1 APPLIC; Start 05/17/16 at 09:00 Voriconazole (Vfend) 200 mg BID GTB Last administered on 06/01/16 09:58; Admin Dose 200 MG; Start 05/17/16 at 13:30 Lisinopril (Zestril) 5 mg DAILY GTB Last administered on 05/31/16 09:56; Admin Dose 5 MG; Start 05/18/16 at 09:00 Miscellaneous Information IVPB IN D5W WHERE POSSIBLE Q8H XX Last administered on 05/26/16 17:48; Admin Dose 1 EA; Start 05/21/16 at 11:30 Piperacillin Sod/ Tazobactam Sod/ Dextrose (Zosyn/D5W) 100 ml @ 200 mls/hr Q6 IVPB Last administered on 06/01/16 13:23; Admin Dose 200 MLS/HR; Start at 18:00 Levetiracetam (Keppra Liquid) 1,500 mg BID GTB Last administered on 06/01/16 09:52; Admin Dose 1,500 MG; Start 05/25/16 at 09:00 Lactobacillus Acidoph/ Bulgaricus 1 tab 1 tab TID PEG Last administered on 06/01 13:22; Admin Dose 1 TAB; Start 05/25/16 at 14:30 Vancomycin HCl/ Dextrose/Water (Vancocin/D5W) 150 ml @ 75 mls/hr Q24H IVPB Last administered on 06/01/16 10:01; Admin Dose 75 MLS/HR; Start 05/29/16 at 09: 00 Metronidazole (Flagyl) 500 mg Q8 PO Last administered on 06/01/16 13:22; Admin Dose 500 MG; Start 05/28/16 at 23:00 Digoxin (Digoxin) 0.125 mg Q48H GTB Last administered on 05/30/16 12:19; Admin Dose 0.125 MG; Start 05/30/16 at 13:00 Potassium Chloride (Potassium Chloride Pwd/Soln) 20 meq BID GTB Last administered on 06/01/16 09:57; Admin Dose 20 MEQ; Start 05/29/16 at 21:00 Carvedilol (Coreg) 3.125 mg BID GTB Last administered on 05/31/16 09:56; Admin Dose 3.125 MG; Start 05/30/16 at 11:00 Lacosamide (Vimpat Liq) 200 mg Q12 GTB Last administered on 06/01/16 09:53; Admin Dose 200 MG; Start 05/30/16 at 21:00 Miscellaneous Information (*Rx Drug Level Order Reminder*) 1 ONCE ONCE XX ; Start 06/01/16 at 08:00; Stop 06/01/16 at 08:01 SHELDON VAZQUEZ Jun 01, 2016 14:25
--- NOTE | 2016-06-01 14:48 | PDOCDIS ---
Discharge Instructions CONDITION Patient Condition: Stable HOME CARE INSTRUCTIONS: Special Diet: gj tube feeding ACTIVITY: Activity Restrictions Comment: Bed ridden and vent dependent FOLLOW UP/APPOINTMENTS Appointments Follow up with Dr Crump at [facility] SHELDON VAZQUEZ Jun 01, 2016 14:48
[2016-06-01] MEDS: RIVAROXABAN 15 MG TABLET PO SCH (17:40)
[2016-06-02] MEDS ORDERED: AMIODARONE 200 MG TAB GTB SCH (09:00)
--- NOTE | 2016-06-18 05:21 | DS ---
DATE OF ADMISSION: 05/14/2016 DATE OF DISCHARGE: 06/01/2016 ADMITTING PHYSICIAN: Dr. Napier DISCHARGING PHYSICIAN: Dr. Napier BAG BLEACHER DURING THIS ADMISSION: Dr. Baker from cardiology, Dr. Shafer from palliative care, Dr Jewels Toth from infectious disease. CHIEF COMPLAINT ON ADMISSION: Fever. PRIMARY CARE PHYSICIAN: Dr. Crump from halfway facility. BRIEF HISTORY OF PRESENT ILLNESS: This is an unfortunate 66-year-old male with known persistent veg etative state, quadriplegia, status post PEG and trach, ventilator dependent, paroxysmal atrial fibr illation, multiple episodes of pneumonia and sepsis, septic shock, who was recently discharged from another acute hospital and again readmitted at [facility] with episode of fever an d signs of sepsis and probable underlying pneumonia. The patient was admitted to a telemetry bed. He is a chronic ventilator dependent patient. He was also noted to have seizures and was restarted on his anti-seizure medication on admission. HOSPITAL COURSE: The patient was admitted to a telemetry bed again. Especially when febrile, he wa s noted to have episodes of seizures. His Keppra and Vimpat were resumed. He had episodes of V-tac h versus AFib with a left bundle branch block requiring for his amiodarone to be continued and maint ained. The patient's white blood cell count did normalize within a few days. He, however, remained febrile throughout. Despite extensive workup, there were no new cultures growing. Infectious dise ase was consulted. We finally had to do a packed white blood cell study which came back negative. The patient was maintained on his antibiotic therapy throughout his stay, and he became finely afebr ile for at least 3 days prior to discharge. During this admission, I had a discussion with the nidhi ent's family regarding the patient's code status and goals of care as he has been continuously decli jama lately with multiple episodes of sepsis and septic shock with known persistent vegetative state and congestive heart failure along with episodes of arrhythmias. Dr. Shafer was consulted. He w as able to talk to the family by the time of discharge, and they were agreeable to a DNR status with hospice care. The patient was therefore discharged back to his subacute facility afebrile, white c ount within normal, back on his outpatient medication, but with known poor prognosis and high chance of readmission for another episode of sepsis sooner rather than later. This was communicated to Dr Jewels Crump also at the time of discharge in order to obtain hospice consult at the subacute facility and make sure to adjust his code status to a DO NOT RESUSCITATE. DISPOSITION: Discharge back to subacute facility. DISCHARGE CONDITION: Back to his baseline which is unfortunately poor at this time. DISCHARGE ACTIVITY: The patient is bedridden in a permanent vegetative state. DISCHARGE DIET: He is on tube feeding while on the ventilator. FOLLOWUP: The patient is to follow up with Dr. Crump at the subacute facility with hospice consu lt to be placed. DISCHARGE DIAGNOSES: 1. Recurrent fevers with findings of non-Ashley albicans in urine and treatment for pneumonia on a dmission. 2. Chronic respiratory failure, status post tracheostomy and PEG. 3. Paroxysmal atrial fibrillation. 4. Coronary artery disease. 5. Ischemic cardiomyopathy. 6. Congestive heart failure, chronic systolic dysfunction. 7. Severe chronic encephalopathy. 8. Diabetes mellitus. 9. Seizure disorder. 10. Neurogenic bladder. 11. Sacral decubitus ulcers, stage III. 12. Chronic anemia. 13. Hypernatremia, resolved. 14. Transaminitis, resolving. 15. Loose stools, resolving. DISCHARGE MEDICATIONS: 1. Amiodarone 200 mg per G-tube b.i.d. 2. Aspirin 81 mg per G-tube daily. 3. Lipitor 40 mg per G-tube at bedtime. 4. Klonopin 1 mg per G-tube p.r.n. anxiety. 5. Tramadol 50 mg q. 12 hours per G-tube. 6. Zinc sulfate 220 mg daily per G-tube. 7. Multivitamin 5 mL daily per G-tube. 8. Vitamin C 500 mg daily per G-tube. 9. Prevacid 30 mg b.i.d. per G-tube. 10. Dulcolax suppository 10 mg daily as needed. 11. ____ t.i.d. 12. Tylenol per G-tube 650 mg q. 4 hours p.r.n. pain or fevers. 13. Colace 100 mg per G-tube p.r.n. constipation, 14. Milk of magnesia 30 mL per G-tube p.r.n. constipation. 15. Ativan 1 mg per G-tube. 16. Santyl 1 application daily to decubitus ulcers. 17. Voriconazole 200 mg per G-tube b.i.d. 18. Lisinopril 5 mg per G-tube daily. 19. Keppra 1500 mg per G-tube b.i.d. 20. Lactobacillus 1 tab per G-tube t.i.d. 21. Digoxin 0.125 mg per G-tube q. 48 hours. 22. Carvedilol 3.125 mg b.i.d. per G-tube. 23. Vimpat 200 mg q. 12 hours per G-tube. 24. Zosyn 3.125 grams IV q. 6 hours for 3 more days. 25. Vancomycin to be dosed per pharmacy for 3 more days. 26. Flagyl 500 mg per G-tube q. 8 hours for 10 more days. Dictated By: SHELDON MART/NTS Conf#: [id number] DID#: [id number]
== END 2016-06-01 18:51 | DRG 871 ==
LOC: E/R 20:15 → TEL 22:39
PROVIDERS: ADMIT Internal Medicine; ATTEND Internal Medicine
PROC: 5A1945Z Respiratory Ventilation, 24-96 Consecutive Hours (ICD-10-PCS; principal; 2016-05-14)
DX: A41.9 Sepsis, unspecified organism (principal); J18.9 Pneumonia, unspecified organism; G93.1 Anoxic brain damage, not elsewhere classified; R40.3 Persistent vegetative state; Z99.11 Dependence on respirator [ventilator] status; E87.0 Hyperosmolality and hypernatremia; J96.11 Chronic respiratory failure with hypoxia; L89.893 Pressure ulcer of other site, stage 3; R53.2 Functional quadriplegia; R18.8 Other ascites; I50.22 Chronic systolic (congestive) heart failure; L89.153 Pressure ulcer of sacral region, stage 3; L89.152 Pressure ulcer of sacral region, stage 2; Z93.0 Tracheostomy status; E11.43 Type 2 diabetes mellitus with diabetic autonomic (poly)neuropathy; I48.0 Paroxysmal atrial fibrillation; E87.8 Other disorders of electrolyte and fluid balance, not elsewhere classified; Z93.1 Gastrostomy status; N31.9 Neuromuscular dysfunction of bladder, unspecified; G40.909 Epilepsy, unspecified, not intractable, without status epilepticus; I25.10 Atherosclerotic heart disease of native coronary artery without angina pectoris; I25.5 Ischemic cardiomyopathy; D64.9 Anemia, unspecified; J40 Bronchitis, not specified as acute or chronic; Y95 Nosocomial condition; E87.6 Hypokalemia; R74.0 Nonspecific elevation of levels of transaminase and lactic acid dehydrogenase [LDH]; Z66 Do not resuscitate; R19.7 Diarrhea, unspecified; I25.2 Old myocardial infarction; Z22.322 Carrier or suspected carrier of Methicillin resistant Staphylococcus aureus; Z79.82 Long term (current) use of aspirin; Z79.02 Long term (current) use of antithrombotics/antiplatelets; Z79.01 Long term (current) use of anticoagulants
CPT/HCPCS: 36415; 36600; 70450; 71010; 71250; 74000; 78806; 80048; 80053; 80076; 80162; 80202; 81001; 81003; 82140; 82550; 82553; 82803; 82962; 83605; 83735; 83935; 84100; 84300; 84484; 85025; 85610; 85651; 85730; 86480; 86635; 87040; 87070; 87075; 87081; 87086; 87400; 89220; 93005; 93306; 94002; 94003; 94640; 96374; 96375; A9570; J0692; J1815; J1940; J1953; J1956; J2060; J2543; J3370; J3465; J3475; J3480; J7030; J7050; J7070